=== PATIENT | female | born 1950 | race Caucasian/White ===

== ENCOUNTER → 2016-12-13 | Outpatient (CLI) | payer OTHER ==
[~2016-12-13] MED LIST: ACET-1138 PO; ASPEC81 PO; ATEN100T PO; ATOR-24 PO; CALC500C70 PO; CYAN10005 PO; FEXO1TAB46 PO; FOLI1TAB7 PO; GLIP-197 PO; GLUC10007 PO; LEVO150T PO; LISI5TAB PO; MRLP17 PO; MULT-506 PO; NRN/300 PO; OMEG10007 PO; OXYSR10 PO; PANT1TAB48 PO; RXC5 PO; SENN8.6T7 PO; SOY50CAP PO; TRIATAB3 PO; VITA1CAP PO
--- NOTE | 2016-12-13 15:19 | MAMMOGRAPHY REPORT ---
BILATERAL DIGITAL SCREENING MAMMOGRAM WITH CAD: 12/13/2016 CLINICAL HISTORY: Routine screening. Patient has no complaints. TECHNIQUE: Bilateral CC and MLO views were obtained. Current study was also evaluated with a Compute r Aided Detection (CAD) system. COMPARISON: Comparison is made to exams dated: 12/12/2015 mammogram, 10/28/2014 mammogram, 10/25/2013 ma mmogram, 10/31/2012 mammogram, 10/19/2012 mammogram, and 10/15/2011 mammogram - [facility] er. BREAST COMPOSITION: There are scattered areas of fibroglandular density in both breasts. FINDINGS: There are scattered stable benign-appearing microcalcifications. Benign-appearing 12 mm ma ss in the right upper outer quadrant is unchanged in size and appearance dating back to at least 08/11, therefore likely benign. No new suspicious mass, architectural distortion or cluster of micr ocalcifications is seen. IMPRESSION: ACR BI-RADS CATEGORY 1: NEGATIVE There is no mammographic evidence of malignancy. A 1 year screening mammogram is recommended. The pa tient will receive written notification of the results. Approximately 10% of breast cancers are not detected with mammography. A negative mammographic report should not delay biopsy if a clinically suggestive mass is present. Smiley Rico M.D. ay/:12/13/2016 14:56:33 Lead Caster: Ariadna BANDA(R)(M), [facility] letter sent: Normal 1/2 BI-RADS Code: ACR BI-RADS Category 1: Negative
== END | disposition home or self-care (01) ==
LOC: C.MAMM 13:47
PROVIDERS: ATTEND Family Medicine
DX: Z12.31 Encounter for screening mammogram for malignant neoplasm of breast (principal)

== ENCOUNTER 2018-07-28 05:22 | Inpatient (IN) ==
--- NOTE | 2018-06-28 13:01 | Anesthesiology Consultation ---
Date of Service June 28, 2018 Assessment & Plan (1) Encounter for pre-operative examination: Chart Review Chart Review: Acceptable Risk for Surgery and Patient seen in Pre Admission Testing Consults Requested medical (Dr. Cullen (07/07 @ 7:25)) Patient was seen by her PCP, who stated in his note that "patient does have increased risk related to her multiple medical issues" "However, she has been clinically stable and is tolerating her current medications. Her coronary artery disease is managed with medication and she has no active symptoms." "At this point, no changes are needed in her medical regimen or further studies are needed prior to proposed right total knee arthroplasty". Teaching & Discussion Pre-Anesthesia Teaching/Discussion Notes: Instructed NPO after midnight before surgery, except medications with 15 cc of water. Medication instructions provided according to the PAT guidelines. History Surgery Operation Date: 07/28/18 10:20 Proposed Procedures p Right Total Knee Arthroplasty - Bruce Zuniga DO Height/Weight Height: 5 ft 6.5 in Weight: 94 kg Allergies Allergy/AdvReac Type Severity Reaction Status Date / Time pollen extracts Allergy Unknown HAYFEVER Verified 04/26/16 09:26 metformin AdvReac Intermediate tachycardia Unverified 04/26/16 17:49 Medications Home Medications Medication Instructions Recorded Confirmed Last Taken ascorbic acid (vitamin C) [Vitamin 1 g PO QAM 06/22/18 06/22/18 Unknown C] aspirin [Aspirin Childrens] 81 mg PO QAM 06/22/18 06/22/18 Unknown atenolol 50 mg PO QAM 06/22/18 06/22/18 Unknown calcium carbonate-vitamin D3 1 tab PO BID 06/22/18 06/22/18 Unknown [Calcium 600 + D(3)] cholecalciferol (vitamin D3) 1,000 unit PO QAM 06/22/18 06/22/18 Unknown [Vitamin D3] fexofenadine [Aleisha Allergy] 180 mg PO QAM 06/22/18 06/22/18 Unknown folic acid 1 mg PO QAM 06/22/18 06/22/18 Unknown gabapentin 300 mg PO BID 06/22/18 06/22/18 Unknown gabapentin 600 mg PO BID 06/22/18 06/22/18 Unknown glipizide 5 mg PO BID 06/22/18 06/22/18 Unknown glucosamine sulfate [Glucosamine] 500 mg PO BID 06/22/18 06/22/18 Unknown levothyroxine 137 mcg PO QAM 06/22/18 06/22/18 Unknown lisinopril 5 mg PO QAM 06/22/18 06/22/18 Unknown wsmuhulnazuq-fppxvbko-bhtefk 1 tab PO QAM 06/22/18 06/22/18 Unknown [Multivitamin 50 Plus] omega 2-xwj-lxo-fish oil [Fish Oil] 2 cap PO BID 06/22/18 06/22/18 Unknown pantoprazole 40 mg PO QAM 06/22/18 06/22/18 Unknown soy isoflavone 1 tab PO QPM 06/22/18 06/22/18 Unknown thiamine HCl (vitamin B1) [Vitamin 50 mg PO QAM 06/22/18 06/22/18 Unknown B-1] triamterene-hydrochlorothiazid 1 tab PO QAM 06/22/18 06/22/18 Unknown [Maxzide-25mg] vitamin E 200 unit PO QPM 06/22/18 06/22/18 Unknown Past Medical History Medical History Diabetes mellitus, type 2 Environmental allergies GERD (gastroesophageal reflux disease) Hx of vertigo Hyperlipidemia Hypertension Osteoarthritis Seasonal allergies Past Surgical History Surgical History History of back surgery Had laser back in 03/2018 in [place] History of cardiac cath 2016 - Done prior to surgery d/t Possible heart murmur. Done [facility] History of carpal tunnel surgery of right wrist History of left knee replacement History of surgery right wrist x2 Hx of ankle fusion right Hx of appendectomy Hx of arthroscopic knee surgery left Hx of bilateral cataract extraction Hx of cervical spine surgery Hx of decompression of ulnar nerve right Hx of hand surgery right Hx of tubal ligation Hx of vaginal surgery LEEP? (Due to precancerous cells on cervix) Past Anesthesia History No Hx of Anesthesia Complications (Is slow to wake. ) and No Family Hx of Anesthesia Complications History of PONV No Motion Sickness Screening History of Motion Sickness: Yes (Needs to take Meclizine for car rides. ) Social History Smoking Status: Former smoker Smoking cigarettes per day: Smoked 1-2 ppd x 15 years. Smoking End Date: quit 2001 Hx Alcohol Use: Yes alcohol intake frequency: holidays/special occasions only Hx Substance Use: No Exercise / Class Metabolic Activity III < 4 Walking/Shop/Light housework (Minimal activity due to knee pain. Does not have stairs at home, but is able to climb stairs if necessary. Denies CP or SOB with activity, just joint pain. ) Review of Systems Patient denies chest pain, shortness of breath, dyspnea on exertion, reflux ( controlled by medication), cough (only when she has post nasal drip), wheezing, palpitations. +joint pain (knees, back, hands, etc) Physical Exam Vital Signs BP: 110/56 P: 60 R: 18 T: 97.8 SPO2: 98% on RA ENMT Mouth: + dentures (Upper and Lower) and + edentulous Thyromental Distance: < 3.5 Finger Breadths (3) Mallampati Class: II Neck normal visual inspection and trachea midline; neck extension not limited Respiratory normal respiratory effort Auscultation: lungs clear to auscultation bilaterally Cardiovascular Rate/Rhythm: regular rate and regular rhythm Heart Sounds: + murmur (3/6 murmur) Vessels: no carotid bruit Neurologic moves all extremities Psychiatric Orientation: alert and oriented x 3 Testing Electrocardiogram Date: 02/22/18 Findings: + SB @ (59) and + no change from (03/03/16) Sinus bradycardia with sinus arrhythmia. Nonspecific ST abnormality. Echocardiogram Date: 02/28/18 EF: 54% LV wall thickness is mildly increased (concentric). There is a small sized inferior scar. Moderate aortic valve sclerosis is present without stenosis. Moderate aortic valve regurgitation is present. Compared to the prior study dated 01/26/16, moderate aortic valve regurgitation as present as compared to mild to moderate aortic regurgitation noted in 2016. Cardiac Catheterization Date: 03/09/16 Right dominant coronary anatomy Chronic mid vessel right coronary occlusion with L-R collateral fill, modest visualizing a long thin PDA, two small PV branches faintly but back to point of occlusion Moderate diffuse atherosclerosis with small vessel left coronary vessels, distal vessel thinning LAD Type 3, with 40% smooth proximal narrowing thin apical segment. Two moderate sized mid vessel diagonals Ramus moderate sized, bifurcating CX Modest caliber with single OM two small PL branches Moderate 1-2+ aortic insufficiency No aortic valve gradient on pull back LVEDP normal, 8 Laboratory Results 06/28/18 14:10 06/28/18 14:10 Blood Type O Positive 06/28/18 14:10 Antibody Screen NEGATIVE 06/28/18 14:10 PT 9.7 Seconds (9.0-12.0) 06/28/18 14:10 INR 1.0 (0.9-1.1) 06/28/18 14:10 APTT 27.4 Seconds (21.0-31.0) 06/28/18 14:10 Hemoglobin A1c 7.2 % (4.5-5.6) H 06/28/18 14:10 Urine Color Yellow 06/28/18 Unknown Urine Appearance Clear (Clear) 06/28/18 Unknown Urine pH 7.0 (4.5-7.5) 06/28/18 Unknown Ur Specific [place] 1.017 (1.000-1.030) 06/28/18 Unknown Urine Protein Trace (Negative) H 06/28/18 Unknown Urine Glucose (UA) Negative (Negative) 06/28/18 Unknown Urine Ketones Negative (Negative) 06/28/18 Unknown Urine Nitrite Negative (Negative) 06/28/18 Unknown Ur Leukocyte Esterase Negative (Negative) 06/28/18 Unknown Urine WBC (Auto) 1-5 /hpf (0-5) 06/28/18 Unknown Urine RBC (Auto) 0-4 /hpf (0-4) 06/28/18 Unknown U Hyaline Cast (Auto) 0 /lpf (0-5) 06/28/18 Unknown U Epithel Cells (Auto) >30 /lpf (0-5) H 06/28/18 Unknown Urine Bacteria (Auto) Negative (Negative) 06/28/18 Unknown
--- NOTE | 2018-06-28 13:10 | PAT Medication Instructions ---
Medication Instructions Date of Service June 28, 2018 Home Medications ascorbic acid (vitamin C) 1 g PO QAM aspirin [Aspirin Children's] 81 mg PO QAM atenolol 50 mg PO QAM calcium carbonate-vitamin D3 1 tab PO BID cholecalciferol (vitamin D3) 1,000 unit PO QAM fexofenadine [Aleisha Allergy] 180 mg PO QAM folic acid 1 mg PO QAM gabapentin 300 mg PO BID gabapentin 600 mg PO BID glipizide 5 mg PO BID glucosamine sulfate [Glucosamine] 500 mg PO BID levothyroxine 137 mcg PO QAM lisinopril 5 mg PO QAM kykuirjynmze-vfiehium-qyhuty 1 tab PO QAM omega 2-rah-cnr-fish oil [Fish Oil] 2 cap PO BID pantoprazole 40 mg PO QAM soy isoflavone 1 tab PO QPM thiamine HCl (vitamin B1) 50 mg PO QAM triamterene-hydrochlorothiazide [Maxzide-25mg] 1 tab PO QAM vitamin E 200 unit PO QPM ASK your prescriber and surgeon aspirin [Aspirin Children's] 81 mg PO QAM STOP taking 2 weeks before surgery glucosamine sulfate [Glucosamine] 500 mg PO BID omega 6-dcm-cvd-fish oil [Fish Oil] 2 cap PO BID soy isoflavone 1 tab PO QPM vitamin E 200 unit PO QPM DO NOT take the morning of surgery ascorbic acid (vitamin C) 1 g PO QAM calcium carbonate-vitamin D3 1 tab PO BID cholecalciferol (vitamin D3) 1,000 unit PO QAM fexofenadine [Aleisha Allergy] 180 mg PO QAM folic acid 1 mg PO QAM glipizide 5 mg PO BID lisinopril 5 mg PO QAM ffgcskmecarb-qiocdxnh-bpmurm 1 tab PO QAM thiamine HCl (vitamin B1) 50 mg PO QAM triamterene-hydrochlorothiazide [Maxzide-25mg] 1 tab PO QAM Take morning of surgery With a small sip of water, OTHERWISE NOTHING TO EAT OR DRINK AFTER MIDNIGHT: atenolol 50 mg PO QAM gabapentin 300 mg PO BID gabapentin 600 mg PO BID levothyroxine 137 mcg PO QAM pantoprazole 40 mg PO QAM Take evening before surgery calcium carbonate-vitamin D3 1 tab PO BID gabapentin 300 mg PO BID gabapentin 600 mg PO BID glipizide 5 mg PO BID Other Notes If you have any questions please call us at [phone] or [phone] or [phone] or [phone]
--- NOTE | 2018-06-28 14:35 | XRay Report ---
XR chest Pre-admission PA/Lat CLINICAL HISTORY: pat preoperative COMPARISON STUDY: No previous studies for comparison. FINDINGS: The bones soft tissues and hemidiaphragms are normal. The cardiomediastinal silhouette is n ormal. The lungs are clear. The pulmonary vasculature is normal. IMPRESSION: Negative chest. The above report was generated using voice recognition software. It may contain grammatical, syntax or spelling errors. Electronically signed by: Ger Clifton M.D. 06/28/2018 2:34 PM
[2018-06-28 14:44] LABS: Basophils # (auto) 0.02 K/uL (0-0.2); Basophils % (auto) 0.2 %; Eosinophils # (auto) 0.09 K/uL (0-0.5); Eosinophils % (auto) 1.1 %; Hematocrit (blood only) 41.9 % (37-47); Hemoglobin 13.8 g/dL (12.0-16.0); Immature Granulocytes # (auto) 0.01 K/uL (0.00-0.02); Immature Granulocytes % (auto) 0.1 %; Lymphocytes # (auto) 1.42 K/uL (1.2-3.4); Lymphocytes % (auto) 17.7 %; Mean Corpuscular Hgb Conc 32.9 g/dL (32-36); Mean Corpuscular Volume 93.3 fL (80-100); Mean Platelet Volume 10.2 fL (7.4-10.4); Monocytes # (auto) 0.47 K/uL (0.11-0.59); Monocytes % (auto) 5.9 %; Neutrophils # (auto) 6.01 K/uL (1.4-6.5); Platelet Count 229 K/uL (130-400); RDW Coefficient of Variation 13.4 % (11.5-14.5); RDW Standard Deviation 45.8 fL (36.4-46.3); Red Blood Count 4.49 M/uL (4.2-5.4); White Blood Count 8.02 K/uL (4.8-10.8)
[2018-06-28 14:46] LABS: Appearance Urine Clear (Clear); Bacteria Urine Automated Negative (Negative); Bilirubin Urine Negative (Negative); Cast Urine Automated 0 /lpf (0-5); Color Urine Yellow; Epithelial Cell Urine Auto >30 /lpf (0-5); Glucose Urine UA Negative (Negative); Ketones Urine Negative (Negative); Leukocyte Esterase Urine Negative (Negative); Nitrite Urine Negative (Negative); Protein Urine Trace (Negative); Specific Gravity Urine 1.017 (1.000-1.030); Urobilinogen Urine Negative (Negative)
[2018-06-28 14:54] LABS: Partial Thromboplastin Ratio 1.1; Partial Thromboplastin Time 27.4 Seconds (21.0-31.0); Prothrombin Time 9.7 Seconds (9.0-12.0)
[2018-06-28 14:58] LABS: Albumin Level 3.5 gm/dl (3.4-5.0); Calcium 9.2 mg/dl (8.5-10.1); Creatinine Clr Calc Pharmacy 44.2 ml/min; Est GFR (Non-African American) 37.1; Potassium 4.6 mmol/L (3.5-5.1)
[2018-06-29 06:25] LABS: Estimated Average Glucose 160 mg/dl
--- NOTE | 2018-07-27 12:50 | History & Physical Report ---
Date of Service July 27, 2018 Assessment & Plan (1) Osteoarthritis of right knee: Schedule right TKA for 07.28.18. All potential risks, benefits, complications, alternatives, and rehab have been discussed with the patient and she wishes to proceed. Possible home with home health upon d/c. ASA 81 mg BID x 4 wks for DVT prophylaxis post op. History of Present Illness Chief Complaint: right knee pain Primary Care Provider: Ger Holly This is a patient with a long hx of right knee pain. She had been treated conservatively for right knee osteoarthritis however has failed all conservative management. She is now being set up for right TKA. Allergies Allergy/AdvReac Type Severity Reaction Status Date / Time pollen extracts Allergy Unknown HAYFEVER Verified 04/26/16 09:26 metformin AdvReac Intermediate tachycardia Unverified 04/26/16 17:49 Home Medications Home Medications Medication Instructions Recorded Confirmed Type ascorbic acid (vitamin C) [Vitamin 1 g PO QAM 06/22/18 06/22/18 History C] aspirin [Aspirin Childrens] 81 mg PO QAM 06/22/18 06/22/18 History atenolol 50 mg PO QAM 06/22/18 06/22/18 History calcium carbonate-vitamin D3 1 tab PO BID 06/22/18 06/22/18 History [Calcium 600 + D(3)] cholecalciferol (vitamin D3) 1,000 unit PO QAM 06/22/18 06/22/18 History [Vitamin D3] fexofenadine [Aleisha Allergy] 180 mg PO QAM 06/22/18 06/22/18 History folic acid 1 mg PO QAM 06/22/18 06/22/18 History gabapentin 300 mg PO BID 06/22/18 06/22/18 History gabapentin 600 mg PO BID 06/22/18 06/22/18 History glipizide 5 mg PO BID 06/22/18 06/22/18 History glucosamine sulfate [Glucosamine] 500 mg PO BID 06/22/18 06/22/18 History levothyroxine 137 mcg PO QAM 06/22/18 06/22/18 History lisinopril 5 mg PO QAM 06/22/18 06/22/18 History kgfryzyrlcrh-qivvvcfk-wlhafw 1 tab PO QAM 06/22/18 06/22/18 History [Multivitamin 50 Plus] omega 1-spu-ple-fish oil [Fish Oil] 2 cap PO BID 06/22/18 06/22/18 History pantoprazole 40 mg PO QAM 06/22/18 06/22/18 History soy isoflavone 1 tab PO QPM 06/22/18 06/22/18 History thiamine HCl (vitamin B1) [Vitamin 50 mg PO QAM 06/22/18 06/22/18 History B-1] triamterene-hydrochlorothiazid 1 tab PO QAM 06/22/18 06/22/18 History [Maxzide-25mg] vitamin E 200 unit PO QPM 06/22/18 06/22/18 History Past Med/Surg History Medical History Diabetes mellitus, type 2 Environmental allergies GERD (gastroesophageal reflux disease) Hx of vertigo Hyperlipidemia Hypertension Osteoarthritis Seasonal allergies Surgical History History of back surgery Had laser back in 03/2018 in [place] History of cardiac cath 2015 - Done prior to surgery d/t Possible heart murmur. Done [facility] History of carpal tunnel surgery of right wrist History of left knee replacement History of surgery right wrist x2 Hx of ankle fusion right Hx of appendectomy Hx of arthroscopic knee surgery left Hx of bilateral cataract extraction Hx of cervical spine surgery Hx of decompression of ulnar nerve right Hx of hand surgery right Hx of tubal ligation Hx of vaginal surgery LEEP? (Due to precancerous cells on cervix) Social History Current Living Situation: Spouse Other Information That Helps Us Care for You: No Feels Safe at Home: Yes Safety Concerns: Feels Safe At This Time Smoking Status: Former smoker Cigarettes per Day: Smoked 1-2 ppd x 15 years. Smoking End Date: quit 2001 Hx Alcohol Use: Yes Alcohol Intake Frequency: holidays/special occasions only Hx Substance Use: No Beliefs That Will Affect Care: None Preferred Language: Croatian Communication Ability: Effective Physical Exam 2 Constitutional: well developed and well nourished ENMT: external ear and nose normal, oropharynx normal Neck: trachea midline, no thyromegaly Respiratory: normal respiratory effort, lungs clear to auscultation Cardiovascular: Rate/Rhythm: regular rate and regular rhythm Heart Sounds: normal S1 and normal S2 Gastrointestinal (Abdomen): normal bowel sounds, soft, nontender, no hepatosplenomegaly Musculoskeletal: Knee: + effusion (mild right knee), + knee ROM with crepitation, + joint line tenderness (medial and lateral joint lines) and + Sabrina's sign positive; no skin erythema, no ecchymosis, no valgus alignment and no varus alignment Skin: no rashes, warm and dry Neurologic: patellar DTR's 2+ bilat, sensation intact Psychiatric: A+Ox3, euthymic affect Lymphatic: no cervical or axillary lymphadenopathy
[2018-07-28] MEDS ORDERED: FAMOTIDINE 20 MG TAB PO SCH (06:00)
[2018-07-28] MEDS ORDERED: SODIUM CHLORIDE 0.9% 1000ML 500 ML IV SCH (06:00)
[2018-07-28] MEDS ORDERED: CEFAZOLIN 2000MG 2,000 MG/15 ML SYR IV SCH (06:00)
[2018-07-28] MEDS ORDERED: dexAMETHasone 4 MG TAB PO SCH (06:00)
[2018-07-28] MEDS ORDERED: TRANEXAMIC ACID 1,000 MG **IV Pre-op IV SCH (06:00)
[2018-07-28] MEDS ORDERED: CeleBREX 200 MG CAP PO SCH (06:00)
[2018-07-28] MEDS ORDERED: SODIUM CHLORIDE 0.9% 1,000 ML IV SCH (06:00)
[2018-07-28] MEDS ORDERED: GABAPENTIN 300 MG PO SCH (06:00)
[2018-07-28] MEDS ORDERED: ROPIVACAINE 0.5% HCL/PF 150 MG, BUPIVACAINE 0.5% MPF 30 ML, EPINEPHrine 30MG/30ML (OR U... INFIL SCH (06:00)
[2018-07-28] MEDS ORDERED: ACETAMINOPHEN 500 MG TAB PO SCH (06:00)
[2018-07-28] MEDS ORDERED: ROPIVACAINE 0.5% 5 MG/ML 30 ML VIAL ONE (06:13)
[2018-07-28] MEDS ORDERED: BUPIVACAINE 0.5 % 5 MG/1 ML PF 10ML VIAL ONE (06:13)
[2018-07-28] MEDS ORDERED: TRANEXAMIC ACID 1,000 MG **IV Intra-op IV SCH (06:30)
[2018-07-28] MEDS ORDERED: MIDAZOLAM HCL 1 MG/ML 2ML VIAL ONE (06:35)
[2018-07-28] MEDS ORDERED: fentaNYL citrate 100 MCG/2 ML VIAL ONE (06:35)
[2018-07-28] MEDS ORDERED: PROPOFOL IV EMULSION 10 MG/ML 20 ML VIAL IV ONE (06:44)
[2018-07-28] MEDS ORDERED: LIDOCAINE HCL 2% 2 ML VIAL/AMP(20MG/ML) INFIL ONE (06:44)
[2018-07-28] MEDS ORDERED: HYDROmorphone INJ 1 MG/ML SYRINGE IV PRN (06:55)
[2018-07-28] MEDS ORDERED: ONDANSETRON INJ 2 MG/ML 2 ML VIAL IV PRN ×2 (06:55→07:58)
[2018-07-28] MEDS ORDERED: PHENYLEPHRINE 100MCG/ML 5ML SYR IV PRN (06:55)
[2018-07-28] MEDS ORDERED: ePHEDrine sulfate 50 MG/ML AMP IV PRN (06:55)
[2018-07-28] MEDS ORDERED: ATROPINE SULFATE 0.1 MG/ML 10ML SYR IV PRN (06:55)
[2018-07-28] MEDS ORDERED: POVIDONE-IODINE OP SOLN 30 ML BTL ONE (06:58)
[2018-07-28] MEDS ORDERED: BACITRACIN INJ 50,000 UNIT VIAL ONE (06:58)
[2018-07-28] MEDS ORDERED: ORTHO JOINT ANESTHETIC ONE (06:58)
--- NOTE | 2018-07-28 07:34 | History & Physical Bridge Note ---
Date of Service July 28, 2018 History & Physical Bridge Note I have examined the patient, reviewed the History & Physical and in the interval since the performance of the History & Physical I have noted the following changes of clinical significance: no changes noted
[2018-07-28] MEDS ORDERED: NALOXONE HCL 0.4 MG/1 ML VIAL/CARP IV PRN (07:58)
[2018-07-28] MEDS ORDERED: ALUMINUM/MAGNESIUM SUSP 30 ML UDC PO PRN (07:58)
[2018-07-28] MEDS ORDERED: MAGNESIUM HYDROXIDE SUSP 30 ML UDC PO PRN (07:58)
[2018-07-28] MEDS ORDERED: METOCLOPRAMIDE HCL INJ 5 MG/ML 2 ML VIAL IV PRN (07:58)
[2018-07-28] MEDS ORDERED: BISACODYL 10 MG SUPP PR PRN (07:58)
[2018-07-28] MEDS ORDERED: ePHEDrine sulfate 50 MG/ML SYR ONE (08:04)
[2018-07-28] MEDS ORDERED: ONDANSETRON INJ 2 MG/ML 2 ML VIAL ONE (08:22)
--- NOTE | 2018-07-28 09:48 | Post Operative Brief Note ---
Immediate Post Op Note v1 Date of Surgery July 28, 2018 Pre & Post Diagnosis Operation Date: 07/28/18 07:30 Pre-Op Diagnosis: RIGHT KNEE OSTEOARTHRITIS, Degenerative joint disease right knee Post-Op Diagnosis: RIGHT KNEE OSTEOARTHRITIS, Degenerative joint disease right knee Procedure Operation Date: 07/28/18 07:30 Actual Procedures p Right Total Knee Arthroplasty(Right) - Bruce Zuniga DO Surgeon Bruce Zuniga DO [employer] David Agarwal PA-C Estimated Blood Loss 5 Findings Consistent with Post-Op Diagnosis Specimens Bone and tissue right knee Drains Hemovac Drain (10 fr dual) Anesthesia Type Spinal MAC Complications none Disposition Accompanied Patient To Recovery: No Disposition: Recovery Room
[2018-07-28] MEDS ORDERED: MoRPHine SULFATE 4 MG/ML 1 ML CARP\\VIAL IV PRN (10:07)
--- NOTE | 2018-07-28 11:02 | XRay Report ---
TWO VIEWS RIGHT KNEE CLINICAL HISTORY: Postoperative examination. FINDINGS: AP and crosstable lateral portable views of the right knee are obtained. A right knee arthr oplasty is in near anatomic alignment. There has been undersurface remodeling of the patella. No acut e fracture is seen. There are expected postoperative changes around the knee including skin clips, a surgical drain, soft tissue edema, and subcutaneous gas. There is atherosclerotic calcification of th e popliteal artery. IMPRESSION: Expected postoperative changes status post right knee arthroplasty. No acute fracture is seen. Electronically signed by: Nile Schwartz M.D. 07/28/2018 11:00 AM
--- NOTE | 2018-07-28 11:11 | Anesthesiology Progress Note ---
Date of Service July 28, 2018 Anesthesia Post Procedure Vital Signs Vital Signs: Temp Pulse Pulse Resp BP Pulse Ox 07/28/18 10:55 49 L 16 129/73 96 07/28/18 10:45 48 L 14 137/67 96 07/28/18 10:35 51 L 17 148/65 H 96 07/28/18 10:25 49 L 16 131/72 100 07/28/18 10:15 59 L 18 140/70 100 07/28/18 10:07 36.4 C L 53 L 16 131/64 100 07/28/18 06:20 37 C 61 20 150/85 H 96 Pain Intensity Right Knee: Pain Intensity: 0 Notes Mental Status: alert / awake / arousable Patient Amnestic to Procedure: Yes Nausea / Vomiting: adequately controlled Pain: adequately controlled Airway Patency, RR, SpO2: stable & adequate BP & HR: stable & adequate Hydration State: stable & adequate Anesthetic Complications: no major complications apparent
[2018-07-28] MEDS ORDERED: glipiZIDE 5 MG TAB PO SCH (11:28)
[2018-07-28] MEDS: LISINOPRIL 5 MG TAB PO SCH (13:54)
[2018-07-28] MEDS: GLUCOSAMINE SULFATE 500 MG CAP PO SCH ×2 (13:56→21:56)
[2018-07-28] MEDS: OMEGA-3 (PURIFIED FISH OIL) 1 GM CAP PO SCH ×2 (13:56→21:58)
[2018-07-28] MEDS: THIAMINE HCL 50 MG TABLET PO SCH (13:57)
[2018-07-28] MEDS: FEXOFENADINE HCL 180 MG TAB PO SCH (13:57)
[2018-07-28] MEDS: TRIAMTERENE/HCTZ 37.5/25MG TAB PO SCH (13:57)
[2018-07-28] MEDS: KETOROLAC TROMETHAMINE 15 MG/ML VIAL IV SCH ×2 (13:58→19:45)
[2018-07-28] MEDS: CEROVITE ADV FORMULA TAB PO SCH (14:03)
[2018-07-28] MEDS: MULTIVITAMIN TAB PO SCH (14:04)
[2018-07-28] MEDS: DOCUSATE SODIUM 100 MG CAP PO SCH ×2 (14:05→21:55)
[2018-07-28] MEDS: FOLIC ACID 1 MG TAB PO SCH (14:16)
[2018-07-28] MEDS: CALCIUM 600MG + VIT D 400 IU TAB PO SCH ×2 (14:16→21:54)
[2018-07-28] MEDS: CHOLECALCIFEROL 1,000 UNITS TAB PO SCH (14:17)
[2018-07-28] MEDS: ACETAMINOPHEN 500 MG TAB PO SCH ×2 (14:17→21:59)
[2018-07-28] MEDS ORDERED: PHARMACY GLYCEMIC MGMT CONSULT PRN (14:42)
[2018-07-28] MEDS ORDERED: INSULIN GLARGINE SOLOSTAR 100 UNITS/ML 3 ML PEN SC ONE (15:00)
--- NOTE | 2018-07-28 15:01 | Pharmacy Report ---
Glycemic Control Consultation - Date of Service July 28, 2018 - Scope Scope: Glycemic Pharmacist consulted for glycemic control and to write orders per [facility] inpatient glycemic control protocol - Objective Weight: 94.6 kg Accuchecks BSG (last 24hrs): 07/28/18 07/28/18 07/28/18 06:16 10:12 12:16 POC Glucose 148 H 163 H 218 H HbA1c: Hemoglobin A1c 7.2 % (4.5-5.6) H 06/28/18 14:10 - Recent Pertinent Medications Outpatient Anti-diabetic Regimen: * Glipizide 5mg PO BIDM Risk Factors for Insulin Resistance: * Steroids: DXM 8mg PO preop * Recent Surgery * Diet - Assessment & Plan Assessment & Plan: ASSESSMENT: * 67yo T2DM female with adequate outpatient control per recent A1c * Patient with elevated BSGs post-op secondary to pre-op PO dexamethasone * Pt is maintained on oral antidiabetic agents as an outpatient * Oral agents are not recommended for inpatient use d/t drug interactions, changing PO intake, and difficulty titrating for acute hyper/hypoglycemia. ADA recommends re-initiating outpatient oral agents 1-2 days prior to discharge if/ when appropriate if they were held on admission. * Will hold oral agents for admission and utilize SQ basal bolus insulin regimen which is the recommended regimen for inpatient glycemic control. * Will initiate weight based insulin dosing for insulin na�ve patient and titrate based on BSG trends. PLAN FOR INPATIENT GLYCEMIC CONTROL: * Holding outpatient oral diabetes medications * Basal insulin * Lantus 25 units (0.26 units/kg) SQ x 1 dose NOW, then, * Lantus 0-10 units SQ BID if BSG above 140mg/dl * Bolus insulin * NovoLog per scale ACHS or Q6hrs while NPO. Additionally, will check BSGs at 0000 & 0400 for the first 24hrs post-op * Goal Range: Low 110 mg/dL - High 140 mg/dL * Correction Factor: 20 mg/dL/unit * Nutritional / Prandial insulin per carb ratio of 1 unit per 7 grams CHO consumed * Please note that the plan above was derived based on current level of insulin resistance and hospital stress. These recommendations are appropriate for inpatient admission only. Plan of care upon discharge will need to be reassessed to avoid potential outpatient hypo/hyperglycemia. Thank you.
[2018-07-28] MEDS ORDERED: TRANEXAMIC ACID 1,000 MG in 0.9 % SODIUM CHLORIDE 100 ML IV SCH (16:00)
[2018-07-28] MEDS: GABAPENTIN 600 MG TAB PO SCH ×2 (16:04→16:06)
[2018-07-28] MEDS: OXYCODONE HCL IR 5 MG TAB (IMMEDIATE RELEASE) PO PRN ×2 (16:41→22:12)
[2018-07-28] MEDS: CEFAZOLIN 2000MG 2,000 MG/15 ML SYR IV SCH (16:44)
[2018-07-28] MEDS: SODIUM CHLORIDE 0.9% 1000ML 1,000 ML IV SCH ×2 (17:36→19:51)
[2018-07-28] MEDS: INSULIN ASPART 100 UNITS/ML 3 ML PEN SC SCH ×2 (19:43→22:03)
[2018-07-28] MEDS ORDERED: SENNA 8.6 MG TAB PO SCH (21:00)
[2018-07-28] MEDS ORDERED: SOY ISOFLAVONE PO SCH (21:00)
[2018-07-28] MEDS ORDERED: TOCOPHERYL, DL-ALPHA 100 UNITS CAP PO SCH (21:00)
--- NOTE | 2018-07-28 21:39 | Operative Report ---
DATE OF OPERATION: 07/28/2018 PREOPERATIVE DIAGNOSIS: Right knee degenerative joint disease. POSTOPERATIVE DIAGNOSIS: Same. PROCEDURE: Right total knee arthroplasty using a [employer] II with MRI matched blocks, size 5 femur, size 3 tibia, polyethylene 12 mm posterior stabilized, and a 32 mm patella. SURGEON: Bruce Zuniga DO [employer]MENT [employer] TECH: David Agarwal PA-C, who was present for patient positioning, sterile prep and drape, management of retractors and instruments. He was present through the critical portions of the case including wound closure, application of sterile dressing and transport of the patient to recovery. ANESTHESIA: Spinal with sedation, adductor canal block and intra-articular local. SPECIMENS: Bone and tissue from the right knee. DRAINS: Hemovac x2. COMPLICATIONS: None. BLOOD LOSS: 5 mL. PERTINENT HISTORY: This is a 67-year-old woman who had progressive chronic and worsening right degenerative joint disease of the right knee. She attempted and failed conservative management including physical therapy, physician-directed home exercises, oral anti-inflammatories, topical anti-inflammatories, steroid injections, hyaluronic acid injections, use of bracing, use of an assistive device. Radiographs demonstrate bony wear with complete loss of joint space medially, marginal osteophytes, subchondral sclerosis, and subchondral cysts. The patient is scheduled for surgery as indicated. All potential risks, benefits, complications, alternatives, rehab, potential for incomplete relief of symptoms, need for further surgery, DVT, PE, , persistent pain, swelling, scarring, weakness, neurovascular injury, wound complications, hardware failure, and leg length discrepancy were discussed with the patient. The patient decided to proceed with the procedure as indicated. DESCRIPTION OF PROCEDURE: The patient was taken to the Operative Suite and placed supine on the operating table after spinal epidural was initiated. Next, tourniquet was placed high on the right thigh over cast padding and the patient was sedated. The right lower extremity was then sterilely prepped and draped in the usual fashion. It was elevated and exsanguinated with an Esmarch bandage and tourniquet inflated to 325 mmHg. Next, a 10-blade scalpel incision was made along the anterior midline of the right knee with incision deep through the subcutaneous tissue. Meticulous hemostasis was utilized with electrocautery. Full thickness skin flaps were developed both medially and laterally and 10-blade scalpel was used to make a median parapatellar incision in the extensor. The patella was everted and soft tissue releases were performed. The Mays elevator was placed from the posterior aspect of the capsule releasing any contracture. Next, the patella was everted and resurfaced using sagittal saw and orthogonal cuts. After caliper measured 23 mm, residual patella was approximately 13 mm and 32 mm button trial was placed and then drilled. Next, the appropriate retractors were placed and the femoral patient matched cutting block was pinned to the distal aspect of the femur. The distal femoral cut was made and pinned with pins and the distal femoral cutting guide was removed. The size #5, 4-in-1 cutting block was then pinned in place and anterior, posterior, anterior chamfer, and posterior chamfer cuts were made. Block and bone fragments were then removed followed by exposure of the proximal tibia. A dull Hohmann was used to place just posterior to the tibia to protract it. Medial and lateral sharp Hohmann's were placed to protect the soft tissue and the tibial cutting block was then pinned in place. Tibial alignment abdi was utilized to confirm alignment and the proximal tibia was then cut made with sagittal saw. Fragment was removed. The size 3 tibial trial was pinned in place and circumferential proximal release was performed with electrocautery around the proximal tibia. Next, the femoral trial was placed within appropriate medial and lateral alignment and then the cutting block was then put into place. It was reamed and box cut was performed. Excess debris was removed from the femoral notch. The insert was placed into the distal aspect of the femur. Trial poly Size 12 mm was placed in the proximal tibia. The knee was reduced. Trial poly Size 32 mm was placed in the patella. The knee was reduced. Excellent alignment and range of motion was achieved with correction of the genu varum and flexion contracture was achieved. Next, all components were removed. The Orthomix was injected into the posterior capsule and anterior aspect of the capsule. Next, the wound was lavaged with pulsatile lavage and all surfaces were suctioned and dried. Palacos-G cement was placed in the distal femur, proximal tibia, patella, and then a small amount was placed in the canal of the tibia. All implants were impacted into place in a stable fashion. Excess cement was removed from the joint. The patellar button was cemented and clamped in place. Sterile betadine soak was performed for 3 minutes and then all excess betadine was lavaged. After sufficient drying time elapsed a 10-Hebrew double lumen Hemovac drain was placed in the anterolateral aspect of the knee. The joint capsule incision was closed using interrupted #1 Vicryl. The dermis was closed using buried interrupted 2-0 Vicryl. The skin was closed with skin mayco. Sterile compressive dressing from the toes to the groin was applied. The tourniquet was released. The patient was awakened and taken to the Recovery Room in stable condition. I attest to the content of the Intraoperative Record and any orders documented therein. Any exceptions are noted below. MTDD
[2018-07-28] MEDS: ASPIRIN 81 MG ECTAB PO SCH (21:56)
[2018-07-28] MEDS: GABAPENTIN 300 MG CAP PO SCH (21:57)
[2018-07-29] MEDS: KETOROLAC TROMETHAMINE 15 MG/ML VIAL IV SCH ×2 (00:08→05:11)
[2018-07-29] MEDS: CEFAZOLIN 2000MG 2,000 MG/15 ML SYR IV SCH (00:09)
[2018-07-29] MEDS: INSULIN ASPART 100 UNITS/ML 3 ML PEN SC SCH ×4 (00:16→13:42)
[2018-07-29] MEDS: OXYCODONE HCL IR 5 MG TAB (IMMEDIATE RELEASE) PO PRN ×2 (01:59→09:11)
[2018-07-29] MEDS ORDERED: Nursing to Pharmacy Communication ONE (04:39)
[2018-07-29] MEDS: SODIUM CHLORIDE 0.9% 1000ML 1,000 ML IV SCH (04:59)
[2018-07-29] MEDS: ACETAMINOPHEN 500 MG TAB PO SCH ×2 (05:10→13:41)
[2018-07-29 06:14] LABS: Hematocrit (blood only) 34.2 % (37-47); Hemoglobin 11.3 g/dL (12.0-16.0); Mean Corpuscular Volume 92.4 fL (80-100); Mean Platelet Volume 10.4 fL (7.4-10.4); Platelet Count 226 K/uL (130-400); RDW Coefficient of Variation 13.3 % (11.5-14.5); White Blood Count 16.32 K/uL (4.8-10.8)
[2018-07-29] MEDS ORDERED: LEVOTHYROXINE SODIUM 150 MCG TABLET PO SCH (06:30)
[2018-07-29 06:41] LABS: Calcium 7.8 mg/dl (8.5-10.1); Est GFR (African American) 30.1; Potassium 5.1 mmol/L (3.5-5.1)
--- NOTE | 2018-07-29 07:51 | Orthopedic Progress Note ---
Date of Service July 29, 2018 Assessment & Plan (1) Status post right knee replacement: 67 yo female stable POD #1 s/p right TKA 1. Med management 2. DVT prophylaxis- ASA, SCDs 3. PT/OT 4. D/C planning- home w/ OPPT Subjective Pt resting in bed, pain controlled, denies complaints Physical Exam 2 Vital Signs (Past 24 Hours): Last Vital Signs Temp 36.4 C L 07/29/18 03:58 Pulse 53 L 07/29/18 03:58 Resp 16 07/29/18 03:58 BP 113/62 07/29/18 03:58 Pulse Ox 95 07/29/18 03:58 Physical Exam: Toes mobile, N/V/I, dressing and drain in place Results & Data Laboratory Results 07/29/18 07/29/18 07/29/18 Range/Units 05:14 05:14 03:55 WBC 16.32 H (4.8-10.8) K/uL RBC 3.70 L (4.2-5.4) M/uL Hgb 11.3 L (12.0-16.0) g/dL Hct 34.2 L (37-47) % MCV 92.4 (80-100) fL MCH 30.5 (25-34) pg MCHC 33.0 (32-36) g/dL RDW Std Deviation 45.0 (36.4-46.3) fL RDW Coeff of Erwin 13.3 (11.5-14.5) % Plt Count 226 (130-400) K/uL MPV 10.4 (7.4-10.4) fL Sodium 137 (136-145) mmol/L Potassium 5.1 (3.5-5.1) mmol/L Chloride 108 H (98-107) mmol/L Carbon Dioxide 22 (21-32) mmol/L Anion Gap 7.0 (3-11) BUN 35 H (7-18) mg/dl Creatinine 1.96 H (0.6-1.2) mg/dl Est Cr Clr Drug Dosing 33.0 ml/min Est GFR ( Amer) 30.1 Est GFR (Non-Af Amer) 26.0 BUN/Creatinine Ratio 18.0 (10-20) Glucose 117 H (70-99) mg/dl POC Glucose 110 H (70-99) Calcium 7.8 L (8.5-10.1) mg/dl 07/29/18 07/28/18 07/28/18 Range/Units 00:13 20:53 17:42 WBC (4.8-10.8) K/uL RBC (4.2-5.4) M/uL Hgb (12.0-16.0) g/dL Hct (37-47) % MCV (80-100) fL MCH (25-34) pg MCHC (32-36) g/dL RDW Std Deviation (36.4-46.3) fL RDW Coeff of Erwin (11.5-14.5) % Plt Count (130-400) K/uL MPV (7.4-10.4) fL Sodium (136-145) mmol/L Potassium (3.5-5.1) mmol/L Chloride (98-107) mmol/L Carbon Dioxide (21-32) mmol/L Anion Gap (3-11) BUN (7-18) mg/dl Creatinine (0.6-1.2) mg/dl Est Cr Clr Drug Dosing ml/min Est GFR ( Amer) Est GFR (Non-Af Amer) BUN/Creatinine Ratio (10-20) Glucose (70-99) mg/dl POC Glucose 118 H 182 H 241 H (70-99) Calcium (8.5-10.1) mg/dl 07/28/18 07/28/18 Range/Units 12:16 10:12 WBC (4.8-10.8) K/uL RBC (4.2-5.4) M/uL Hgb (12.0-16.0) g/dL Hct (37-47) % MCV (80-100) fL MCH (25-34) pg MCHC (32-36) g/dL RDW Std Deviation (36.4-46.3) fL RDW Coeff of Erwin (11.5-14.5) % Plt Count (130-400) K/uL MPV (7.4-10.4) fL Sodium (136-145) mmol/L Potassium (3.5-5.1) mmol/L Chloride (98-107) mmol/L Carbon Dioxide (21-32) mmol/L Anion Gap (3-11) BUN (7-18) mg/dl Creatinine (0.6-1.2) mg/dl Est Cr Clr Drug Dosing ml/min Est GFR ( Amer) Est GFR (Non-Af Amer) BUN/Creatinine Ratio (10-20) Glucose (70-99) mg/dl POC Glucose 218 H 163 H (70-99) Calcium (8.5-10.1) mg/dl
--- NOTE | 2018-07-29 08:36 | Anesthesiology Progress Note ---
Date of Service July 29, 2018 Anesthesia Post Procedure Vital Signs Vital Signs: Temp Pulse Pulse Resp BP Pulse Ox 07/29/18 08:00 36.8 C 26 L 16 167/72 H 94 07/29/18 03:58 36.4 C L 53 L 16 113/62 95 07/28/18 22:55 36.3 C L 51 L 16 117/65 96 07/28/18 19:29 36.6 C 48 L 16 135/79 96 07/28/18 15:34 36.7 C 07/28/18 14:54 64 16 172/82 H 97 07/28/18 13:25 53 L 15 161/77 H 100 07/28/18 12:25 36.4 C L 57 L 16 158/71 H 100 07/28/18 11:56 51 L 16 141/71 H 98 07/28/18 11:25 36.6 C 60 18 139/72 99 07/28/18 11:05 36.6 C 53 L 16 143/76 H 96 07/28/18 10:55 49 L 16 129/73 96 07/28/18 10:45 48 L 14 137/67 96 07/28/18 10:35 51 L 17 148/65 H 96 07/28/18 10:25 49 L 16 131/72 100 07/28/18 10:15 59 L 18 140/70 100 07/28/18 10:07 36.4 C L 53 L 16 131/64 100 Pain Intensity Right Knee: Pain Intensity: 0 Notes Mental Status: alert / awake / arousable Patient Amnestic to Procedure: Yes Nausea / Vomiting: adequately controlled Pain: adequately controlled Airway Patency, RR, SpO2: stable & adequate BP & HR: stable & adequate Hydration State: stable & adequate Anesthetic Complications: no major complications apparent and Pt Satisfied with anesthetic care
[2018-07-29] MEDS: CEROVITE ADV FORMULA TAB PO SCH (08:56)
[2018-07-29] MEDS: MULTIVITAMIN TAB PO SCH (08:56)
[2018-07-29] MEDS: THIAMINE HCL 50 MG TABLET PO SCH (08:57)
[2018-07-29] MEDS: OMEGA-3 (PURIFIED FISH OIL) 1 GM CAP PO SCH (08:57)
[2018-07-29] MEDS: CALCIUM 600MG + VIT D 400 IU TAB PO SCH (08:59)
[2018-07-29] MEDS ORDERED: ATENOLOL 50 MG TABLET PO SCH (09:00)
[2018-07-29] MEDS ORDERED: INSULIN GLARGINE SOLOSTAR 100 UNITS/ML 3 ML PEN SC SCH (09:00)
[2018-07-29] MEDS: CHOLECALCIFEROL 1,000 UNITS TAB PO SCH (09:00)
[2018-07-29] MEDS: FOLIC ACID 1 MG TAB PO SCH (09:00)
[2018-07-29] MEDS: DOCUSATE SODIUM 100 MG CAP PO SCH (09:00)
[2018-07-29] MEDS ORDERED: ASCORBIC ACID 500 MG TAB PO SCH (09:00)
[2018-07-29] MEDS ORDERED: PANTOprazole 40 MG TAB PO SCH (09:00)
[2018-07-29] MEDS: ASPIRIN 81 MG ECTAB PO SCH (09:00)
[2018-07-29] MEDS: TRIAMTERENE/HCTZ 37.5/25MG TAB PO SCH (09:00)
[2018-07-29] MEDS: LISINOPRIL 5 MG TAB PO SCH (09:01)
[2018-07-29] MEDS: GLUCOSAMINE SULFATE 500 MG CAP PO SCH (09:01)
[2018-07-29] MEDS: FEXOFENADINE HCL 180 MG TAB PO SCH (09:01)
[2018-07-29] MEDS: GABAPENTIN 300 MG CAP PO SCH (09:02)
[2018-07-29] MEDS: GABAPENTIN 600 MG TAB PO SCH (12:50)
[2018-07-29] MEDS ORDERED: GLUCOSE 40% GEL 15 GM TUBE PO PRN (13:45)
[2018-07-29] MEDS ORDERED: DEXTROSE 50% 50 ML SYRINGE IV PRN (13:45)
[2018-07-29] MEDS ORDERED: CARBOHYDRATES FOR HYPOGLYCEMIA PO PRN (13:45)
[2018-07-29] MEDS ORDERED: GLUCAGON FOR INJ 1 MG VIAL IM PRN (13:45)
[2018-07-29] MEDS ORDERED: GLUCOSE 10 TABS/TUBE PO PRN (13:45)
[2018-07-29] MEDS ORDERED: CeleBREX 200 MG CAP PO SCH (21:00)
--- NOTE | 2018-07-31 08:39 | Discharge Summary ---
Date of Service August 04, 2018 Admission HPI Per Admitting Provider This is a patient with a long hx of right knee pain. She had been treated conservatively for right knee osteoarthritis however has failed all conservative management. She is now being set up for right TKA. Principal Diagnosis Right knee osteoarthritis Discharge Exam Constitutional well developed and well nourished ENMT external ear and nose normal, oropharynx normal Neck trachea midline, no thyromegaly Respiratory normal respiratory effort, lungs clear to auscultation Cardiovascular Rate/Rhythm: regular rate and regular rhythm Heart Sounds: normal S1 and normal S2 Gastrointestinal (Abdomen) normal bowel sounds, soft, nontender, no hepatosplenomegaly Musculoskeletal Knee: no effusion (mild right knee), no skin erythema, no ecchymosis, no crepitation with knee ROM, no joint line tenderness (medial and lateral joint lines), no valgus alignment, no varus alignment, no valgus laxity, no varus laxity and Sabrina's sign negative Skin no rashes, warm and dry Neurologic patellar DTR's 2+ bilat, sensation intact Psychiatric A+Ox3, euthymic affect Lymphatic no cervical or axillary lymphadenopathy Discharge Data Allergies Allergy/AdvReac Type Severity Reaction Status Date / Time pollen extracts Allergy Unknown HAYFEVER Verified 07/28/18 05:57 metformin AdvReac Intermediate tachycardia Verified 07/28/18 05:57 Consultations 07/28/18 07:58 Consult Case Management - Discharge Planning Routine Procedures Performed Operation Date: 07/28/18 07:30 Actual Procedures p Right Total Knee Arthroplasty(Right) - Bruce Zuniga DO Ordered Studies 07/28/18 05:00 US - OR guided needle placemen Routine Hospital Course (1) Status post right knee replacement: The patient underwent a right TKA on 07.28.18. On POD #1, her pain was controlled and she did well with PT. Below are the POD #1 plans and she was d/c' d home later that day. 67 yo female stable POD #1 s/p right TKA 1. Med management 2. DVT prophylaxis- ASA, SCDs 3. PT/OT 4. D/C planning- home w/ OPPT Total Time Total Time Spent Total Time Spent (In Minutes): 15 Total Time Includes: Examination of the Patient and Discharge Planning Discharge Plan Discharge Items Patient Disposition: Home - Self-Care Reason For Visit: RIGHT KNEE OSTEOARTHRITIS Discharge Diagnosis: Right knee arthritis Discharge Goals: Decrease discomfort and Improve function Activity: Per 'Additional Instructions' section Non-emergency contact: Surgeon Call non-emergency contact if: your pain is not controlled, your temperature is above 101.5, your wound has increased redness and your wound has increased drainage Follow-up/Referrals: Ger Holly [Primary Care Provider] - Diet: Carb Consistent or DM2 Addtl Provider Instructions: ACTIVITY RECOMMENDATIONS: SELF CARE INSTRUCTIONS AFTER TOTAL KNEE REPLACEMENT A. You may need to continue a physical therapy program after discharge from the hospital. There are several options available to you. Your doctor will assist you in selecting the best one for you. 1. An out-patient facility 2 to 3 times a week for therapy or home therapy. 2. Continue working on all exercises taught to you in the hospital. Your goals should be to increase bending of your knee to 90 degrees and beyond and to fully straighten your knee. B. You may progress at your own pace from walking with a walker or crutches to a cane; then to no assistive devices. C. Make walking a part of your daily routine. Be up as much as comfortable with rest periods throughout the day. Rest with leg elevation is very important. Use the ice wrap frequently for the first 3-4 weeks. D. There are no restrictions on activities. You may ride in a car, shop, participate in tin flopper and all social activities. E. Wear the long elastic stockings (IRVIN hose) 20 hours a day for 2 weeks after surgery. They can be removed several times a day for laundering and for a bath. F. You may shower, no tub baths until cleared by your doctor. SPECIAL CARE INSTRUCTIONS: VERY IMPORTANT TO READ AND REVIEW A. There are a few signs you need to watch for after you are home. Call [facility] if you notice any of the followin. Increased severe knee pain. Some pain is expected especially when you exercise. 2. Increased swelling in your leg or knee; pain or swelling of the calf muscle in either lower leg. 3. Any fluid drainage from the incision. 4. Shortness of breath or chest pain. B. Please call [facility] at if you have any concerns or questions about your operation or recovery. The doctor or his nurse will return your call promptly. C. You must take antibiotics before dental work, bladder, bowel or other surgery. Your doctor will provide you with a permanent care to carry describing this precaution. IMPORTANT: * REMEMBER TO TAKE ASPIRIN, 81 MG, TWICE DAILY FOR 4 WEEKS UNLESS OTHERWISE DIRECTED. THIS IS YOUR BLOOD THINNER. * HIGH RISK PATIENTS MAY BE PRESCRIBED A STRONGER BLOOD THINNER. THIS WILL BE PROVIDED AT DISCHARGE. * CALL IF INCREASED PAIN, REDNESS, DRAINAGE OR FEVER GREATER THAT 101. * WEAR IRVIN HOSE 20 HOURS PER DAY FOR 2 WEEKS. * YOU MAY HAVE A LARGE BAND-AID LIKE DRESSING (SILVERON). THIS WILL REMAIN ON YOUR INCISION FOR 7 DAYS, THEN CAN BE REMOVED. IF INCISION IS LEAKING THROUGH DRESSING, CALL THE OFFICE . FOLLOW UP VISIT: If appointment is not already scheduled: Please call [facility] to make a follow-up appointment for 2 weeks after your surgery at . Prescriptions: New celecoxib [Celebrex] 200 mg Capsule 200 mg PO BID Qty: 60 RF: 0 aspirin [Ecotrin Low Strength] 81 mg Tablet,Delayed Release (Dr/Ec) 81 mg PO BID 28 Days Qty: 56 RF: 0 acetaminophen [Pain Reliever] 500 mg Tablet 1,000 mg PO Q8 Qty: 0 RF: 0 tramadol 50 mg tablet 50 - 100 mg PO Q6 Qty: 30 RF: 0 oxycodone 5 mg capsule 5 mg PO Q6 Qty: 30 RF: 0 Continue levothyroxine 137 mcg Tablet 150 mcg PO QAM RF: 0 ascorbic acid (vitamin C) [Vitamin C] 1,000 mg Tablet 1 g PO QAM RF: 0 vitamin E 200 unit Capsule 200 unit PO QPM RF: 0 glucosamine sulfate [Glucosamine] 500 mg Tablet 500 mg PO BID RF: 0 fexofenadine [Aleisha Allergy] 180 mg Tablet 180 mg PO QAM RF: 0 pantoprazole 40 mg Tablet,Delayed Release (Dr/Ec) 40 mg PO QAM RF: 0 gabapentin 300 mg Capsule 300 mg PO BID RF: 0 gabapentin 300 mg Capsule 600 mg PO BID RF: 0 triamterene-hydrochlorothiazid [Maxzide-25mg] 37.5-25 mg Tablet 1 tab PO QAM RF: 0 folic acid 1 mg Tablet 1 mg PO QAM RF: 0 lisinopril 5 mg Tablet 5 mg PO QAM RF: 0 atenolol 50 mg Tablet 50 mg PO QAM RF: 0 glipizide 5 mg Tablet 5 mg PO BID RF: 0 thiamine HCl (vitamin B1) [Vitamin B-1] 50 mg Tablet 50 mg PO QAM RF: 0 [id number]-[id number] [Multivitamin 50 Plus] Tablet 1 tab PO QAM RF: 0 soy isoflavone 50 mg Capsule 1 tab PO QPM RF: 0 calcium carbonate-vitamin D3 [Calcium 600 + D(3)] 600 mg calcium- 200 unit Capsule 1 tab PO BID RF: 0 cholecalciferol (vitamin D3) [Vitamin D3] 1,000 unit Tablet 1,000 unit PO QAM RF: 0 Discontinued aspirin [Aspirin Childrens] 81 mg Tablet,Chewable 81 mg PO QAM RF: 0 omega [id number]-sgz-fish oil [Fish Oil] 1,000 mg (120 mg-180 mg) Capsule 2 cap PO BID RF: 0 Stand-Alone Forms: [facility], Opioid Pain Management Discharge Orders: Discharge Order (Routine); Ordered 07/29/18 Ordered By: Bruce Zuniga Admission Data Admit Date/Time: 07/28/18 07:58 Attending Provider: Bruce Zuniga Admit Provider: Bruce Zuniga Primary Care Provider: Ger Holly Service: Surgical Services Other Interventions: Discharge Summary Assessment (RN) Last Done: 07/29/18 13:58 DC Date/Time DO NOT enter until pt leaves facility: 07/29/18 14:40
== END 2018-07-29 14:40 | disposition home or self-care (01) ==
LOC: ASU 05:22 → 3E 07:58

== ENCOUNTER 2020-10-01 12:43 | Inpatient (IN) ==
--- NOTE | 2020-09-19 13:29 | Anesthesiology Consultation ---
Date of Service September 19, 2020 Assessment & Plan (1) Encounter for pre-operative examination: Chart Review Chart Review: Pending: Refer to Additional Notes / Consult section (updated carotid doppler ([facility] vascular surgery scheduling) and preop Covid testing ) and Patient NOT seen in Pre Admission Testing Patient initially scheduled for surgery 02/27/2020rescheduled due to uncontrolled diabetes. Now scheduled for 10/01/2020. -Discussed case with Dr. Paiz- did recommend patient get updated carotid doppler prior to surgery. Last seen by cardiology 02/13/2020 = at time of appointment patient had not been taking medications including antihypertensive or diabetic regimens. Labs did show acute kidney injury with hyperkalemia and hyponatremia. Had not taken diuretic in months. BMP rechecked at cardio appointment that day. Patient encouraged to resume her medications as prescribed 2D echocardiogram was updated prior to upcoming surgery. No acute ECG changes or symptoms to suggest angina therefore ischemic work-up was not felt necessary. Per cardio phone note 02/22/2020 = "Echo results reviewed. Normal LV systolic function with EF 54%. Mild inferior wall motion abnormality consistent with old scar. Similar to prior echo. Stable moderate aortic regurgitation. No additional cardiac testing warranted at this time" Pt has recently been noncompliant with meds. Blood sugars ranging 400-500- should note this may be possible concern for surgery- deferred to surgeon and PCP. (Pt glucose better controlled) Right TKA 07/28/2018 = done under SAB at L3-4 with 1 attempt. History Surgery Operation Date: 10/01/20 11:20 Proposed Procedures p Right Knee Repair Medial Patellar Retinaculum, Possible Allograft, Excision Avulsion Fracture Lateral Patella, Possible Open Reduction Internal Fixation Patella - Bruce Zuniga DO Height/Weight Height: 5 ft 6.5 in Weight: 78.925 kg Allergies Allergy/AdvReac Type Severity Reaction Status Date / Time pollen extracts Allergy Unknown HAYFEVER Verified 09/19/20 10:20 metformin AdvReac Unknown tachycardia Verified 09/19/20 10:20 Medications Home Medications Medication Instructions Recorded Confirmed Last Taken Calcium 600 + D(3) 1 tab PO BID 06/22/18 09/19/20 04/07/20 Multivitamin 50 Plus 1 tab PO QAM 06/22/18 09/19/20 04/08/20 ascorbic acid (vitamin C) [Vitamin 1 g PO QAM 06/22/18 09/19/20 04/08/20 C] fexofenadine [Aleisha Allergy] 180 mg PO QAM 06/22/18 09/19/20 04/08/20 folic acid 1 mg PO QAM 06/22/18 09/19/20 04/08/20 glucosamine sulfate [Glucosamine] 500 mg PO BID 06/22/18 09/19/20 04/08/20 lisinopril 10 mg PO QAM 06/22/18 09/19/20 04/08/20 pantoprazole 40 mg PO BID 06/22/18 09/19/20 04/08/20 thiamine HCl (vitamin B1) [Vitamin 50 mg PO QAM 06/22/18 09/19/20 04/08/20 B-1] triamterene-hydrochlorothiazid 1 tab PO QAM 06/22/18 09/19/20 04/08/20 [Maxzide-25mg] vitamin E 200 unit PO 06/22/18 09/19/20 04/07/20 atorvastatin [Lipitor] 80 mg PO HS 01/22/20 09/19/20 04/07/20 carvedilol 6.25 mg PO BID 01/22/20 09/19/20 04/08/20 latanoprost (PF) 1 drp OPB 01/22/20 09/19/20 04/06/20 levothyroxine 37 mcg PO QAM 01/22/20 09/19/20 04/08/20 liothyronine 5 mcg PO QAM 01/22/20 09/19/20 04/08/20 omega 2-grm-ies-fish oil [Fish Oil] 1 cap PO BID 01/22/20 09/19/20 04/08/20 acetaminophen [Pain Reliever] 1,000 mg PO Q8 PRN 03/06/20 09/19/20 04/07/20 21:00 1500 mg aspirin [Aspir-81] 81 mg PO QAM 04/08/20 09/19/20 04/08/20 duloxetine 30 mg PO QDD 04/08/20 09/19/20 04/07/20 gabapentin 200 mg PO QID 04/08/20 09/19/20 04/08/20 semaglutide [Ozempic] 1.25 mg SUBCUT WK 04/08/20 09/19/20 04/07/20 atenolol 50 mg PO QAM 06/02/20 09/19/20 Unknown tramadol 50 mg PO Q8H PRN 06/02/20 09/19/20 Unknown soy isoflavone [Soy] 50 mg PO HS 09/19/20 09/19/20 Unknown Past Medical History Medical History (Updated 09/19/20 @ 13:46 by Connie Walls PA-C) Aortic regurgitation Moderate per 02/2020 echo CAD (coronary artery disease) Moderate CAD but no obstructive disease on 2015 cath, no stents placed. Carotid artery disease Chronic right carotid occlusion, 50-69% LICA stenosis per 02/2019 carotid duplex. Referred to vascular surgery by cardiology, seen 05/2019. No surgical intervention recommended, to continue medical mgmt and routine surveillance. CKD (chronic kidney disease) stage 3, GFR 30-59 ml/min Diabetes mellitus, type 2 Has Dexcom monitor on abdomen. Knee surgery previously canceled due to uncontrolled sugars, pt was noncompliant with meds. Currently compliant and sugars much improved. Environmental allergies Gastric ulcer HX-2009 GERD (gastroesophageal reflux disease) Hx of vertigo Hyperlipidemia Hypertension Hypothyroidism Myocardial Infarction SILENT [place]. Per 2019 echo, inferior scar and basal inferior and posterior WMA noted with normal EF. Osteoarthritis Seasonal allergies Tremor R HAND, RECENTLY EMERGING ON LEFT SIDE- FOLLOWS DR EARL Per 07/07/20 neuro note- feels essential tremor- med changes made Past Family History Family History Aunt Family history of diabetes mellitus Past Surgical History Surgical History History of anesthesia reaction "SLOW TO WAKE UP"-"GOES UNDER VERY EASILY"PER PT History of back surgery Had laser 03/2018 in [place] > LUMBAR History of cardiac cath 2015 [facility]. Moderate CAD, no stents. History of carpal tunnel surgery of right wrist History of colonoscopy History of esophagogastroduodenoscopy (EGD) History of left knee replacement History of surgery right wrist x2 History of total knee replacement RIGHT Hx of ankle fusion right Hx of appendectomy Hx of arthroscopic knee surgery left Hx of bilateral cataract extraction Hx of cervical spine surgery 08/2009 [facility], [place]> ROM WNL PER PT Hx of decompression of ulnar nerve right Hx of hand surgery right Hx of tubal ligation Hx of vaginal surgery LEEP? (Due to precancerous cells on cervix) Social History Smoking Status: Current every day smoker tobacco type: cigarettes Smoking cigarettes per day: .5PPD/ADVISED NPO Do You Dip or Chew Tobacco: No Hx Alcohol Use: No alcohol intake frequency: holidays/special occasions only Hx Substance Use: No substance use type: does not use Testing Laboratory Results Laboratory Tests 03/17/20 04/08/20 08/15/20 16:45 14:42 12:08 WBC 7.70 Hgb 13.9 Hct 39.8 Plt Count 318 Sodium Potassium Chloride Carbon Dioxide BUN Creatinine Glucose TSH 1.050 08/15/20 12:08 WBC Hgb Hct Plt Count Sodium 139 Potassium 4.0 Chloride 104 Carbon Dioxide 30 BUN 21 H Creatinine 1.31 H Glucose 104 H Hemoglobin A1c TSH Creat chronically elevated and improved from previous 08/16/20= UA: Negative 08/01/20= HGB A1C: 6.3 Electrocardiogram Date: 08/15/20 Findings: + NSR @ (72bpm) Normal EKG per cardio. Chest X-Ray Date: 03/18/20 Findings: + NAD 1 view CXR Echocardiogram Date: 02/21/20 EF: 54% Normal LV chamber size with moderate concentric LVH. Normal LV systolic function. There is a small sized basal inferior and posterior wall motion abnormality with hypokinesis to akinesis of the segments. There is a small sized inferior scar. Otherwise normal wall motion. Grade 1 diastolic dysfunction. Moderately calcified aortic valve without stenosis. Moderate aortic valve regurgitation is present. Other Testing Right LE venous doppler 07/31/20= No DVT within the right lower extremity. Slow flow versus occlusion of the right femoral artery. There is reconstitution of flow at the popliteal artery. Vascular ankle-brachial indices 08/06/2019 = Lower extremity Doppler Evaluation is consistent with moderate arterial occlusive disease for right LE. Lower extremity Doppler Evaluation is consistent with moderate arterial occlusive disease for left LE. (PCP aware and monitoring) Carotid Doppler 02/28/2019 = right carotid artery duplex indicates evidence of an occlusion of the ICA. Left carotid artery duplex examination indicates evidence of 50-60% stenosis of the ICA. Antegrade flow to bilateral vertebral arteries.
--- NOTE | 2020-10-01 06:45 | History & Physical Report ---
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 All potential risks, benefits, complications, alternatives, and rehab have been discussed with the patient and she wishes to proceed. Patient may need rehab upon d/c from hospital. Plan for ASA 81 mg BID x 4 wks for post op DVT prophylaxis. (2) Right patella fracture: History of Present Illness Chief Complaint: Right knee pain and loss of function Primary Care Provider: Keyshawn Rockwell MD This is a patient who underwent a right knee replacement in 2019. She progressed well with her recovery. However, in September of 2019, she sustained a fall and injured the right knee. Exam and later a CT scan noted a medial retinacular tear with a patellar fracture. She was scheduled for surgery but canceled secondary to uncontrolled DM and another cancellation because of Covid restrictions on inpatient surgeries. Her HgbA1C is now improved and she is being set up for surgical repair. Allergies Allergy/AdvReac Type Severity Reaction Status Date / Time pollen extracts Allergy Unknown HAYFEVER Verified 09/19/20 10:20 metformin AdvReac Unknown tachycardia Verified 09/19/20 10:20 Home Medications Medication Instructions Recorded Confirmed Type Calcium 600 + D(3) 1 tab PO BID 06/22/18 09/19/20 History Multivitamin 50 Plus 1 tab PO QAM 06/22/18 09/19/20 History ascorbic acid (vitamin C) [Vitamin 1 g PO QAM 06/22/18 09/19/20 History C] fexofenadine [Aleisha Allergy] 180 mg PO QAM 06/22/18 09/19/20 History folic acid 1 mg PO QAM 06/22/18 09/19/20 History glucosamine sulfate [Glucosamine] 500 mg PO BID 06/22/18 09/19/20 History lisinopril 10 mg PO QAM 06/22/18 09/19/20 History pantoprazole 40 mg PO BID 06/22/18 09/19/20 History thiamine HCl (vitamin B1) [Vitamin 50 mg PO QAM 06/22/18 09/19/20 History B-1] triamterene-hydrochlorothiazid 1 tab PO QAM 06/22/18 09/19/20 History [Maxzide-25mg] vitamin E 200 unit PO HS 06/22/18 09/19/20 History atorvastatin [Lipitor] 80 mg PO HS 01/22/20 09/19/20 History carvedilol 6.25 mg PO BID 01/22/20 09/19/20 History latanoprost (PF) 1 drp OPB HS 01/22/20 09/19/20 History levothyroxine 37 mcg PO QAM 01/22/20 09/19/20 History liothyronine 5 mcg PO QAM 01/22/20 09/19/20 History omega 6-rlx-trd-fish oil [Fish Oil] 1 cap PO BID 01/22/20 09/19/20 History acetaminophen [Pain Reliever] 1,000 mg PO Q8 PRN 03/06/20 09/19/20 History aspirin [Aspir-81] 81 mg PO QAM 04/08/20 09/19/20 History duloxetine 30 mg PO QDD 04/08/20 09/19/20 History gabapentin 200 mg PO QID 04/08/20 09/19/20 History semaglutide [Ozempic] 1.25 mg SUBCUT WK 04/08/20 09/19/20 History atenolol 50 mg PO QAM 06/02/20 09/19/20 History tramadol 50 mg PO Q8H PRN 06/02/20 09/19/20 History soy isoflavone [Soy] 50 mg PO HS 09/19/20 09/19/20 History Past Med/Surg History Medical History (Updated 10/01/20 @ 06:34 by David Agarwal PA-C) Aortic regurgitation Moderate per 02/2020 echo CAD (coronary artery disease) Moderate CAD but no obstructive disease on 2016 cath, no stents placed. Carotid artery disease Chronic right carotid occlusion, 50-69% LICA stenosis per 02/2019 carotid duplex. Referred to vascular surgery by cardiology, seen 05/2019. No surgical intervention recommended, to continue medical mgmt and routine surveillance. CKD (chronic kidney disease) stage 3, GFR 30-59 ml/min Diabetes mellitus, type 2 Has Dexcom monitor on abdomen. Knee surgery previously canceled due to uncontrolled sugars, pt was noncompliant with meds. Currently compliant and sugars much improved. Environmental allergies Gastric ulcer HX-2009 GERD (gastroesophageal reflux disease) Hx of vertigo Hyperlipidemia Hypertension Hypothyroidism Myocardial Infarction SILENT [place]. Per 2019 echo, inferior scar and basal inferior and posterior WMA noted with normal EF. Osteoarthritis Seasonal allergies Tremor R HAND, RECENTLY EMERGING ON LEFT SIDE- FOLLOWS DR EARL Per 07/07/20 neuro note- feels essential tremor- med changes made Surgical History History of anesthesia reaction "SLOW TO WAKE UP"-"GOES UNDER VERY EASILY"PER PT History of back surgery Had laser 03/2018 in [place] > LUMBAR History of cardiac cath 2015 [facility]. Moderate CAD, no stents. History of carpal tunnel surgery of right wrist History of colonoscopy History of esophagogastroduodenoscopy (EGD) History of left knee replacement History of surgery right wrist x2 History of total knee replacement RIGHT Hx of ankle fusion right Hx of appendectomy Hx of arthroscopic knee surgery left Hx of bilateral cataract extraction Hx of cervical spine surgery 08/2009 [facility], [place]> ROM WNL PER PT Hx of decompression of ulnar nerve right Hx of hand surgery right Hx of tubal ligation Hx of vaginal surgery LEEP? (Due to precancerous cells on cervix) Family History Aunt Family history of diabetes mellitus Social History Smoking Status: Current every day smoker Cigarettes Per Day: .5PPD/ADVISED NPO; Second Hand Exposure: No; Do You Dip or Chew Tobacco: No; Hx Alcohol Use: No Hx Substance Use: No Preferred Language: French Communication Ability: Effective Communication Ability Comment: TABLE MOUNTAIN, NO HEARING AIDES Ui Engineer Required: No Beliefs That Will Affect Care: None marital status: Current Living Situation: Spouse Other Information That Helps Us Care for You: No Feels Safe at Home: Yes Assistive Devices: Denture - Upper, Denture - Lower and Wheelchair Physical Exam Constitutional: well developed and well nourished; no acute distress ENMT: external ear and nose normal, oropharynx normal Neck: trachea midline, no thyromegaly Respiratory: normal respiratory effort; no respiratory distress Auscultation: lungs clear to auscultation bilaterally and + diminished lung sounds Cardiovascular: Rate/Rhythm: regular rate and regular rhythm Gastrointestinal (Abdomen): normal bowel sounds, soft, nontender, no hepatosplenomegaly Musculoskeletal: Gait: normal gait (NWB RLE in wheelchair) Knee: + knee abnormal to inspection (right patella in lateral position), + surgical incision (Healed right anterior knee incision), + limited ROM of knee (right) and + joint line tenderness (right patella); no skin erythema and no ecchymosis Skin: no rashes, warm and dry Trauma: no evidence of skin trauma Neurologic: normal touch/pain/proprioception Psychiatric: A+Ox3, euthymic affect Speech: normal rate/rhythm/volume of speech Lymphatic: no cervical or axillary lymphadenopathy Results & Data ([facility]) Diagnostic Findings CT Right knee: Total knee arthroplasty. There is a fragmented patella fx at the lateral aspect of the fx. Medial retinaculum appears to be torn.
[~2020-10-01 12:43] MED LIST changes: -ACET-1138 PO; -ASPEC81 PO; -ATEN100T PO; -ATOR-24 PO; +BUPIVACAINE 0.25% 30 ML VIAL ONE; +BUPIVACAINE 0.5 % 5 MG/1 ML PF 10ML VIAL ONE; -CALC500C70 PO; -CYAN10005 PO; -FEXO1TAB46 PO; -FOLI1TAB7 PO; -GLIP-197 PO; -GLUC10007 PO; -LEVO150T PO; +LIDOCAINE HCL 2% 2 ML VIAL/AMP(20MG/ML) INFIL ONE; -LISI5TAB PO; +LR 15ML/HR IV SCH; +MIDAZOLAM HCL 1 MG/ML 2ML VIAL ONE; -MRLP17 PO; -MULT-506 PO; -NRN/300 PO; -OMEG10007 PO; +ONDANSETRON INJ 2 MG/ML 2 ML VIAL ONE; -OXYSR10 PO; -PANT1TAB48 PO; +PROPOFOL IV EMULSION 10 MG/ML 20 ML VIAL IV ONE; -RXC5 PO; -SENN8.6T7 PO; -SOY50CAP PO; -TRIATAB3 PO; -VITA1CAP PO; +ceFAZolin 1000MG 1,000 MG/7.5 ML SYR IV SCH; +ePHEDrine sulfate 50 MG/ML SYR ONE; +fentaNYL citrate 100 MCG/2 ML VIAL ONE
[2020-10-01] MEDS ORDERED: ATROPINE SULFATE 0.1 MG/ML 10ML SYR IV PRN (13:32)
[2020-10-01] MEDS ORDERED: ONDANSETRON INJ 2 MG/ML 2 ML VIAL IV PRN ×2 (13:32→17:37)
[2020-10-01] MEDS ORDERED: fentaNYL citrate 100 MCG/2 ML VIAL IV PRN (13:32)
[2020-10-01] MEDS ORDERED: ePHEDrine sulfate 50 MG/ML AMP IV PRN (13:32)
[2020-10-01] MEDS ORDERED: HYDROmorphone INJ 1 MG/ML SYRINGE IV PRN (13:32)
--- NOTE | 2020-10-01 14:12 | History & Physical Bridge Note ---
Date of Service October 01, 2020 History & Physical Bridge Note I have examined the patient, reviewed the History & Physical and in the interval since the performance of the History & Physical I have noted the following changes of clinical significance: no changes noted
[2020-10-01] MEDS ORDERED: BACITRACIN INJ 50,000 UNIT VIAL ONE (14:51)
[2020-10-01] MEDS ORDERED: ROPIVACAINE 0.5% HCL/PF 150 MG, BUPIVACAINE 0.75% MPF 20 ML, EPINEPHrine 30MG/30ML (OR ... INSTIL STA (15:26)
--- NOTE | 2020-10-01 16:42 | Post Operative Brief Note ---
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, Avulsion fracture lateral patella, right knee instability I identified the patient and participated in the time-out.: Yes Procedure Operation Date: 10/01/20 14:35 Actual Procedures p Right Knee plication and repair Medial Patellar retinacular tear, Excision Avulsion Fracture Lateral Patella, Polyethylene exchange(Right) - Bruce Zuniga DO Surgeon Bruce Zuniga DO Cook Mess Jeb Sandhu DO; David Agarwal PA-C Estimated Blood Loss 25 Findings Consistent with Post-Op Diagnosis Specimens None Anesthesia Type General Regional Complications none Disposition Accompanied Patient To Recovery: Yes Disposition: Recovery Room
--- NOTE | 2020-10-01 17:07 | Anesthesiology Progress Note ---
Date of Service October 01, 2020 Anesthesia Post Procedure Vital Signs Vital Signs: Temp Pulse Pulse Resp BP BP Pulse Ox 10/01/20 16:55 76 15 166/70 H 162/81 H 100 10/01/20 16:45 75 16 159/58 H 173/93 H 100 10/01/20 16:35 94 H 18 178/94 H 100 10/01/20 16:29 36.6 C 94 H 16 190/78 H 100 10/01/20 13:25 36.9 C 68 18 172/93 H 98 Pain Intensity Right Knee: Pain Intensity: 3 Transfer of Care Handoff Completed per policy Notes Mental Status: alert / awake / arousable Patient Amnestic to Procedure: Yes Nausea / Vomiting: adequately controlled Pain: adequately controlled Airway Patency, RR, SpO2: stable & adequate BP & HR: stable & adequate Hydration State: stable & adequate Anesthetic Complications: no major complications apparent and Pt Satisfied with anesthetic care Notes: The patient is awake and comfortable. Her vital signs are stable.
[2020-10-01] MEDS ORDERED: HYDROmorphone INJ 0.5 MG/0.5 ML SYR IV PRN (17:37)
[2020-10-01] MEDS ORDERED: MAGNESIUM HYDROXIDE SUSP 30 ML UDC PO PRN (17:37)
[2020-10-01] MEDS ORDERED: METOCLOPRAMIDE HCL INJ 5 MG/ML 2 ML VIAL IV PRN (17:37)
[2020-10-01] MEDS ORDERED: PHARMACY GLYCEMIC MGMT CONSULT PRN (17:37)
[2020-10-01] MEDS ORDERED: NALOXONE HCL 0.4 MG/1 ML VIAL/CARP IV PRN (17:37)
[2020-10-01] MEDS ORDERED: NO NSAIDS SCH (17:37)
[2020-10-01] MEDS ORDERED: diphenhydrAMINE Capsule 25 MG CAP PO PRN (17:37)
[2020-10-01] MEDS ORDERED: bisacodyL 10 MG SUPP PR PRN (17:37)
[2020-10-01] MEDS ORDERED: ALUMINUM/MAGNESIUM SUSP 30 ML UDC PO PRN (17:37)
[2020-10-01] MEDS ORDERED: GLUCOSE 10 TABS/TUBE PO PRN (18:09)
[2020-10-01] MEDS ORDERED: CARBOHYDRATES FOR HYPOGLYCEMIA PO PRN (18:09)
[2020-10-01] MEDS ORDERED: DEXTROSE 50% 50 ML SYRINGE IV PRN (18:09)
[2020-10-01] MEDS ORDERED: GLUCAGON FOR INJ 1 MG VIAL SQ PRN (18:09)
[2020-10-01] MEDS ORDERED: GLUCOSE 40% GEL 15 GM TUBE PO PRN (18:09)
--- NOTE | 2020-10-01 18:13 | Consultation ---
Date of Consultation October 01, 2020 Assessment & Plan (1) S/P knee surgery: Post op day# 0 S/P repair Medial Patellar retinacular tear, Excision Avulsion Fracture Lateral Patella, Polyethylene exchange by Dr Zuniga EBL#25ml -pain management per ortho -wound management per ortho -PT/OT as appropriate -DVT prophylaxis per ortho -incentive spirometry -monitor H&H for acute blood loss anemia; pre-op Hgb: 13.9 (2) CAD (coronary artery disease): History cath 2016: chronic RCA occlusion Denies CP, SOB -Continue carvedilol, aspirin, statin (3) HTN (hypertension): -Continue carvedilol, lisinopril -Hold triamterene, HCTZ for now (4) Diabetes mellitus type II, controlled: A1c: 6.3 on 08/01/20 -Hold Ozempic -Novolog sliding scale per protocol (5) Hypothyroidism: -Continue levothyroxine, liothyronine (6) CKD (chronic kidney disease) stage 3, GFR 30-59 ml/min: Baseline Cr: 1.3-1.4 -Monitor renal functions, avoid nephrotoxic agents when possible (7) Depression: -Continue duloxetine (8) GERD (gastroesophageal reflux disease): -Continue PPI (9) Carotid artery disease: 50-69% stenosis -Continue aspirin DVT Prophylaxis -SCDs per ortho Disposition per primary service Follows with Dr Rockwell for routine care Pt was seen and care coordinated with Dr Rogel. See addendum Thank you for this consultation. We will follow the patient with you during their hospital stay. Supervising Physician Co-Signing Physician Notes Pt was seen and examined. Agreed with Clarice MACKENZIE exam, assessment and plan. 70 y/o F with PMH CAD, HTN, HLD, DM II, CKD III, GERD, hypothyroidism, depression, carotid stenosis, failed conservative management, s/p Right knee repair medial Patellar retinacular tear, excision avulsion fracture patella performed today by Dr. Zuniga. Denies CP, SOB, dizziness, JOHNSON and SOB. No post op complication. Continue incentive spirometry. Will monitor H/H. Continue pain control. Fall precaution. MD Juan F History of Present Illness Requesting Physician: Dr Zuniga Reason for Consultation: Post op medical management Attending Physician: Bruce Zuniga DO History of Present Illness Pt is 70 y/o F with PMH CAD, HTN, HLD, DM II, CKD III, GERD, hypothyroidism, depression, carotid stenosis seen in medical cons ultation s/p Right knee repair medial Patellar retinacular tear, excision avulsion fracture patella today. Post op pt still drowsy from anesthesia. C/O feels cold. Denies other complaints. Denies CP, SOB, dizziness, JOHNSON or current pain, paresthesias, N/V/D, abdominal pain. Allergies Allergy/AdvReac Type Severity Reaction Status Date / Time pollen extracts Allergy Unknown HAYFEVER Verified 10/01/20 13:09 metformin AdvReac Unknown tachycardia Verified 10/01/20 13:09 Home Medications Medication Instructions Recorded Confirmed Type Calcium 600 + D(3) 1 tab PO BID 06/22/18 10/01/20 History Multivitamin 50 Plus 1 tab PO QAM 06/22/18 10/01/20 History ascorbic acid (vitamin C) [Vitamin 1 g PO QAM 06/22/18 10/01/20 History C] fexofenadine [Aleisha Allergy] 180 mg PO QAM 06/22/18 10/01/20 History folic acid 1 mg PO QAM 06/22/18 10/01/20 History glucosamine sulfate [Glucosamine] 500 mg PO BID 06/22/18 10/01/20 History lisinopril 10 mg PO QAM 06/22/18 10/01/20 History pantoprazole 40 mg PO BID 06/22/18 10/01/20 History thiamine HCl (vitamin B1) [Vitamin 50 mg PO QAM 06/22/18 10/01/20 History B-1] triamterene-hydrochlorothiazid 1 tab PO QAM 06/22/18 10/01/20 History [Maxzide-25mg] vitamin E 200 unit PO HS 06/22/18 10/01/20 History atorvastatin [Lipitor] 80 mg PO HS 01/22/20 10/01/20 History carvedilol 6.25 mg PO BID 01/22/20 10/01/20 History latanoprost (PF) 1 drp OPB 01/22/20 10/01/20 History levothyroxine 37 mcg PO QAM 01/22/20 10/01/20 History liothyronine 5 mcg PO QAM 01/22/20 10/01/20 History omega 2-sxv-gya-fish oil [Fish Oil] 1 cap PO BID 01/22/20 10/01/20 History Ozempic 1.25 mg SUBCUT WK 04/08/20 10/01/20 History duloxetine 30 mg PO QDD 04/08/20 10/01/20 History gabapentin 200 mg PO QID 04/08/20 10/01/20 History tramadol 50 mg PO Q8H PRN 06/02/20 10/01/20 History soy isoflavone 50 mg PO HS 09/19/20 10/01/20 History acetaminophen 1,000 mg PO Q8 #100 tab 10/03/20 Rx aspirin 81 mg PO BID #60 tab 10/03/20 Rx oxycodone 5 mg PO Q4H PRN #30 tab 10/03/20 Rx Patient History Medical History (Updated 10/01/20 @ 18:23 by Clarice Singleton PA-C) Aortic regurgitation Moderate per 02/2020 echo CAD (coronary artery disease) Moderate CAD but no obstructive disease on 2015 cath, no stents placed. Carotid artery disease Chronic right carotid occlusion, 50-69% LICA stenosis per 02/2019 carotid duplex. Referred to vascular surgery by cardiology, seen 05/2019. No surgical intervention recommended, to continue medical mgmt and routine surveillance. CKD (chronic kidney disease) stage 3, GFR 30-59 ml/min Depression Diabetes mellitus, type 2 Has Dexcom monitor on abdomen. Knee surgery previously canceled due to uncontrolled sugars, pt was noncompliant with meds. Currently compliant and sugars much improved. Environmental allergies Gastric ulcer HX-2009 GERD (gastroesophageal reflux disease) Hx of vertigo Hyperlipidemia Hypertension Hypothyroidism Myocardial Infarction SILENT DC. Per 2019 echo, inferior scar and basal inferior and posterior WMA noted with normal EF. Osteoarthritis Seasonal allergies Tremor R HAND, RECENTLY EMERGING ON LEFT SIDE- FOLLOWS DR EARL Per 07/07/20 neuro note- feels essential tremor- med changes made Surgical History History of anesthesia reaction "SLOW TO WAKE UP"-"GOES UNDER VERY EASILY"PER PT History of back surgery Had laser 03/2018 in [place] > LUMBAR History of cardiac cath 2015 [facility]. Moderate CAD, no stents. History of carpal tunnel surgery of right wrist History of colonoscopy History of esophagogastroduodenoscopy (EGD) History of left knee replacement History of surgery right wrist x2 History of total knee replacement RIGHT Hx of ankle fusion right Hx of appendectomy Hx of arthroscopic knee surgery left Hx of bilateral cataract extraction Hx of cervical spine surgery 08/2009 [facility], [place]> ROM WNL PER PT Hx of decompression of ulnar nerve right Hx of hand surgery right Hx of tubal ligation Hx of vaginal surgery LEEP? (Due to precancerous cells on cervix) Family History Aunt Family history of diabetes mellitus Social History Smoking Status: Current every day smoker Cigarettes Per Day: .5PPD/ADVISED NPO; Second Hand Exposure: No; Do You Dip or Chew Tobacco: No; Hx Alcohol Use: No Hx Substance Use: No Preferred Language: Divehi Communication Ability: Effective Communication Ability Comment: [place], NO HEARING AIDES Bar Back Required: No Beliefs That Will Affect Care: None marital status: Current Living Situation: Spouse Other Information That Helps Us Care for You: No Feels Safe at Home: Yes Assistive Devices: Brace/Splint/Immobilizer and Walker Review of Systems Review of Systems: All systems reviewed & are unremarkable except as noted in HPI & below Physical Exam Physical Exam: General: no distress, WDWN Head: normocephalic, atraumatic Eyes:conjunctiva non-injected, anicteric ENT: normal inspection external ears, nose, mucous membranes moist Neck: supple, trachea midline Lungs: clear, no respiratory distress, no wheezing/rhonchi/rales CV: RRR, +murmur, no pretibial edema Abd: normal BS, soft, non-tender Ext: RLE: +dario wrap and surgical dressing in place, no calf tenderness, pedal pushes and pulls intact bilaterally, distal pulses intact bilaterally Neuro: +Drowsy, awakens to voice and light touch, oriented x 3, no focal deficits noted, normal affect Skin: warm, dry Results & Data ([facility]) Vital Signs (Past 12 Hours) Vital Signs Temp Pulse Pulse Resp BP BP Pulse Ox 10/01/20 17:57 36.5 C 61 18 146/83 H 100 10/01/20 17:05 36.2 C L 71 16 165/69 H 161/77 H 98 10/01/20 16:55 76 15 166/70 H 162/81 H 100 10/01/20 16:45 75 16 159/58 H 173/93 H 100 10/01/20 16:35 94 H 18 178/94 H 100 10/01/20 16:29 36.6 C 94 H 16 190/78 H 100 10/01/20 13:25 36.9 C 68 18 172/93 H 98
[2020-10-01] MEDS ORDERED: SODIUM CHLORIDE 0.9% 1000ML 1,000 ML IV SCH (18:45)
--- NOTE | 2020-10-01 18:51 | Operative Report (OR) ---
DATE OF OPERATION: 10/01/2020 PREOPERATIVE DIAGNOSES: 1. 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 2. Avulsion fracture of the lateral patella. 3. Right knee instability. POSTOPERATIVE DIAGNOSES: 1. 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 2. Avulsion fracture of the lateral patella. 3. Right knee instability. PROCEDURES: 1. Right knee medial retinacular plication and repair. 2. Polyethylene exchange with a Hull and Nephew size 3-4 x 15 mm constrained liner. SURGEON: Bruce Zuniga DO. PATTERN FILER: Jeb Sandhu DO. SECOND ASSIST: David Agarwal PA-C who was present for patient positioning, sterile prep and drape, management of retractors and instruments. He was present through the critical portions of the case including wound closure, application of sterile dressing and transport of the patient to recovery. ANESTHESIA: General LMA with adductor canal block and local intraarticular. SPECIMENS: None. DRAINS: None. COMPLICATIONS: None. BLOOD LOSS: 25 mL. PERTINENT HISTORY: This is a 70-year-old female who had previously undergone a successful right total knee arthroplasty. Approximately a year ago, she had a fall onto her knee. Attempted conservative management and then noticed anterior knee pain with lateral subluxation of the patella. Despite bracing and physical therapy, continued to have pain. She had an x-ray, which demonstrated subluxation of the patella laterally with a lateral avulsion fracture. CT scan also confirmed the same with likely traumatic medial retinacular rupture. The patient was initially scheduled for surgery; however, due to the challenges presented by the coronavirus pandemic, the patient's case and care was scheduled and canceled several times, and then the patient had multiple medical comorbidities, which prohibited her from being able to be scheduled any time before the current date. After final medical and surgical clearance for surgery, the patient was then scheduled for surgery as indicated for right knee repair. All potential risks, benefits, complications, alternatives, rehab potential for incomplete relief of symptoms, need for further surgery, DVT, PE, , persistent pain, swelling, scarring, weakness, neurovascular injury, wound complications, bone fracture, hardware complications were discussed with the patient. The patient decided to proceed with the procedure as indicated. DESCRIPTION OF PROCEDURE: The patient had an adductor canal block in the preoperative holding area by the anesthesiologist. She was then taken to the operative suite and placed supine on the operating room table. After review of the consent and identification of proper operative site, the patient was anesthetized, LMA was placed. Tourniquet was placed high on the right thigh over cast padding. Right lower extremity was then sterilely prepped and draped in usual fashion, elevated and exsanguinated with Esmarch bandage, tourniquet inflated to 350 mmHg. Next, after surgical timeout was performed, right knee anterior incision was made with 10 blade scalpel at the site of prior incision. The incision was deepened through skin and subcutaneous tissue and through scar to the level of the retinaculum and paratenon. The skin incision was then expanded proximally and distally to the level of the quadriceps and then distal to the proximal tibial tubercle. Next, the retinacular tissue was then carefully elevated with a combination of electrocautery and sharp dissection using gentle skin retraction with skin rakes. This defined the extensor mechanism and the medial and lateral retinacula. Obvious was the lateral position of the patella and the J trajectory of the patella with flexion and extension with the patella still riding lateral to the condyle of the implant. Next, the superior medial corner of the patella was then marked with a sterile skin marker and the medial parapatellar incision was made with a 10 blade scalpel. Care was taken to identify the chronic retinacular rupture and displacement of the extensor mechanism during this incision. Next, the soft tissue was then retracted with Holly retractors and the undersurface of the patella was flipped and identified. Periarticular fibrous and scar tissue was then sharply excised from around the periphery of the articular side of the patella down to the lateral aspect where the avulsion fracture had settled. This was then unroofed and uncovered with combination of sharp dissection and electrocautery, and the large avulsion fracture was then carefully stripped out of the soft tissue, taking care to avoid disruption of the extensor mechanism. After this was excised, attention was then directed toward the mechanics of the knee. Total knee noted to be loosened compared to insertion over a year ago consistent with medial retinacular repair and attritional loosening of the soft tissues. Next, after the retinaculum and the extensor mechanism were carefully mobilized with both sharp and electrocautery dissection from proximal to the patella to the level of the tibial tubercle, the medial flap of the retinaculum was also mobilized and then this was tested for flexion and extension, noting instability of the polyethylene and also laxity of the medial collateral. Decision was made to perform a polyethylene exchange as well as a repair and plication of the tissue without need for use of an allograft. Next, the tissue tension was tested with multiple towel clips using a [id number]-ohqn repair technique. This was noted to be satisfactory with no evidence of J positioning of the patella. This indicated a [id number] plication would be adequate. Next, the towel clips were removed and the polyethylene was then dislodged with a Amina clamp and then removed. Multiple trial sizes including constrained size 15 mm polyethylene were tested and noted to be the best fit with stability noted with full extension, 30 degrees flexion and 90 degrees flexion with varus and valgus stress testing. Next, the trial polyethylene was removed and the pulsatile lavage was then used to lavage the entirety of the knee joint, both intraarticular and extraarticular using bacitracin and sterile saline to lavage. Next, the final polyethylene was then inserted, a 15 mm constrained liner securely fastened in place. The medial retinaculum was closed in a [id number] fashion with the articular surface in direct contact with the medial retinacular oversew occurring using horizontal mattress closure technique using multiple #2 FiberWire sutures. Next, the range of motion was tested and noted to be stable and then the remainder of the knee joint capsule was then closed using interrupted #1 Vicryl sutures to oversew the repair. Smooth range of motion was achieved through 0-105 degrees of flexion. Marked improvement with stability of the knee after polyethylene exchange. Next, the intra-articular local Orthomix was injected into the joint capsule in the soft tissues around the periarticular tissues, taking care to avoid the common peroneal nerve. Next, the dermis was closed using buried interrupted 2-0 Vicryl, skin was closed with skin mayco. A sterile compressive dressing was applied, overwrapped with a toes to groin Paul wrap. The tourniquet was released. The patient was awakened and taken to recovery in stable condition. I attest to the content of the Intraoperative Record and any orders documented therein. Any exceptions are noted below. EDUARD
[2020-10-01] MEDS: CALCIUM 600MG + VIT D 400 IU TAB PO SCH (19:51)
[2020-10-01] MEDS: ATORVASTATIN 40 MG TAB PO SCH (19:51)
[2020-10-01] MEDS: LATANOPROST 0.005% OP SOLN 2.5 ML BTL OPB SCH (19:51)
[2020-10-01] MEDS: GABAPENTIN 100 MG CAP PO SCH ×2 (19:51→19:59)
[2020-10-01] MEDS: ACETAMINOPHEN 500 MG TAB PO SCH (19:52)
[2020-10-01] MEDS: DOCUSATE SODIUM 100 MG CAP PO SCH (19:52)
[2020-10-01] MEDS: PANTOprazole 40 MG TAB PO SCH (19:52)
[2020-10-01] MEDS: carvediloL 6.25 MG TAB PO SCH (19:52)
[2020-10-01] MEDS: SENNA 8.6 MG TAB PO SCH (19:53)
[2020-10-01] MEDS: ASPIRIN 81 MG ECTAB PO SCH (19:53)
[2020-10-01] MEDS: OMEGA-3 (PURIFIED FISH OIL) 1 GM CAP PO SCH (19:53)
[2020-10-01] MEDS: TOCOPHERYL, DL-ALPHA 100 UNITS CAP PO SCH (19:53)
[2020-10-01] MEDS: GLUCOSAMINE SULFATE 500 MG CAP PO SCH (19:53)
[2020-10-01] MEDS: INSULIN ASPART 100 UNITS/ML 3 ML PEN SC SCH ×2 (19:54→19:58)
--- NOTE | 2020-10-01 20:22 | Pharmacy Report ---
Pharmacy Glycemic Short Note 2 - Date of Service October 01, 2020 - Glycemic Short BSG Results (Last 24 hours): 10/01/20 10/01/20 10/01/20 13:02 16:37 19:33 POC Glucose 134 H 154 H 186 H OUTPATIENT ANTIDIABETIC REGIMEN: * Ozempic 1.25 mg SC every Tuesday at bedtime * HbA1c = 6.3% (08/01/20) ASSESSMENT: * 70 yo F admitted postoperatively this evening. Pharmacy has been consulted for assistance with inpatient glycemic management. * Preoperative BSG was 134 mg/dL. Postoperative BSG was 154 mg/dL. No steroids were given perioperatively to my knowledge. * Novolog was started based on weight and stress of 2-3. * Dinner BSG was 186 mg/dL. Will continue with other bolus insulin for now. If bedtime BSG is elevated, may need to add overnight checks or tighten parameters. PLAN FOR INPATIENT GLYCEMIC CONTROL: * Basal insulin * None * Bolus insulin * NovoLog per scale ACHS or Q6hrs while NPO * Goal Range: Low 110 mg/dL - High 140 mg/dL * Correction Factor: 25 mg/dL/unit * Nutritional / Prandial insulin per carb ratio of 1 unit per 8 grams CHO consumed PLAN FOR DISCHARGE: * HbA1c was 6.3% from July 2020. This is at goal (< 7%) for this patient based on her age and comorbidities. * Recommend continuing outpatient regimen upon discharge as long as patient is not experiencing any hypoglycemia.
[2020-10-01] MEDS ORDERED: SOY ISOFLAVONE PO SCH (21:00)
[2020-10-01] MEDS: ceFAZolin 2000MG 2,000 MG/15 ML SYR IV SCH (21:14)
[2020-10-02] MEDS: oxyCODONE HCL IR 5 MG TAB (IMMEDIATE RELEASE) PO PRN ×4 (01:32→22:05)
[2020-10-02] MEDS: ceFAZolin 2000MG 2,000 MG/15 ML SYR IV SCH (05:34)
[2020-10-02] MEDS: LEVOTHYROXINE SODIUM 88 MCG TABLET PO SCH (05:34)
[2020-10-02] MEDS: ACETAMINOPHEN 500 MG TAB PO SCH ×3 (05:35→19:26)
[2020-10-02 06:10] LABS: Hematocrit (blood only) 32.3 % (37-47); Mean Corpuscular Hemoglobin 30.6 pg (25-34); Mean Corpuscular Hgb Conc 34.1 g/dL (32-36); Mean Platelet Volume 9.6 fL (7.4-10.4); Platelet Count 292 K/uL (130-400); RDW Coefficient of Variation 12.6 % (11.5-14.5); RDW Standard Deviation 41.2 fL (36.4-46.3); Red Blood Count 3.59 M/uL (4.2-5.4); White Blood Count 12.31 K/uL (4.8-10.8)
[2020-10-02 06:52] LABS: BUN Creatinine Ratio 16.5 (10-20); Calcium 8.5 mg/dl (8.5-10.1); Creatinine Clr Calc Pharmacy 37.2 ml/min; Est GFR (African American) 39.2; Est GFR (Non-African American) 33.8; Potassium 4.4 mmol/L (3.5-5.1)
--- NOTE | 2020-10-02 08:28 | Orthopedic Progress Note ---
Date of Service October 02, 2020 Assessment & Plan (1) Traumatic medial retinacular tear of right knee: POD #1 s/p 1. Right knee medial retinacular plication and repair. 2. Polyethylene exchange with a Hull and Nephew size 3-4 x 15 mm constrained liner. PT/OT todaypatient may weight-bear on the right lower extremity with use of the walker in the immobilizer. No range of motion of the right knee for at least 3 weeks. DVT prophylaxisTED stockings, aspirin 81 mg twice daily x4 weeks Pain controloxycodone and Tylenol. Dilaudid for breakthrough pain. Discharge planningwe discussed possible rehabilitation stay since the patient has been nonweightbearing on the right lower extremity for essentially 1 year. She would prefer to go home and have outpatient physical therapy when she is able to start it in approximately 3 weeks. We discussed reviewing PT/OT notes as well as monitoring pain control for decision on discharge. Appreciate medicine input. We will have Paul bandage removed today and Silverlon dressing placed over the incision. (2) Right patella fracture: Admission and Anticipated Discharge Date Admission Date: October 01, 2020 Subjective No pain complaints of the right knee. States that she feels good this morning. Denies chest pain, shortness of breath, lightheadedness. Main complaint is a sore throat. Physical Exam Constitutional: WD/WN, vitals as above (Lying comfortably in bed watching TV.) no acute distress ENMT: external ear and nose normal, oropharynx normal Neck: trachea midline, no thyromegaly Respiratory: normal respiratory effort; no respiratory distress Auscultation: lungs clear to auscultation bilaterally and + diminished lung sounds Cardiovascular: Rate/Rhythm: regular rate and regular rhythm Gastrointestinal (Abdomen): normal bowel sounds, soft, nontender, no hepatosplenomegaly Musculoskeletal: Knee: + surgical incision (Dressing clean, dry, intact right lower extremity) and + limited ROM of knee (right); no skin erythema and no ecchymosis Skin: no rashes, warm and dry Trauma: no evidence of skin trauma Neurologic: normal touch/pain/proprioception Psychiatric: A+Ox3, euthymic affect Speech: normal rate/rhythm/volume of speech Lymphatic: no cervical or axillary lymphadenopathy Results & Data ([facility]) Vital Signs (Past 12 Hours) Vital Signs Temp Pulse Pulse Resp BP BP Pulse Ox 10/02/20 07:30 36.7 C 66 16 157/80 H 94 10/02/20 03:04 36.8 C 71 18 145/74 H 95 10/01/20 22:57 36.6 C 84 16 156/83 H 98
[2020-10-02] MEDS ORDERED: LANTUS PER UNIT CHARGE SQ ONE (08:45)
[2020-10-02] MEDS: carvediloL 6.25 MG TAB PO SCH ×2 (08:46→19:26)
[2020-10-02] MEDS: ASPIRIN 81 MG ECTAB PO SCH ×2 (08:46→19:25)
[2020-10-02] MEDS: OMEGA-3 (PURIFIED FISH OIL) 1 GM CAP PO SCH ×2 (08:46→19:25)
[2020-10-02] MEDS: CALCIUM 600MG + VIT D 400 IU TAB PO SCH ×2 (08:47→19:29)
[2020-10-02] MEDS: CEROVITE ADV FORMULA TAB PO SCH (08:47)
[2020-10-02] MEDS: lisinopril 10 MG TAB PO SCH (08:47)
[2020-10-02] MEDS: THIAMINE HCL 50 MG TABLET PO SCH ×2 (08:47→19:27)
[2020-10-02] MEDS: PANTOprazole 40 MG TAB PO SCH ×2 (08:47→19:27)
[2020-10-02] MEDS: DOCUSATE SODIUM 100 MG CAP PO SCH ×2 (08:47→19:27)
[2020-10-02] MEDS: GLUCOSAMINE SULFATE 500 MG CAP PO SCH ×2 (08:47→19:28)
[2020-10-02] MEDS: GABAPENTIN 100 MG CAP PO SCH ×4 (08:47→19:29)
[2020-10-02] MEDS: FOLIC ACID 1 MG TAB PO SCH (08:48)
[2020-10-02] MEDS: INSULIN ASPART 100 UNITS/ML 3 ML PEN SC SCH ×4 (08:48→20:42)
[2020-10-02] MEDS: LIOTHYRONINE SODIUM 5 MCG TAB PO SCH (08:48)
[2020-10-02] MEDS: FEXOFENADINE HCL 180 MG TAB PO SCH (08:48)
[2020-10-02] MEDS: ASCORBIC ACID 500 MG TAB PO SCH (08:48)
[2020-10-02] MEDS ORDERED: TRIAMTERENE/HCTZ 37.5/25MG TAB PO SCH (09:00)
--- NOTE | 2020-10-02 09:33 | Pharmacy Report ---
Pharmacy Glycemic Short Note 2 - Date of Service October 02, 2020 - Glycemic Short BSG Results (Last 24 hours): 10/01/20 10/01/20 10/01/20 13:02 16:37 19:33 Glucose POC Glucose 134 H 154 H 186 H 10/02/20 10/02/20 05:54 08:54 Glucose 168 H POC Glucose 150 H OUTPATIENT ANTIDIABETIC REGIMEN: * Ozempic 1.25 mg SC every Tuesday at bedtime * HbA1c = 6.3% (08/01/20) ASSESSMENT: 10/02 * AM fasting BSG slghtly above goal - will add low-dose Lantus * Will keep NOvolog parameters the same for now as they are already dosed for weight-based moderate to severe stress 10/01 * 70 yo F admitted postoperatively this evening. Pharmacy has been consulted for assistance with inpatient glycemic management. * Preoperative BSG was 134 mg/dL. Postoperative BSG was 154 mg/dL. No steroids were given perioperatively to my knowledge. * Novolog was started based on weight and stress of 2-3. * Dinner BSG was 186 mg/dL. Will continue with other bolus insulin for now. If bedtime BSG is elevated, may need to add overnight checks or tighten parameters. PLAN FOR INPATIENT GLYCEMIC CONTROL: * Basal insulin * Lantus 12 units SC x1 * Bolus insulin * NovoLog per scale ACHS or Q6hrs while NPO * Goal Range: Low 110 mg/dL - High 140 mg/dL * Correction Factor: 25 mg/dL/unit * Nutritional / Prandial insulin per carb ratio of 1 unit per 8 grams CHO consumed PLAN FOR DISCHARGE: * HbA1c was 6.3% from July 2020. This is at goal (< 7%) for this patient based on her age and comorbidities. * Recommend continuing outpatient regimen upon discharge as long as patient is not experiencing any hypoglycemia.
--- NOTE | 2020-10-02 09:54 | Hospitalist Progress Note ---
Date of Service October 02, 2020 Assessment & Plan (1) S/P knee surgery: Post op day# 1 S/P repair Medial Patellar retinacular tear, Excision Avulsion Fracture Lateral Patella, Polyethylene exchange by Dr Zuniga Post op day# 1 S/P repair Medial Patellar retinacular tear, Excision Avulsion Fr acture Lateral Patella, Polyethylene exchange by Dr Zuniga Per ortho for pain control, wound care, anticoagulation and activities Monitor H&H (hgb 11 today (13.9 pre-op) Continue incentive spirometry, PT/OT when appropriate (2) CAD (coronary artery disease): History cath 2016: chronic RCA occlusion Denies CP, SOB -Continue carvedilol, aspirin, statin (3) HTN (hypertension): Continue carvedilol, lisinopril Holding triamterene, HCTZ in setting of recent surgery, slightly bumped Cr (4) Diabetes mellitus type II, controlled: A1c: 6.3 on 08/01/20 Hold Ozempic Novolog sliding scale per protocol (5) Hypothyroidism: Continue levothyroxine, liothyronine (6) CKD (chronic kidney disease) stage 3, GFR 30-59 ml/min: Baseline Cr: 1.3-1.4. Cr 1.55 today, encouraged PO fluids. Repeat BMP in AM -Monitor renal functions, avoid nephrotoxic agents when possible (7) Depression: -Continue duloxetine (8) GERD (gastroesophageal reflux disease): -Continue PPI (9) Carotid artery disease: 50-69% stenosis -Continue aspirin DVT Prophylaxis -SCDs per ortho Disposition per primary service Follows with Dr Rockwell for routine care Pt was seen and care coordinated with Dr. Rogel. See addendum Thank you for this consultation. We will follow the patient with you during their hospital stay. Admission and Anticipated Discharge Date Admission Date: October 01, 2020 Supervising Physician Co-Signing Physician Notes Pt was seen and examined. Agreed with Clarice MACKENZIE exam, assessment and plan. S/P day #1 Right knee repair medial Patellar retinacular tear, excision avulsion fracture patella performed by Dr. Zuniga. Pt said that she feels ok. she said that she had therapy today. Denies CP, SOB, dizziness, JOHNSON and SOB. No post op complication. Continue incentive spirometry. Continue monitor H/H. Continue pain control. Continue PT/OT. Fall precaution. MD Juan F Subjective Seen and examined in 359 bed 1. Patient is feeling well postoperatively. Denies any surgical site pain or distal pain or paresthesias. Tolerating diet without issue. Denies fever, chills, chest pain or shortness of breath. No abdominal pain. No dysuria, diarrhea or constipation. Review of Systems Review of Systems: At least ten systems reviewed and negative except as noted in the HPI. Physical Exam Physical Exam: General Appearance: WD/WN, vitals as above, NAD, sitting up in bed, pleasant, conversing easily Head: normocephalic, atraumatic Eyes: normal inspection, PERRL, conjunctivae normal, anicteric sclerae ENT: external ear and nose normal, oropharynx normal Neck: normal visual inspection, trachea midline, no thyromegaly Respiratory: normal respiratory effort, lungs clear to auscultation, no wheeze, rales, rhonchi. No accessory muscle use Cardiovascular: regular rate, rhythm, + systolic murmur, normal peripheral pulses, no BLE edema Abdomen/GI: normal bowel sounds, soft, nontender, no hepatosplenomegaly Extremities/Musculoskeletal: + R knee with dressing c/d/i. No cyanosis or clubbing, extremities motor strength 5/5 Neurologic: PERRL, EOMI, CN's II-XI intact bilaterally and moves all extremities Psychiatric: A+Ox3, euthymic affect Skin: no rashes, normal color, warm/dry Results & Data Results & Data ([facility]) Vital Signs (Past 12 Hours) Vital Signs Temp Pulse Pulse Resp BP BP Pulse Ox 10/02/20 07:30 36.7 C 66 16 157/80 H 94 10/02/20 03:04 36.8 C 71 18 145/74 H 95 10/01/20 22:57 36.6 C 84 16 156/83 H 98 Laboratory Results Short CBC 10/02/20 Range/Units 05:54 WBC 12.31 H (4.8-10.8) K/uL Hgb 11.0 L (12.0-16.0) g/dL Hct 32.3 L (37-47) % Plt Count 292 (130-400) K/uL [facility] 10/02/20 05:54 Sodium 138 Potassium 4.4 Chloride 107 Carbon Dioxide 27 BUN 26 H Creatinine 1.55 H Glucose 168 H Calcium 8.5
[2020-10-02] MEDS ORDERED: CHLORASEPTIC 1.4% SOLN 180 ML BTL MT PRN (11:55)
[2020-10-02] MEDS ORDERED: DULoxetine HCL 30 MG CAP PO SCH (16:30)
[2020-10-02] MEDS: SENNA 8.6 MG TAB PO SCH (19:25)
[2020-10-02] MEDS: TOCOPHERYL, DL-ALPHA 100 UNITS CAP PO SCH (19:26)
[2020-10-02] MEDS: ATORVASTATIN 40 MG TAB PO SCH (19:26)
[2020-10-02] MEDS: LATANOPROST 0.005% OP SOLN 2.5 ML BTL OPB SCH (19:29)
[2020-10-03] MEDS: oxyCODONE HCL IR 5 MG TAB (IMMEDIATE RELEASE) PO PRN ×2 (02:39→08:13)
[2020-10-03] MEDS: ACETAMINOPHEN 500 MG TAB PO SCH (05:41)
[2020-10-03] MEDS: LEVOTHYROXINE SODIUM 88 MCG TABLET PO SCH (05:41)
[2020-10-03 06:15] LABS: Hematocrit (blood only) 33.1 % (37-47); Hemoglobin 11.1 g/dL (12.0-16.0); Mean Corpuscular Hemoglobin 30.2 pg (25-34); Mean Corpuscular Hgb Conc 33.5 g/dL (32-36); Mean Corpuscular Volume 90.2 fL (80-100); Mean Platelet Volume 9.4 fL (7.4-10.4); Platelet Count 311 K/uL (130-400); RDW Coefficient of Variation 12.9 % (11.5-14.5); RDW Standard Deviation 42.2 fL (36.4-46.3); Red Blood Count 3.67 M/uL (4.2-5.4); White Blood Count 9.76 K/uL (4.8-10.8)
[2020-10-03 06:34] LABS: BUN Creatinine Ratio 17.5 (10-20); Calcium 8.6 mg/dl (8.5-10.1); Creatinine Clr Calc Pharmacy 41.4 ml/min; Est GFR (African American) 44.7; Est GFR (Non-African American) 38.6
[2020-10-03] MEDS: FOLIC ACID 1 MG TAB PO SCH (08:08)
[2020-10-03] MEDS: GABAPENTIN 100 MG CAP PO SCH (08:08)
[2020-10-03] MEDS: CEROVITE ADV FORMULA TAB PO SCH (08:09)
[2020-10-03] MEDS: LIOTHYRONINE SODIUM 5 MCG TAB PO SCH (08:09)
[2020-10-03] MEDS: CALCIUM 600MG + VIT D 400 IU TAB PO SCH (08:09)
[2020-10-03] MEDS: GLUCOSAMINE SULFATE 500 MG CAP PO SCH (08:09)
[2020-10-03] MEDS: ASCORBIC ACID 500 MG TAB PO SCH (08:10)
[2020-10-03] MEDS: DOCUSATE SODIUM 100 MG CAP PO SCH (08:10)
[2020-10-03] MEDS: FEXOFENADINE HCL 180 MG TAB PO SCH (08:10)
[2020-10-03] MEDS: THIAMINE HCL 50 MG TABLET PO SCH (08:10)
[2020-10-03] MEDS: PANTOprazole 40 MG TAB PO SCH (08:10)
[2020-10-03] MEDS: ASPIRIN 81 MG ECTAB PO SCH (08:11)
[2020-10-03] MEDS: OMEGA-3 (PURIFIED FISH OIL) 1 GM CAP PO SCH (08:11)
[2020-10-03] MEDS: carvediloL 6.25 MG TAB PO SCH (08:11)
--- NOTE | 2020-10-03 08:52 | Hospitalist Progress Note ---
Date of Service October 03, 2020 Assessment & Plan (1) S/P knee surgery: Post op day#2 S/P repair Medial Patellar retinacular tear, Excision Avulsion Fracture Lateral Patella, Polyethylene exchange by Dr Zuniga Post op day#2 S/P repair Medial Patellar retinacular tear, Excision Avulsion Fracture Lateral Patella, Polyethylene exchange by Dr Zuniga Per ortho for pain control, wound care, anticoagulation and activities Monitor H&H (hgb stable at 11.1) Continue incentive spirometry, PT/OT when appropriate (2) CAD (coronary artery disease): History cath 2016: chronic RCA occlusion Denies CP, SOB Continue carvedilol, aspirin, statin (3) HTN (hypertension): Continue carvedilol, lisinopril Resume triamterene, HCTZ (4) Diabetes mellitus type II, controlled: A1c: 6.3 on 08/01/20 Hold Ozempic Novolog sliding scale per protocol (5) Hypothyroidism: Continue levothyroxine, liothyronine (6) CKD (chronic kidney disease) stage 3, GFR 30-59 ml/min: Kidney function at baseline 1.39 (baseline ~1.3-1.4) Monitor renal functions, avoid nephrotoxic agents when possible (7) Depression: Continue duloxetine (8) GERD (gastroesophageal reflux disease): Continue PPI (9) Carotid artery disease: 50-69% stenosis Continue aspirin DVT Prophylaxis - per ortho service Follows with Dr. Rockwell for routine care Pt was seen and care coordinated with Dr. Rogel. See addendum Thank you for this consultation. We will follow the patient with you during their hospital stay. Admission and Anticipated Discharge Date Admission Date: October 01, 2020 Supervising Physician Co-Signing Physician Notes Pt was seen and examined. Agreed with Jeanne MACKENZIE exam, assessment and plan. S/P day #2 Right knee repair medial Patellar retinacular tear, excision avulsion fracture patella performed by Dr. Zuniga. Denies CP, SOB, dizziness, JOHNSON and SOB. No post op complication. Continue incentive spirometry. Continue monitor H/H. Continue pain control. Continue PT/OT. Fall precaution. MD Juan F Subjective Seen and examined in 359- 1. Patient is feeling well postoperatively. Denies any surgical site pain or distal pain or paresthesias. Tolerating diet without issue. Denies fever, chills, chest pain or shortness of breath. No abdominal pain. No dysuria, diarrhea or constipation. Review of Systems Review of Systems: At least ten systems reviewed and negative except as noted in the HPI. Physical Exam Physical Exam: General Appearance: WD/WN, vitals as above, NAD, sitting up in bed, pleasant, conversing easily Head: normocephalic, atraumatic Eyes: normal inspection, PERRL, conjunctivae normal, anicteric sclerae ENT: external ear and nose normal, oropharynx normal Neck: normal visual inspection, trachea midline, no thyromegaly Respiratory: normal respiratory effort, lungs clear to auscultation, no wheeze, rales, rhonchi. No accessory muscle use Cardiovascular: regular rate, rhythm, + systolic murmur, normal peripheral pulses, no BLE edema Abdomen/GI: normal bowel sounds, soft, nontender, no hepatosplenomegaly Extremities/Musculoskeletal: + R knee with dressing c/d/i. No cyanosis or clubbing, extremities motor strength 5/5 Neurologic: PERRL, EOMI, CN's II-XI intact bilaterally and moves all extremities Psychiatric: A+Ox3, euthymic affect Skin: no rashes, normal color, warm/dry Results & Data Results & Data ([facility]) Vital Signs (Past 12 Hours) Vital Signs Temp Pulse Resp BP BP Pulse Ox 10/03/20 07:59 36.3 C L 67 20 166/85 H 94 10/02/20 23:00 36.7 C 72 16 141/69 H 95 Laboratory Results Short CBC 10/02/20 10/03/20 10/03/20 Range/Units 05:54 05:50 05:50 WBC 9.76 (4.8-10.8) K/uL Hgb 11.1 L (12.0-16.0) g/dL Hct 33.1 L (37-47) % Plt Count 311 (130-400) K/uL Creatinine 1.55 H 1.39 H (0.6-1.2) mg/dl BMP 10/03/20 05:50 Sodium 140 Potassium 4.0 Chloride 109 H Carbon Dioxide 27 BUN 24 H Creatinine 1.39 H Glucose 116 H Calcium 8.6
[2020-10-03] MEDS: INSULIN ASPART 100 UNITS/ML 3 ML PEN SC SCH (09:22)
--- NOTE | 2020-10-03 09:45 | Orthopedic Progress Note ---
Date of Service October 03, 2020 Assessment & Plan (1) Traumatic medial retinacular tear of right knee: POD #2 s/p 1. Right knee medial retinacular plication and repair. 2. Polyethylene exchange with a Hull [employer] Nephew size 3-4 x 15 mm constrained liner. PT/OT todaypatient may weight-bear on the right lower extremity with use of the walker in the immobilizer. No range of motion of the right knee for at least 3 weeks. DVT prophylaxisTED stockings, aspirin 81 mg twice daily x4 weeks Pain controloxycodone and Tylenol. Dilaudid for breakthrough pain. Discharge planninghome with home health today. (2) Right patella fracture: Admission and Anticipated Discharge Date Admission Date: October 01, 2020 Subjective Doing well. Pain controlled in the knee. Denies CP, SOB, LH. States she ambulated this AM to the bathroom with her knee immobilizer in place. Physical Exam Constitutional: WD/WN, vitals as above (Lying comfortably in bed watching TV.) no acute distress ENMT: external ear and nose normal, oropharynx normal Neck: trachea midline, no thyromegaly Respiratory: normal respiratory effort; no respiratory distress Auscultation: lungs clear to auscultation bilaterally and + diminished lung sounds Cardiovascular: Rate/Rhythm: regular rate and regular rhythm Gastrointestinal (Abdomen): normal bowel sounds, soft, nontender, no hepatosplenomegaly Musculoskeletal: Gait: normal gait (NWB RLE in wheelchair) Knee: + surgical incision (Silverlon clean, dry, intact right lower extremity) and + limited ROM of knee (right); no skin erythema and no ecchymosis Skin: no rashes, warm and dry Trauma: no evidence of skin trauma Neurologic: normal touch/pain/proprioception Psychiatric: A+Ox3, euthymic affect Speech: normal rate/rhythm/volume of speech Lymphatic: no cervical or axillary lymphadenopathy Results & Data ([facility]) Vital Signs (Past 12 Hours) Vital Signs Temp Pulse Resp BP BP Pulse Ox 10/03/20 07:59 36.3 C L 67 20 166/85 H 94 10/02/20 23:00 36.7 C 72 16 141/69 H 95 Laboratory Results Laboratory Tests 10/03/20 10/03/20 05:50 05:50 Hgb 11.1 L Hct 33.1 L Creatinine 1.39 H
[2020-10-03] MEDS: lisinopril 10 MG TAB PO SCH (10:00)
--- NOTE | 2020-10-10 09:38 | Discharge Summary ---
Date of Service October 10, 2020 Admission HPI Per Admitting Provider This is a patient who underwent a right knee replacement in 2019. She progressed well with her recovery. However, in September of 2019, she sustained a fall and injured the right knee. Exam and later a CT scan noted a medial retinacular tear with a patellar fracture. She was scheduled for surgery but canceled secondary to uncontrolled DM and another cancellation because of Covid restrictions on inpatient surgeries. Her HgbA1C is now improved and she is being set up for surgical repair. Principal Diagnosis Right knee medial retinacular tear post total knee arthroplasty Discharge Exam Constitutional WD/WN, vitals as above (Lying comfortably in bed watching TV.) no acute distress ENMT external ear and nose normal, oropharynx normal Neck trachea midline, no thyromegaly Respiratory normal respiratory effort; no respiratory distress Auscultation: lungs clear to auscultation bilaterally and + diminished lung sounds Cardiovascular Rate/Rhythm: regular rate and regular rhythm Gastrointestinal (Abdomen) normal bowel sounds, soft, nontender, no hepatosplenomegaly Musculoskeletal Gait: normal gait (NWB RLE in wheelchair) Knee: + surgical incision (Silverlon clean, dry, intact right lower extremity) and + limited ROM of knee (right); no skin erythema and no ecchymosis Skin no rashes, warm and dry Trauma: no evidence of skin trauma Neurologic normal touch/pain/proprioception Psychiatric A+Ox3, euthymic affect Speech: normal rate/rhythm/volume of speech Lymphatic no cervical or axillary lymphadenopathy Discharge Data Allergies Allergy/AdvReac Type Severity Reaction Status Date / Time pollen extracts Allergy Unknown HAYFEVER Verified 10/01/20 13:09 metformin AdvReac Unknown tachycardia Verified 10/01/20 13:09 Consultations 10/01/20 17:37 Consult Hospitalist Routine Procedures Performed Operation Date: 10/01/20 14:35 Actual Procedures p Right Knee Repair Medial Patellar Retinaculum, Excision Avulsion Fracture Lateral Patella, Poly Exchange - Bruce Zuniga DO Ordered Studies 10/01/20 05:00 US - OR guided needle placemen Routine Hospital Course (1) Traumatic medial retinacular tear of right knee: POD #2 s/p 1. Right knee medial retinacular plication and repair. 2. Polyethylene exchange with a Hull [employer] Nephew size 3-4 x 15 mm constrained liner. PT/OT todaypatient may weight-bear on the right lower extremity with use of the walker in the immobilizer. No range of motion of the right knee for at least 3 weeks. DVT prophylaxisTED stockings, aspirin 81 mg twice daily x4 weeks Pain controloxycodone and Tylenol. Dilaudid for breakthrough pain. Discharge planninghome with home health today. (2) Right patella fracture: Total Time Total Time Spent Total Time Spent (In Minutes): 30 Total Time Includes: Examination of the Patient, Discharge Planning and Medication Reconciliation Discharge Plan Discharge Items Patient Disposition: Home - Home Health Services Reason For Visit: Right Knee Patellar Retinacular Tear, Avulsion Discharge Diagnosis: Right knee medial retinacular tear Activity: Per Instructions section Weightbearing: Right weightbearing Weightbearing Comment: In immobilizer, using walker. Non-emergency contact: Surgeon Call non-emergency contact if: your pain is worsening and your temperature is above 101 Follow-up/Referrals: Keyshawn Rockwell MD [Primary Care Provider] - Diet: Carb Consistent or DM2 Addtl Attending Provider Instructions: ACTIVITY RECOMMENDATIONS: SELF CARE INSTRUCTIONS AFTER knee retinacular repair A. You may need to continue a physical therapy program after discharge from the hospital. There are several options available to you. Your doctor will assist you in selecting the best one for you. 1. An out-patient facility 2 to 3 times a week for therapy or home therapy. 2. Continue working on all exercises taught to you in the hospital. Your goals should be to increase bending of your knee to 90 degrees and beyond and to fully straighten your knee. You will not be doing any range of motion of the right knee for at least 3 weeks. Any physical therapy is for gait training only. He will be reevaluated in 2 to 3 weeks for starting physical therapy and gentle range of motion. B. You will be ambulating with a walker with your leg in extension for at least 6 weeks. C. Make walking a part of your daily routine. Be up as much as comfortable with rest periods throughout the day. Rest with leg elevation is very important. Use the ice wrap frequently for the first 3-4 weeks. D. There are no restrictions on activities with the exception of no range of motion of the right knee. You may ride in a car, shop, participate in occupational physician and all social activities. E. Wear the long elastic stockings (IRVIN hose) 20 hours a day for one month after surgery. They can be removed several times a day for laundering and for a bath. F. Silverlon: You have a Silverlon dressing on the right knee incision. It will remain in place for 7 days from the day it was placed. After 7 days, you may remove the dressing, just as you would remove a bandaid. You may shower with the Silverlon dressing in place. However, if you notice any water within the dressing, the dressing should be removed. You may cover the incision with a dry dressing once the Silverlon is removed if there is any drainage. SPECIAL CARE INSTRUCTIONS: VERY IMPORTANT TO READ AND REVIEW A. Take Aspirin (blood thinning medications) as directed by your doctor. If on Coumadin, have a pro-time (blood test) drawn according to your doctor's instructions. This will tell the doctor how well the Coumadin is thinning your blood. B. There are a few signs you need to watch for after you are home. Call [facility] if you notice any of the followin. Increased severe knee pain. Some pain is expected especially when you exercise. 2. Increased swelling in your leg or knee; pain or swelling of the calf muscle in either lower leg. 3. Any fluid drainage from the incision. 4. Shortness of breath or chest pain. C. Please call [facility] at if you have any concerns or questions about your operation or recovery. The doctor or his nurse will return your call promptly. D. You must take antibiotics before dental work, bladder, bowel or other surgery. Your doctor will provide you with a permanent care to carry describing this precaution. * CALL IF INCREASED PAIN, REDNESS, DRAINAGE OR FEVER GREATER THAT 101 F. * WEAR IRVIN HOSE 20 HOURS PER DAY FOR 4 WEEKS. FOLLOW UP VISIT: If appointment is not already scheduled: Please call [facility] to make a follow-up appointment for 2 weeks after your surgery to have mayco removed at . Pending Studies at Discharge: No Stand-Alone Forms: My [employer], Smoking Cessation Medications and DC Order Prescriptions: New acetaminophen 500 mg Tablet 1,000 mg PO Q8 Qty: 100 RF: 0 aspirin 81 mg Tablet,Delayed Release (Dr/Ec) 81 mg PO BID Qty: 60 RF: 0 oxycodone 5 mg Tablet 5 mg PO Q4H PRN (Reason: pain) Qty: 30 RF: 0 Continued ascorbic acid (vitamin C) [Vitamin C] 1,000 mg Tablet 1 g PO QAM RF: 0 vitamin E 200 unit Capsule 200 unit PO HS RF: 0 glucosamine sulfate [Glucosamine] 500 mg Tablet 500 mg PO BID RF: 0 fexofenadine [Aleisha Allergy] 180 mg Tablet 180 mg PO QAM RF: 0 pantoprazole 40 mg Tablet,Delayed Release (Dr/Ec) 40 mg PO BID RF: 0 triamterene-hydrochlorothiazid [Maxzide-25mg] 37.5-25 mg Tablet 1 tab PO QAM RF: 0 folic acid 1 mg Tablet 1 mg PO QAM RF: 0 lisinopril 5 mg Tablet 10 mg PO QAM RF: 0 thiamine HCl (vitamin B1) [Vitamin B-1] 50 mg Tablet 50 mg PO QAM RF: 0 Multivitamin 50 Plus Tablet 1 tab PO QAM RF: 0 Calcium 600 + D(3) 600 mg calcium- 200 unit Capsule 1 tab PO BID RF: 0 levothyroxine 88 mcg Tablet 37 mcg PO QAM RF: 0 atorvastatin [Lipitor] 80 mg Tablet 80 mg PO HS RF: 0 liothyronine 5 mcg Tablet 5 mcg PO QAM RF: 0 carvedilol 6.25 mg Tablet 6.25 mg PO BID RF: 0 omega 0-khz-otx-fish oil [Fish Oil] 1,000 mg (120 mg-180 mg) Capsule 1 cap PO BID RF: 0 latanoprost (PF) 0.005 % Drops 1 drp OPB HS RF: 0 duloxetine 30 mg capsule,delayed release(DR/EC) 30 mg PO QDD RF: 0 Ozempic 0.25 mg or 0.5 mg(2 mg/1.5 mL) pen injector 1.25 mg SUBCUT WK RF: 0 gabapentin 100 mg capsule 200 mg PO QID RF: 0 tramadol 50 mg Tablet 50 mg PO Q8H PRN (Reason: Pain) RF: 0 soy isoflavone 50 mg Tablet 50 mg PO HS RF: 0 Discontinued aspirin [Aspir-81] 81 mg Tablet,Delayed Release (Dr/Ec) 81 mg PO QAM RF: 0 acetaminophen [Pain Reliever (acetaminophen)] 500 mg tablet 1,000 mg PO Q8 PRN (Reason: Pain) RF: 0 Discharge Orders: Discharge Order (Routine); Ordered 10/03/20 Ordered By: David Agarwal Admission Data Admit Date/Time: 10/01/20 17:01 Attending Provider: Bruce Zuniga Admit Provider: Bruce Zuniga Primary Care Provider: Keyshawn Rockwell Other Providers: [facility],Home Healthcare ; Tisha Menjivar ; Irma Lincoln ; Alma Rogel ; Linnea Ibrahim ; Dayanara Figueroa ; Ashtyn Duarte ; Irasema Rolon ; Jeanne Diane ; Marcial Patterson ; Tanner Toro ; Jay Gore ; Nayeli Ferrer ; Nayana Rasmussen ; Turner Lazo ; Clarice Singleton ; Lorena Ignacio ; Vladimir Kellogg ; Lakia Lara ; Armida Yan ; Maryam Kaufman ; Mirela Dempsey I. ; Ike Ponce Other Interventions: Discharge Summary Assessment (RN) Last Done: 10/03/20 10:49
== END 2020-10-03 12:20 | disposition home health service (06) | DRG 488 ==
LOC: ASU 12:43 → 3W 17:01

== ENCOUNTER 2022-08-02 06:55 | Observation (INO) ==
--- NOTE | 2022-07-14 15:19 | PAT Medication Instructions ---
Medication Instructions Date of Service July 14, 2022 Home Medications Medication Instructions Recorded oxycodone-acetaminophen 5 mg-325 1 - 2 tab PO .Q4h-6h PRN pain #30 03/31/22 mg tablet (Percocet) tabs ascorbic acid (vitamin C) 1,000 mg tablet (Vitamin C) 1 g PO QAM calcium carbonate 600 mg-vitamin D3 5 mcg (200 unit) capsule (Calcium 600 + D(3)) 1 tab PO BID fexofenadine 180 mg tablet (Aleisha Allergy) 180 mg PO QAM folic acid 1 mg tablet 1 mg PO QAM glucosamine sulfate 500 mg tablet (Glucosamine) 500 mg PO BID lisinopril 5 mg tablet 10 mg PO QAM Multivitamin 50 Plus tablet) 1 tab PO QAM pantoprazole 40 mg tablet,delayed release 40 mg PO BID thiamine HCl (vitamin B1) 50 mg tablet (Vitamin B-1) 50 mg PO QAM triamterene 37.5 mg-hydrochlorothiazide 25 mg tablet (Maxzide-25mg) 1 tab PO QAM vitamin E 200 unit capsule 200 unit PO HS atorvastatin 80 mg tablet (Lipitor) 80 mg PO HS carvedilol 6.25 mg tablet 6.25 mg PO BID latanoprost (PF) 0.005 % eye drops 1 drp OPB HS levothyroxine 88 mcg tablet 88 mcg PO QAM liothyronine 5 mcg tablet 5 mcg PO QAM omega 8-uad-mdm-fish oil 1,000 mg (120 mg-180 mg) capsule (Fish Oil) 1 cap PO BID duloxetine 30 mg capsule,delayed release 30 mg PO QDD gabapentin 100 mg capsule 200 mg PO QID semaglutide 0.25 mg or 0.5 mg (2 mg/1.5 mL) subcutaneous pen injector (Ozempic) 1.25 mg subcut WK tramadol 50 mg tablet 50 mg PO Q8H PRN Pain soy isoflavone 50 mg tablet 50 mg PO HS betamethasone dipropionate 0.05 % topical cream 1 applic topical BID PRN glipizide 5 mg tablet 10 mg PO BID mirabegron 50 mg tablet,extended release 24 hr (Myrbetriq) 50 mg PO QPM oxycodone-acetaminophen 5 mg-325 mg tablet (Percocet) 1 - 2 tab PO .Q4h-6h PRN aspirin 81 mg tablet,delayed release 81 mg PO QAM Continue as directed semaglutide 0.25 mg or 0.5 mg (2 mg/1.5 mL) subcutaneous pen injector (Ozempic) 1.25 mg subcut WK ASK your prescriber and surgeon aspirin 81 mg tablet,delayed release 81 mg PO QAM STOP taking 2 weeks before surgery (or as soon as possible if surgery is within 2 weeks) glucosamine sulfate 500 mg tablet (Glucosamine) 500 mg PO BID omega 6-zub-bqa-fish oil 1,000 mg (120 mg-180 mg) capsule (Fish Oil) 1 cap PO BID soy isoflavone 50 mg tablet 50 mg PO HS thiamine HCl (vitamin B1) 50 mg tablet (Vitamin B-1) 50 mg PO QAM vitamin E 200 unit capsule 200 unit PO HS STOP taking 24 hours before surgery betamethasone dipropionate 0.05 % topical cream 1 applic topical BID PRN DO NOT take the morning of surgery ascorbic acid (vitamin C) 1,000 mg tablet (Vitamin C) 1 g PO QAM calcium carbonate 600 mg-vitamin D3 5 mcg (200 unit) capsule (Calcium 600 + D(3)) 1 tab PO BID fexofenadine 180 mg tablet (Aleisha Allergy) 180 mg PO QAM folic acid 1 mg tablet 1 mg PO QAM lisinopril 5 mg tablet 10 mg PO QAM Multivitamin 50 Plus tablet) 1 tab PO QAM triamterene 37.5 mg-hydrochlorothiazide 25 mg tablet (Maxzide-25mg) 1 tab PO QAM glipizide 5 mg tablet 10 mg PO BID Take morning of surgery With a small sip of water, OTHERWISE NOTHING TO EAT OR DRINK AFTER MIDNIGHT: pantoprazole 40 mg tablet,delayed release 40 mg PO BID carvedilol 6.25 mg tablet 6.25 mg PO BID liothyronine 5 mcg tablet 5 mcg PO QAM gabapentin 100 mg capsule 200 mg PO QID tramadol 50 mg tablet 50 mg PO Q8H PRN Pain (if needed) oxycodone-acetaminophen 5 mg-325 mg tablet (Percocet) 1 - 2 tab PO .Q4h-6h PRN (if needed) Take evening before surgery calcium carbonate 600 mg-vitamin D3 5 mcg (200 unit) capsule (Calcium 600 + D(3)) 1 tab PO BID pantoprazole 40 mg tablet,delayed release 40 mg PO BID atorvastatin 80 mg tablet (Lipitor) 80 mg PO HS carvedilol 6.25 mg tablet 6.25 mg PO BID latanoprost (PF) 0.005 % eye drops 1 drp OPB HS duloxetine 30 mg capsule,delayed release 30 mg PO QDD gabapentin 100 mg capsule 200 mg PO QID tramadol 50 mg tablet 50 mg PO Q8H PRN Pain (if needed) glipizide 5 mg tablet 10 mg PO BID mirabegron 50 mg tablet,extended release 24 hr (Myrbetriq) 50 mg PO QPM oxycodone-acetaminophen 5 mg-325 mg tablet (Percocet) 1 - 2 tab PO .Q4h-6h PRN (if needed) Other Notes If you have any questions please call us at [phone] or [phone] or [phone] or [phone]
--- NOTE | 2022-07-16 11:55 | Anesthesiology Consultation ---
Date of Service July 16, 2022 Assessment & Plan (1) Encounter for pre-operative examination: - COVID screening: Per assessment on 07/16: No known COVID-19 positive contacts or current COVID-19 related symptoms. Travel screen negative. Patient vaccinated. At surgeon discretion if preop Covid testing being done. - Check BSG AM DOS - Outpatient joint assessment: Pt currently scheduled for inpatient pathway. If surgeon requests review for outpatient joint pathway, patient is not recommended candidate for outpatient joint program from anesthesia standpoint. - Vascular note (08/10/21): In reference to right shoulder arthroscopy, RCR performed 09/10/21 at [facility]- "In 2021 L carotid disease progressed to high-grade and she underwent L CEA 07/08/21.. Received a call from Anesthesia at [facility]. Patient is scheduled for a surgery there.. Christa has a known right ICA occlusion and left <50% ICA carotid stenosis [08/10/21 carotid duplex]. OK for surgical procedure from a vascular standpoint. Should continue ASA if not contraindicated, if must be stopped, resume post-op as safely able." > Right shoulder arthroscopy, RCR (09/10/21): LMA iGel#4 + PNB at [facility]. No issues noted per post-op anesthesia progress note. - Cardiology office visit (07/12/22): "Chronic CAD - S/P Cardiac cath in 016 with findings of a chronic occlusion of the mid right coronary artery consistent with the small sized basal inferior wall motion abnormality noted on her resting echocardiogram. Otherwise mild luminal irregularities were noted in her other heart arteries without significant stenosis.. B/L carotid stenosis S/P CEA - follows with vascular surgery.. Patient with multiple orthopedic surgeries in the past for which she tolerated. No current anginal complaints. BP is borderline elevated, but given recent dizziness, will not change medications. EKG today without acute changes. Recent echo with preserved LVEF and moderate AI, stable. She appears euvolemic. Patient considered moderate risk for perioperative cardiac complications based on her history/comorbidities. Further cardiac testing would not improve/reduce her surgical risks. She is understanding of these risks and wishing to proceed. She should take ASA 81 mg daily without interruption in the perioperative period. She should also take her carvedilol without interruption. She should follow up with PCP regarding possible UTI symptoms."Subsequent PCP note 1/31/23 indicates urine culture positive for infection and prescription for Macrobid sent. Per patient, symptoms improving. Advised to contact PCP if not resolved after antibiotics completion. Chart Review Chart Review: Acceptable Risk for Surgery and Patient seen in Pre Admission Testing Teaching & Discussion Pre-Anesthesia Teaching/Discussion Notes: Instructed NPO after midnight before surgery,except medications with 15 cc of water. Medication instructions provided according to the PAT guidelines. History Surgery Operation Date: 08/02/22 12:25 Proposed Procedures p Right Total Shoulder Arthroplasty Reverse - Mikael Sanchez MD Height/Weight Height: 5 ft 6 in Weight: 83.9 kg Allergies Allergy/AdvReac Type Severity Reaction Status Date / Time metformin Allergy Severe tachycardia Verified 07/14/22 14:27 pollen extracts Allergy Mild HAYFEVER Verified 07/14/22 14:27 Medications Home Medications Medication Instructions Recorded Confirmed Last Taken ascorbic acid (vitamin C) 1,000 mg 1 g PO QAM 06/22/18 07/14/22 09/09/21 08:00 tablet (Vitamin C) calcium carbonate 600 mg-vitamin 1 tab PO BID 06/22/18 07/14/22 09/09/21 21:00 D3 5 mcg (200 unit) capsule (Calcium 600 + D(3)) fexofenadine 180 mg tablet 180 mg PO QAM 06/22/18 07/14/22 09/10/21 08:00 (Aleisha Allergy) folic acid 1 mg tablet 1 mg PO QAM 06/22/18 07/14/22 09/10/21 08:00 glucosamine sulfate 500 mg tablet 500 mg PO BID 06/22/18 07/14/22 09/09/21 21:00 (Glucosamine) lisinopril 5 mg tablet 10 mg PO QAM 06/22/18 07/14/22 09/10/21 08:00 ypoylrbmaakb-qrhyarzn-cfmrar 1 tab PO QAM 06/22/18 07/14/22 09/09/21 08:00 tablet (Multivitamin 50 Plus tablet) pantoprazole 40 mg tablet,delayed 40 mg PO BID 06/22/18 07/14/22 09/10/21 08:00 release thiamine HCl (vitamin B1) 50 mg 50 mg PO QAM 06/22/18 07/14/22 09/09/21 08:00 tablet (Vitamin B-1) triamterene 37.5 1 tab PO QAM 06/22/18 07/14/22 09/09/21 08:00 mg-hydrochlorothiazide 25 mg tablet (Maxzide-25mg) vitamin E 200 unit capsule 200 unit PO HS 06/22/18 07/14/22 09/09/21 21:00 atorvastatin 80 mg tablet (Lipitor) 80 mg PO HS 01/22/20 07/14/22 09/09/21 21:00 carvedilol 6.25 mg tablet 6.25 mg PO BID 01/22/20 07/14/22 09/10/21 08:00 latanoprost (PF) 0.005 % eye drops 1 drp OPB HS 01/22/20 07/14/22 09/09/21 21:00 levothyroxine 88 mcg tablet 88 mcg PO QAM 01/22/20 07/14/22 09/10/21 08:00 liothyronine 5 mcg tablet 5 mcg PO QAM 01/22/20 07/14/22 09/10/21 08:00 omega 3-qjn-uej-fish oil 1,000 mg 1 cap PO BID 01/22/20 07/14/22 09/09/21 08:00 (120 mg-180 mg) capsule (Fish Oil) duloxetine 30 mg capsule,delayed 30 mg PO QDD 04/08/20 07/14/22 09/09/21 12:00 release gabapentin 100 mg capsule 200 mg PO QID 04/08/20 07/14/22 09/10/21 08:00 semaglutide 0.25 mg or 0.5 mg (2 1.25 mg subcut WK 04/08/20 07/14/22 09/07/21 22:00 mg/1.5 mL) subcutaneous pen injector (Ozempic) tramadol 50 mg tablet 50 mg PO Q8H PRN Pain 06/02/20 07/14/22 09/09/21 17:00 soy isoflavone 50 mg tablet 50 mg PO HS 09/19/20 07/14/22 09/09/21 21:00 betamethasone dipropionate 0.05 % 1 applic topical BID PRN . 11/13/20 07/14/22 Unknown topical cream glipizide 5 mg tablet 10 mg PO BID 11/13/20 07/14/22 Unknown mirabegron 50 mg tablet,extended 50 mg PO QPM 11/13/20 07/14/22 Unknown release 24 hr (Myrbetriq) oxycodone-acetaminophen 5 mg-325 1 - 2 tab PO .Q4h-6h PRN pain #30 09/10/21 Unknown mg tablet (Percocet) tabs aspirin 81 mg tablet,delayed 81 mg PO QAM 07/14/22 07/14/22 Unknown release Past Medical History Medical History CAD (coronary artery disease) chronic mid right coronary artery occlusion-stent not placed, medical therapy recommended (2015 cardiac cath) Carotid artery disease Chronic right carotid occlusion s/p L CEA 06/[address] [facility] vascular surgery CKD (chronic kidney disease) stage 3, GFR 30-59 ml/min Depression Diabetes mellitus, type 2 Environmental allergies GERD (gastroesophageal reflux disease) Hx of gastric ulcer Hx of vertigo Hyperlipidemia Hypertension Hypothyroidism MTHFR mutation Heterozygous Noted per [address] [facility] hematology records (diagnosed during workup of bruising) Myocardial Infarction "Silent PR" Osteoarthritis Pulmonary nodules Multiple, under surveillance Stroke Per remote records, denies Tremor rt/left hand Exercise / Class Metabolic Activity III < 4 Walking/Shop/Light housework Past Family History Family History Aunt Family history of diabetes mellitus Mother Heart disease Other No family history of adverse response to anesthesia No family history of allergies No family history of bleeding disorder Denies family history of Hearing loss Cancer Hypertension Stroke Asthma Past Surgical History Surgical History H/O knee surgery Right knee medial retinacular repair and poly exchange 10/01/2020: LMA#4 + PNB. No issues per postop anesthesia progress note. History of anesthesia reaction "Slow to wake" "Goes under very easily" History of arthroscopy of shoulder Right shoulder arthroscopy, RCR (09/10/21): LMA iGel #4 + PNB at [facility]. No issues noted per post-op anesthesia progress note. History of back surgery Had laser procedure 03/2018 in [place] > LUMBAR History of cardiac cath 2015 [facility]. Moderate CAD, no stents. History of carotid endarterectomy Left CEA (07/08/21) History of carpal tunnel surgery of right wrist History of colonoscopy History of esophagogastroduodenoscopy (EGD) History of left knee replacement History of surgery right wrist x2 History of total knee replacement right 07/28/2018: SAB at L3-L4, 1 attempt + PNB. No issues per postop anesthesia progress note. Hx of ankle fusion right Hx of appendectomy Hx of arthroscopic knee surgery left Hx of bilateral cataract extraction Hx of cervical spine surgery 08/2009 [facility], [place]> ROM WNL PER PT Hx of decompression of ulnar nerve right Hx of hand surgery right Hx of tubal ligation Hx of vaginal surgery LEEP? (Due to precancerous cells on cervix) Past Anesthesia History No Family Hx of Anesthesia Complications and Other ("slow to wake") History of PONV No Hx of PONV and No Hx of Motion Sickness Social History Smoking Status: Current every day smoker tobacco type: cigarettes Smoking cigarettes per day: 1/2 PPD Do You Dip or Chew Tobacco: No Hx Alcohol Use: No alcohol intake frequency: holidays/special occasions only Hx Substance Use: No substance use type: does not use Review of Systems Patient denies chest pain, shortness of breath, dyspnea on exertion, fever, chills, cough, wheezing, palpitations. Physical Exam Vital Signs VITALS BP 170/79 P 61 TEMP 98.8 SP02 96%RA RESP 18 PHYSICAL Decreased cervical extension range of motion. Full TMJ range of motion. TMD 4 finger breaths Mallampati Score 3 Dentition: full dentures upper/lower Lungs: clear throughout to auscultation Cardiac: regular rate and rhythm, III/ systolic murmur Spine: normal Carotid arteries: negative bruit Extremities: no edema Lab Results Anesthesia Preop Results Results Anesthesia Widget: WBC 8.60 K/ul (4.8-10.8) 07/16/22 Hgb 14.1 g/dl (12.0-16.0) 07/16/22 Hct 42.5 % (37.0-47.0) 07/16/22 Plt 308 K/uL (130-400) 07/16/22 Na 139 mmol/L (136-145) 07/16/22 K 4.4 mmol/L (3.5-5.1) 07/16/22 Cl 102 mmol/L (98-107) 07/16/22 CO2 31 mmol/L (21-32) 07/16/22 BUN 30 mg/dl (6-23) H 07/16/22 Creat 1.40 mg/dl (0.6-1.2) H 07/16/22 Glucose Level 125 mg/dl (70-99(Fasting)) H 07/16/22 PT 10.0 Seconds (9.0-12.0) 07/16/22 PTT 33.7 Seconds (21.0-31.0) H 07/16/22 INR 0.9 (0.9-1.1) 07/16/22 TSH 9.227 uIu/ml (0.300-4.500) H 07/16/22 Free T4 1.05 ng/dl (0.61-1.60) 07/16/22 HA1c 7.1 % (4.5-5.6) H 07/16/22 Blood Type O Positive 07/16/22 Antibody Screen NEGATIVE 07/16/22 Testing Electrocardiogram Date: 07/12/22 Normal sinus rhythm at 76 bpm. Septal infarct, age undetermined. T wave abnormality, consider lateral ischemia. No significant change compared to 06/18/2021 per tank tester review. EKG was performed at preop cardiac evaluation appointment. Chest X-Ray Date: 07/16/22 FINDINGS: AP and lateral chest radiographs are compared to study dated 03/18/2020. The cardiomediastinal silhouette is top normal for projection noting atherosclerotic calcification of the thoracic aorta. The lungs and pleural spaces are clear noting mild bibasilar atelectasis. There is no pneumothorax. The skeletal structures are osteopenic. The bony thorax appears intact. Degenerative change is noted in the thoracic spine. IMPRESSION: No active disease in the chest. Echocardiogram Date: 02/22/20 EF 54% Normal LV chamber size with moderate cLVH Small sized basal inferior and posterior wall motion abnormality with hypokinesis to akinesis of the segments. Small sized inferior scar. Otherwise normal wall motion. Grade I diastolic dysfunction. Moderately calcified aortic valve without stenosis. Moderate aortic valve regurgitation. Cardiac Catheterization Date: 03/09/16 RCA: 100% stenosis LAD: 40% Cx: 30% Left main: normal Recommendations: Medical therapy Other Testing Carotid duplex (08/10/21) ADIN indicates evidence of occlusion. LICA less than 50% stenosis. Bilateral vertebral antegrade flow. COVID-19 Risk Screen Screening Information COVID-19 Screen Date: 07/16/22 Exposure 21 Days Family/Household +COVID Last 21 Days: No Exposure 10 Days Any COVID Exposure Last 10 Days: No Symptoms Last 10 Days Experienced COVID Sx Last 10 Days: No + COVID 0-90 Days COVID + in Last 0-90 Days: No
--- NOTE | 2022-08-01 09:44 | History & Physical Report ---
Date of Service August 01, 2022 Assessment & Plan (1) Rotator cuff arthropathy of right shoulder: Plan: Treatment options discussed with the patient. She has pain interfering with her daily activities and has failed conservative measures. She would like to proceed with surgical intervention. Risks, benefits and alternatives to surgery including but not limited to infection, DVT, pain, stiffness, need for revision surgery, damage to blood vessels, damage to nerves, PE, , were discussed with the patient and they wish to proceed. Plan for right reverse total shoulder arthroplasty scheduled for Yady Cervantes on August [address] Sanchez. All questions were answered. Patient will follow-up postop. History of Present Illness Chief Complaint: Right shoulder pain Primary Care Provider: Keyshawn Rockwell MD 71-year-old female with past medical history significant for diabetes, hypertension, history of MT, hypothyroidism, CKD, CAD, carotid artery disease who presents with longstanding right shoulder pain. Patient underwent previous right shoulder arthroscopy with rotator cuff repair with subsequent failure of repair. She has pain interfering with her daily activities. She had failed conservative measures including physical therapy. She would like to proceed with surgical intervention. Patient denies headaches, sweats, fevers, chills, double vision, blurred vision, cough, sore throat, dysphagia, chest pain, sob, wheezing, n/v/d/c, numbness, tingling, fatigue, urinary symptoms, mood disorders. ROS positive for right shoulder pain and stiffness. Allergies Allergy/AdvReac Type Severity Reaction Status Date / Time metformin Allergy Severe tachycardia Verified 07/14/22 14:27 pollen extracts Allergy Mild HAYFEVER Verified 07/14/22 14:27 Home Medications Medication Instructions Recorded Confirmed Type ascorbic acid (vitamin C) 1,000 mg 1 g PO QAM 06/22/18 07/14/22 History tablet (Vitamin C) calcium carbonate 600 mg-vitamin 1 tab PO BID 06/22/18 07/14/22 History D3 5 mcg (200 unit) capsule (Calcium 600 + D(3)) fexofenadine 180 mg tablet 180 mg PO QAM 06/22/18 07/14/22 History (Aleisha Allergy) folic acid 1 mg tablet 1 mg PO QAM 06/22/18 07/14/22 History glucosamine sulfate 500 mg tablet 500 mg PO BID 06/22/18 07/14/22 History (Glucosamine) lisinopril 5 mg tablet 10 mg PO QAM 06/22/18 07/14/22 History wgnjgnlrtbmm-vyrxorkr-xwazon 1 tab PO QAM 06/22/18 07/14/22 History tablet (Multivitamin 50 Plus tablet) pantoprazole 40 mg tablet,delayed 40 mg PO BID 06/22/18 07/14/22 History release thiamine HCl (vitamin B1) 50 mg 50 mg PO QAM 06/22/18 07/14/22 History tablet (Vitamin B-1) triamterene 37.5 1 tab PO QAM 06/22/18 07/14/22 History mg-hydrochlorothiazide 25 mg tablet (Maxzide-25mg) vitamin E 200 unit capsule 200 unit PO HS 06/22/18 07/14/22 History atorvastatin 80 mg tablet (Lipitor) 80 mg PO HS 01/22/20 07/14/22 History carvedilol 6.25 mg tablet 6.25 mg PO BID 01/22/20 07/14/22 History latanoprost (PF) 0.005 % eye drops 1 drp OPB HS 01/22/20 07/14/22 History levothyroxine 88 mcg tablet 88 mcg PO QAM 01/22/20 07/14/22 History liothyronine 5 mcg tablet 5 mcg PO QAM 01/22/20 07/14/22 History omega 4-kwc-btn-fish oil 1,000 mg 1 cap PO BID 01/22/20 07/14/22 History (120 mg-180 mg) capsule (Fish Oil) duloxetine 30 mg capsule,delayed 30 mg PO QDD 04/08/20 07/14/22 History release gabapentin 100 mg capsule 200 mg PO QID 04/08/20 07/14/22 History semaglutide 0.25 mg or 0.5 mg (2 1.25 mg subcut WK 04/08/20 07/14/22 History mg/1.5 mL) subcutaneous pen injector (Ozempic) tramadol 50 mg tablet 50 mg PO Q8H PRN Pain 06/02/20 07/14/22 History soy isoflavone 50 mg tablet 50 mg PO HS 09/19/20 07/14/22 History betamethasone dipropionate 0.05 % 1 applic topical BID PRN . 06/03/21 02/01/23 History topical cream glipizide 5 mg tablet 10 mg PO BID 11/13/20 07/14/22 History mirabegron 50 mg tablet,extended 50 mg PO QPM 11/13/20 07/14/22 History release 24 hr (Myrbetriq) oxycodone-acetaminophen 5 mg-325 1 - 2 tab PO .Q4h-6h PRN pain #30 09/10/21 Rx mg tablet (Percocet) tabs aspirin 81 mg tablet,delayed 81 mg PO QAM 07/14/22 07/14/22 History release Past Med/Surg History Medical History CAD (coronary artery disease) chronic mid right coronary artery occlusion-stent not placed, medical therapy recommended (2015 cardiac cath) Carotid artery disease Chronic right carotid occlusion s/p L CEA 06/2021 follows with [facility] vascular surgery CKD (chronic kidney disease) stage 3, GFR 30-59 ml/min Depression Diabetes mellitus, type 2 Environmental allergies GERD (gastroesophageal reflux disease) Hx of gastric ulcer Hx of vertigo Hyperlipidemia Hypertension Hypothyroidism MTHFR mutation Heterozygous Noted per 2013 [facility] hematology records (diagnosed during workup of bruising) Myocardial Infarction "Silent MT" Osteoarthritis Pulmonary nodules Multiple, under surveillance Stroke Per remote records, denies Tremor rt/left hand Surgical History H/O knee surgery Right knee medial retinacular repair and poly exchange 10/01/2020: LMA#4 + PNB. No issues per postop anesthesia progress note. History of anesthesia reaction "Slow to wake" "Goes under very easily" History of arthroscopy of shoulder Right shoulder arthroscopy, RCR (09/10/21): LMA iGel #4 + PNB at [facility]. No issues noted per post-op anesthesia progress note. History of back surgery Had laser procedure 03/2018 in [place] > LUMBAR History of cardiac cath 2015 [facility]. Moderate CAD, no stents. History of carotid endarterectomy Left CEA (07/08/21) History of carpal tunnel surgery of right wrist History of colonoscopy History of esophagogastroduodenoscopy (EGD) History of left knee replacement History of surgery right wrist x2 History of total knee replacement right 07/28/2018: SAB at L3-L4, 1 attempt + PNB. No issues per postop anesthesia progress note. Hx of ankle fusion right Hx of appendectomy Hx of arthroscopic knee surgery left Hx of bilateral cataract extraction Hx of cervical spine surgery 08/2009 [facility], [place]> ROM WNL PER PT Hx of decompression of ulnar nerve right Hx of hand surgery right Hx of tubal ligation Hx of vaginal surgery LEEP? (Due to precancerous cells on cervix) Family History Aunt Family history of diabetes mellitus Mother Heart disease Other No family history of adverse response to anesthesia No family history of allergies No family history of bleeding disorder Denies family history of Hearing loss Cancer Hypertension Stroke Asthma Social History Smoking Status: Current every day smoker packs per day: 0.5; Cigarettes Per Day: 1/2 PPD; Second Hand Exposure: No; Hx Alcohol Use: No Hx Substance Use: No Preferred Language: Brazilian Communication Ability: Effective Water Tester Required: No Beliefs That Will Affect Care: None marital status: Current Living Situation: Spouse current occupational status: disabled How many Children do You have: 3 Feels Safe at Home: Yes Assistive Devices: Denture - Upper, Denture - Lower and Wheelchair Review of Systems All systems reviewed & are unremarkable except as noted in HPI & below Physical Exam Constitutional: well developed and well nourished; no acute distress Eyes: PERRL, conjunctivae normal, anicteric sclerae ENMT: external ear and nose normal, oropharynx normal Neck: trachea midline, no thyromegaly Respiratory: normal respiratory effort, lungs clear to auscultation Cardiovascular: RRR, no murmur, no edema Musculoskeletal: Right shoulder: Arthroscopic portals well-healed. No tenderness. She has pain with movement and range of motion. Active abduction at 90 degrees, forward flexion 120 degrees. Strength is decreased. 3+/5 abduction, 4 -/5 external rotation, 5 -/5 internal rotation. Skin: no rashes, warm and dry Neurologic: patellar DTR's 2+ bilat, sensation intact Psychiatric: A+Ox3, euthymic affect Results & Data ([facility]) Diagnostic Findings Right shoulder radiographs demonstrate postoperative changes consistent with history of arthroscopy. MRI demonstrates failure of rotator cuff repair with massive full-thickness rotator cuff tear with retraction to the level of the glenoid.
[~2022-08-02 06:55] MED LIST changes: +ACETAMINOPHEN 500 MG TAB PO SCH; -BUPIVACAINE 0.25% 30 ML VIAL ONE; +CeleBREX 200 MG CAP PO SCH; +FAMOTIDINE 20 MG TAB PO SCH; +GABAPENTIN 300 MG CAP PO SCH; -LIDOCAINE HCL 2% 2 ML VIAL/AMP(20MG/ML) INFIL ONE; +METOCLOPRAMIDE HCL 10 MG TABLET PO SCH; -MIDAZOLAM HCL 1 MG/ML 2ML VIAL ONE; -ONDANSETRON INJ 2 MG/ML 2 ML VIAL ONE; -PROPOFOL IV EMULSION 10 MG/ML 20 ML VIAL IV ONE; +TRANEXAMIC ACID 1,000 MG **IV Intra-op IV SCH; +TRANEXAMIC ACID 1,000 MG **IV Pre-op IV SCH; -ceFAZolin 1000MG 1,000 MG/7.5 ML SYR IV SCH; +ceFAZolin 2000MG 2,000 MG/15 ML SYR IV SCH; -ePHEDrine sulfate 50 MG/ML SYR ONE; -fentaNYL citrate 100 MCG/2 ML VIAL ONE
[2022-08-02] MEDS ORDERED: PROPOFOL IV EMULSION 10 MG/ML 20 ML VIAL IV ONE (07:26)
[2022-08-02] MEDS ORDERED: ROCURONIUM BROMIDE 10 MG/ML 5 ML VIAL IV ONE (07:26)
[2022-08-02] MEDS ORDERED: fentaNYL citrate 100 MCG/2 ML VIAL ONE (07:26)
[2022-08-02] MEDS ORDERED: LIDOCAINE 2% MPF LOCAL 5 ML VIAL INFIL ONE (07:26)
[2022-08-02] MEDS ORDERED: MIDAZOLAM HCL 1 MG/ML 2ML VIAL ONE (07:26)
[2022-08-02] MEDS ORDERED: PHENYLEPHRINE HCL 10 MG/ML VIAL ONE (07:26)
--- NOTE | 2022-08-02 07:52 | History & Physical Bridge Note ---
Date of Service August 02, 2022 History & Physical Bridge Note I have examined the patient, reviewed the History & Physical and in the interval since the performance of the History & Physical I have noted the following changes of clinical significance: no changes noted
[2022-08-02] MEDS ORDERED: ATROPINE SULFATE 0.1 MG/ML 10ML SYR IV PRN (08:43)
[2022-08-02] MEDS ORDERED: ONDANSETRON INJ 2 MG/ML 2 ML VIAL IV PRN ×2 (08:43→12:36)
[2022-08-02] MEDS ORDERED: fentaNYL citrate 100 MCG/2 ML VIAL IV PRN (08:43)
[2022-08-02] MEDS ORDERED: ePHEDrine sulfate 50 MG/ML AMP ONE (09:32)
[2022-08-02] MEDS ORDERED: ePHEDrine sulfate 50 MG/ML SYR ONE (09:32)
[2022-08-02] MEDS ORDERED: NEOSTIGMINE METHYLSULFATE 1 MG/ML 10ML VIAL ONE (11:05)
[2022-08-02] MEDS ORDERED: GLYCOPYRROLATE 0.2 MG/ML VIAL ONE (11:05)
--- NOTE | 2022-08-02 11:38 | Operative Report ---
Post Operative Report Pre & Post Diagnosis Operation Date: 08/02/22 09:35 Pre-Op Diagnosis: Right Shoulder Rotator Cuff Arthropathy, failed rotator cuff repair Post-Op Diagnosis: Right Shoulder Rotator Cuff Arthropathy, failed rotator cuff repair I identified the patient and participated in the time-out.: Yes Procedure Operation Date: 08/02/22 09:35 Actual Procedures p Right Total Shoulder Arthroplasty Reverse(Right), excision suture anchors and suture material.- Mikael Sanchez MD Surgeon Mikael Sanchez MD Cytopathologist Dick PASTRANA Estimated Blood Loss 40 Findings Consistent with Post-Op Diagnosis Specimens Humeral head Drains 2 Hemovac Anesthesia Type General Regional Complications none Disposition Disposition: Recovery Room Indications 71-year-old female status post a large rotator cuff tear repair who was doing satisfactorily and had reinjury and had increased weakness and MRI demonstrates large retracted rotator cuff tear. Description of Procedure The patient was taken to the operating room and anesthetized under regional block and general anesthetic. The patient was positioned on the operating table in a 30 beach chair position with a towel roll under the medial border of the right scapula. The arm was draped free to be able to manipulate the shoulder as needed. The right upper extremity was prepped and draped in usual sterile fashion. Exam demonstrated good passive range of motion some ligamentous laxity old arthroscopic scars benign. No signs of any infection. No swelling.. An anterior deltopectoral approach was performed. A longitudinal incision was made in the deltopectoral interval. The skin was incised sharply. Subcutaneous flaps were elevated off the fascia. There was no cephalic vein. The clavipectoral fascia was divided at the lateral margin of the conjoined tendon and extended up to the CA ligament. The following findings were noted: The upper third subscapularis tendon was torn and supraspinatus was completely torn infraspinatus repair was still intact there were old suture anchor suture material from prior repair. Biceps tendon was absent.. The upper centimeter of the pectoralis was released for inferior exposure. A self-retaining retractor was placed. The subscapular muscle fibers were split longitudinally at the level of the circumflex vessels. The circumflex vessels were identified and tied off with silk ties and divided laterally. A Kitner elevator was used to free up the inferior fibers of the subscapularis off of the capsule. The axillary nerve was identified with a tug test and protected with a blunt Peggy retractor between the nerve and the capsule. The subscapularis tendon was then taken down off of the lesser tuberosity subperiosteally, a Vicryl traction suture was placed and a subperiosteal dissection was performed along the neck of the humerus as the arm was gradually externally rotated exposing the humeral head. The humeral head findings demonstrated minor arthritic changes no osteophytes. A Mays elevator was used to assist in releasing the capsule of the neck of the humerus. The capsule was divided with Peters scissors down to the glenoid released off the anterior glenoid and the rotator interval was released to meet the capsular release and a 360 release of the subscapularis was accomplished. A Fukuda retractor was placed into the joint retracting the humeral head posterior. Glenoid findings demonstrated some articular erosions in the central and anterior glenoid with some moderate arthritic changes. The labrum was resected. an anterior-inferior and posterior inferior capsular release were performed with electrocautery and a Mays elevator on bone with the axillary nerve protected inferiorly by the retractor. Attention was then taken to the humeral preparation. The cutting guide was placed into the humeral head. It was positioned at 20 of retroversion. Oscillating saw was used to resect the humeral head giving the cut above the level of the posterior rotator cuff insertion site. Multiple suture anchors were removed with a rongeur and old suture material was removed with a scalpel and rongeur as necessary in order to create appropriate path for the humeral component. The humerus was then prepared for the stem. I used the [facility] flex [facility]. The sizing broaches were used followed by trial broaches up to a size 3B long which had the appropriate fit and fill. The appropriate sized cut protector was placed. The humerus was then retracted posterior to the glenoid. The glenoid was sized for a 25 baseplate. The guide for the baseplate was positioned in a 10 inferior tilt and the central drill hole was made. The reamer for the 25 baseplate was used. The central drill was widened for the peg. The 25 baseplate was impacted into position. The base plate was transfixed with superior and inferior locking screws and anterior and posterior compression screws with stable fixation. The fan reamer was used for the 36 millimeter glenoid sphere. After irrigation the 36 standard glenoid sphere was impacted onto the baseplate and the security screw was tightened. Attention was taken back to the humerus. The cut protector was removed and the plus or high offset humeral tray trial was assembled to the trial stem rotated appropriately to get bony coverage and then screwed in position. A trial reduction was performed. A +6, 36 mm reversed trial insert demonstrated good stability and no shuck. The trials were removed. 3 drill holes are made into the harder bone in the bicipital groove area and 3 #5 FiberWire sutures were placed transosseously. The canal was irrigated with saline solution. The final component was assembled. The final component was 3B long stem,+0 high offset tray with a +6,36 mm reversed insert. This was then impacted into the humerus with a tight press-fit. It was reduced to the glenoid sphere. Stability was verified. Subscapularis was repaired with the #5 FiberWire sutures using Sumanth- Bert suture technique. Lateral row soft tissue repair was performed with #2 FiberWire [id number] sutures. The pectoralis was repaired with #2 FiberWire [id number] sutures reinforcing the biceps tendon tenodesis. The arm was taken through a range of motion which demonstrated 140 degrees forward flexion, 110 degrees abduction and 60 degrees external rotation without any tension on repair with stable motion and no shuck. The implant was stable through the range of motion tested. The wound was copiously irrigated. 2 Hemovac drains were placed. The deltopectoral interval was closed with [id number] #1 Vicryl sutures. The subcutaneous tissues were closed with 2- 0 Vicryl sutures. The skin was closed with mayco. Sterile dressings were applied and a shoulder immobilizer. Dick PASTRANA, my physician credit control assistant acted as first assist throughout the procedure .He performed functions including patient positioning, arm positioning, prepping and draping, soft tissue retraction, instrument management, suture management and performed the subcutaneous and skin closure and will participate in the postoperative care of the patient. I attest to the content of the Intraoperative Record and any orders documented therein. Any exceptions are noted below.
--- NOTE | 2022-08-02 12:14 | Anesthesiology Progress Note ---
Date of Service August 02, 2022 Anesthesia Post Procedure Vital Signs Vital Signs: Temp Pulse Pulse Resp BP Pulse Ox O2 Del Method 08/02/22 12:05 36.3 C L 55 L 16 181/74 H 100 Room Air 08/02/22 11:55 56 L 18 195/76 H 100 Oxymask 08/02/22 11:45 58 L 15 194/93 H 100 Oxymask 08/02/22 11:35 36 C L 100 H 13 198/85 H 100 Oxymask 08/02/22 07:42 36.6 C 62 22 149/84 H 99 Room Air O2 Flow Rate 08/02/22 12:05 08/02/22 11:55 5 08/02/22 11:45 5 08/02/22 11:35 9 08/02/22 07:42 Transfer of Care Handoff Completed per policy Notes Mental Status: alert / awake / arousable Patient Amnestic to Procedure: Yes Nausea / Vomiting: adequately controlled Pain: adequately controlled Airway Patency, RR, SpO2: stable & adequate BP & HR: stable & adequate Hydration State: stable & adequate Anesthetic Complications: no major complications apparent
--- NOTE | 2022-08-02 12:27 | XRay Report ---
RIGHT SHOULDER 2 VIEWS CLINICAL HISTORY: Postoperative examination. FINDINGS: 2 portable views of the right shoulder are obtained. The skeletal structures are osteopenic . A right shoulder arthroplasty is in near anatomic alignment. No acute fracture is seen. Skin clips, a surgical drain, subcutaneous gas, and soft tissue swelling overlying the right shoulder are expect ed postoperative changes. There is widening at the acromioclavicular joint. Fusion hardware is seen i n the cervical spine. The visualized right lung parenchyma is grossly clear. IMPRESSION: Expected postoperative findings status post right shoulder arthroplasty. No acute fractur e is seen. Electronically signed by: Nile Schwartz M.D. 08/02/2022 12:25 PM
[2022-08-02] MEDS ORDERED: PHARMACY GLYCEMIC MGMT CONSULT PRN (12:36)
[2022-08-02] MEDS ORDERED: bisacodyL 10 MG SUPP PR PRN (12:36)
[2022-08-02] MEDS ORDERED: NALOXONE HCL 0.4 MG/1 ML VIAL/CARP IV PRN (12:36)
[2022-08-02] MEDS ORDERED: MAGNESIUM HYDROXIDE SUSP 30 ML UDC PO PRN (12:36)
[2022-08-02] MEDS ORDERED: HYDROmorphone INJ 0.5 MG/0.5 ML SYR IV PRN (12:36)
[2022-08-02] MEDS ORDERED: METOCLOPRAMIDE HCL INJ 5 MG/ML 2 ML VIAL IV PRN (12:36)
--- NOTE | 2022-08-02 13:03 | Consultation ---
Date of Consultation August 02, 2022 Assessment & Plan (1) Status post reverse arthroplasty of right shoulder: (2) Rotator cuff arthropathy of right shoulder: (3) Diabetes mellitus type II, controlled: (4) CAD (coronary artery disease): (5) CKD (chronic kidney disease) stage 3, GFR 30-59 ml/min: (6) HTN (hypertension): This is a 71-year-old female who has significant past medical history of CAD, HTN, HLD, T2DM, aortic valve insufficiency, asymptomatic bilateral carotid artery stenosis, hypothyroidism, MTHFR mutation, CKD stage III, chronic pain syndrome, lumbar spinal stenosis, depression, primary open-angle glaucoma of the right eye, DDD who presented for elective right reverse total shoulder arthroplasty. Status post reverse arthroplasty of right shoulder, POD #0, by Dr. Sanchez Rotator cuff arthropathy of right shoulder EBL 40ml tolerated procedure well pain/wound management per ortho activity/therapy as prescribed by ortho encourage incentive spirometry pre op hgb 14 post op HTN - [place] address CAD echo 04/2022 EF 57%, inferior/basal hypokinesis consistent with chronic cad/occlusion of RCA continue asa, statin, coreg, lisinopril will need to obtain better BP control Hypertension on coreg, lisinopril as OP BP significantly elevated post operatively she did take a.m. dose of both medications, no pain will give dose of 5mg IV hydralazine x 1 now T2DM well controlled on ozempic a1c 7.1 on 07/2022 novolog per protocol glycemic pharmacy has signed off CKD-3 baseline cr 1.4 monitor renal fxn, avoid nephrotoxic agents Carotid artery disease s/p L CEA 06/2021 continue asa, statin Dvt ppx: per primary Dispo: per primary PCP: Moiz FULL CODE Pt was seen and examined in collaboration with Dr. Ponce, please see addendum Thank you for this consultation. We will follow the patient with you during their hospital stay. You can reach a member of the [facility] Hospitalist Team 03/01 via hospitalist role on tiger text. A total of [60] minutes were spent with greater than 50% of that time face to face with the patient, personally reviewing all current laboratories, imaging studies, past medication reconciliation, outpatient chart review, and discussion with specialists to collaborate care for the patient with attending. Please see attending documentation for corrections and/or additions. Supervising Physician Co-Signing Physician Notes Pt seen and examined by me, care coordinated with Roel Yeh PA-C, pls refer to her note above for further detail. 71 yo F / CAD, HTN, HLD, T2DM, aortic valve insufficiency, asymptomatic bilateral carotid artery stenosis, hypothyroidism, MTHFR mutation, CKD stage III, chronic pain syndrome, lumbar spinal stenosis, depression, primary open- angle glaucoma of the right eye, DDD who is s/p right reverse total shoulder arthroplasty. Currently sitting up in bed, postop, in no acute distress, she is awake alert oriented, answering questions appropriately. She is feeling tired. She is little hard of hearing. Denies any pain in her shoulder or anywhere else. Specifically denies any chest pain or shortness of breath, denies abdominal pain. She is breathing comfortably on room air. Clear to auscultation bilaterally, heart sounds regular, abdomen soft nontender nondistended, obese with positive bowel sounds. SCDs applied to lower extremities. Surgical dressings applied to right shoulder. Hypertensive postop, received IV hydralazine. BP improved now. Continue to closely monitor. MD Kris History of Present Illness Requesting Physician: Dr. Sanchez Reason for Consultation: Postop med management Attending Physician: Mikael Sanchez MD History of Present Illness This is a 71-year-old female who has significant past medical history of CAD, HTN, HLD, T2DM, aortic valve insufficiency, asymptomatic bilateral carotid artery stenosis, hypothyroidism, MTHFR mutation, CKD stage III, chronic pain syndrome, lumbar spinal stenosis, depression, primary open-angle glaucoma of the right eye, DDD who presented for elective right reverse total shoulder arthroplasty. Postoperatively she is sitting up in bed with her at bedside. She offers no acute concerns. She does admit to mild dysphagia ever since having her left carotid artery surgery done 1 year ago. She denies any postoperative nausea or vomiting. She denies any lightheadedness, dizziness, chest pain, shortness of breath, cough, nausea, vomiting, abdominal pain.Her outpatient medical record was reviewed and we reviewed her home medication list. This was updated. She does have history of controlled T2DM on Ozempic injection. Again she has history of carotid artery disease and underwent thromboendarterectomy in June 2021. She is a current someday smoker. She smokes approximately 1 cigarette a day. She also has about 1 alcoholic beverage a week. Also of significance she has known chronic CAD status post cardiac cath in March 09, 2016 which found a chronic occlusion in the right coronary artery consistent with a small sized basal inferior wall motion abnormality noted on her resting echo. She denies any significant chest pain. Her last echocardiogram was April 16, 2022 which revealed again small sized basal inferior posterior wall motion abnormality with hypokinesis to akinesis. EF was 57%, aortic valve moderately calcified, aortic stenosis was absent, moderate aortic valve regurg was present. Allergies Allergy/AdvReac Type Severity Reaction Status Date / Time metformin Allergy Severe tachycardia Verified 08/02/22 07:32 pollen extracts Allergy Mild HAYFEVER Verified 08/02/22 07:32 gabapentin Allergy Verified 08/02/22 08:22 Home Medications Medication Instructions Recorded Confirmed Type ascorbic acid (vitamin C) 1,000 mg 1 g PO QAM 06/22/18 08/02/22 History tablet (Vitamin C) calcium carbonate 600 mg-vitamin 1 tab PO BID 06/22/18 08/02/22 History D3 5 mcg (200 unit) capsule (Calcium 600 + D(3)) fexofenadine 180 mg tablet 180 mg PO QAM 06/22/18 08/02/22 History (Aleisha Allergy) folic acid 1 mg tablet 1 mg PO QAM 06/22/18 08/02/22 History glucosamine sulfate 500 mg tablet 500 mg PO BID 06/22/18 08/02/22 History (Glucosamine) lisinopril 5 mg tablet 5 mg PO QAM 06/22/18 08/02/22 History wsaeznjmwplr-ypjnpbry-jikhfh 1 tab PO QAM 06/22/18 08/02/22 History tablet (Multivitamin 50 Plus tablet) pantoprazole 40 mg tablet,delayed 40 mg PO BID 06/22/18 08/02/22 History release thiamine HCl (vitamin B1) 50 mg 50 mg PO QAM 06/22/18 08/02/22 History tablet (Vitamin B-1) vitamin E 200 unit capsule 200 unit PO HS 06/22/18 08/02/22 History atorvastatin 80 mg tablet (Lipitor) 80 mg PO HS 01/22/20 08/02/22 History carvedilol 6.25 mg tablet 6.25 mg PO BID 01/22/20 08/02/22 History latanoprost (PF) 0.005 % eye drops 1 p OPB DAILY 01/22/20 08/02/22 History levothyroxine 88 mcg tablet 88 mcg PO QAM 01/22/20 08/02/22 History liothyronine 5 mcg tablet 5 mcg PO QAM 01/22/20 08/02/22 History omega 9-dkt-epu-fish oil 1,000 mg 1 cap PO BID 01/22/20 08/02/22 History (120 mg-180 mg) capsule (Fish Oil) duloxetine 30 mg capsule,delayed 30 mg PO QDD 04/08/20 08/02/22 History release semaglutide 0.25 mg or 0.5 mg (2 1.25 mg subcut WK 04/08/20 08/02/22 History mg/1.5 mL) subcutaneous pen injector (Ozempic) tramadol 50 mg tablet 50 mg PO Q8H PRN Pain 06/02/20 08/02/22 History soy isoflavone 50 mg tablet 50 mg PO HS 09/19/20 08/02/22 History betamethasone dipropionate 0.05 % 1 applic topical BID PRN . 11/13/20 08/02/22 History topical cream mirabegron 50 mg tablet,extended 50 mg PO QPM 11/13/20 08/02/22 History release 24 hr (Myrbetriq) oxycodone-acetaminophen 5 mg-325 1 - 2 tab PO .Q4h-6h PRN pain #30 09/10/21 08/02/22 Rx mg tablet (Percocet) tabs aspirin 81 mg tablet,delayed 81 mg PO QAM 07/14/22 08/02/22 History release acetaminophen 500 mg tablet 1,000 mg PO Q8 14 days #84 tabs 08/02/22 Rx (Tylenol Extra Strength) dorzolamide-timolol (PF) 2 %-0.5 % 1 drp OPB DAILY 08/02/22 08/02/22 History eye drops in a dropperette Patient History Medical History CAD (coronary artery disease) chronic mid right coronary artery occlusion-stent not placed, medical therapy recommended (2015 cardiac cath) Carotid artery disease Chronic right carotid occlusion s/p L CEA 06/2021 follows with [facility] CKD (chronic kidney disease) stage 3, GFR 30-59 ml/min Depression Diabetes mellitus, type 2 Environmental allergies GERD (gastroesophageal reflux disease) Hx of gastric ulcer Hx of vertigo Hyperlipidemia Hypertension Hypothyroidism MTHFR mutation Heterozygous Noted per 2013 [facility] hematology records (diagnosed during workup of bruising) Myocardial Infarction "Silent [place]" Osteoarthritis Pulmonary nodules Multiple, under surveillance Stroke Per remote records, denies Tremor rt/left hand Surgical History H/O knee surgery Right knee medial retinacular repair and poly exchange 10/01/2020: LMA#4 + PNB. No issues per postop anesthesia progress note. History of anesthesia reaction "Slow to wake" "Goes under very easily" History of arthroscopy of shoulder Right shoulder arthroscopy, RCR (09/10/21): LMA iGel #4 + PNB at [facility]. No issues noted per post-op anesthesia progress note. History of back surgery Had laser procedure 03/2018 in [place] > LUMBAR History of cardiac cath 2015 [facility]. Moderate CAD, no stents. History of carotid endarterectomy Left CEA (07/08/21) History of carpal tunnel surgery of right wrist History of colonoscopy History of esophagogastroduodenoscopy (EGD) History of left knee replacement History of surgery right wrist x2 History of total knee replacement right 07/28/2018: SAB at L3-L4, 1 attempt + PNB. No issues per postop anesthesia progress note. Hx of ankle fusion right Hx of appendectomy Hx of arthroscopic knee surgery left Hx of bilateral cataract extraction Hx of cervical spine surgery 08/2009 [facility], [place]> ROM WNL PER PT Hx of decompression of ulnar nerve right Hx of hand surgery right Hx of tubal ligation Hx of vaginal surgery LEEP? (Due to precancerous cells on cervix) Family History Aunt Family history of diabetes mellitus Mother Heart disease Other No family history of adverse response to anesthesia No family history of allergies No family history of bleeding disorder Denies family history of Hearing loss Cancer Hypertension Stroke Asthma Social History Smoking Status: Current every day smoker packs per day: 0.5; Cigarettes Per Day: 1/2 PPD; Second Hand Exposure: No; Do You Dip or Chew Tobacco: No; Tobacco Cessation Education Requested by Patient: No Hx Alcohol Use: No Hx Substance Use: No Preferred Language: [place] Citizen Communication Ability: Effective Toe Puller Required: No Beliefs That Will Affect Care: None marital status: Current Living Situation: Spouse current occupational status: disabled How many Children do You have: 3 Feels Safe at Home: Yes Safety Concerns: Feels Safe At This Time Assistive Devices: Denture - Upper, Denture - Lower and Wheelchair Review of Systems Review of Systems: All systems reviewed & are unremarkable except as noted in HPI & below Physical Exam Physical Exam: Constitutional: WD/WN, Obese, female, vitals as above, NAD, sitting up in bed, pleasant, conversing easily Head: Normocephalic, Atraumatic Eyes: PERRL, conjunctivae normal, anicteric sclerae ENMT: external ear and nose normal, oropharynx normal Neck: trachea midline, no thyromegaly normal visual inspection Respiratory: normal respiratory effort, lungs clear to auscultation, no wheeze, rales, rhonchi. Normal insp/exp effort, no accessory muscle use Cardiovascular: RRR, 1/6 PADMAJA noted cardiac base, no edema Vessels: no JVD or carotid bruit Chest: normal inspection of chest Abdomen: normal bowel sounds, soft, nontender, no hepatosplenomegaly Musculoskeletal: no cyanosis or clubbing, RUE dressing CDI, sling intact, NVI distally, b/l lower ext AROM intact Skin: no rashes, warm and dry normal turgor Neurologic: PERRL, EOMI, accommodation nl, no face palsy, no dysarthria CN's II-XI intact bilaterally and moves all extremities Psychiatric: A+Ox3, euthymic affect Lymphatic: no cervical or axillary lymphadenopathy : deferred Results & Data ([facility]) Vital Signs (Past 12 Hours) Vital Signs Temp Pulse Pulse Pulse Resp BP Pulse Ox 08/02/22 12:56 52 L 16 192/78 H 99 08/02/22 12:15 54 L 16 166/73 H 96 08/02/22 12:05 36.3 C L 55 L 16 181/74 H 100 08/02/22 11:55 56 L 18 195/76 H 100 08/02/22 11:45 58 L 15 194/93 H 100 08/02/22 11:35 36 C L 100 H 13 198/85 H 100 08/02/22 07:42 36.6 C 62 22 149/84 H 99 O2 Del Method O2 Flow Rate 08/02/22 12:56 Room Air 08/02/22 12:15 Room Air 08/02/22 12:05 Room Air 08/02/22 11:55 Oxymask 5 08/02/22 11:45 Oxymask 5 08/02/22 11:35 Oxymask 9 08/02/22 07:42 Room Air Laboratory Results Preop labs 07/16/2022 H&H 14.1 and 42.5, WBC 8.60, platelet 308, BUN 30, creatinine 1.4, A1c 7.1, TSH 9.22, free T41.05, SARS-CoV-2 negative Diagnostic Findings Shoulder X-Ray 08/02/22 11:42 RIGHT SHOULDER 2 VIEWS CLINICAL HISTORY: Postoperative examination. FINDINGS: 2 portable views of the right shoulder are obtained. The skeletal structures are osteopenic. A right shoulder arthroplasty is in near anatomic alignment. No acute fracture is seen. Skin clips, a surgical drain, subcutaneous gas, and soft tissue swelling overlying the right shoulder are expected postoperative changes. There is widening at the acromioclavicular joint. Fusion hardware is seen in the cervical spine. The visualized right lung parenchyma is grossly clear. IMPRESSION: Expected postoperative findings status post right shoulder arthroplasty. No acute fracture is seen. Electronically signed by: Nile Schwartz M.D. 08/02/2022 12:25 PM Medications Administered Current Inpatient Medications Acetaminophen (Acetaminophen 500 Mg Tab) 1,000 mg PO Q8 JOEL Stop: 09/01/22 13:59 Aspirin (Aspirin 81 Mg Ectab) 81 mg PO QAM JO[facility] Stop: 09/02/22 08:59 Atorvastatin Calcium (Atorvastatin 40 Mg Tab) 80 mg PO HS JOEL Stop: 09/01/22 20:59 Bisacodyl (Bisacodyl 10 Mg Supp) 10 mg KS DAILY PRN PRN Reason: Constipation Stop: 09/01/22 12:35 Carvedilol (Carvedilol 6.25 Mg Tab) 6.25 mg PO BID JOEL Stop: 09/02/22 08:59 Docusate Sodium (Docusate Sodium 100 Mg Cap) 100 mg PO BID [facility] Stop: 09/01/22 20:59 Duloxetine HCl (Duloxetine Hcl 30 Mg Cap) 30 mg PO QDD [facility] Stop: 09/01/22 16:29 Fexofenadine HCl (Fexofenadine Hcl 180 Mg Tab) [facility] Stop: 09/02/22 08:59 Folic Acid (Folic Acid 1 Mg Tab) 1 [facility] Stop: 09/02/22 08:59 Hydromorphone HCl (Hydromorphone Inj 0.5 Mg/0.5 Ml Syr) 0.5 mg IV Q4H PRN PRN Reason: Pain or Pre PT Stop: 08/16/22 12:35 Cefazolin Sodium (Ancef 2000mg) 2,000 mg in 15 mls @ 3.75 mls/min IV Q8H [facility]; Protocol Stop: 08/03/22 01:48 Sodium Chloride (Nss 1000ml) 1,000 mls @ 100 mls/hr IV .Q10H [facility] Stop: 08/03/22 06:00 Levothyroxine Sodium (Levothyroxine Sodium 88 Mcg Tablet) 88 [facility]cg [facility] [place] [facility] Stop: 09/02/22 08:59 Liothyronine Sodium (Liothyronine Sodium 5 Mcg Tab) 5 mcg [facility] [place] [facility] Stop: 09/02/22 08:59 Lisinopril (Lisinopril 10 Mg Tab) 10 mg PO [facility] Stop: 09/02/22 08:59 Magnesium Hydroxide (Magnesium Hydroxide Susp 30 Ml Udc) 30 ml PO Q6H PRN PRN Reason: Constipation Stop: 09/01/22 12:35 Metoclopramide HCl (Metoclopramide Hcl Inj 5 Mg/Ml 2 Ml Vial) 10 mg IV Q6H PRN PRN Reason: Nausea And Vomiting Stop: 09/01/22 12:35 Miscellaneous Information (Pharmacy Glycemic Mgmt Consult) 1 each N/A UD PRN PRN Reason: Consult Stop: 09/01/22 12:35 Multivitamins (Multivitamin Tab) 1 tab PO [facility] Stop: 09/02/22 08:59 Naloxone HCl (Naloxone Hcl 0.4 Mg/1 Ml Vial/Carp) 0.1 mg IV Q5M PRN PRN Reason: Oversedation/Resp Depression Stop: 09/01/22 12:35 Non-Formulary Medication (Betamethasone Dipropionate) 1 appln TOP BID PRN PRN Reason: . Non-Formulary Medication (Mirabegron [Myrbetriq]) 50 mg PO QPM [facility] Stop: 09/01/22 20:59 Non-Formulary Medication (Ascorbic Acid (Vitamin C) [Vitamin C]) 1 gm PO QAM [facility] Stop: 09/02/22 08:59 Non-Formulary Medication (Calcium Carbonate-Vitamin D3 [Calcium 600 + D(3)]) 1 tab PO BID [facility] Stop: 09/01/22 20:59 Non-Formulary Medication (Glucosamine Sulfate [Glucosamine]) 500 mg PO BID [facility] Stop: 09/01/22 20:59 Non-Formulary Medication (Latanoprost (Pf)) 1 drops OPB HS [facility] Stop: 09/01/22 20:59 Non-Formulary Medication (Kjztfdsuqjer-Horufnsd-Hgtpqx [Multivitamin 50 Plus]) 1 tab PO QAM [facility] Stop: 09/02/22 08:59 Non-Formulary Medication ([place] 0-Nin-Lqr-Fish Oil [Fish Oil]) 1 cap PO BID [facility] Stop: 09/01/22 20:59 Ondansetron HCl (Ondansetron Inj 2 Mg/Ml 2 Ml Vial) 4 mg IV Q6H PRN PRN Reason: Nausea And Vomiting Stop: 09/01/22 12:35 Oxycodone HCl (Oxycodone Hcl Ir 5 Mg Tab (Immediate Release)) 5 - 10 mg PO Q4H PRN PRN Reason: Pain or Pre PT Stop: 08/16/22 12:35 Pantoprazole Sodium (Pantoprazole 40 Mg Tab) 40 mg PO BID [facility] Stop: 09/01/22 20:59 Sennosides (Senna 8.6 Mg Tab) 17.2 mg PO HS [facility] Stop: 09/01/22 20:59 Thiamine HCl (Thiamine Hcl 50 Mg Tablet) 50 mg PO QAM [facility] Stop: 09/02/22 08:59 Triamterene/Hydrochlorothiazide (Triamterene/Hctz 37.5/25mg Tab) 1 tab PO QAM [facility] Stop: 09/02/22 08:59 Vitamin E (Tocopheryl, Dl-Alpha 100 Units Cap) 200 units PO HS [facility] Stop: 09/01/22 20:59 ECG Rate (beats per minute): 76 Rhythm: normal sinus Additional Comments: reviewed by me
--- NOTE | 2022-08-02 13:23 | Pharmacy Report ---
Glycemic Ortho Sign Off Note - Date of Service August 02, 2022 - Scope Glycemic Pharmacist consulted for glycemic control and to write orders per [facility] inpatient glycemic control protocol. - Objective Accuchecks BSG (last 24hrs):: 08/02/22 08/02/22 08/02/22 07:27 11:40 12:36 POC Glucose 153 H 136 H 135 H - Assessment * Pt is maintained on oral antidiabeticagent[s]as anoutpatient with excellent control per recent A1c * Oral agents are not recommended for inpatient use d/t drug interactions, changing PO intake, and difficulty titrating for acute hyper/hypoglycemia. * Recommended regimen for inpatient use is SQ insulin * Low stress weight based insulin dosing appropriate since patient has minimal risk factors for insulin resistance (i.e. no steroids). * Appropriate to DC insulin and resume outpatient antidiabetic regimen at discharge * Goal is to maintain BSGs <200 mg/dl (ideally <150 mg/dl) to prevent post op complications - Plan For Inpatient Glycemic Control * Basal insulin * Not needed based on A1c, pre-op BSGs, and minimal risk factors for insulin resistance * Bolus insulin * Utilize low stress weight based NovoLog parameters per scale ACHS * Pharmacy has entered glycemic orders and is signing off of the glycemic consult. We will no longer be making adjustments to inpatient regimen. Please feel free to re-consult if needed. Thank you.
[2022-08-02] MEDS: SODIUM CHLORIDE 0.9% 1000ML 1,000 ML IV SCH (13:24)
[2022-08-02] MEDS ORDERED: GLUCAGON FOR INJ 1 MG VIAL IM PRN (13:30)
[2022-08-02] MEDS ORDERED: CARBOHYDRATES FOR HYPOGLYCEMIA PO PRN (13:30)
[2022-08-02] MEDS ORDERED: GLUCOSE 40% GEL 15 GM TUBE PO PRN (13:30)
[2022-08-02] MEDS ORDERED: DEXTROSE 50% 50 ML SYRINGE IV PRN (13:30)
[2022-08-02] MEDS ORDERED: GLUCOSE 10 TAB/TUBE PO PRN (13:30)
[2022-08-02] MEDS: INSULIN ASPART PER UNIT SC SCH ×3 (13:43→20:37)
[2022-08-02] MEDS: ACETAMINOPHEN 500 MG TAB PO SCH ×2 (13:44→21:27)
[2022-08-02] MEDS ORDERED: hydrALAZINE HCL 20 MG/ML VIAL IV ONE ×2 (13:52→15:45)
[2022-08-02] MEDS ORDERED: DULoxetine HCL 30 MG CAP PO SCH (16:30)
[2022-08-02] MEDS: ceFAZolin 2000MG 2,000 MG/15 ML SYR IV SCH (16:45)
[2022-08-02] MEDS: OMEGA-3 (PURIFIED FISH OIL) 1 GM CAP PO SCH (20:25)
[2022-08-02] MEDS: PANTOprazole 40 MG TAB PO SCH (20:26)
[2022-08-02] MEDS: CALCIUM 600MG + VIT D 400 IU TAB PO SCH (20:27)
[2022-08-02] MEDS: DOCUSATE SODIUM 100 MG CAP PO SCH (20:27)
[2022-08-02] MEDS ORDERED: ATORVASTATIN 40 MG TAB PO SCH (21:00)
[2022-08-02] MEDS ORDERED: TOCOPHERYL, DL-ALPHA 100 UNITS CAP PO SCH (21:00)
[2022-08-02] MEDS ORDERED: MIRABEGRON ER 25 MG TAB PO SCH (21:00)
[2022-08-02] MEDS ORDERED: SENNA 8.6 MG TAB PO SCH (21:00)
[2022-08-02] MEDS ORDERED: NON-FORMULARY MEDICATION (Glucosamine Sulfate [Glucosamine] 500 mg Tablet) PO SCH (21:00)
[2022-08-02] MEDS ORDERED: LATANOPROST 0.005% OP SOLN 2.5 ML BTL OP SCH ×2 (21:00)
[2022-08-03] MEDS: oxyCODONE HCL IR 5 MG TAB (IMMEDIATE RELEASE) PO PRN ×2 (00:33→05:54)
[2022-08-03] MEDS: ceFAZolin 2000MG 2,000 MG/15 ML SYR IV SCH (00:35)
[2022-08-03] MEDS: SODIUM CHLORIDE 0.9% 1000ML 1,000 ML IV SCH (00:56)
[2022-08-03] MEDS: ACETAMINOPHEN 500 MG TAB PO SCH (05:46)
[2022-08-03] MEDS ORDERED: LIOTHYRONINE SODIUM 5 MCG TAB PO SCH (06:30)
[2022-08-03] MEDS ORDERED: LEVOTHYROXINE SODIUM 88 MCG TABLET PO SCH (06:30)
[2022-08-03 06:59] LABS: Basophils # (auto) 0.04 K/uL (0-0.2); Basophils % (auto) 0.4 %; Eosinophils # (auto) 0.11 K/uL (0-0.50); Eosinophils % (auto) 1.1 %; Hematocrit (blood only) 35.6 % (37.0-47.0); Hemoglobin 12.2 g/dl (12.0-16.0); Immature Granulocytes # (auto) 0.04 K/uL (0.01-0.20); Immature Granulocytes % (auto) 0.4 %; Lymphocytes # (auto) 1.17 K/uL (1.2-3.4); Mean Corpuscular Hemoglobin 30.2 pg (25.0-34.0); Mean Corpuscular Hgb Conc 34.3 g/dL (32.0-36.0); Mean Corpuscular Volume 88.1 fL (80.0-100.0); Mean Platelet Volume 9.8 fL (9.4-12.4); Monocytes % (auto) 6.2 %; Neutrophils # (auto) 7.77 K/uL (1.40-6.50); Neutrophils % (auto) 79.9 %; Platelet Count 228 K/uL (130-400); RDW Coefficient of Variation 12.7 % (11.5-14.5); RDW Standard Deviation 40.8 fL (36.4-46.3); Red Blood Count 4.04 M/uL (4.20-5.40); White Blood Count 9.73 K/ul (4.8-10.8)
[2022-08-03 07:14] LABS: BUN Creatinine Ratio 17.1 (10-20); Calcium 8.6 mg/dl (8.5-10.1); Creatinine Clr Calc Pharmacy 45.9 ml/min; Est GFR (African American) 48.6 ml/min; Est GFR (Non-African American) 41.9 ml/min; Potassium 4.3 mmol/L (3.5-5.1)
--- NOTE | 2022-08-03 08:07 | Orthopedic Progress Note ---
Date of Service August 03, 2022 Assessment & Plan (1) Status post reverse arthroplasty of right shoulder: Plan: POD #1 s/p Right Total Shoulder Arthroplasty Reverse(Right), excision suture anchors and suture material. no active ROM right shoulder, HEP as given in instructions f/u with Dr Sanchez team in 12-14 days as scheduled d/c hemovac prior to d/c Admission and Anticipated Discharge Date Admission Date: August 02, 2022 Subjective POD #1 s/p Right Total Shoulder Arthroplasty Reverse(Right), excision suture anchors and suture material. Review of Systems Constitutional: no fever, no chills and no sweats Respiratory: no cough and no dyspnea Cardiovascular: no chest pain and no dyspnea Gastrointestinal: no abdominal pain, no nausea and no vomiting Physical Exam Physical Exam: Vital Signs Temp 36.5 C 08/03/22 07:22 Pulse 60 08/03/22 07:22 Resp 16 08/03/22 07:22 BP 123/68 08/03/22 07:22 Pulse Ox 97 08/03/22 07:22 O2 Del Method Room Air 08/03/22 07:22 O2 Flow Rate 5 08/02/22 11:55 Intake & Output 08/02/22 08/03/22 08/03/22 18:59 06:59 18:59 Intake Total 1750 / 2750 1000 / 2750 Output Total 660 / 1940 1280 / 1940 Balance 1090 / 810 -280 / 810 Weight 86.6 kg Intake: IV 200 / 1200 1000 / 1200 Lactated Ringe r's 1,000 ml @ 15 0 / 0 mls/hr IV .Q24 H JOEL Rx#: [id number] Sodium Chlorid e 0.9% 1000ML 1, 1000 / 1000 000 ml @ 100 m ls/hr IV .Q10H JO[facility] Rx#:[id number] Tranexamic Aci d / 0.7% NaCl 1, 200 / 200 000 mg In 100 ml @ 600 mls/hr IV TODAY@0600 JOEL Rx#:[id number] IV Perioperative 1000 / 1000 Oral 550 / 550 Output: Estimated Blood Loss 40 / 40 Urine Amount (Ca theter) 600 / 1800 1200 / 1800 External 1200 / 1200 Straight 600 / 600 Drain Output 20 / 100 80 / 100 Right Shoulder Hemovac 20 / 100 80 / 100 Other: Weight Measureme nt Method Standing Scale Musculoskeletal: Right Shoulder: arm resting comfortably in sling, dressing clean and dry. rad/med/uln nerves intact. Rad +2 Results & Data ([facility]) Vital Signs (Past 12 Hours) Vital Signs Temp Pulse Resp BP Pulse Ox O2 Del Method 08/03/22 07:22 36.5 C 60 16 123/68 97 Room Air 08/03/22 03:08 36.4 C L 63 18 146/70 H 97 Room Air 08/02/22 22:58 36.7 C 59 L 18 161/69 H 98 Room Air Laboratory Results Laboratory Results WBC 9.73 K/ul (4.8-10.8) 08/03/22 06:27 RBC 4.04 M/uL (4.20-5.40) L 08/03/22 06:27 Hgb 12.2 g/dl (12.0-16.0) 08/03/22 06:27 Hct 35.6 % (37.0-47.0) L 08/03/22 06:27 MCV 88.1 fL (80.0-100.0) 08/03/22 06:27 MCH 30.2 pg (25.0-34.0) 08/03/22 06:27 MCHC 34.3 g/dL (32.0-36.0) 08/03/22 06:27 RDW Std Deviation 40.8 fL (36.4-46.3) 08/03/22 06:27 RDW Coeff of Erwin 12.7 % (11.5-14.5) 08/03/22 06:27 Plt Count 228 K/uL (130-400) 08/03/22 06:27 MPV 9.8 fL (9.4-12.4) 08/03/22 06:27 Immature Gran % (Auto) 0.4 % 08/03/22 06:27 Neut % (Auto) 79.9 % 08/03/22 06:27 Lymph % (Auto) 12.0 % 08/03/22 06:27 Bureau % (Auto) 6.2 % 08/03/22 06:27 Eos % (Auto) 1.1 % 08/03/22 06:27 Baso % (Auto) 0.4 % 08/03/22 06:27 Neut # (Auto) 7.77 K/uL (1.40-6.50) H 08/03/22 06:27 Lymph # (Auto) 1.17 K/uL (1.2-3.4) L 08/03/22 06:27 Bureau # (Auto) 0.60 K/uL (0.11-0.59) H 08/03/22 06:27 Eos # (Auto) 0.11 K/uL (0-0.50) 08/03/22 06:27 Baso # (Auto) 0.04 K/uL (0-0.2) 08/03/22 06:27 Immature Gran # (Auto) 0.04 K/uL (0.01-0.20) 08/03/22 06:27 Sodium 138 mmol/L (136-145) 08/03/22 06:27 Potassium 4.3 mmol/L (3.5-5.1) 08/03/22 06:27 Chloride 105 mmol/L (98-107) 08/03/22 06:27 Carbon Dioxide 30 mmol/L (21-32) 08/03/22 06:27 Anion Gap 3 (3-11) 08/03/22 06:27 BUN 22 mg/dl (6-23) 08/03/22 06:27 Creatinine 1.29 mg/dl (0.6-1.2) H 08/03/22 06:27 Est Cr Clr Drug Dosing 45.9 ml/min 08/03/22 06:27 Est GFR ( Amer) 48.6 ml/min 08/03/22 06:27 Est GFR (Non-Af Amer) 41.9 ml/min 08/03/22 06:27 BUN/Creatinine Ratio 17.1 (10-20) 08/03/22 06:27 Glucose 140 mg/dl (70-99(Fasting)) H 08/03/22 06:27 POC Glucose 139 mg/dl (70-99) H 08/03/22 07:57 Calcium 8.6 mg/dl (8.5-10.1) 08/03/22 06:27 SARS-CoV-2, RNA, NAAT NEGATIVE (NEGATIVE) 08/02/22 07:02 Impressions Shoulder X-Ray 08/02/22 11:42 RIGHT SHOULDER 2 VIEWS CLINICAL HISTORY: Postoperative examination. FINDINGS: 2 portable views of the right shoulder are obtained. The skeletal structures are osteopenic. A right shoulder arthroplasty is in near anatomic alignment. No acute fracture is seen. Skin clips, a surgical drain, subcutaneous gas, and soft tissue swelling overlying the right shoulder are expected postoperative changes. There is widening at the acromioclavicular joint. Fusion hardware is seen in the cervical spine. The visualized right lung parenchyma is grossly clear. IMPRESSION: Expected postoperative findings status post right shoulder arthroplasty. No acute fracture is seen. Electronically signed by: Nile Schwartz M.D. 08/02/2022 12:25 PM
[2022-08-03] MEDS: CALCIUM 600MG + VIT D 400 IU TAB PO SCH (08:15)
[2022-08-03] MEDS: OMEGA-3 (PURIFIED FISH OIL) 1 GM CAP PO SCH (08:16)
[2022-08-03] MEDS: DOCUSATE SODIUM 100 MG CAP PO SCH (08:16)
[2022-08-03] MEDS: PANTOprazole 40 MG TAB PO SCH (08:16)
[2022-08-03] MEDS ORDERED: DORZOLAMIDE/TIMOLOL 22.3/6.8MG/ML 10 ML BTL OP SCH (09:00)
[2022-08-03] MEDS ORDERED: NON-FORMULARY MEDICATION (Multivitamin-Minerals-Lutein [Multivitamin 50 Plus] Tablet) PO SCH (09:00)
[2022-08-03] MEDS ORDERED: carvediloL 6.25 MG TAB PO SCH (09:00)
[2022-08-03] MEDS ORDERED: FEXOFENADINE HCL 180 MG TAB PO SCH (09:00)
[2022-08-03] MEDS ORDERED: ASCORBIC ACID 500 MG TAB PO SCH (09:00)
[2022-08-03] MEDS ORDERED: TRIAMTERENE/HCTZ 37.5/25MG TAB PO SCH (09:00)
[2022-08-03] MEDS ORDERED: ASPIRIN 81 MG ECTAB PO SCH (09:00)
[2022-08-03] MEDS ORDERED: THIAMINE HCL 50 MG TABLET PO SCH (09:00)
[2022-08-03] MEDS ORDERED: lisinopril 5 MG TAB PO SCH (09:00)
[2022-08-03] MEDS ORDERED: MULTIVITAMIN TAB PO SCH (09:00)
[2022-08-03] MEDS ORDERED: lisinopril 10 MG TAB PO SCH ×2 (09:00)
[2022-08-03] MEDS ORDERED: FOLIC ACID 1 MG TAB PO SCH (09:00)
[2022-08-03] MEDS: INSULIN ASPART PER UNIT SC SCH (09:02)
--- NOTE | 2022-08-03 10:18 | Hospitalist Progress Note ---
Date of Service August 03, 2022 Assessment & Plan (1) Status post reverse arthroplasty of right shoulder: (2) Rotator cuff arthropathy of right shoulder: (3) Diabetes mellitus type II, controlled: (4) CAD (coronary artery disease): (5) CKD (chronic kidney disease) stage 3, GFR 30-59 ml/min: (6) HTN (hypertension): Plan: This is a 71-year-old female who has significant past medical history of CAD, HTN, HLD, T2DM, aortic valve insufficiency, asymptomatic bilateral carotid artery stenosis, hypothyroidism, MTHFR mutation, CKD stage III, chronic pain syndrome, lumbar spinal stenosis, depression, primary open-angle glaucoma of the right eye, DDD who presented for elective right reverse total shoulder arthroplasty. Status post reverse arthroplasty of right shoulder, POD #1, by Dr. Sanchez Rotator cuff arthropathy of right shoulder tolerated procedure well pain/wound management per ortho activity/therapy as prescribed by ortho encourage incentive spirometry pre op hgb 14, post-op 12.2 (expected blood loss anemia, no need for blood transfusion) post op BP elevated -> now BP well controlled CAD echo 04/2022 EF 57%, inferior/basal hypokinesis consistent with chronic cad/occlusion of RCA continue asa, statin, coreg, lisinopril will need to obtain better BP control Hypertension on coreg, lisinopril as OP BP now well controlled T2DM well controlled on ozempic a1c 7.1 on 07/2022 novolog per protocol glycemic pharmacy has signed off CKD-3 baseline Cr 1.4 current Cr 1.3 monitor renal fxn, avoid nephrotoxic agents Carotid artery disease s/p L CEA 06/2021 continue asa, statin Dvt ppx: per primary Dispo: per primary PCP: Dr. Rockwell FULL CODE Thank you for this consultation. We will follow the patient with you during their hospital stay. You can reach a member of the [facility] Hospitalist Team 03/01 via hospitalist role on tiger text. Admission and Anticipated Discharge Date Admission Date: August 02, 2022 Subjective Pt seen in follow up shoulder surgery Currently sitting up in chair, in no acute distress, patient's is at the bedside Patient denies any fevers chills chest pain shortness of breath, or abdominal pa in Overall feeling well, preparing for possible discharge Review of Systems Review of Systems: All systems reviewed & are unremarkable except as noted in Subjective Physical Exam Physical Exam: Constitutional: Obese F in NAD Head: Normocephalic, Atraumatic Eyes: PERRL, EOMI. conjunctivae normal, anicteric sclerae ENMT: external ear and nose normal, oropharynx normal Neck: normal visual inspection Respiratory: normal respiratory effort, lungs clear to auscultation, no wheeze, rales, rhonchi. Normal insp/exp effort, no accessory muscle use Cardiovascular: RRR, 1/6 PADMAJA noted cardiac base, no edema Chest: normal inspection of chest Abdomen: normal bowel sounds, soft, nontender, + obese Musculoskeletal:RUE dressing CDI, sling intact, NVI distally, b/l lower ext AROM intact Skin: no rashes, warm and dry normal turgor Neurologic: PERRL, EOMI, no face palsy, no dysarthria, moves all extremities Psychiatric: A+Ox3, euthymic affect Results & Data Results & Data ([facility]) Vital Signs (Past 12 Hours) Vital Signs Temp Pulse Resp BP Pulse Ox O2 Del Method 08/03/22 08:00 Room Air 08/03/22 07:22 36.5 C 60 16 123/68 97 Room Air 08/03/22 03:08 36.4 C L 63 18 146/70 H 97 Room Air 08/02/22 22:58 36.7 C 59 L 18 161/69 H 98 Room Air Laboratory Results 08/03/22 08/03/22 08/03/22 Range/Units 07:57 06:27 06:27 WBC 9.73 (4.8-10.8) K/ul RBC 4.04 L (4.20-5.40) M/uL Hgb 12.2 (12.0-16.0) g/dl Hct 35.6 L (37.0-47.0) % MCV 88.1 (80.0-100.0) fL MCH 30.2 (25.0-34.0) pg MCHC 34.3 (32.0-36.0) g/dL RDW Std Deviation 40.8 (36.4-46.3) fL RDW Coeff of Erwin 12.7 (11.5-14.5) % Plt Count 228 (130-400) K/uL MPV 9.8 (9.4-12.4) fL Immature Gran % (Auto) 0.4 % Neut % (Auto) 79.9 % Lymph % (Auto) 12.0 % [place] % (Auto) 6.2 % Eos % (Auto) 1.1 % Baso % (Auto) 0.4 % Neut # (Auto) 7.77 H (1.40-6.50) K/uL Lymph # (Auto) 1.17 L (1.2-3.4) K/uL [place] # (Auto) 0.60 H (0.11-0.59) K/uL Eos # (Auto) 0.11 (0-0.50) K/uL Baso # (Auto) 0.04 (0-0.2) K/uL Immature Gran # (Auto) 0.04 (0.01-0.20) K/uL Sodium 138 (136-145) mmol/L Potassium 4.3 (3.5-5.1) mmol/L Chloride 105 (98-107) mmol/L Carbon Dioxide 30 (21-32) mmol/L Anion Gap 3 (3-11) BUN 22 (6-23) mg/dl Creatinine 1.29 H (0.6-1.2) mg/dl Est Cr Clr Drug Dosing 45.9 ml/min Est GFR ( Amer) 48.6 ml/min Est GFR (Non-Af Amer) 41.9 ml/min BUN/Creatinine Ratio 17.1 (10-20) Glucose 140 H (70-99(Fasting)) mg/dl POC Glucose 139 H (70-99) mg/dl Calcium 8.6 (8.5-10.1) mg/dl Hepatitis C Ab (EIA) Hep C Ab Signal/Cutoff 08/03/22 08/02/22 08/02/22 Range/Units 06:27 20:27 17:19 WBC (4.8-10.8) K/ul RBC (4.20-5.40) M/uL Hgb (12.0-16.0) g/dl Hct (37.0-47.0) % MCV (80.0-100.0) fL MCH (25.0-34.0) pg MCHC (32.0-36.0) g/dL RDW Std Deviation (36.4-46.3) fL RDW Coeff of Erwin (11.5-14.5) % Plt Count (130-400) K/uL MPV (9.4-12.4) fL Immature Gran % (Auto) % Neut % (Auto) % Lymph % (Auto) % [place] % (Auto) % Eos % (Auto) % Baso % (Auto) % Neut # (Auto) (1.40-6.50) K/uL Lymph # (Auto) (1.2-3.4) K/uL [place] # (Auto) (0.11-0.59) K/uL Eos # (Auto) (0-0.50) K/uL Baso # (Auto) (0-0.2) K/uL Immature Gran # (Auto) (0.01-0.20) K/uL Sodium (136-145) mmol/L Potassium (3.5-5.1) mmol/L Chloride (98-107) mmol/L Carbon Dioxide (21-32) mmol/L Anion Gap (3-11) BUN (6-23) mg/dl Creatinine (0.6-1.2) mg/dl Est Cr Clr Drug Dosing ml/min Est GFR ( Amer) ml/min Est GFR (Non-Af Amer) ml/min BUN/Creatinine Ratio (10-20) Glucose (70-99(Fasting)) mg/dl POC Glucose 143 H 99 (70-99) mg/dl Calcium (8.5-10.1) mg/dl Hepatitis C Ab (EIA) Pending Hep C Ab Signal/Cutoff Pending 08/02/22 08/02/22 Range/Units 12:36 11:40 WBC (4.8-10.8) K/ul RBC (4.20-5.40) M/uL Hgb (12.0-16.0) g/dl Hct (37.0-47.0) % MCV (80.0-100.0) fL MCH (25.0-34.0) pg MCHC (32.0-36.0) g/dL RDW Std Deviation (36.4-46.3) fL RDW Coeff of Erwin (11.5-14.5) % Plt Count (130-400) K/uL MPV (9.4-12.4) fL Immature Gran % (Auto) % Neut % (Auto) % Lymph % (Auto) % [place] % (Auto) % Eos % (Auto) % Baso % (Auto) % Neut # (Auto) (1.40-6.50) K/uL Lymph # (Auto) (1.2-3.4) K/uL [place] # (Auto) (0.11-0.59) K/uL Eos # (Auto) (0-0.50) K/uL Baso # (Auto) (0-0.2) K/uL Immature Gran # (Auto) (0.01-0.20) K/uL Sodium (136-145) mmol/L Potassium (3.5-5.1) mmol/L Chloride (98-107) mmol/L Carbon Dioxide (21-32) mmol/L Anion Gap (3-11) BUN (6-23) mg/dl Creatinine (0.6-1.2) mg/dl Est Cr Clr Drug Dosing ml/min Est GFR ( Amer) ml/min Est GFR (Non-Af Amer) ml/min BUN/Creatinine Ratio (10-20) Glucose (70-99(Fasting)) mg/dl POC Glucose 135 H 136 H (70-99) mg/dl Calcium (8.5-10.1) mg/dl Hepatitis C Ab (EIA) Hep C Ab Signal/Cutoff Medications Administered Current Inpatient Medications Acetaminophen (Acetaminophen 500 Mg Tab) 1,000 mg PO Q8 [facility] Stop: 09/01/22 13:59 Last Admin: 08/03/22 05:46 Dose: 1,000 mg Ascorbic Acid (Ascorbic Acid 500 Mg Tab) 1,000 mg PO QAM [facility] Stop: 09/02/22 08:59 Last Admin: 08/03/22 08:16 Dose: 1,000 mg Aspirin (Aspirin 81 Mg Ectab) 81 mg PO QAM [facility] Stop: 09/02/22 08:59 Last Admin: 08/03/22 08:16 Dose: 81 mg Atorvastatin Calcium (Atorvastatin 40 Mg Tab) 80 mg PO HS [facility] Stop: 09/01/22 20:59 Last Admin: 08/02/22 20:26 Dose: 80 mg Bisacodyl (Bisacodyl 10 Mg Supp) 10 mg UT DAILY PRN PRN Reason: Constipation Stop: 09/01/22 12:35 Calcium/Vitamin D (Calcium 600mg + Vit D 400 Iu Tab) 1 tab PO BID [facility] Stop: 09/01/22 20:59 Last Admin: 08/03/22 08:15 Dose: 1 tab Carvedilol (Carvedilol 6.25 Mg Tab) 6.25 mg PO BID [facility] Stop: 09/02/22 08:59 Last Admin: 08/03/22 08:15 Dose: 6.25 mg Dextrose (Dextrose 50% 50 Ml Syringe) 25 - 50 ml IV UD PRN; Protocol PRN Reason: Hypoglycemia Protocol Stop: 09/01/22 13:29 Docusate Sodium (Docusate Sodium 100 Mg Cap) 100 mg PO BID [facility] Stop: 09/01/22 20:59 Last Admin: 08/03/22 08:16 Dose: 100 mg Dorzolamide/Timolol (Dorzolamide/Timolol 22.3/6.8mg/Ml 10 Ml Btl) 1 drops OP DAILY [facility] Stop: 09/02/22 08:59 Last Admin: 08/03/22 08:16 Dose: 1 drops Duloxetine HCl (Duloxetine Hcl 30 Mg Cap) 30 mg PO QDD [facility] Stop: 09/01/22 16:29 Last Admin: 08/02/22 15:59 Dose: 30 mg Fexofenadine HCl (Fexofenadine Hcl 180 Mg Tab) 180 mg PO QAM [facility] Stop: 09/02/22 08:59 Last Admin: 08/03/22 08:16 Dose: 180 mg Fish Oil ([place]-3 (Purified Fish Oil) 1 Gm Cap) 1 gm PO BID [facility] Stop: 09/01/22 20:59 Last Admin: 08/03/22 08:16 Dose: 1 gm Folic Acid (Folic Acid 1 Mg Tab) 1 mg PO QAM [facility] Stop: 09/02/22 08:59 Last Admin: 08/03/22 08:15 Dose: 1 mg Glucagon (Glucagon For Inj 1 Mg Vial) 1 mg IM UD PRN; Protocol PRN Reason: Hypoglycemia Protocol Stop: 09/01/22 13:29 Glucose (Glucose 40% Gel 15 Gm Tube) 15 - 30 gm PO UD PRN; Protocol PRN Reason: Hypoglycemia Protocol Stop: 09/01/22 13:29 Glucose (Glucose 10 Tab/Tube) 4 - 8 tab PO UD PRN; Protocol PRN Reason: Hypoglycemia Protocol Stop: 09/01/22 13:29 Hydromorphone HCl (Hydromorphone Inj 0.5 Mg/0.5 Ml Syr) 0.5 mg IV Q4H PRN PRN Reason: Pain or Pre PT Stop: 08/16/22 12:35 Insulin Aspart (Insulin Aspart Per Unit) 0 units SC ACHS [facility] Stop: 09/01/22 13:14 Last Admin: 08/03/22 09:02 Dose: Not Given Latanoprost (Latanoprost 0.005% Op Soln 2.5 Ml Btl) 1 drops OP HS [facility] Stop: 09/01/22 20:59 Last Admin: 08/02/22 20:33 Dose: Not Given Levothyroxine Sodium ([facility]othyroxine Sodium 88 Mcg Tablet) [facility]: 09/02/22 06:29 Last Admin: 08/03/22 05:46 Dose: 88 mcg Liothyronine Sodium (Liothyronine Sodium 5 Mcg Tab) [facility] Stop: 09/02/22 06:29 Last Admin: 08/03/22 05:46 Dose: 5 mcg Lisinopril (Lisinopril 5 Mg Tab) 5 mg PO QAM [facility] Stop: 09/02/22 08:59 Last Admin: 08/03/22 08:15 Dose: 5 mg Magnesium Hydroxide (Magnesium Hydroxide Susp 30 Ml Udc) 30 ml PO Q6H PRN PRN Reason: Constipation Stop: 09/01/22 12:35 Metoclopramide HCl (Metoclopramide Hcl Inj 5 Mg/Ml 2 Ml Vial) 10 mg IV Q6H PRN PRN Reason: Nausea And Vomiting Stop: 09/01/22 12:35 Miscellaneous (Carbohydrates For Hypoglycemia ) 15 - 30 gm PO UD PRN PRN Reason: Hypoglycemia Treatment Stop: 09/01/22 13:29 Multivitamins (Multivitamin Tab) 1 tab PO [facility] Stop: 09/02/22 08:59 Last Admin: 08/03/22 08:15 Dose: 1 tab Naloxone HCl (Naloxone Hcl 0.4 Mg/1 Ml Vial/Carp) 0.1 mg IV Q5M PRN PRN Reason: Oversedation/Resp Depression Stop: 09/01/22 12:35 Ondansetron HCl (Ondansetron Inj 2 Mg/Ml 2 Ml Vial) 4 mg IV Q6H PRN PRN Reason: Nausea And Vomiting Stop: 09/01/22 12:35 Oxycodone HCl (Oxycodone Hcl Ir 5 Mg Tab (Immediate Release)) 5 - 10 mg PO Q4H PRN PRN Reason: Pain or Pre PT Stop: 08/16/22 12:35 Last Admin: 08/03/22 05:54 Dose: 10 mg Pantoprazole Sodium (Pantoprazole 40 Mg Tab) 40 mg PO BID [facility] Stop: 09/01/22 20:59 Last Admin: 08/03/22 08:16 Dose: 40 mg Sennosides (Senna 8.6 Mg Tab) 17.2 mg PO HS [facility] Stop: 09/01/22 20:59 Last Admin: 08/02/22 20:25 Dose: 17.2 mg Thiamine HCl (Thiamine Hcl 50 Mg Tablet) 50 mg PO QAM [facility] Stop: 09/02/22 08:59 Last Admin: 08/03/22 08:16 Dose: 50 mg Vitamin E (Tocopheryl, Dl-Alpha 100 Units Cap) 200 units PO HS [facility] Stop: 09/01/22 20:59 Last Admin: 08/02/22 20:27 Dose: 200 units
--- NOTE | 2022-08-04 05:27 | Discharge Summary ---
Date of Service August 04, 2022 Admission HPI Per Admitting Provider 71-year-old female with past medical history significant for diabetes, hypertension, history of NC, hypothyroidism, CKD, CAD, carotid artery disease who presents with longstanding right shoulder pain. Patient underwent previous right shoulder arthroscopy with rotator cuff repair with subsequent failure of repair. She has pain interfering with her daily activities. She had failed conservative measures including physical therapy. She would like to proceed with surgical intervention. Patient denies headaches, sweats, fevers, chills, double vision, blurred vision, cough, sore throat, dysphagia, chest pain, sob, wheezing, n/v/d/c, numbness, tingling, fatigue, urinary symptoms, mood disorders. ROS positive for right shoulder pain and stiffness. Admission Exam Per Admitting Provider Constitutional: well developed and well nourished; no acute distress Eyes: PERRL, conjunctivae normal, anicteric sclerae ENMT: external ear and nose normal, oropharynx normal Neck: trachea midline, no thyromegaly Respiratory: normal respiratory effort, lungs clear to auscultation Cardiovascular: RRR, no murmur, no edema Musculoskeletal: Right shoulder: Arthroscopic portals well-healed. No tenderness. She has pain with movement and range of motion. Active abduction at 90 degrees, forward flexion 120 degrees. Strength is decreased. 3+/5 abduction, 4 -/5 external rotation, 5 -/5 internal rotation. Skin: no rashes, warm and dry Neurologic: patellar DTR's 2+ bilat, sensation intact Psychiatric: A+Ox3, euthymic affect Principal Diagnosis Right shoulder rotator cuff tear Discharge Exam Vital Signs Temp 36.5 C 08/03/22 07:22 Pulse 60 08/03/22 07:22 Resp 16 08/03/22 07:22 BP 123/68 08/03/22 07:22 Pulse Ox 97 08/03/22 07:22 O2 Del Method Room Air 08/03/22 07:22 O2 Flow Rate 5 08/02/22 11:55 Intake & Output 08/02/22 08/03/22 08/03/22 18:59 06:59 18:59Intake Total 1750 / 2750 1000 / 2750 Output Total 660 / 1940 1280 / 1940 Balance 1090 / 810 -280 / 810 Weight 86.6 kg Intake: IV 200 / 1200 1000 / 1200 Lactated Ringe r's 1,000 ml @ 15 0 / 0 mls/hr IV .Q24 H [facility] Rx#: [id number] Sodium Chlorid e 0.9% 1000ML 1, 1000 / 1000 000 ml @ 100 m ls/hr IV .Q10H [facility] Rx#:[id number] Tranexamic Aci d / 0.7% NaCl 1, 200 / 200 000 mg In 100 ml @ 600 mls/hr IV TODAY@0600 JO[facility] Rx#:[id number] IV Perioperative 1000 / 1000 Oral 550 / 550 Output: Estimated Blood Loss 40 / 40 Urine Amount (Ca theter) 600 / 1800 1200 / 1800 External 1200 / 1200 Straight 600 / 600 Drain Output 20 / 100 80 / 100 Right Shoulder Hemovac 20 / 80 / 100 Other: Weight Measureme nt Method Standing Scale Musculoskeletal: Right Shoulder: arm resting comfortably in sling, dressing clean and dry. rad/med/uln nerves intact. Rad +2 Discharge Data Allergies Allergy/AdvReac Type Severity Reaction Status Date / Time metformin Allergy Severe tachycardia Verified 08/02/22 07:32 pollen extracts Allergy Mild HAYFEVER Verified 08/02/22 07:32 gabapentin Allergy Verified 08/02/22 08:22 Consultations 07/28/22 10:38 Consult Hospitalist Routine Procedures Performed Operation Date: 08/02/22 09:35 Actual Procedures p Right Total Shoulder Arthroplasty Reverse(Right) - Mikael Sanchez MD Ordered Studies 08/02/22 05:00 US - OR guided needle placemen Routine Hospital Course (1) Status post reverse arthroplasty of right shoulder: POD #1 s/p Right Total Shoulder Arthroplasty Reverse(Right), excision suture anchors and suture material. no active ROM right shoulder, HEP as given in instructions f/u with Dr Sanchez team in 12-14 days as scheduled d/c hemovac prior to d/c Lab Results 08/02/22 08/02/22 08/02/22 Range/Units 07:02 07:27 11:40 WBC (4.8-10.8) K/ul RBC (4.20-5.40) M/uL Hgb (12.0-16.0) g/dl Hct (37.0-47.0) % MCV (80.0-100.0) fL MCH (25.0-34.0) pg MCHC (32.0-36.0) g/dL RDW Std Deviation (36.4-46.3) fL RDW Coeff of Erwin (11.5-14.5) % Plt Count (130-400) K/uL MPV (9.4-12.4) fL Immature Gran % (Auto) % Neut % (Auto) % Lymph % (Auto) % [place] % (Auto) % Eos % (Auto) % Baso % (Auto) % Neut # (Auto) (1.40-6.50) K/uL Lymph # (Auto) (1.2-3.4) K/uL [place] # (Auto) (0.11-0.59) K/uL Eos # (Auto) (0-0.50) K/uL Baso # (Auto) (0-0.2) K/uL Immature Gran # (Auto) (0.01-0.20) K/uL Sodium (136-145) mmol/L Potassium (3.5-5.1) mmol/L Chloride (98-107) mmol/L Carbon Dioxide (21-32) mmol/L Anion Gap (3-11) BUN (6-23) mg/dl Creatinine (0.6-1.2) mg/dl Est Cr Clr Drug Dosing ml/min Est GFR ( Amer) ml/min Est GFR (Non-Af Amer) ml/min BUN/Creatinine Ratio (10-20) Glucose (70-99(Fasting)) mg/dl POC Glucose 153 H 136 H (70-99) mg/dl Calcium (8.5-10.1) mg/dl SARS-CoV-2, RNA, NAAT NEGATIVE (NEGATIVE) 08/02/22 08/02/22 08/02/22 Range/Units 12:36 17:19 20:27 WBC (4.8-10.8) K/ul RBC (4.20-5.40) M/uL Hgb (12.0-16.0) g/dl Hct (37.0-47.0) % MCV (80.0-100.0) fL MCH (25.0-34.0) pg MCHC (32.0-36.0) g/dL RDW Std Deviation (36.4-46.3) fL RDW Coeff of Erwin (11.5-14.5) % Plt Count (130-400) K/uL MPV (9.4-12.4) fL Immature Gran % (Auto) % Neut % (Auto) % Lymph % (Auto) % [place] % (Auto) % Eos % (Auto) % Baso % (Auto) % Neut # (Auto) (1.40-6.50) K/uL Lymph # (Auto) (1.2-3.4) K/uL [place] # (Auto) (0.11-0.59) K/uL Eos # (Auto) (0-0.50) K/uL Baso # (Auto) (0-0.2) K/uL Immature Gran # (Auto) (0.01-0.20) K/uL Sodium (136-145) mmol/L Potassium (3.5-5.1) mmol/L Chloride (98-107) mmol/L Carbon Dioxide (21-32) mmol/L Anion Gap (3-11) BUN (6-23) mg/dl Creatinine (0.6-1.2) mg/dl Est Cr Clr Drug Dosing ml/min Est GFR ( Amer) ml/min Est GFR (Non-Af Amer) ml/min BUN/Creatinine Ratio (10-20) Glucose (70-99(Fasting)) mg/dl POC Glucose 135 H 99 143 H (70-99) mg/dl Calcium (8.5-10.1) mg/dl SARS-CoV-2, RNA, NAAT (NEGATIVE) 08/03/22 08/03/22 08/03/22 Range/Units 06:27 06:27 07:57 WBC 9.73 (4.8-10.8) K/ul RBC 4.04 L (4.20-5.40) M/uL Hgb 12.2 (12.0-16.0) g/dl Hct 35.6 L (37.0-47.0) % MCV 88.1 (80.0-100.0) fL MCH 30.2 (25.0-34.0) pg MCHC 34.3 (32.0-36.0) g/dL RDW Std Deviation 40.8 (36.4-46.3) fL RDW Coeff of Erwin 12.7 (11.5-14.5) % Plt Count 228 (130-400) K/uL MPV 9.8 (9.4-12.4) fL Immature Gran % (Auto) 0.4 % Neut % (Auto) 79.9 % Lymph % (Auto) 12.0 % [place] % (Auto) 6.2 % Eos % (Auto) 1.1 % Baso % (Auto) 0.4 % Neut # (Auto) 7.77 H (1.40-6.50) K/uL Lymph # (Auto) 1.17 L (1.2-3.4) K/uL [place] # (Auto) 0.60 H (0.11-0.59) K/uL Eos # (Auto) 0.11 (0-0.50) K/uL Baso # (Auto) 0.04 (0-0.2) K/uL Immature Gran # (Auto) 0.04 (0.01-0.20) K/uL Sodium 138 (136-145) mmol/L Potassium 4.3 (3.5-5.1) mmol/L Chloride 105 (98-107) mmol/L Carbon Dioxide 30 (21-32) mmol/L Anion Gap 3 (3-11) BUN 22 (6-23) mg/dl Creatinine 1.29 H (0.6-1.2) mg/dl Est Cr Clr Drug Dosing 45.9 ml/min Est GFR ( Amer) 48.6 ml/min Est GFR (Non-Af Amer) 41.9 ml/min BUN/Creatinine Ratio 17.1 (10-20) Glucose 140 H (70-99(Fasting)) mg/dl POC Glucose 139 H (70-99) mg/dl Calcium 8.6 (8.5-10.1) mg/dl SARS-CoV-2, RNA, NAAT (NEGATIVE) Total Time Total Time Spent Total Time Spent (In Minutes): 20 Discharge Plan Discharge Items Patient Disposition: Home - Self-Care Reason For Visit: Right Shoulder Rotator Cuff Arthropathy Discharge Diagnosis: Right Shoulder Rotator Cuff Arthropathy Activity: Per Instructions section Weightbearing: Right non-weightbearing Non-emergency contact: Surgeon Call non-emergency contact if: you have any medication questions, your pain is not controlled, your temperature is above 101.5 and your wound has increased drainage Follow-up/Referrals: Oesterling,Keyshawn R., MD [Primary Care Provider] - Mikael Sanchez MD [Surgeon] - (Follow up with Dr Sanchez or his PA in 2 weeks from the day of your surgery for your first post operative visit. ) Diet: Carb Consistent or DM2 Addtl Attending Provider Instructions: ACTIVITY RECOMMENDATIONS: SELF CARE INSTRUCTIONS AFTER TOTAL SHOULDER ARTHROPLASTY REVERSE A. You may do daily exercises as taught in physical therapy while in hospital. No lifting with the operative arm. B. You are to wear your sling/immobilizer at all times EXCEPT when performing your daily exercises and for hygiene purposes. C. You may perform dry, daily dressing changes. Please keep your incision covered. You may shower 48 hours after surgery. Do not apply soap or any ointment/lotions directly over incision. Do not soak incision in bath tub/swimming pool. D. You may use ice as needed to operative shoulder. SPECIAL CARE INSTRUCTIONS: VERY IMPORTANT TO READ AND REVIEW A. There are a few signs you need to watch for after you are home. Call [facility] at [phone] if you experience any of the followin. Increased severe shoulder pain. Some pain is expected especially when you exercise. 2. Increased swelling in you shoulder or arm; pain or swelling in either upper extremity. 3. Any fluid drainage from the incision. 4. Shortness of breath or chest pain. B. Please call [facility] at [phone] if you have any questions or concerns about your operation or recovery. C. Call your physician if: 1. Temperature is greater than 101 degrees (F). 2. Pain is not relieved by prescribed pain medications. 3. Increase drainage or redness from incision. 4. Unanswered questions or concerns. FOLLOW UP VISIT: Please call [facility] at [phone] to schedule a follow up appointment with Dr. Sanchez or his PA in 12-14 days from your surgery date. Pending Studies at Discharge: No Stand-Alone Forms: [email or web address], Smoking Cessation Medications and DC Order Prescriptions: New acetaminophen [Tylenol Extra Strength] 500 mg Tablet 1,000 mg PO Q8 14 Days Qty: 84 0RF oxycodone 5 mg Tablet 5 - 10 mg PO Q6H PRN (Reason: pain) Qty: 30 0RF Rx Instructions: ongoing therapy, supervising dr lavern sanchez, max 6 tabs in 24 hours cefadroxil 500 mg capsule 500 mg PO BID 14 Days Qty: 28 0RF Continued betamethasone dipropionate 0.05 % cream 1 applic topical BID PRN (Reason: .) Myrbetriq 50 mg tablet extended release 24 hr 50 mg PO QPM ascorbic acid (vitamin C) [Vitamin C] 1,000 mg Tablet 1 g PO QAM vitamin E 200 unit Capsule 200 unit PO HS fexofenadine [Aleisha Allergy] 180 mg Tablet 180 mg PO QAM pantoprazole 40 mg Tablet,Delayed Release (Dr/Ec) 40 mg PO BID folic acid 1 mg Tablet 1 mg PO QAM lisinopril 5 mg Tablet 5 mg PO QAM thiamine HCl (vitamin B1) [Vitamin B-1] 50 mg Tablet 50 mg PO QAM Multivitamin 50 Plus Tablet 1 tab PO QAM Calcium 600 + D(3) 600 mg calcium- 200 unit Capsule 1 tab PO BID levothyroxine 88 mcg Tablet 88 mcg PO QAM atorvastatin [Lipitor] 80 mg Tablet 80 mg PO HS liothyronine 5 mcg Tablet 5 mcg PO QAM carvedilol 6.25 mg Tablet 6.25 mg PO BID latanoprost (PF) 0.005 % Drops 1 drp OPB DAILY duloxetine 30 mg capsule,delayed release(DR/EC) 30 mg PO QDD Ozempic 0.25 mg or 0.5 mg(2 mg/1.5 mL) pen injector 1.25 mg SUBCUT WK Patient Comments: EVERY TUESDAY AT BEDTIME soy isoflavone 50 mg Tablet 50 mg PO HS Patient Comments: AT BEDTIME WITH VIT E aspirin 81 mg tablet,delayed release (DR/EC) 81 mg PO QAM dorzolamide-timolol (PF) 2-0.5 % dropperette 1 drp OPB DAILY Discontinued glucosamine sulfate [Glucosamine] 500 mg Tablet 500 mg PO BID omega 9-bor-unk-fish oil [Fish Oil] 1,000 mg (120 mg-180 mg) Capsule 1 cap PO BID tramadol 50 mg Tablet 50 mg PO Q8H PRN (Reason: Pain) oxycodone-acetaminophen [Percocet] 5-325 mg Tablet 1 - 2 tab PO .Q4h-6h MDD 6 PRN (Reason: pain) Qty: 30 0RF Rx Instructions: Ongoing therapy, Dr. Sanchez supervising Discharge Orders: Discharge Order (Routine); Ordered 08/03/22 Ordered By: Ger Medellin/Other Patient Handouts: High Blood Sugar (Hyperglycemia), Managing Type 2 Diabetes, [facility] for Diabetes Admission Data Admit Date/Time: 08/02/22 11:42 Attending Provider: Mikael Sanchez Admit Provider: Mikael Sanchez Primary Care Provider: Keyshawn Rockwell Other Providers: Linnea Ibrahim ; Ike Ponce Other Interventions: Discharge Summary Assessment (RN) Last Done: 08/03/22 11:23
== END 2022-08-03 11:57 | disposition home or self-care (01) ==
LOC: ASU 06:55 → INTOOBSV 11:42 → 3W 11:42

== ENCOUNTER 2024-02-24 11:41 | Inpatient (IN) ==
--- NOTE | 2024-02-24 12:01 | Emergency Department Note ---
Impression & Plan Colon perforation, Diverticulitis, CADY (acute kidney injury) ED Provider Note NAME: KARIE WARNER AGE: 73 SEX: F : 1950 ARRIVES VIA: Ambulance INFORMANT: Patient, ED PROVIDER(S): Bhupendra Wallace DO CHIEF COMPLAINT: Abdominal pain HPI: The patient is a 73-year-old female who presented to the emergency department for an evaluation of abdominal pain. The patient's had problems with abdominal pain over the course the last several days. She has been seen twice once in our emergency department and before that at a different emergency department. She was diagnosed with diverticulitis. She was placed on a course of antibiotics. She had return of pain today which was worsened and called her family doctor. She was sent to the emergency department for further evaluation. The patient denies having any fever. She denies having any vomiting but she has had nausea as well as decreased p.o. intake. She denies having any rectal bleeding. She has been compliant with her other medications otherwise. ROS: See above HPI for pertinent positives & negatives. A total of 10 systems reviewed and were otherwise negative. PAST MEDICAL HISTORY: See Below PAST SURGICAL HISTORY: See Below FAMILY HISTORY: See Below SOCIAL HISTORY: See Below HOME MEDICATIONS: See Below ALLERGIES: See Below VITALS: See Below PHYSICAL EXAMINATION: GENERAL: The patient is awake and alert. She is anxious and uncomfortable. EYES: The conjunctivae are clear. The pupils are round and reactive. EARS, NOSE, MOUTH AND THROAT: The nose is without any evidence of any deformity. NECK: The neck is nontender and supple. RESPIRATORY: Normal respiratory effort is noted there is no evidence of wheezing rhonchi or rales CARDIOVASCULAR: Regular rate and rhythm noted there no murmurs rubs or gallops normal S1 normal S2. GASTROINTESTINAL: The abdomen is distended. There is guarding in the left lower quadrant. MUSCULOSKELETAL/EXTREMITIES: There is no evidence of gross deformity full range of motion is noted in the hips and shoulders. SKIN: There is no obvious evidence of any rash. There are no petechiae, pallor or cyanosis noted. NEUROLOGIC: Patient is awake alert and oriented x3 MEDICAL DECISION MAKING: The patient is a 73-year-old female who presented to the emergency department for an evaluation of abdominal pain. The patient started having lower abdominal pain over the course the last several days. She was diagnosed with diverticulitis. She was on 2 different courses of antibiotics and had 2 previous CAT scans. The patient returns to the Emergency Department today by ambulance because of ongoing and worsening pain. The patient's exam does appear to be consistent with a surgical abdomen. She had a very high white blood cell count. For this reason I consulted surgery. CAT scan was obtained and appears to be consistent with a colon perforation with significant contents in the abdominal compartment. I discussed the patient's condition with the on-call general surgical group as well as the on-call [facility] hospitalist group. They have agreed to evaluate the patient in the emergency department. Triage Nursing notes reviewed. Prior medical records reviewed Vital Signs: reviewed and remarkable for no significant abnormalities Differential diagnosis: Etiologies such as appendicitis, diverticulitis, obstruction, inflammatory bowel disease, renal colic, PUD, biliary pathology, pancreatitis, mesenteric ischemia, aortic pathology, infections, genitourinary, UTI, perforated viscus, as well as others were entertained. ER treatment provided: See below Diagnostics interpreted by me: ECG: none Cardiac Monitoring: An order was placed for continuous cardiac monitoring. The monitor shows a rate of 70 bpm with sinus rhythm. Laboratory studies: As stated above and show below. Imaging studies: See below. Radiographic imaging was reviewed by myself Consultation(s): I discussed this case with Danielle who is on-call for the general surgical group. I discussed this case with Ita who is on-call for the [facility] hospitalist group. ED COURSE: Procedures: none Critical Care: I have personally spent greater than 45 minutes of critical care time in the direct management of this patient. This includes bedside care, interpretation of diagnostic studies, and testing, discussion with consultants, patient, and family members, and other required patient management activities. This 45 minutes is in excess of all separately billable procedures. Past Med/Surg History Problem List (Updated 02/24/24 @ 13:33 by Bhupendra Wallace DO) CADY (acute kidney injury) (Acute) Diverticulitis (Acute) Colon perforation (Acute) Rectosigmoid diverticulitis (Acute) Orthostatic dizziness Ambulatory dysfunction Tremor of both hands Status post reverse arthroplasty of right shoulder Rotator cuff arthropathy of right shoulder Slow transit constipation Diabetes mellitus type II, controlled (Chronic) GERD (gastroesophageal reflux disease) (Chronic) HTN (hypertension) (Chronic) Dyslipidemia (Chronic) Encounter for pre-operative examination Osteoarthritis of right knee Status post right knee replacement Traumatic medial retinacular tear of right knee Right patella fracture S/P knee surgery Cerumen impaction Encounter for pre-operative examination Full thickness rotator cuff tear Carotid artery disease Chronic right carotid occlusion s/p L CEA 06/2021 follows with [facility] vascular surgery Depression Hypothyroidism CKD (chronic kidney disease) stage 3, GFR 30-59 ml/min CAD (coronary artery disease) chronic mid right coronary artery occlusion-stent not placed, medical therapy recommended (2015 cardiac cath) Medical History Pulmonary nodules Multiple, under surveillance Stroke Per remote records, denies MTHFR mutation Heterozygous Noted per 2013 [facility] hematology records (diagnosed during workup of bruising) Hx of gastric ulcer Tremor rt/left hand Myocardial Infarction "Silent TX" Hx of vertigo Environmental allergies Osteoarthritis Hypertension Hyperlipidemia GERD (gastroesophageal reflux disease) Diabetes mellitus, type 2 Surgical History History of carotid endarterectomy Left CEA (07/08/21) History of arthroscopy of shoulder Right shoulder arthroscopy, RCR (09/10/21): LMA iGel #4 + PNB at [facility]. No issues noted per post-op anesthesia progress note. H/O knee surgery Right knee medial retinacular repair and poly exchange 10/01/2020: LMA#4 + PNB. No issues per postop anesthesia progress note. History of anesthesia reaction "Slow to wake" "Goes under very easily" History of total knee replacement right 07/28/2018: SAB at L3-L4, 1 attempt + PNB. No issues per postop anesthesia progress note. History of esophagogastroduodenoscopy (EGD) History of colonoscopy History of back surgery Had laser procedure 03/2018 in [place] > LUMBAR Hx of vaginal surgery LEEP? (Due to precancerous cells on cervix) History of surgery right wrist x2 Hx of arthroscopic knee surgery left Hx of hand surgery right Hx of bilateral cataract extraction Hx of tubal ligation Hx of appendectomy Hx of cervical spine [facility] W[facility] PER PT Hx of decompression of ulnar nerve right History of carpal tunnel surgery of right wrist History of left knee replacement Hx of ankle fusion right History of cardiac cath 2015 [facility]. Moderate CAD, no stents. Family History Aunt Family history of diabetes mellitus Mother Heart disease Other No family history of adverse response to anesthesia No family history of allergies No family history of bleeding disorder Denies family history of Hearing loss Cancer Hypertension Stroke Asthma Social History Smoking Status: Current some day smoker packs per day: 0.5; Cigarettes Per Day: 1/2 PPD; Second Hand Exposure: No; Do You Dip or Chew Tobacco: No; Hx Alcohol Use: No Hx Substance Use: No Preferred Language: Czech Communication Ability: Effective Communication Ability Comment: SANTOS, SHANE HEARING AIDES Physician Liaison Required: No Beliefs That Will Affect Care: None marital status: Current Living Situation: Spouse current occupational status: disabled How many Children do You have: 3 Feels Safe at Home: Yes Assistive Devices: Cane and Wheelchair Allergies Allergies Allergy/AdvReac Type Severity Reaction Status Date / Time metformin Allergy Severe tachycardia Verified 01/11/24 15:57 pollen extracts Allergy Mild HAYFEVER Verified 01/11/24 15:57 gabapentin Allergy Verified 01/11/24 15:57 Home Meds Home Medications Medication Instructions Recorded Confirmed ascorbic acid (vitamin C) 1,000 mg 1 g PO QAM 06/22/18 01/11/24 tablet (Vitamin C) calcium carbonate 600 mg-vitamin 1 tab PO BID 06/22/18 01/11/24 D3 5 mcg (200 unit) capsule (Calcium 600 + D(3)) fexofenadine 180 mg tablet 180 mg PO QAM 06/22/18 01/11/24 (Aleisha Allergy) folic acid 1 mg tablet 1 mg PO QAM 06/22/18 01/11/24 azhydnlfsfiy-xqyvubvh-nwmogb 1 tab PO QAM 06/22/18 01/11/24 tablet (Multivitamin 50 Plus tablet) thiamine HCl (vitamin B1) 50 mg 50 mg PO QAM 06/22/18 01/11/24 tablet (Vitamin B-1) vitamin E 200 unit capsule 200 unit PO HS 06/22/18 01/11/24 carvedilol 6.25 mg tablet 6.25 mg PO BID 01/22/20 01/11/24 latanoprost (PF) 0.005 % eye drops 1 drp OPB DAILY 01/22/20 01/11/24 levothyroxine 88 mcg tablet 88 mcg PO QAM 01/22/20 01/11/24 liothyronine 5 mcg tablet 5 mcg PO QAM 01/22/20 01/11/24 duloxetine 30 mg capsule,delayed 30 mg PO QDD 04/08/20 01/11/24 release semaglutide 0.25 mg or 0.5 mg (2 1.25 mg subcut WK 04/08/20 01/11/24 mg/1.5 mL) subcutaneous pen injector (OzAnyPresence) soy isoflavone 50 mg tablet 50 mg PO HS 09/19/20 01/11/24 betamethasone dipropionate 0.05 % 1 applic topical BID PRN . 11/13/20 01/11/24 topical cream mirabegron 50 mg tablet,extended 50 mg PO QPM 11/13/20 01/11/24 release 24 hr (Myrbetriq) aspirin 81 mg tablet,delayed 81 mg PO QAM 07/14/22 01/11/24 release dorzolamide-timolol (PF) 2 %-0.5 % 1 drp OPB DAILY 08/02/22 01/11/24 eye drops in a dropperette B-complex with vitamin C 1 tab PO DAILY 11/11/23 01/11/24 atorvastatin 40 mg tablet (Lipitor) 40 mg PO DAILY 11/11/23 01/11/24 glucosamine-chondroitin 250 mg-200 1 tab PO DAILY 11/11/23 01/11/24 mg tablet (Osteo Bi-Flex) lisinopril 10 mg tablet 10 mg PO DAILY 11/11/23 01/11/24 omega 1-inh-bkl-fish oil 1,000 mg 1 cap PO DAILY 11/11/23 01/11/24 (120 mg-180 mg) capsule (Fish Oil) pantoprazole 40 mg tablet,delayed 40 mg PO DAILY 11/11/23 01/11/24 release triamterene 37.5 1 cap PO DAILY 11/11/23 01/11/24 mg-hydrochlorothiazide 25 mg capsule Previous Rx's Medication Instructions Recorded oxycodone 5 mg tablet 5 - 10 mg (1 - 2 x 5 mg) PO Q6H 08/03/22 PRN pain #30 tabs carbidopa 25 mg-levodopa 100 mg 2 tab PO QID 30 days #240 tabs 01/11/24 tablet entacapone 200 mg tablet 200 mg PO TID #270 tabs 01/11/24 ciprofloxacin HCl 500 mg tablet 500 mg PO BID #28 tabs 02/20/24 (Cipro) metronidazole 500 mg tablet 500 mg PO BID 14 days #28 tabs 02/20/24 Results & Data (ED) Vital Signs Vital Signs - 24 hr 02/24/24 11:54 02/24/24 12:50 Temperature 36.6 C Temperature Source Oral Pulse Rate 87 70 Respiratory Rate 20 Respiratory Effort / Characteristics Non-Labored Spontaneous Respiratory Depth Normal Blood Pressure 120/79 Blood Pressure Mean 92 Blood Pressure Position Sitting Pulse Oximetry 93 Oxygen Delivery Method Room Air Sepsis Recent Fever Within 48 Hours No Sepsis New/Unexplained Change in Mental Status No Sepsis Action Taken by Nursing No Action Required Home Medications Current Medication List: was personally reviewed by me Laboratory Data Attestation: I reviewed the patient's lab results. 02/24/24 12:00 02/24/24 12:00 Lab Results 02/24/24 02/24/24 Range/Units 12:00 12:09 WBC 24.61 H (4.8-10.8) K/ul RBC 3.80 L (4.20-5.40) M/uL Hgb 11.4 L (12.0-16.0) g/dl POC Hgb 11.2 L (12.0-16.0) g/dl Hct 33.2 L (37.0-47.0) % POC Hct 33 L (37-47) % MCV 87.4 (80.0-100.0) fL MCH 30.0 (25.0-34.0) pg MCHC 34.3 (32.0-36.0) g/dL RDW Std Deviation 43.7 (36.4-46.3) fL RDW Coeff of Erwin 13.9 (11.5-14.5) % Plt Count 355 (130-400) K/uL MPV 9.9 (9.4-12.4) fL Immature Gran % (Auto) 0.9 % Neut % (Auto) 89.7 % Lymph % (Auto) 3.8 % Crockett % (Auto) 5.4 % Eos % (Auto) 0.0 % Baso % (Auto) 0.2 % Neut # (Auto) 22.05 H (1.40-6.50) K/uL Lymph # (Auto) 0.94 L (1.20-3.40) K/uL Crockett # (Auto) 1.34 H (0.11-0.59) K/uL Eos # (Auto) 0.01 (0.00-0.50) K/uL Baso # (Auto) 0.04 (0.00-0.20) K/uL Immature Gran # (Auto) 0.23 H (0.01-0.20) K/uL Ovalocytes 1+ Echinocytes 1+ POC Sodium 134 L (135-144) mmol/L Sodium 134 L (136-145) mmol/L POC Potassium 4.1 (3.3-5.0) mmol/L Potassium 4.2 (3.5-5.1) mmol/L POC Chloride 100 L (101-112) mmol/L Chloride 100 (98-107) mmol/L Carbon Dioxide 27 (21-32) mmol/L POC Total CO2 23 L (24-31) mmol/L Anion Gap 7 (3-11) POC Anion Gap 16.0 (16-25) mmol/L POC BUN 26 H (7-18) mg/dl BUN 30 H (6-23) mg/dl Creatinine 1.97 H (0.6-1.2) mg/dl POC Creatinine 2.2 H (0.6-1.3) mg/dl Est Cr Clr Drug Dosing 30.7 ml/min Est GFR ( Amer) 28.7 ml/min Est GFR (Non-Af Amer) 24.8 ml/min BUN/Creatinine Ratio 15.2 (10-20) Glucose 176 H (70-99(Fasting)) mg/dl POC Glucose (other) 172 H (70-99) mg/dl Calcium 8.7 (8.6-10.3) mg/dl POC Ioniz Calcium Jeremiah 1.10 L (1.12-1.32) mmol/l Total Bilirubin 0.7 (0.2-1.0) mg/dl AST 12 L (13-39) U/L ALT < 3 L (7-52) U/L Alkaline Phosphatase 66 (34-104) U/L Total Protein 5.8 L (6.0-8.3) gm/dl Albumin 3.2 L (3.4-5.0) gm/dl Globulin 2.6 (2.5-4.0) gm/dl Albumin/Globulin Ratio 1.2 (0.9-2) Lipase 30 (11-82) U/L Administered Medications Morphine Sulfate (Morphine Sulfate 4 Mg/Ml 1 Ml Carp\\Vial) 4 mg IV Q15M PRN PRN Reason: Pain Stop: 03/09/24 11:55 Last Admin: 02/24/24 13:01 Dose: 4 mg Documented By: Admin: 02/24/24 12:19 Dose: 4 mg Documented By: GERARDO Discontinued Medications Sodium Chloride (Nss) 1,000 mls @ 999 mls/hr IV .Q1H1M STA Stop: 02/24/24 12:56 Last Admin: 02/24/24 12:19 Dose: 999 mls/hr Documented By: GERARDO Sodium Chloride (Nss) 1,000 mls @ 999 mls/hr IV .Q1H1M ONE Stop: 02/24/24 13:13 Last Admin: 02/24/24 12:19 Dose: 999 mls/hr Documented By: GERARDO Piperacillin Sod/Tazobactam Sod (Zosyn) 4.5 gm in 100 mls @ 200 mls/hr IV NOW ONE Stop: 02/24/24 13:12 Last Admin: 02/24/24 12:58 Dose: 200 mls/hr Documented By: Ondansetron HCl (Ondansetron Inj 2 Mg/Ml 2 Ml Vial) 4 mg IV NOW STA Stop: 02/24/24 11:57 Last Admin: 02/24/24 12:19 Dose: 4 mg Documented By: GERARDO Imaging Data Attestation: I personally reviewed and interpreted this imaging study as follows: My Impression: CT of the abdomen and pelvis was obtained in the emergency department. My interpretation is colonic perforation with free air in the abdomen. Final report below. Radiologist's Impression: Abdomen/Pelvis CT 02/24/24 12:13 CT OF THE ABDOMEN AND PELVIS WITHOUT CONTRAST CLINICAL HISTORY: Left lower quadrant abdominal pain. COMPARISON STUDY: CT of the abdomen and pelvis February 20, 2024. TECHNIQUE: Axial images of the abdomen and pelvis were obtained without IV contrast. Images were reviewed in the axial, sagittal, and coronal planes. Automated exposure control was utilized for the study. A dose lowering technique was utilized adhering to the principles of ALARA. FINDINGS: Lung bases are unremarkable. Unenhanced images of the liver, spleen, adrenal glands and pancreas are unremarkable. There is moderate bilateral renal cortical thinning. There are numerous calcifications within the bilateral renal sinuses. Many of these are likely vascular in etiology. However, there are suspected nonobstructing bilateral renal calculi as well. There is no hydronephrosis. No ureteral calculi are identified. There is no evidence for a bowel obstruction. Of note, there has been interval development of moderate gas within the retroperitoneum which extends into the left anterior pararenal space. There is also pneumoperitoneum/extraluminal gas within the mesentery. The findings are due to interval colonic perforation involving the sigmoid colon, shown on image 272 of [id number]. Bowel wall thickening is noted. There is extensive adjacent inflammation. Extraluminal contrast and stool extending into the mesentery is present. The stool ball measures approximately 7 cm. There is a small amount of ascites. No drainable fluid collection is present. IMPRESSION: Findings consistent with interval sigmoid colon perforation, as described above. Associated retroperitoneal gas, pneumoperitoneum and gas within the mesentery with extensive inflammation and a small amount of ascites. Extraluminal 7 cm stool ball extending through the defect. No drainable fluid collection. Surgical consultation is recommended. Findings discussed with Dr. Wallace at time of dictation. ACT 112: Negative or not required by law. Electronically signed by: Man Jones M.D. 02/24/2024 1:16 PM Discharge Plan Visit Data Chief Complaint: Abdominal Pain Stated Complaint: AB PAIN ED Provider: Bhupendra Wallace Discharge Problem: Colon perforation, Diverticulitis, CADY (acute kidney injury) Patient Disposition: Being Evaluated by Hospitalist Forms Stand Alone Forms: [email or web address] Prescriptions Prescriptions: No Action betamethasone dipropionate 0.05 % cream 1 applic topical BID PRN (Reason: .) Myrbetriq 50 mg tablet extended release 24 hr 50 mg PO QPM entacapone 200 mg tablet 200 mg PO TID Qty: 270 3RF Rx Instructions: administer at the same time as l-dopa/carbidopa dose carbidopa-levodopa 25-100 mg tablet 2 tab PO QID 30 Days Qty: 240 2RF triamterene-hydrochlorothiazid 37.5-25 mg capsule 1 cap PO DAILY glucosamine-chondroitin [Osteo Bi-Flex] 250-200 mg tablet 1 tab PO DAILY Rx Instructions: give after food/meal omega 8-lme-ndr-fish oil [Fish Oil] 1,000 mg (120 mg-180 mg) capsule 1 cap PO DAILY atorvastatin [Lipitor] 40 mg tablet 40 mg PO DAILY lisinopril 10 mg tablet 10 mg PO DAILY B-complex with vitamin C Tablet 1 tab PO DAILY ascorbic acid (vitamin C) [Vitamin C] 1,000 mg Tablet 1 g PO QAM vitamin E 200 unit Capsule 200 unit PO HS fexofenadine [Aleisha Allergy] 180 mg Tablet 180 mg PO QAM folic acid 1 mg Tablet 1 mg PO QAM thiamine HCl (vitamin B1) [Vitamin B-1] 50 mg Tablet 50 mg PO QAM Multivitamin 50 Plus Tablet 1 tab PO QAM Calcium 600 + D(3) 600 mg calcium- 200 unit Capsule 1 tab PO BID pantoprazole 40 mg tablet,delayed release (DR/EC) 40 mg PO DAILY levothyroxine 88 mcg Tablet 88 mcg PO QAM liothyronine 5 mcg Tablet 5 mcg PO QAM carvedilol 6.25 mg Tablet 6.25 mg PO BID latanoprost (PF) 0.005 % Drops 1 drp OPB DAILY duloxetine 30 mg capsule,delayed release(DR/EC) 30 mg PO QDD Ozempic 0.25 mg or 0.5 mg(2 mg/1.5 mL) pen injector 1.25 mg SUBCUT WK Patient Comments: EVERY TUESDAY AT BEDTIME soy isoflavone 50 mg Tablet 50 mg PO HS Patient Comments: AT BEDTIME WITH VIT E aspirin 81 mg tablet,delayed release (DR/EC) 81 mg PO QAM dorzolamide-timolol (PF) 2-0.5 % dropperette 1 drp OPB DAILY oxycodone 5 mg Tablet 5 - 10 mg PO Q6H PRN (Reason: pain) Qty: 30 0RF Rx Instructions: ongoing therapy, supervising dr lavern felix, max 6 tabs in 24 hours metronidazole 500 mg tablet 500 mg PO BID 14 Days Qty: 28 0RF ciprofloxacin HCl [Cipro] 500 mg tablet 500 mg PO BID Qty: 28 0RF Referrals Referrals: Keyshawn Rockwell MD [Primary Care Provider] -
[2024-02-24] MEDS: SODIUM CHLORIDE 0.9% 1,000 ML IV STA (12:19)
[2024-02-24] MEDS: ONDANSETRON INJ 2 MG/ML 2 ML VIAL IV STA (12:19)
[2024-02-24] MEDS: SODIUM CHLORIDE 0.9% 1,000 ML IV ONE (12:19)
[2024-02-24] MEDS: MoRPHine SULFATE 4 MG/ML 1 ML CARP\\VIAL IV PRN (12:19)
[2024-02-24 12:21] LABS: Hematocrit (blood only) 33.2 % (37.0-47.0); Hemoglobin 11.4 g/dl (12.0-16.0); Mean Corpuscular Hgb Conc 34.3 g/dL (32.0-36.0); Mean Corpuscular Volume 87.4 fL (80.0-100.0); Mean Platelet Volume 9.9 fL (9.4-12.4); Platelet Count 355 K/uL (130-400); RDW Coefficient of Variation 13.9 % (11.5-14.5); RDW Standard Deviation 43.7 fL (36.4-46.3); White Blood Count 24.61 K/ul (4.8-10.8)
[2024-02-24 12:21] LABS: iSTAT Creatinine 2.2 mg/dl (0.6-1.3); iSTAT Hemoglobin 11.2 g/dl (12.0-16.0); iSTAT Ionized Calcium 1.1 mmol/l (1.12-1.32); iSTAT Potassium 4.1 mmol/L (3.3-5.0)
[2024-02-24 12:43] LABS: Anion Gap 7 (3-11); BUN Creatinine Ratio 15.2 (10-20); Blood Urea Nitrogen 30 mg/dl (6-23); Calcium 8.7 mg/dl (8.6-10.3); Carbon Dioxide 27 mmol/L (21-32); Chloride 100 mmol/L (98-107); Creatinine Clr Calc Pharmacy 30.7 ml/min; Est GFR (African American) 28.7 ml/min; Est GFR (Non-African American) 24.8 ml/min; Glucose 176 mg/dl (70-99(Fasting)); Potassium 4.2 mmol/L (3.5-5.1); Sodium 134 mmol/L (136-145)
[2024-02-24 12:49] LABS: Basophils # (auto) 0.04 K/uL (0.00-0.20); Basophils % (auto) 0.2 %; Echinocytes 1+; Eosinophils # (auto) 0.01 K/uL (0.00-0.50); Immature Granulocytes # (auto) 0.23 K/uL (0.01-0.20); Immature Granulocytes % (auto) 0.9 %; Lymphocytes # (auto) 0.94 K/uL (1.20-3.40); Lymphocytes % (auto) 3.8 %; Monocytes # (auto) 1.34 K/uL (0.11-0.59); Monocytes % (auto) 5.4 %; Neutrophils # (auto) 22.05 K/uL (1.40-6.50); Neutrophils % (auto) 89.7 %; Ovalocytes 1+
[2024-02-24 12:50] LABS: Alanine Aminotransferase < 3 U/L (7-52); Albumin Globulin Ratio 1.2 (0.9-2); Albumin Level 3.2 gm/dl (3.4-5.0); Alkaline Phosphatase 66 U/L (34-104); Aspartate Aminotransferase 12 U/L (13-39); Bilirubin,Total 0.7 mg/dl (0.2-1.0); Globulin 2.6 gm/dl (2.5-4.0); Lipase 30 U/L (11-82); Total Protein 5.8 gm/dl (6.0-8.3)
[2024-02-24] MEDS: PIPERACILLIN/TAZOBACTAM 4.5 GM/100 ML BAG IV ONE (12:58)
--- NOTE | 2024-02-24 13:06 | History & Physical Report ---
<Statement entered by Dio Chapa MD - 02/24/24 15:57> Attending Addendum: Case reviewed with the advanced practitioner. I have personally performed a history and physical examination on the patient. I have reviewed the advanced practitioner's documentation on the date of service referenced in note, and I agree with, and take responsibility for the plan of care. 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 Has been experiencing abdominal pain for almost 3 weeks. Saw her PCP on 02/07/24 and had a CTAP done on 02/08/24 at [facility] that showed "colonic diverticulosis with sigmoid colonic wall thickening and perisigmoid inflammatory changes" - suggestive of colitis/diverticulitis. She was started on ciproflo xacin and metronidazole at that time. Patient did initially have improvement in her symptoms, however the antibiotics were finished on 02/15/24 and her symptoms subsequently returned a few days later. She was seen in [facility] ED on 02/20/24 and CTAP at that time showed nonspecific thickening of the rectosigmoid colon wall. Patient also had a questionably infected urine specimen. She was discharged home from the ED with a 2-week course of ciprofloxacin and metronidazole. She had intense return of pain today and her PCP referred her to the ED. CTAP today reveals findings consistent with interval sigmoid colon perforation. Associated retroperitoneal gas, pneumoperitoneum and gas w/in the mesentery with extensive inflammation and small amount of ascites noted as well. There is also an extraluminal 7cm stool ball extending through the defect. No drainable fluid collection seen. General surgery was emergently consulted on this patient by Dr. Wallace in the ED. She is scheduled to undergo surgical intervention with Dr. Hood. Patient did have asymptomatic short run of NSVT in the ED prior to going to the OR. Perforation of Sigmoid Colon: History and CTAP findings as per above. Notable leukocytosis of 24k. Urgently to OR for surgical intervention. S/p IV Zosyn x 1 dose in ED. Continue IV ABX coverage w/ cefepime + metronidazole. Appreciate further treatment recommendations/input provided by general surgery team. CADY Superimposed on CKD Stage III: Cr 1.97 on admission, baseline Cr ~1.2-1.4 per chart review. S/p 2L NSS in ED. Continue IVF. Avoid nephrotoxic meds when able. Monitor renal fx closely. HTN: BP was stable in ED. Continue home meds when able. Close BP monitoring. 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 SSI regimen while inpatient. BSG checks ACHS. Obtain Hgb A1c in AM - follow. Other Chronic Medical Conditions: Hypothyroidism, CAD, HLD, GERD --> Continue home meds when able for these specific conditions. * Patient is on entacapone and carbidopa-levodopa. Patient has seen [facility] in the past without a true diagnosis of Parkinson disease. Does have a resting tremor in her upper extremities at baseline however. Will need to speak with patient regarding this once she is stable post-operatively. Can continue both meds when able. DVT Prophylaxis: SCDs/TEDs for now. Code Status: FULL CODE PCP: Keyshawn Rockwell MD Disposition: To OR for emergent surgical intervention. Most likely will be placed in ICU post-operatively, will follow. Further recommendations pending. Patient seen in collaboration with Dr. Chapa. Please see addendum. I spent a total of 65 minutes coordinating, documenting, and providing care for this patient excluding time spent in the performance of separately billed services. This included personally reviewing all current laboratories and imaging studies, medical reconciliation, outpatient chart review and discussion with specialists. This chart was completed in part utilizing Speech Voice Recognition Software. Grammatical errors, random word insertions, pronoun errors, and incomplete sentences are an occasional consequence of this system due to software limitations, ambient noise, and hardware issues. Any formal questions or concerns about the content, text, or information contained within the body of this dictation should be directly addressed to the provider for clarification. 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 History obtained from patient and associated chart review. Patient with persistent, worsening abdominal pain. Mostly in the LLQ region, however has spread to become more generalized. Has been experiencing abdominal pain for almost 3 weeks. Does report persistent nausea as well with this abdominal pain. Saw her PCP on 02/07/24 and had a CTAP done on 02/08/24 at [facility] that showed "colonic diverticulosis with sigmoid colonic wall thickening and perisigmoid inflammatory changes" - suggestive of colitis/diverticulitis. She was therefore started on ciprofloxacin and metronidazole at that time. Patient did initially have improvement in her symptoms, however the antibiotics were finished on 02/15/24 and her symptoms subsequently returned a few days later. She was seen in [facility] ED on 02/20/24 and CTAP at that time showed nonspecific thickening of the rectosigmoid colon wall. Patient also had a questionably infected urine specimen. She was discharged home from the ED with a 2-week course of ciprofloxacin and metronidazole. She had intense return of pain today and called her PCP for advice --> was subsequently referred to the ED for further evaluation. No vomiting today but nausea still persists. Has not had a BM in approximately 5 days. Notes significantly decreased oral intake secondary to pain and nausea. No fevers. Denies any urinary issues. She has been compliant with her prescribed antibiotics. CTAP today reveals findings consistent with interval sigmoid colon perforation. Associated retroperitoneal gas, pneumoperitoneum and gas w/in the mesentery with extensive inflammation and small amount of ascites noted as well. There is also an extraluminal 7cm stool ball extending through the defect. No drainable fluid collection seen. General surgery was emergently consulted on this patient by Dr. Wallace in the ED. She is scheduled to undergo surgical intervention with Dr. Hood. Allergies Allergy/AdvReac Type Severity Reaction Status Date / Time metformin Allergy Severe tachycardia Verified 02/24/24 14:40 pollen extracts Allergy Mild HAYFEVER Verified 02/24/24 14:40 gabapentin Allergy Verified 02/24/24 14:40 Home Medications Medication Instructions Recorded Confirmed Type ascorbic acid (vitamin C) 1,000 mg 1 g PO QAM 06/22/18 02/24/24 History tablet (Vitamin C) fexofenadine 180 mg tablet 180 mg PO QAM 06/22/18 02/24/24 History (Aleisha Allergy) folic acid 1 mg tablet 1 mg PO QAM 06/22/18 02/24/24 History temiyvdijpnm-qjthgiyl-wwaeth 1 tab PO QAM 06/22/18 02/24/24 History tablet (Multivitamin 50 Plus tablet) thiamine HCl (vitamin B1) 50 mg 50 mg PO QAM 06/22/18 02/24/24 History tablet (Vitamin B-1) vitamin E 200 unit capsule 200 unit PO HS 06/22/18 02/24/24 History latanoprost (PF) 0.005 % eye drops 1 drp OPB DAILY 01/22/20 02/24/24 History semaglutide 0.25 mg or 0.5 mg (2 1.25 mg subcut WK 04/08/20 02/24/24 History mg/1.5 mL) subcutaneous pen injector (Ozempic) aspirin 81 mg tablet,delayed 81 mg PO QAM 07/14/22 02/24/24 History release dorzolamide-timolol (PF) 2 %-0.5 % 1 drp OPB DAILY 08/02/22 02/24/24 History eye drops in a dropperette B-complex with vitamin C 1 tab PO DAILY 11/11/23 02/24/24 History glucosamine-chondroitin 250 mg-200 1 tab PO DAILY 11/11/23 02/24/24 History mg tablet (Osteo Bi-Flex) omega 0-pmm-jtz-fish oil 1,000 mg 1 cap PO DAILY 11/11/23 02/24/24 History (120 mg-180 mg) capsule (Fish Oil) pantoprazole 40 mg tablet,delayed 40 mg PO DAILY 11/11/23 02/24/24 History release entacapone 200 mg tablet 200 mg PO TID #270 tabs 01/11/24 02/24/24 Rx atorvastatin 80 mg tablet 80 mg PO DAILY 02/24/24 02/24/24 History carbidopa 25 mg-levodopa 100 mg 2 tab PO TID 02/24/24 02/24/24 History tablet carvedilol 12.5 mg tablet 12.5 mg PO BID 02/24/24 02/24/24 History levothyroxine 100 mcg tablet 100 mcg PO DAILY 02/24/24 02/24/24 History liothyronine 5 mcg tablet 5 mcg PO DAILY 02/24/24 02/24/24 History lisinopril 20 mg tablet 20 mg PO DAILY 02/24/24 02/24/24 History tramadol 50 mg tablet 50 mg PO Q6H PRN Moderate Pain 02/24/24 02/24/24 History (Scale Score 5-6) Past Med/Surg History Problem List Perforation of sigmoid colon CADY (acute kidney injury) (Acute) Diverticulitis (Acute) Colon perforation (Acute) Rectosigmoid diverticulitis (Acute) Orthostatic dizziness Ambulatory dysfunction Tremor of both hands Status post reverse arthroplasty of right shoulder Rotator cuff arthropathy of right shoulder Slow transit constipation Diabetes mellitus type II, controlled (Chronic) GERD (gastroesophageal reflux disease) (Chronic) HTN (hypertension) (Chronic) Dyslipidemia (Chronic) Encounter for pre-operative examination Osteoarthritis of right knee Status post right knee replacement Traumatic medial retinacular tear of right knee Right patella fracture S/P knee surgery Cerumen impaction Encounter for pre-operative examination Full thickness rotator cuff tear Carotid artery disease Chronic right carotid occlusion s/p L CEA 06/2021 follows with [facility] vascular surgery Depression Hypothyroidism CKD (chronic kidney disease) stage 3, GFR 30-59 ml/min CAD (coronary artery disease) chronic mid right coronary artery occlusion-stent not placed, medical therapy recommended (2015 cardiac cath) Medical History Pulmonary nodules Multiple, under surveillance Stroke Per remote records, denies MTHFR mutation Heterozygous Noted per 2013 [facility] hematology records (diagnosed during workup of bruising) Hx of gastric ulcer Tremor rt/left hand Myocardial Infarction "Silent [place]" Hx of vertigo Environmental allergies Osteoarthritis Hypertension Hyperlipidemia GERD (gastroesophageal reflux disease) Diabetes mellitus, type 2 Surgical History History of carotid endarterectomy Left CEA (07/08/21) History of arthroscopy of shoulder Right shoulder arthroscopy, RCR (09/10/21): LMA iGel #4 + PNB at [facility]. No issues noted per post-op anesthesia progress note. H/O knee surgery Right knee medial retinacular repair and poly exchange 10/01/2020: LMA#4 + PNB. No issues per postop anesthesia progress note. History of anesthesia reaction "Slow to wake" "Goes under very easily" History of total knee replacement right 07/28/2018: SAB at L3-L4, 1 attempt + PNB. No issues per postop anesth esia progress note. History of esophagogastroduodenoscopy (EGD) History of colonoscopy History of back surgery Had laser procedure 03/2018 in [place] > LUMBAR Hx of vaginal surgery LEEP? (Due to precancerous cells on cervix) History of surgery right wrist x2 Hx of arthroscopic knee surgery left Hx of hand surgery right Hx of bilateral cataract extraction Hx of tubal ligation Hx of appendectomy Hx of cervical spine surgery 08/2009 [facility], [place]> ROM WNL PER PT Hx of decompression of ulnar nerve right History of carpal tunnel surgery of right wrist History of left knee replacement Hx of ankle fusion right History of cardiac cath 2015 [facility]. Moderate CAD, no stents. Family History Aunt Family history of diabetes mellitus Mother Heart disease Other No family history of adverse response to anesthesia No family history of allergies No family history of bleeding disorder Denies family history of Hearing loss Cancer Hypertension Stroke Asthma Social History Smoking Status: Current some day smoker packs per day: 0.5; Cigarettes Per Day: 1/2 PPD; Second Hand Exposure: No; Do You Dip or Chew Tobacco: No; Hx Alcohol Use: No Hx Substance Use: No Preferred Language: Mosotho Communication Ability: Effective Communication Ability Comment: [place], NO HEARING AIDES Drafter Electromechanical Required: No Beliefs That Will Affect Care: None marital status: Current Living Situation: Spouse current occupational status: disabled How many Children do You have: 3 Feels Safe at Home: Yes Assistive Devices: Cane and Wheelchair Review of Systems Review of Systems: At least ten systems reviewed and negative, except as noted in the HPI. Physical Exam Physical Exam: Please refer to Dr. Chapa's addendum for physical examination findings. Results & Data Results & Data Vital Signs (Past 12 Hours) Vital Signs Temp Pulse Resp BP Pulse Ox O2 Del Method 02/24/24 12:50 70 02/24/24 11:54 36.6 C 87 20 120/79 93 Room Air Laboratory Results Short CBC 02/24/24 Range/Units 12:00 WBC 24.61 H (4.8-10.8) K/ul Hgb 11.4 L (12.0-16.0) g/dl Hct 33.2 L (37.0-47.0) % Plt Count 355 (130-400) K/uL BMP 02/24/24 12:00 Sodium 134 L Potassium 4.2 Chloride 100 Carbon Dioxide 27 BUN 30 H Creatinine 1.97 H Glucose 176 H Calcium 8.7 Liver Function 02/24/24 Range/Units 12:00 Total Bilirubin 0.7 (0.2-1.0) mg/dl AST 12 L (13-39) U/L ALT < 3 L (7-52) U/L Alkaline Phosphatase 66 (34-104) U/L Albumin 3.2 L (3.4-5.0) gm/dl Diagnostic Findings Abdomen/Pelvis CT 02/24/24 12:13 CT OF THE ABDOMEN AND PELVIS WITHOUT CONTRAST CLINICAL HISTORY: Left lower quadrant abdominal pain. COMPARISON STUDY: CT of the abdomen and pelvis February 20, 2024. TECHNIQUE: Axial images of the abdomen and pelvis were obtained without IV contrast. Images were reviewed in the axial, sagittal, and coronal planes. Automated exposure control was utilized for the study. A dose lowering technique was utilized adhering to the principles of ALARA. FINDINGS: Lung bases are unremarkable. Unenhanced images of the liver, spleen, adrenal glands and pancreas are unremarkable. There is moderate bilateral renal cortical thinning. There are numerous calcifications within the bilateral renal sinuses. Many of these are likely vascular in etiology. However, there are suspected nonobstructing bilateral renal calculi as well. There is no hydronephrosis. No ureteral calculi are identified. There is no evidence for a bowel obstruction. Of note, there has been interval development of moderate gas within the retroperitoneum which extends into the left anterior pararenal space. There is also pneumoperitoneum/extraluminal gas within the mesentery. The findings are due to interval colonic perforation involving the sigmoid colon, shown on image 272 of [id number]. Bowel wall thickening is noted. There is extensive adjacent inflammation. Extraluminal contrast and stool extending into the mesentery is present. The stool ball measures approximately 7 cm. There is a small amount of ascites. No drainable fluid collection is present. IMPRESSION: Findings consistent with interval sigmoid colon perforation, as described above. Associated retroperitoneal gas, pneumoperitoneum and gas within the mesentery with extensive inflammation and a small amount of ascites. Ext raluminal 7 cm stool ball extending through the defect. No drainable fluid collection. Surgical consultation is recommended. Findings discussed with Dr. Wallace at time of dictation. ACT 112: Negative or not required by law. Electronically signed by: Man Jones M.D. 02/24/2024 1:16 PM Medications Administered Sodium Chloride (Nss) 1,000 mls @ 999 mls/hr IV .Q1H1M ONE Stop: 02/24/24 13:13 Last Admin: 02/24/24 12:19 Dose: 999 mls/hr Documented By: GERARDO Piperacillin Sod/Tazobactam Sod (Zosyn) 4.5 gm in 100 mls @ 200 mls/hr IV NOW ONE Stop: 02/24/24 13:12 Last Admin: 02/24/24 12:58 Dose: 200 mls/hr Documented By: Morphine Sulfate (Morphine Sulfate 4 Mg/Ml 1 Ml Carp\\Vial) 4 mg IV Q15M PRN PRN Reason: Pain Stop: 03/09/24 11:55 Last Admin: 02/24/24 13:01 Dose: 4 mg Documented By: Admin: 02/24/24 12:19 Dose: 4 mg Documented By: GERARDO Discontinued Medications Sodium Chloride (Nss) 1,000 mls @ 999 mls/hr IV .Q1H1M STA Stop: 02/24/24 12:56 Last Admin: 02/24/24 12:19 Dose: 999 mls/hr Documented By: NA Ondansetron HCl (Ondansetron Inj 2 Mg/Ml 2 Ml Vial) 4 mg IV NOW STA Stop: 02/24/24 11:57 Last Admin: 02/24/24 12:19 Dose: 4 mg Documented By: GERARDO Code Status & VTE Plan Code Status FULL CODE
--- NOTE | 2024-02-24 13:17 | Surgery Consultation ---
Date of Consultation February 24, 2024 Assessment & Plan (1) Colon perforation: This is a 73y F with a PMH of parkinsonism, wheelchair use, dizziness, GERD, DM2 with insulin pump, CAD, CKD, HTN, HLD, who presents to the [facility] ED on 02/24/24 with complaints of abdominal pain, mostly left sided in nature. She was diagnosed with diverticulitis a couple wks ago and completed a course of abx. She again was seen in our ER with worsening pain since the wknd. CT scan was performed that showed nonspecific thickening of the wall of the rectosigmoid colon. She was instructed to take cipro/flagyl and follow up as an outpatient with gastroenterology. Despite resumption of her antibiotics her pain did not improve. She reports + nausea with an episode of emesis yesterday. Her pain continued to worsen and she rated it a 10/10 in severity today. She has not eaten much over the last 3 days due to her symptoms. Therefore she presented to our ER for further evaluation. She underwent a repeat CT a/p that showed findings consistent with interval sigmoid colon perforation, as described above. Associated retroperitoneal gas, pneumoperitoneum and gas within the mesentery with extensive inflammation and a small amount of ascites. Extraluminal 7 cm stool ball extending through the defect. No drainable fluid collection. Today patient's vital signs are stable. Her lab work shows an elevated WBC count of 24, hbg 11.4, Cr 1.9. On exam abdomen is mildly distended, she is tender throughout the lower abdomen much worse in the LLQ with + guarding. Given exam and findings on CT scan we will proceed with operative intervention. This will involve an exploratory laparotomy, bowel resection with possible colostomy formation. Given her extensive medical history we will ask the hospitalists to assist us with this patient. Keep npo/ivf/iv abx and we will proceed with surgery today. Supervising Physician Co-Signing Physician Notes Patient seen and examined, labs and meds reviewed, agree with above. 73-year-old female with several weeks of left lower quadrant pain, initially treated for diverticulitis presented to the emergency department after failure of improvement. On exam she is afebrile with stable vitals. Her abdomen is tender palpation in the left lower quadrant, with localized guarding. WBC 24. CT personally viewed and interpreted and agree with the assessment of what appears to be a stercoral perforation in the distal sigmoid colon. There is extravasation of contrast. Given these findings we would recommend laparotomy with likely Morin's procedure. Plan for exploratory laparotomy, bowel resection, possible ostomy Risk of the procedure discussed to include but not limited to bleeding, infection, damage surrounding structures, need for future more extensive surgery, abscess, hernia, prolonged hospital stay, and the risk of anesthesia She will be admitted postoperatively, medicine consulted History of Present Illness History of Present Illness This is a 73y F with a PMH of parkinsonism, wheelchair use, dizziness, GERD, DM2 with insulin pump, CAD, CKD, HTN, HLD, who presents to the [facility] ED on 02/24/24 with complaints of abdominal pain, mostly left sided in nature. She reports this all started about 2-3 weeks ago. She was worked up as an outpatient with a CT performed at [facility] that supposedly shown diverticulitis. She was recommend to take a course of antibiotics orally (she cannot recall the name). After this she did feel some improvement in her symptoms. Unfortunately over the wknd, starting on Sat her abdominal pain returned. She was evaluated in our ER on 02/[address] scan was performed that showed nonspecific thickening of the wall of the rectosigmoid colon. This could be infectious, inflammatory or malignant. Recommend correlation with colonoscopy. She was asked to take cipro/flagyl and follow up as an outpatient with gastroenterology. Despite resumption of her antibiotics her pain did not improve. She reports + nausea with an episode of emesis yesterday. Her pain continued to worsen and she rated it a 10/10 in severity today. She has not eaten much over the last 3 days due to her symptoms. Therefore she presented to our ER for further evaluation. She underwent a repeat CT a/p that showed findings consistent with interval sigmoid colon perforation, as described above. Associated retroperitoneal gas, pneumoperitoneum and gas within the mesentery with extensive inflammation and a small amount of ascites. Extraluminal 7 cm stool ball extending through the defect. No drainable fluid collection. The patient reports no recent colonoscopy and believes that she was due for one within the next year. She was never diagnosed with diverticulitis outside of this recent occurrence. Last BM few days ago. PSH includes an appendectomy. She report history of gastric ulcer in the past. Multiple orthopedic surgeries. Allergies Allergy/AdvReac Type Severity Reaction Status Date / Time metformin Allergy Severe tachycardia Verified 01/11/24 15:57 pollen extracts Allergy Mild HAYFEVER Verified 01/11/24 15:57 gabapentin Allergy Verified 01/11/24 15:57 Home Medications Medication Instructions Recorded Confirmed Type ascorbic acid (vitamin C) 1,000 mg 1 g PO QAM 06/22/18 01/11/24 History tablet (Vitamin C) calcium carbonate 600 mg-vitamin 1 tab PO BID 06/22/18 01/11/24 History D3 5 mcg (200 unit) capsule (Calcium 600 + D(3)) fexofenadine 180 mg tablet 180 mg PO QAM 06/22/18 01/11/24 History (Aleisha Allergy) folic acid 1 mg tablet 1 mg PO QAM 06/22/18 01/11/24 History cbeinuxhbihi-oxlpqvmk-ypbsbi 1 tab PO QAM 06/22/18 01/11/24 History tablet (Multivitamin 50 Plus tablet) thiamine HCl (vitamin B1) 50 mg 50 mg PO QAM 06/22/18 01/11/24 History tablet (Vitamin B-1) vitamin E 200 unit capsule 200 unit PO HS 06/22/18 01/11/24 History carvedilol 6.25 mg tablet 6.25 mg PO BID 01/22/20 01/11/24 History latanoprost (PF) 0.005 % eye drops 1 drp OPB DAILY 01/22/20 01/11/24 History levothyroxine 88 mcg tablet 88 mcg PO QAM 01/22/20 01/11/24 History liothyronine 5 mcg tablet 5 mcg PO QAM 01/22/20 01/11/24 History duloxetine 30 mg capsule,delayed 30 mg PO QDD 04/08/20 01/11/24 History release semaglutide 0.25 mg or 0.5 mg (2 1.25 mg subcut WK 04/08/20 01/11/24 History mg/1.5 mL) subcutaneous pen injector (Ozempic) soy isoflavone 50 mg tablet 50 mg PO HS 09/19/20 01/11/24 History betamethasone dipropionate 0.05 % 1 applic topical BID PRN . 11/13/20 01/11/24 History topical cream mirabegron 50 mg tablet,extended 50 mg PO QPM 11/13/20 01/11/24 History release 24 hr (Myrbetriq) aspirin 81 mg tablet,delayed 81 mg PO QAM 07/14/22 01/11/24 History release dorzolamide-timolol (PF) 2 %-0.5 % 1 drp OPB DAILY 08/02/22 01/11/24 History eye drops in a dropperette oxycodone 5 mg tablet 5 - 10 mg (1 - 2 x 5 mg) PO Q6H 08/03/22 01/11/24 Rx PRN pain #30 tabs B-complex with vitamin C 1 tab PO DAILY 11/11/23 01/11/24 History atorvastatin 40 mg tablet (Lipitor) 40 mg PO DAILY 11/11/23 01/11/24 History glucosamine-chondroitin 250 mg-200 1 tab PO DAILY 11/11/23 01/11/24 History mg tablet (Osteo Bi-Flex) lisinopril 10 mg tablet 10 mg PO DAILY 11/11/23 01/11/24 History omega 9-aab-zis-fish oil 1,000 mg 1 cap PO DAILY 11/11/23 01/11/24 History (120 mg-180 mg) capsule (Fish Oil) pantoprazole 40 mg tablet,delayed 40 mg PO DAILY 11/11/23 01/11/24 History release triamterene 37.5 1 cap PO DAILY 11/11/23 01/11/24 History mg-hydrochlorothiazide 25 mg capsule carbidopa 25 mg-levodopa 100 mg 2 tab PO QID 30 days #240 tabs 01/11/24 01/11/24 Rx tablet entacapone 200 mg tablet 200 mg PO TID #270 tabs 01/11/24 01/11/24 Rx ciprofloxacin HCl 500 mg tablet 500 mg PO BID #28 tabs 02/20/24 Rx (Cipro) metronidazole 500 mg tablet 500 mg PO BID 14 days #28 tabs 02/20/24 Rx Patient History Medical History Pulmonary nodules Multiple, under surveillance Stroke Per remote records, denies MTHFR mutation Heterozygous Noted per 2013 [facility] hematology records (diagnosed during workup of bruising) Hx of gastric ulcer Tremor rt/left hand Myocardial Infarction "Silent [place]" Hx of vertigo Environmental allergies Osteoarthritis Hypertension Hyperlipidemia GERD (gastroesophageal reflux disease) Diabetes mellitus, type 2 Surgical History History of carotid endarterectomy Left CEA (07/08/21) History of arthroscopy of shoulder Right shoulder arthroscopy, RCR (09/10/21): LMA iGel #4 + PNB at [facility]. No issues noted per post-op anesthesia progress note. H/O knee surgery Right knee medial retinacular repair and poly exchange 10/01/2020: LMA#4 + PNB. No issues per postop anesthesia progress note. History of anesthesia reaction "Slow to wake" "Goes under very easily" History of total knee replacement right 07/28/2018: SAB at L3-L4, 1 attempt + PNB. No issues per postop anesthesia progress note. History of esophagogastroduodenoscopy (EGD) History of colonoscopy History of back surgery Had laser procedure 03/2018 in [place] > LUMBAR Hx of vaginal surgery LEEP? (Due to precancerous cells on cervix) History of surgery right wrist x2 Hx of arthroscopic knee surgery left Hx of hand surgery right Hx of bilateral cataract extraction Hx of tubal ligation Hx of appendectomy Hx of cervical spine surgery 08/2009 [facility], [place]> ROM WNL PER PT Hx of decompression of ulnar nerve right History of carpal tunnel surgery of right wrist History of left knee replacement Hx of ankle fusion right History of cardiac cath 2015 [facility]. Moderate CAD, no stents. Family History Aunt Family history of diabetes mellitus Mother Heart disease Other No family history of adverse response to anesthesia No family history of allergies No family history of bleeding disorder Denies family history of Hearing loss Cancer Hypertension Stroke Asthma Social History Smoking Status: Current some day smoker packs per day: 0.5; Cigarettes Per Day: 1/2 PPD; Second Hand Exposure: No; Do You Dip or Chew Tobacco: No; Hx Alcohol Use: No Hx Substance Use: No Preferred Language: Bol[place]ian Communication Ability: Effective Communication Ability Comment: [place], NO HEARING AIDES [employer] Required: No Beliefs That Will Affect Care: None marital status: Current Living Situation: Spouse current occupational status: disabled How many Children do You have: 3 Feels Safe at Home: Yes Assistive Devices: Cane and Wheelchair Review of Systems Constitutional: no fever and no chills Respiratory: no dyspnea Cardiovascular: no chest pain Gastrointestinal: + abdominal pain, + bloating, + nausea a nd + vomiting; no constipation and no blood in stools Genitourinary: no problem reported Neurologic: + dizziness (ongoing problem, not acute) Physical Exam Physical Exam: awake, alert, appears in pain intermittently Respiratory: normal respiratory effort Cardiovascular: Rate/Rhythm: regular rate Gastrointestinal (Abdomen): Inspection/Auscultation: + abdomen distended (mild) Percussion/Palpation: + abdomen tender (tender across lower/mid abdomen worse in the LLQ), + guarding (in LLQ) and abdomen soft Results & Data Vital Signs (Past 12 Hours) Vital Signs Temp Pulse Resp BP Pulse Ox O2 Del Method 02/24/24 12:50 70 02/24/24 11:54 97.9 F 87 20 120/79 93 Room Air Diagnostic Findings CT OF THE ABDOMEN AND PELVIS WITHOUT CONTRAST CLINICAL HISTORY: Left lower quadrant abdominal pain. COMPARISON STUDY: CT of the abdomen and pelvis February 20, 2024. TECHNIQUE: Axial images of the abdomen and pelvis were obtained without IV contrast. Images were reviewed in the axial, sagittal, and coronal planes. Automated exposure control was utilized for the study. A dose lowering technique was utilized adhering to the principles of ALARA. FINDINGS: Lung bases are unremarkable. Unenhanced images of the liver, spleen, adrenal glands and pancreas are unremarkable. There is moderate bilateral renal cortical thinning. There are numerous calcifications within the bilateral renal sinuses. Many of these are likely vascular in etiology. However, there are suspected nonobstructing bilateral renal calculi as well. There is no hydronephrosis. No ureteral calculi are identified. There is no evidence for a bowel obstruction. Of note, there has been interval development of moderate gas within the retroperitoneum which extends into the left anterior pararenal space. There is also pneumoperitoneum/extraluminal gas within the mesentery. The findings are due to interval colonic perforation involving the sigmoid colon, shown on image 272 of 369. Bowel wall thickening is noted. There is extensive adjacent inflammation. Extraluminal contrast and stool extending into the mesentery is present. The stool ball measures approximately 7 cm. There is a small amount of ascites. No drainable fluid collection is present. IMPRESSION: Findings consistent with interval sigmoid colon perforation, as described above. Associated retroperitoneal gas, pneumoperitoneum and gas within the mesentery with extensive inflammation and a small amount of ascites. Extraluminal 7 cm stool ball extending through the defect. No drainable fluid collection. Surgical consultation is recommended. Findings discussed with Dr. Wallace at time of dictation. ACT 112: Negative or not required by law. Electronically signed by: Man Jones M.D. 02/24/2024 1:16 PM PG Care Time/CCT Total # of Minutes Spent Total Time Spent with Patient: Total time spent is greater than 50% in coordination of care (as documented) at patient's floor/unit and/or counseling patient: Coding Level of Care Code 49716 OP VST NEW HI 60 MIN Diagnoses Colon perforation K63.1
--- NOTE | 2024-02-24 13:17 | CT Scan Report ---
CT OF THE ABDOMEN AND PELVIS WITHOUT CONTRAST CLINICAL HISTORY: Left lower quadrant abdominal pain. COMPARISON STUDY: CT of the abdomen and pelvis February 20, 2024. TECHNIQUE: Axial images of the abdomen and pelvis were obtained without IV contrast. Images were revi ewed in the axial, sagittal, and coronal planes. Automated exposure control was utilized for the caterina dy. A dose lowering technique was utilized adhering to the principles of ALARA. FINDINGS: Lung bases are unremarkable. Unenhanced images of the liver, spleen, adrenal glands and covarrubias creas are unremarkable. There is moderate bilateral renal cortical thinning. There are numerous calci fications within the bilateral renal sinuses. Many of these are likely vascular in etiology. However, there are suspected nonobstructing bilateral renal calculi as well. There is no hydronephrosis. No u reteral calculi are identified. There is no evidence for a bowel obstruction. Of note, there has been interval development of moderate gas within the retroperitoneum which extends into the left anterior pararenal space. There is also pneumoperitoneum/extraluminal gas within the mesentery. The findings are due to interval colonic perforation involving the sigmoid colon, shown on image 272 of 369. Bowel wall thickening is noted. There is extensive adjacent inflammation. Extraluminal contrast and stool extending into the mesentery is present. The stool ball measures approximately 7 cm. There is a small amount of ascites. No drainable fluid collection is present. IMPRESSION: Findings consistent with interval sigmoid colon perforation, as described above. Associa parth retroperitoneal gas, pneumoperitoneum and gas within the mesentery with extensive inflammation an d a small amount of ascites. Extraluminal 7 cm stool ball extending through the defect. No drainable fluid collection. Surgical consultation is recommended. Findings discussed with Dr. Wallace at time of dictation. ACT 112: Negative or not required by law. Electronically signed by: Man Jones M.D. 02/24/2024 1:16 PM
[2024-02-24] MEDS ORDERED: HYDROCODONE/ACETAMOPHEN 5/325MG TAB PO PRN (13:39)
[2024-02-24] MEDS ORDERED: ACETAMINOPHEN 325 MG TAB PO PRN (13:39)
[2024-02-24] MEDS ORDERED: SUCCINYLCHOLINE CHLORIDE 20 MG/ML 10 ML VIAL IV ONE (13:41)
[2024-02-24] MEDS ORDERED: LIDOCAINE 2% 2 ML VIAL/AMP(20MG/ML) INFIL ONE (13:41)
[2024-02-24] MEDS ORDERED: DEXAMETHASONE SOD INJ 4 MG/ML VIAL ONE (13:41)
[2024-02-24] MEDS ORDERED: MIDAZOLAM HCL 1 MG/ML 2ML VIAL ONE (13:41)
[2024-02-24] MEDS ORDERED: ONDANSETRON INJ 2 MG/ML 2 ML VIAL ONE (13:41)
[2024-02-24] MEDS ORDERED: ROCURONIUM BROMIDE 10 MG/ML 5 ML VIAL IV ONE (13:41)
[2024-02-24] MEDS ORDERED: fentaNYL citrate PF 100 MCG/2 ML VIAL ONE (13:41)
[2024-02-24] MEDS ORDERED: PROPOFOL IV EMULSION 10 MG/ML 20 ML VIAL IV ONE ×2 (13:41→16:42)
[2024-02-24] MEDS ORDERED: ONDANSETRON INJ 2 MG/ML 2 ML VIAL IV PRN (13:42)
[2024-02-24] MEDS ORDERED: HYDROmorphone INJ 1 MG/ML SYRINGE IV PRN ×2 (13:42→16:00)
[2024-02-24] MEDS ORDERED: ePHEDrine sulfate 50 MG/ML AMP IV PRN (13:42)
[2024-02-24] MEDS ORDERED: fentaNYL citrate PF 100 MCG/2 ML VIAL IV PRN (13:42)
[2024-02-24] MEDS ORDERED: KETAMINE HCL 10MG/ML SYR ONE (13:42)
[2024-02-24] MEDS ORDERED: ATROPINE SULFATE 0.1 MG/ML 10ML SYR IV PRN (13:42)
[2024-02-24] MEDS ORDERED: PROMETHAZINE HCL 6.25 MG in SODIUM CHLORIDE 0.9% 50 ML IV PRN (13:42)
[2024-02-24] MEDS ORDERED: DROPERIDOL 5 MG/2 ML VIAL ONE (13:43)
--- NOTE | 2024-02-24 13:52 | Anesthesiology Consultation ---
Date of Service February 24, 2024 Assessment & Plan (1) Encounter for pre-operative examination: Chart Review Chart Review: Acceptable Risk for Surgery and Patient NOT seen in Pre Admission Testing Consults Requested none History Surgery Operation Date: 02/24/24 11:55 Proposed Procedures p Exploratory Laparotomy with Bowel Resection and Colostomy Formation - Art Hood, DO, FACS Height/Weight Height: 5 ft 7 in Weight: 95.9 kg Allergies Allergy/AdvReac Type Severity Reaction Status Date / Time metformin Allergy Severe tachycardia Verified 01/11/24 15:57 pollen extracts Allergy Mild HAYFEVER Verified 01/11/24 15:57 gabapentin Allergy Verified 01/11/24 15:57 Medications Home Medications Medication Instructions Recorded Confirmed Last Taken ascorbic acid (vitamin C) 1,000 mg 1 g PO QAM 06/22/18 01/11/24 08/01/22 08:00 tablet (Vitamin C) calcium carbonate 600 mg-vitamin 1 tab PO BID 06/22/18 01/11/24 08/01/22 08:00 D3 5 mcg (200 unit) capsule (Calcium 600 + D(3)) fexofenadine 180 mg tablet 180 mg PO QAM 06/22/18 01/11/24 08/01/22 08:00 (Aleisha Allergy) folic acid 1 mg tablet 1 mg PO QAM 06/22/18 01/11/24 08/01/22 08:00 pxbmnprvwokb-jenbsvcj-dxywcv 1 tab PO QAM 06/22/18 01/11/24 08/01/22 08:00 tablet (Multivitamin 50 Plus tablet) thiamine HCl (vitamin B1) 50 mg 50 mg PO QAM 06/22/18 01/11/24 08/01/22 08:00 tablet (Vitamin B-1) vitamin E 200 unit capsule 200 unit PO HS 06/22/18 01/11/24 07/21/22 carvedilol 6.25 mg tablet 6.25 mg PO BID 01/22/20 01/11/24 08/01/22 08:00 latanoprost (PF) 0.005 % eye drops 1 drp OPB DAILY 01/22/20 01/11/24 08/01/22 08:00 levothyroxine 88 mcg tablet 88 mcg PO QAM 01/22/20 01/11/24 08/02/22 05:30 liothyronine 5 mcg tablet 5 mcg PO QAM 01/22/20 01/11/24 08/01/22 08:00 duloxetine 30 mg capsule,delayed 30 mg PO QDD 04/08/20 01/11/24 09/09/21 12:00 release semaglutide 0.25 mg or 0.5 mg (2 1.25 mg subcut WK 04/08/20 01/11/24 07/26/22 mg/1.5 mL) subcutaneous pen injector (Ozempic) soy isoflavone 50 mg tablet 50 mg PO HS 09/19/20 01/11/24 09/09/21 21:00 betamethasone dipropionate 0.05 % 1 applic topical BID PRN . 11/13/20 01/11/24 Unknown topical cream mirabegron 50 mg tablet,extended 50 mg PO QPM 11/13/20 01/11/24 08/01/22 08:00 release 24 hr (Myrbetriq) aspirin 81 mg tablet,delayed 81 mg PO QAM 07/14/22 01/11/24 08/02/22 05:30 release dorzolamide-timolol (PF) 2 %-0.5 % 1 drp OPB DAILY 08/02/22 01/11/24 Unknown eye drops in a dropperette oxycodone 5 mg tablet 5 - 10 mg (1 - 2 x 5 mg) PO Q6H 08/03/22 01/11/24 Unknown PRN pain #30 tabs B-complex with vitamin C 1 tab PO DAILY 11/11/23 01/11/24 Unknown atorvastatin 40 mg tablet (Lipitor) 40 mg PO DAILY 11/11/23 01/11/24 Unknown glucosamine-chondroitin 250 mg-200 1 tab PO DAILY 11/11/23 01/11/24 Unknown mg tablet (Osteo Bi-Flex) lisinopril 10 mg tablet 10 mg PO DAILY 11/11/23 01/11/24 Unknown omega 7-ahu-lop-fish oil 1,000 mg 1 cap PO DAILY 11/11/23 01/11/24 Unknown (120 mg-180 mg) capsule (Fish Oil) pantoprazole 40 mg tablet,delayed 40 mg PO DAILY 11/11/23 01/11/24 Unknown release triamterene 37.5 1 cap PO DAILY 11/11/23 01/11/24 Unknown mg-hydrochlorothiazide 25 mg capsule carbidopa 25 mg-levodopa 100 mg 2 tab PO QID 30 days #240 tabs 01/11/24 01/11/24 Unknown tablet entacapone 200 mg tablet 200 mg PO TID #270 tabs 01/11/24 01/11/24 Unknown ciprofloxacin HCl 500 mg tablet 500 mg PO BID #28 tabs 02/20/24 Unknown (Cipro) metronidazole 500 mg tablet 500 mg PO BID 14 days #28 tabs 02/20/24 Unknown Past Medical History Medical History Pulmonary nodules Multiple, under surveillance Stroke Per remote records, denies MTHFR mutation Heterozygous Noted per 2013 [facility] hematology records (diagnosed during workup of bruising) Hx of gastric ulcer Tremor rt/left hand Myocardial Infarction "Silent [place]" Hx of vertigo Environmental allergies Osteoarthritis Hypertension Hyperlipidemia GERD (gastroesophageal reflux disease) Diabetes mellitus, type 2 Exercise / Class Metabolic Activity IV < 2 Limit ADL/Bedbound Past Family History Family History Aunt Family history of diabetes mellitus Mother Heart disease Other No family history of adverse response to anesthesia No family history of allergies No family history of bleeding disorder Denies family history of Hearing loss Cancer Hypertension Stroke Asthma Past Surgical History Surgical History History of carotid endarterectomy Left CEA (07/08/21) History of arthroscopy of shoulder Right shoulder arthroscopy, RCR (09/10/21): LMA iGel #4 + PNB at [facility]. No issues noted per post-op anesthesia progress note. H/O knee surgery Right knee medial retinacular repair and poly exchange 10/01/2020: LMA#4 + PNB. No issues per postop anesthesia progress note. History of anesthesia reaction "Slow to wake" "Goes under very easily" History of total knee replacement right 07/28/2018: SAB at L3-L4, 1 attempt + PNB. No issues per postop anesthesia progress note. History of esophagogastroduodenoscopy (EGD) History of colonoscopy History of back surgery Had laser procedure 03/2018 in [place] > LUMBAR Hx of vaginal surgery LEEP? (Due to precancerous cells on cervix) History of surgery right wrist x2 Hx of arthroscopic knee surgery left Hx of hand surgery right Hx of bilateral cataract extraction Hx of tubal ligation Hx of appendectomy Hx of cervical spine surgery 08/2009 [facility], [place]> ROM WNL PER PT Hx of decompression of ulnar nerve right History of carpal tunnel surgery of right wrist History of left knee replacement Hx of ankle fusion right History of cardiac cath 2015 [facility]. Moderate CAD, no stents. Social History Smoking Status: Current some day smoker tobacco type: cigarettes Smoking cigarettes per day: 1/2 PPD Do You Dip or Chew Tobacco: No Hx Alcohol Use: No alcohol intake frequency: holidays/special occasions only Hx Substance Use: No substance use type: does not use Physical Exam Vital Signs Last Vital Signs Temp 36.6 C 02/24/24 11:54 Pulse 68 02/24/24 13:51 Resp 20 02/24/24 13:51 BP 162/81 H 02/24/24 13:01 Pulse Ox 99 02/24/24 13:51 O2 Del Method Room Air 02/24/24 13:54 Testing Laboratory Results 02/24/24 12:00 02/24/24 12:00 02/24/24 12:09 POC Glucose (other) 172 H Electrocardiogram Date: 07/12/22 Findings: + NSR @ (76) NSR. Septal infarct, age undetermined. T wave abnormality, consider lateral ischemia. Abnormal ECG When compared with ECG of 06/18/21, no sig change found. Chest X-Ray Date: 07/16/22 TWO VIEW CHEST CLINICAL HISTORY: Preoperative examination. FINDINGS: AP and lateral chest radiographs are compared to study dated 03/18/2020. The cardiomediastinal silhouette is top normal for projection noting atherosclerotic calcification of the thoracic aorta. The lungs and pleural spaces are clear noting mild bibasilar atelectasis. There is no pneumothorax. The skeletal structures are osteopenic. The bony thorax appears intact. Degenerative change is noted in the thoracic spine. IMPRESSION: No active disease in the chest. Echocardiogram Date: 02/21/20 Normal LV chamber size with moderate concentric LVH Normal LV systolic function EF 54% Small sized basal inferior and posterior wall motion abnormality with hypokinesis to akinesis of the segments. Small sized inferior scar. Otherwise normal wall motion. Grade 1 DD No . Moderate AV regurg is present Other Testing CT abdomen 02/24/24: IMPRESSION: Findings consistent with interval sigmoid colon perforation, as described above. Associated retroperitoneal gas, pneumoperitoneum and gas within the mesentery with extensive inflammation and a small amount of ascites. Extraluminal 7 cm stool ball extending through the defect. No drainable fluid collection. Surgical consultation is recommended. Findings discussed with Dr. Wallace at time of dictation.
[2024-02-24] MEDS ORDERED: ACETAMINOPHEN 1000 MG/100 ML IV IV ONE (13:56)
[2024-02-24] MEDS ORDERED: ALBUMIN HUMAN 5% 12.5 GM/250 ML VIAL IV ONE (14:02)
[2024-02-24] MEDS ORDERED: ePHEDrine sulfate 50 MG/5 ML SYR ONE (16:00)
[2024-02-24] MEDS ORDERED: PHENYLEPHRINE HCL 10 MG/ML VIAL ONE (16:00)
[2024-02-24] MEDS ORDERED: diphenhydrAMINE 50 MG/ML VIAL ONE (16:35)
[2024-02-24] MEDS ORDERED: GLYCOPYRROLATE 0.2 MG/ML VIAL ONE (16:52)
[2024-02-24] MEDS ORDERED: NEOSTIGMINE METHYLSULFATE 1 MG/ML 10ML VIAL ONE (16:52)
[2024-02-24] MEDS ORDERED: HYDROmorphone INJ 2 MG/ML SYR/VIAL ONE (16:58)
--- NOTE | 2024-02-24 17:16 | Operative Report ---
PG Post Operative Report Pre & Post Diagnosis Operation Date: 02/24/24 11:55 Pre-Op Diagnosis: (1) Colon perforation: Post-Op Diagnosis: (1) Colon perforation: (2) Stercoral Perforation I identified the patient and participated in the time-out.: Yes Procedure Operation Date: 02/24/24 11:55 Actual Procedures p Exploratory Laparotomy with Sigmoidectomy and Colostomy Formation(Not Applicable) - Art Hood DO, SAMUEL Surgeon Art Hood DO, SAMUEL First Crusher Danielle Landeros Estimated Blood Loss 50 Findings Consistent with Post-Op Diagnosis Contained stercoral perforation, Morin's procedure performed Specimens Sigmoid colectomy Drains 10 mm DEVONTE drain in pelvis Anesthesia Type General Complications none Disposition Accompanied Patient To Recovery: No Disposition: Recovery Room Indications 73-year-old female presented with several weeks of abdominal pain, and multiple CT scans that were suggestive of colitis consistent with diverticulitis. She presented again and on most recent imaging was noted to have what appeared to be a stercoral perforation. She had tender abdomen with guarding in the pelvis and a white count of 24,000. Plan for exploratory laparotomy, bowel resection, possible ostomy. The risks of the procedure were discussed, all questions were answered, and the patient agreed to proceed with surgery as planned. Description of Procedure The patient was appropriately identified consented and taken to the operating where she was placed in the supine position. General endotracheal anesthesia was induced. A Douglas catheter, an NG tube, SCDs, and a safety belt were placed. Preoperative antibiotics were administered in the ER. Her abdomen was prepped and draped in the standard sterile fashion. A surgical timeout was performed and all parties were in agreement that this is correct patient and procedure to be performed and we continued as planned. A midline laparotomy incision was made with electrocautery and deepened down to the subcutaneous tissue. The fascia was then opened in a vertical fashion. The peritoneum was entered and there was some mild reactive fluid in the abdomen. The fascia was opened superiorly and inferiorly. Initially there was no gross feculent material or purulent material. We began by examining the descending and proximal sigmoid colon, which appeared healthy. Upon continued examination there was obviously hard stool balls throughout the distal sigmoid colon and rectum. The colon was mobilized by freeing up the white line of Toldt laterally and mobilizing medially. At this point we encountered the site of stercoral perforation. There was a large patch of necrosis in the area of a hard stool ball in the retroperitoneal portion of the distal sigmoid colon and proximal rectum. There was feculent and purulent material in this area. The area was suctioned. The proximal resection point was chosen in the area of healthy proximal sigmoid colon. A window was created in the mesentery and the colon was divided with a purple load 60 mm Endo MICHELE stapler. I then used the LigaSure to divide the mesentery staying close to the colon. I then was able to choose a distal resection point and an area of healthy rectum that was not affected by the inflammation. This was in the mid portion of the rectum. A window was created in the mesentery and a 60 mm purple loaded Endo MICHELE was used to divide the colon at the site. This was later tagged with 3-0 Prolene sutures at the corners of the staple line for identification in the future. I then continued to mobilize the perforated portion of colon and divided the mesentery using the LigaSure device. This was then passed off the table as specimen. The descending colon was mobilized to allow for creation of the ostomy. A branch of the inferior mesenteric artery was divided and ligated with a 3-0 silk suture. The remainder of the colon was inspected and there were multiple hard stool balls throughout the colon. There was also 1 firm stool ball identified in the distal rectum. The small bowel was run from the terminal ileum to the ligament of Treitz and appeared to be healthy. There was a small adhesion that was lysed. The pelvis and abdomen were thoroughly irrigated with several liters of saline. Hemostasis was achieved. A stab incision was made in the right upper quadrant of the abdomen and a 10 mm DEVONTE drain was brought through the incision. The drain was placed in the pelvis. This was later secured into place with a 2- 0 nylon suture. The NG tube was confirmed within the stomach. The descending colon reached easily to the abdominal wall. A circular incision was made in the left lower quadrant and the abdomen and a core of fat was taken down to the fascia. The fascia was then divided anteriorly with a cruciate incision. The muscle was both laterally and medially and the posterior fascia was opened in a cruciate fashion. This was able to accommodate 3 fingers. The descending colon was then brought through the defect. The distal portion appeared mildly ischemic but the proximal portion appeared pink and healthy. This was tacked to the fascia internally with 3-0 Vicryl sutures. A portion of the peritoneum was then closed with a 2-0 Vicryl. We then changed our gloves and proceeded to close the fascia with a #1 looped running PDS suture. Exparel was injected along the fascia. The wound was irrigated and then closed with mayco. The incision was covered and the ostomy was matured. A portion of the colon was resected thereby opening the ostomy. This was then matured with 3-0 Vicryl sutures and is circular fashion. An ostomy device was placed, a drain dressing was placed, and sterile dressings were applied to the abdominal wall. The patient wasextubated in the operating room and taken to the PACU where she recovered without incident. All sponge, instrument, needle counts were correct at the conclusion of the procedure. The patient tolerated procedure without incident. The physicians acquisitions assistant was present and scrubbed for the entire the case. She was critical in positioning the patient, prepping and draping, retraction and exposure, resection of the colon, closure the fascia, closing the incisions, placement of the dressings. I attest to the content of the Intraoperative Record and any orders documented therein. Any exceptions are noted below.
--- NOTE | 2024-02-24 17:57 | Anesthesiology Progress Note ---
Date of Service February 24, 2024 Anesthesia Post Procedure Vital Signs Vital Signs: Temp Pulse Pulse Resp BP BP Pulse Ox 02/24/24 17:50 52 L 16 109/55 L 96 02/24/24 17:40 54 L 20 108/58 L 100 02/24/24 17:30 56 L 15 113/52 L 100 02/24/24 17:20 60 18 105/50 L 100 02/24/24 17:14 36.7 C 63 20 95/51 L 99 02/24/24 14:34 37.2 C 87 22 149/74 H 96 02/24/24 13:54 02/24/24 13:51 68 20 99 02/24/24 13:36 77 20 90 02/24/24 13:21 77 22 94 02/24/24 13:09 68 22 95 02/24/24 13:01 162/81 H 02/24/24 13:01 162/81 H 02/24/24 13:01 162/81 H 02/24/24 12:57 71 23 97 02/24/24 12:50 70 02/24/24 12:42 70 15 96 02/24/24 12:36 71 16 95 02/24/24 12:12 75 19 96 02/24/24 12:00 103/72 02/24/24 12:00 103/72 02/24/24 11:54 36.6 C 87 20 120/79 93 O2 Del Method O2 Flow Rate 02/24/24 17:50 Room Air 02/24/24 17:40 Oxymask 4 02/24/24 17:30 Oxymask 4 02/24/24 17:20 Oxymask 6 02/24/24 17:14 Oxymask 10 02/24/24 14:34 Room Air 02/24/24 13:54 Room Air 02/24/24 13:51 02/24/24 13:36 02/24/24 13:21 02/24/24 13:09 02/24/24 13:01 02/24/24 13:01 02/24/24 13:01 02/24/24 12:57 02/24/24 12:50 02/24/24 12:42 02/24/24 12:36 02/24/24 12:12 02/24/24 12:00 02/24/24 12:00 02/24/24 11:54 Room Air Pain Intensity Left Abdomen: Pain Intensity: 9 Transfer of Care Handoff Completed per policy Notes Mental Status: alert / awake / arousable Patient Amnestic to Procedure: Yes Nausea / Vomiting: adequately controlled Pain: adequately controlled Airway Patency, RR, SpO2: stable & adequate BP & HR: stable & adequate Hydration State: stable & adequate Anesthetic Complications: no major complications apparent
[2024-02-24] MEDS ORDERED: HYDROmorphone INJ 0.5 MG/0.5 ML SYR IV PRN (18:33)
[2024-02-24] MEDS ORDERED: GLUCOSE 10 TAB/TUBE PO PRN (18:33)
[2024-02-24] MEDS ORDERED: CARBOHYDRATES FOR HYPOGLYCEMIA PO PRN (18:33)
[2024-02-24] MEDS ORDERED: GLUCAGON FOR INJ 1 MG VIAL SQ PRN (18:33)
[2024-02-24] MEDS ORDERED: DEXTROSE 50% 50 ML SYRINGE IV PRN (18:33)
[2024-02-24] MEDS ORDERED: GLUCOSE 40% GEL 15 GM TUBE PO PRN (18:33)
[2024-02-24] MEDS: BUPIVACAINE 0.5 % 5 MG/1 ML MPF 30ML VIAL ONE (19:08)
[2024-02-24] MEDS: BUPIVACAINE LIPOSOME 1.3% 266 MG/20 ML VIAL ONE (19:08)
[2024-02-24] MEDS: CEFEPIME 20 ML IV STA (19:09)
[2024-02-24] MEDS: metroNIDAZOLE 500 MG/100 ML BAG IV STA (19:09)
[2024-02-24] MEDS ORDERED: Nursing to Pharmacy Communication SCH (19:30)
[2024-02-24] MEDS: LACTATED RINGER'S 1,000 ML IV SCH (19:32)
[2024-02-24] MEDS: CEFEPIME 2,000 MG in SYRINGE 0 ML IV ONE (19:45)
[2024-02-24] MEDS: metroNIDAZOLE 500 MG/100 ML BAG IV SCH (19:53)
[2024-02-24] MEDS: INSULIN ASPART PER UNIT CHARGE SC SCH ×2 (20:19→23:41)
--- NOTE | 2024-02-24 20:28 | Communication Note ---
Date of Service: February 24, 2024 Initial admission orders established patient as Med/Surg level of care. Orders placed to transition patient to PCU/telemetry level of care given medical complexity. Most recently recorded BP 82/51 at 20:23. 1L bolus of Lactated Ringer's ordered by Dr. Hood. Patient to require close telemetry monitoring.
[2024-02-24] MEDS: LACTATED RINGER'S 1,000 ML IV ONE (20:30)
[2024-02-24] MEDS ORDERED: carvediloL 12.5 MG TAB PO SCH (21:00)
[2024-02-24] MEDS: TOCOPHERYL, DL-ALPHA 100 UNITS 45 MG CAP PO SCH (21:57)
[2024-02-24] MEDS: VIBEGRON 75 MG TAB PO SCH (21:57)
[2024-02-24] MEDS: CARBIDOPA/LEVODOPA 25/100MG TAB PO SCH (21:57)
[2024-02-24] MEDS: ENTACAPONE 200 MG TAB PO SCH (21:57)
[2024-02-24] MEDS: CALCIUM 600MG + VIT D 400 IU TAB PO SCH (21:57)
[2024-02-24] MEDS: ACETAMINOPHEN 1,000 MG/100 ML VIAL IV SCH (22:50)
[2024-02-24] MEDS: SODIUM CHLORIDE 0.9% 500 ML IV SCH (23:57)
[2024-02-25 00:24] LABS: Appearance Urine Clear (Clear); Bilirubin Urine Negative (Negative); Blood Urine Negative (Negative); Color Urine Dark Yellow; Glucose Urine UA Negative (Negative); Ketones Urine Trace (Negative); Leukocyte Esterase Urine 1+ (Negative); Mucus Urine Present (None Prsent); Nitrite Urine Positive (Negative); Protein Urine 1+ (Negative); Specific Gravity Urine 1.035 (1.000-1.030); Urobilinogen Urine Negative (Negative)
[2024-02-25 00:33] LABS: Bacteria Urine Automated 1+ (None Seen)
[2024-02-25] MEDS: SODIUM CHLORIDE 0.9% 500 ML IV SCH (02:17)
[2024-02-25] MEDS: LEVOTHYROXINE SODIUM 100 MCG TABLET PO SCH (05:31)
[2024-02-25 06:36] LABS: Basophils # (auto) 0.01 K/uL (0.00-0.20); Basophils % (auto) 0.1 %; Eosinophils # (auto) 0.01 K/uL (0.00-0.50); Eosinophils % (auto) 0.1 %; Hemoglobin 8.9 g/dl (12.0-16.0); Immature Granulocytes # (auto) 0.01 K/uL (0.01-0.20); Immature Granulocytes % (auto) 0.1 %; Lymphocytes # (auto) 0.49 K/uL (1.20-3.40); Lymphocytes % (auto) 7.3 %; Mean Corpuscular Hemoglobin 29.4 pg (25.0-34.0); Mean Corpuscular Volume 89.1 fL (80.0-100.0); Mean Platelet Volume 10.4 fL (9.4-12.4); Neutrophils # (auto) 5.77 K/uL (1.40-6.50); Neutrophils % (auto) 86.4 %; Platelet Count 212 K/uL (130-400); RDW Coefficient of Variation 14.1 % (11.5-14.5); RDW Standard Deviation 45.7 fL (36.4-46.3); Red Blood Count 3.03 M/uL (4.20-5.40); White Blood Count 6.69 K/ul (4.8-10.8)
[2024-02-25 06:39] LABS: Base Excess VBG -0.9 mEq/L; HCO3 VBG 23 mmol/L; Oxygen Saturation VBG 70.3 %; PCO2 VBG 36 mmHg (38-50); PO2 VBG 38 mmHg; pH VBG 7.42 (7.36-7.41)
[2024-02-25 06:58] LABS: Alanine Aminotransferase < 3 U/L (7-52); Albumin Globulin Ratio 1.5 (0.9-2); Albumin Level 2.4 gm/dl (3.4-5.0); Alkaline Phosphatase 41 U/L (34-104); Anion Gap 6 (3-11); Aspartate Aminotransferase 14 U/L (13-39); BUN Creatinine Ratio 17.1 (10-20); Blood Urea Nitrogen 31 mg/dl (6-23); Carbon Dioxide 23 mmol/L (21-32); Chloride 107 mmol/L (98-107); Creatinine Clr Calc Pharmacy 33.2 ml/min; Est GFR (African American) 31.8 ml/min; Est GFR (Non-African American) 27.4 ml/min; Globulin 1.6 gm/dl (2.5-4.0); Glucose 128 mg/dl (70-99(Fasting)); Magnesium 1.8 mg/dl (1.7-2.4); Phosphorus 3.7 mg/dl (2.5-4.9); Potassium 4.1 mmol/L (3.5-5.1); Sodium 136 mmol/L (136-145)
--- NOTE | 2024-02-25 08:42 | Hospitalist Progress Note ---
Date of Service February 25, 2024 Assessment & Plan (1) Severe sepsis with acute organ dysfunction: (2) Diverticulitis of large intestine with perforation and abscess: (3) Peritonitis due to abscess: (4) Perforation of sigmoid colon: (5) Acute metabolic encephalopathy: (6) Acute renal failure superimposed on stage 3 chronic kidney disease: (7) Hypothyroidism: (8) Diabetes mellitus, type 2: (9) Decreased urine output: (10) UTI (urinary tract infection), bacterial: Plan Patient remains critically ill status post surgical intervention on perforated sigmoid colon from acute diverticulitis with evidence of necrotic bowel and abscess and peritonitis while in the operating room. Patient remains encephalopathic, but does arouse to stimulation and answers questions. Patient's blood pressure systolic blood pressure has been less than 100, however, MAP is been greater than 65. Will continue with fluid resuscitation and holding antihypertensive medications Continue broad-spectrum antibiotics for abdominal abscess and bowel perforation, follow cultures Patient with decreased urine output despite aggressive fluid resuscitation, stat ultrasound of the kidneys and bladder to rule out obstruction postoperatively Continue Douglas catheter, continue to monitor urine output Continue to monitor glucose with insulin sliding scale for management of diabetes Minimize oral medications, continue essential oral medications Due to patient's encephalopathy and minimal complaints of pain will avoid IV narcotics, continue Tylenol for pain control, continue to assess symptoms Therapy consultation Care management consultation, anticipate patient will need rehab/SNF placement when recovered from this acute event Phone update to patient's . He states that patient had not slept much at all over the past 48 to 72 hours. He also states that historically she takes a very long time to wake up and recover from any anesthesia. With this history suspect patient's sleepiness and drowsiness is a combination of all this and will need just ongoing time to wake up and recover. Continue to monitor laboratory studies 57 minutes spent on review of records, coordinating care, examination and care at the bedside, communication with medical team Admission and Anticipated Discharge Date Admission Date: February 24, 2024 Subjective Patient with minimal output overnight despite aggressive fluid resuscitation. Patient extremely sleepy, but does respond to stimulation, does respond to commands. Patient reports some soreness but no acute pain. Denies chest pain, denies shortness of breath. Physical Exam Physical Exam: Constitutional: Sleepy but does arouse to vigorous stimulation HEENT: Mucous membranes dry. NG tube in place Lungs: Decreased breath sounds, no wheezes CV: S1-S2, regular, systolic murmur Abdomen: Hypoactive bowel sounds, colostomy pink and intact with serosanguineous drainage in bag. DEVONTE drain in place, serosanguineous fluid, surgical dressing dry and intact Extremities: No significant edema Neuro: Sleepy, did open eyes to command, did answer some simple questions Psych: Lethargic Results & Data Results & Data Vital Signs (Past 12 Hours) Vital Signs Temp Pulse Pulse Pulse Resp BP Pulse Ox 02/25/24 07:17 36.6 C 69 20 95/61 L 93 02/25/24 05:50 37.3 C 68 20 94/60 L 94 02/25/24 05:07 69 97/64 L 94 02/25/24 03:13 68 101/64 02/25/24 02:42 68 103/67 02/25/24 01:57 37.2 C 63 20 82/53 L 93 02/25/24 00:54 60 100/64 96 02/24/24 23:32 37.4 C 63 16 90/60 L 96 02/24/24 22:12 36.8 C 02/24/24 21:42 63 02/24/24 21:36 02/24/24 21:36 83 16 103/70 98 02/24/24 20:46 73 99/65 L 96 02/24/24 20:38 36.4 C L 66 14 90/59 L 94 O2 Del Method 02/25/24 07:17 Room Air 02/25/24 05:50 Room Air 02/25/24 05:07 Room Air 02/25/24 03:13 02/25/24 02:42 02/25/24 01:57 Room Air 02/25/24 00:54 Room Air 02/24/24 23:32 Room Air 02/24/24 22:12 02/24/24 21:42 02/24/24 21:36 Room Air 02/24/24 21:36 Room Air 02/24/24 20:46 Room Air 02/24/24 20:38 Room Air Diagnostic Findings Reviewed imaging, laboratory and diagnostic studies. Pertinent findings as below. WBCs 6.6, significantly improved Hemoglobin 8.9, decreased suspect most likely dilutional Platelets 212 Sodium 134 Creatinine 1.8, improved Glucose 172 Ionized calcium 1.1 Personally reviewed KUB- ileus, expected free air from recent surgery
[2024-02-25 08:44] LABS: Estimated Average Glucose 154 mg/dl
[2024-02-25] MEDS ORDERED: lisinopril 20 MG TAB PO SCH (09:00)
[2024-02-25] MEDS ORDERED: GLUCOSAMINE SULFATE 500 MG CAP PO SCH ×2 (09:00)
[2024-02-25] MEDS ORDERED: FEXOFENADINE HCL 180 MG TAB PO SCH (09:00)
[2024-02-25] MEDS ORDERED: ASCORBIC ACID 500 MG TAB PO SCH (09:00)
[2024-02-25] MEDS ORDERED: DORZOLAMIDE TIMOLOL OPB SCH (09:00)
[2024-02-25] MEDS ORDERED: THIAMINE HCL 50 MG TABLET PO SCH (09:00)
[2024-02-25] MEDS ORDERED: TRIAMTERENE HYDROCHLOROTHIAZID PO SCH (09:00)
[2024-02-25] MEDS ORDERED: FOLIC ACID 1 MG TAB PO SCH (09:00)
[2024-02-25] MEDS ORDERED: ATORVASTATIN 40 MG TAB PO SCH (09:00)
[2024-02-25] MEDS: CALCIUM GLUCONATE 1,000 MG/60 ML BAG IV SCH (10:02)
--- NOTE | 2024-02-25 10:05 | Ultrasound Report ---
US renal/blad retro comp CLINICAL HISTORY: low urine output, recent abd surgery, r/o obs TECHNIQUE: Multiple sonographic real-time images of the kidneys and bladder were obtained. COMPARISON: Comparison is made to CT abdomen pelvis 02/24/2020 FINDINGS: The right kidney measures 9.8 cm in length, and the left kidney measures 10.0 cm in length. The right renal cortex is diffusely echogenic in appearance with diffuse cortical thinning. No hydron ephrosis is identified. Nonobstructive nephrolithiasis is seen. Perinephric stranding is seen in the anterior aspect of the midpole. The left renal cortex is diffusely echogenic in appearance, with diffuse cortical thinning. No hydron ephrosis is identified. Nonobstructive nephrolithiasis is seen. A Douglas catheter is seen in the collapsed bladder. No large intraluminal mass is seen. IMPRESSION: Unremarkable examination and in particular no evidence of hydronephrosis. ACT 112: Negative or not required by law. Electronically signed by: Elijah Paredes M.D. 02/25/2024 10:02 AM
[2024-02-25] MEDS: DORZOLAMIDE HCL 2% OPH SOLN 10 ML BTL OPB SCH (10:18)
[2024-02-25] MEDS: TIMOLOL MALEATE 0.5% OP SOLN 5 ML BTL OPB SCH (10:18)
[2024-02-25] MEDS: LATANOPROST 0.005% OP SOLN 2.5 ML BTL OP SCH (10:19)
[2024-02-25] MEDS: LIOTHYRONINE SODIUM 5 MCG TAB PO SCH (10:23)
--- NOTE | 2024-02-25 10:27 | XRay Report ---
XR KUB/Abdomen 1 view CLINICAL HISTORY: NG placement TECHNIQUE: 1 view of the abdomen was obtained. Comparison: None available at the time of this dictation. FINDINGS: Enteric tube terminates in the stomach. The osseous structures are grossly unremarkable. The bowel ga s pattern is nonobstructive. Large stool burden is seen without evidence of inspissated stool in the rectum. IMPRESSION: Satisfactory position of enteric tube. ACT 112: Negative or not required by law. Electronically signed by: Elijah Paredes M.D. 02/25/2024 10:26 AM
--- NOTE | 2024-02-25 10:48 | Surgery Progress Note ---
Date of Service February 25, 2024 Assessment & Plan (1) Status post Roosevelt procedure: Plan: POD #1 Rooseevlt procedure for stercoral perforation. Continue NG tube until meaningful return of bowel function Continue DEVONTE drain Monitor urine output, would gently rehydrate and she will likely respond to fluids Continue Douglas catheter Out of bed to chair, ambulate H&H down slightly, would continue to monitor, can start anticoagulation tomorrow if stable (2) Stercoral colitis: Admission and Anticipated Discharge Date Admission Date: February 24, 2024 Subjective POD #1 Morin's procedure for stercoral perforation. Had some labile blood pressures overnight responsive to fluid, was transferred to PCU. Low urine output, history of mild chronic kidney disease. Planes of abdominal pain, she is very somnolent. Physical Exam Constitutional: WD/WN, vitals as above + lethargic Gastrointestinal (Abdomen): Inspection/Auscultation: + abdominal surgical incision (Dressing in place, clean dry and intact) and + abdominal surgical drain present (Serosanguineous) Percussion/Palpation: + abdomen tender (Appropriately tender to palpate) and abdomen soft; no guarding and abdomen not rigid Ostomy nonproductive, viable Results & Data Vital Signs (Past 12 Hours) Vital Signs Temp Pulse Pulse Resp BP Pulse Ox O2 Del Method 02/25/24 10:15 97/62 L 02/25/24 07:17 36.6 C 69 20 95/61 L 93 Room Air 02/25/24 05:50 37.3 C 68 20 94/60 L 94 Room Air 02/25/24 05:07 69 97/64 L 94 Room Air 02/25/24 03:13 68 101/64 02/25/24 02:42 68 103/67 02/25/24 01:57 37.2 C 63 20 82/53 L 93 Room Air 02/25/24 00:54 60 100/64 96 Room Air 02/24/24 23:32 37.4 C 63 16 90/60 L 96 Room Air Laboratory Results Laboratory Results - last 24 hr 02/24/24 02/24/24 02/24/24 12:00 12:09 14:18 WBC 24.61 H RBC 3.80 L Hgb 11.4 L POC Hgb 11.2 L Hct 33.2 L POC Hct 33 L MCV 87.4 MCH 30.0 MCHC 34.3 RDW Std Deviation 43.7 RDW Coeff of Erwin 13.9 Plt Count 355 MPV 9.9 Immature Gran % (Auto) 0.9 Neut % (Auto) 89.7 Lymph % (Auto) 3.8 [facility] % (Auto) 5.4 Eos % (Auto) 0.0 Baso % (Auto) 0.2 Neut # (Auto) 22.05 H Lymph # (Auto) 0.[address] [place] # (Auto) 1.34 H Eos # (Auto) 0.01 Baso # (Auto) 0.04 Immature Gran # (Auto) 0.23 H Ovalocytes 1+ Echinocytes 1+ VBG pH VBG pCO2 VBG pO2 VBG HCO3 VBG O2 Saturation VBG Base Excess POC Sodium 134 L Sodium 134 L POC Potassium 4.1 Potassium 4.2 POC Chloride 100 L Chloride 100 Carbon Dioxide 27 POC Total CO2 23 L Anion Gap 7 POC Anion Gap 16.0 POC BUN 26 H BUN 30 H Creatinine 1.97 H POC Creatinine 2.2 H Est Cr Clr Drug Dosing 30.7 Est GFR ( Amer) 28.7 Est GFR (Non-Af Amer) 24.8 BUN/Creatinine Ratio 15.2 Glucose 176 H POC Glucose 170 H POC Glucose (other) 172 H Estimat Average Glucose Hemoglobin A1c Lactate Calcium 8.7 POC Ioniz Calcium Jeremiah 1.10 L Phosphorus Magnesium Total Bilirubin 0.7 AST 12 L ALT < 3 L Alkaline Phosphatase 66 Total Protein 5.8 L Albumin 3.2 L Globulin 2.6 Albumin/Globulin Ratio 1.2 Lipase 30 Urine Color Urine Appearance Urine pH Ur Specific [place] Urine Protein Urine Glucose (UA) Urine Ketones Urine Blood Urine Nitrite Urine Bilirubin Urine Urobilinogen Ur Leukocyte Esterase Urine WBC (Auto) Urine RBC (Auto) U Hyaline Cast (Auto) U Epithel Cells (Auto) Urine Bacteria (Auto) Urine Mucus 02/24/24 02/24/24 02/24/24 15:50 16:45 17:16 WBC RBC Hgb POC Hgb Hct POC Hct MCV MCH MCHC RDW Std Deviation RDW Coeff of Erwin Plt Count MPV Immature Gran % (Auto) Neut % (Auto) Lymph % (Auto) [facility] % (Auto) Eos % (Auto) Baso % (Auto) Neut # (Auto) Lymph # (Auto) [facility] # (Auto) Eos # (Auto) Baso # (Auto) Immature Gran # (Auto) Ovalocytes Echinocytes VBG pH VBG pCO2 VBG pO2 VBG HCO3 VBG O2 Saturation VBG Base Excess POC Sodium Sodium POC Potassium Potassium POC Chloride Chloride Carbon Dioxide POC Total CO2 Anion Gap POC Anion Gap POC BUN BUN Creatinine POC Creatinine Est Cr Clr Drug Dosing Est GFR ( Amer) Est GFR (Non-Af Amer) BUN/Creatinine Ratio Glucose POC Glucose 196 H 176 H 155 H POC Glucose (other) Estimat Average Glucose Hemoglobin A1c Lactate Calcium POC Ioniz Calcium Jeremiah Phosphorus Magnesium Total Bilirubin AST ALT Alkaline Phosphatase Total Protein Albumin Globulin Albumin/Globulin Ratio Lipase Urine Color Urine Appearance Urine pH Ur Specific [place] Urine Protein Urine Glucose (UA) Urine Ketones Urine Blood Urine Nitrite Urine Bilirubin Urine Urobilinogen Ur Leukocyte Esterase Urine WBC (Auto) Urine RBC (Auto) U Hyaline Cast (Auto) U Epithel Cells (Auto) Urine Bacteria (Auto) Urine Mucus 02/24/24 02/24/24 02/24/24 18:47 23:35 23:40 WBC RBC Hgb POC Hgb Hct POC Hct MCV MCH MCHC RDW Std Deviation RDW Coeff of Erwin Plt Count MPV Immature Gran % (Auto) Neut % (Auto) Lymph % (Auto) [facility] [place] % (Auto) Eos % (Auto) Baso % (Auto) Neut # (Auto) Lymph # (Auto) [facility] # (Auto) Eos # (Auto) Baso # (Auto) Immature Gran # (Auto) Ovalocytes Echinocytes VBG pH VBG pCO2 VBG pO2 VBG HCO3 VBG O2 Saturation VBG Base Excess POC Sodium Sodium POC Potassium Potassium POC Chloride Chloride Carbon Dioxide POC Total CO2 Anion Gap POC Anion Gap POC BUN BUN Creatinine POC Creatinine Est Cr Clr Drug Dosing Est GFR ( Amer) Est GFR (Non-Af Amer) BUN/Creatinine Ratio Glucose POC Glucose 197 H 194 H POC Glucose (other) Estimat Average Glucose Hemoglobin A1c Lactate Calcium POC Ioniz Calcium Jeremiah Phosphorus Magnesium Total Bilirubin AST ALT Alkaline Phosphatase Total Protein Albumin Globulin Albumin/Globulin Ratio Lipase Urine Color Dark Yellow Urine Appearance Clear Urine pH 5.0 Ur Specific [place] 1.035 H Urine Protein 1+ H Urine Glucose (UA) Negative Urine Ketones Trace H Urine Blood Negative Urine Nitrite Positive A Urine Bilirubin Negative Urine Urobilinogen Negative Ur Leukocyte Esterase 1+ H Urine WBC (Auto) 6-10 H Urine RBC (Auto) 11-20 H U Hyaline Cast (Auto) 11-20 H U Epithel Cells (Auto) 3-5 H Urine Bacteria (Auto) 1+ H Urine Mucus Present A 02/25/24 02/25/24 02/25/24 05:31 05:40 06:32 WBC 6.69 D RBC 3.03 L Hgb 8.9 L POC Hgb Hct 27.0 L POC Hct MCV 89.1 MCH 29.4 MCHC 33.0 RDW Std Deviation 45.7 RDW Coeff of Erwin 14.1 Plt Count 212 MPV 10.4 Immature Gran % (Auto) 0.1 Neut % (Auto) 86.4 Lymph % (Auto) 7.3 [facility] % (Auto) 6.0 Eos % (Auto) 0.1 Baso % (Auto) 0.1 Neut # (Auto) 5.77 Lymph # (Auto) 0.[address] [place] # (Auto) 0.40 Eos # (Auto) 0.01 Baso # (Auto) 0.01 Immature Gran # (Auto) 0.01 Ovalocytes Echinocytes VBG pH 7.42 H VBG pCO2 36 L VBG pO2 38 VBG HCO3 23 VBG O2 Saturation 70.3 VBG Base Excess -0.9 POC Sodium Sodium 136 POC Potassium Potassium 4.1 POC Chloride Chloride 107 Carbon Dioxide 23 POC Total CO2 Anion Gap 6 POC Anion Gap POC BUN BUN 31 H Creatinine 1.81 H POC Creatinine Est Cr Clr Drug Dosing 33.2 Est GFR ( Amer) 31.8 Est GFR (Non-Af Amer) 27.4 BUN/Creatinine Ratio 17.1 Glucose 128 H POC Glucose 154 H POC Glucose (other) Estimat Average Glucose 154 Hemoglobin A1c 7.0 H Lactate 1.2 Calcium 7.0 L POC Ioniz Calcium Jeremiah Phosphorus 3.7 Magnesium 1.8 Total Bilirubin 1.0 AST 14 ALT < 3 L Alkaline Phosphatase 41 Total Protein 4.0 L D Albumin 2.4 L Globulin 1.6 L Albumin/Globulin Ratio 1.5 Lipase Urine Color Urine Appearance Urine pH Ur Specific [place] Urine Protein Urine Glucose (UA) Urine Ketones Urine Blood Urine Nitrite Urine Bilirubin Urine Urobilinogen Ur Leukocyte Esterase Urine WBC (Auto) Urine RBC (Auto) U Hyaline Cast (Auto) U Epithel Cells (Auto) Urine Bacteria (Auto) Urine Mucus PG Care Time/CCT Total # of Minutes Spent Total Time Spent with Patient: Total time spent is greater than 50% in coordination of care (as documented) at patient's floor/unit and/or counseling patient: Coding Level of Care Code 35564 Post Operative Follow-Up Diagnoses Status post [place] procedure Z93.3 Stercoral colitis K52.89
[2024-02-25] MEDS: CEFEPIME 1,000 MG in SYRINGE 0 ML IV SCH (11:45)
[2024-02-25] MEDS: CEFEPIME 2,000 MG in SYRINGE 0 ML IV SCH (12:42)
[2024-02-26 07:35] LABS: Hematocrit (blood only) 30.9 % (37.0-47.0); Hemoglobin 10.3 g/dl (12.0-16.0); Mean Corpuscular Hemoglobin 29.3 pg (25.0-34.0); Mean Corpuscular Hgb Conc 33.3 g/dL (32.0-36.0); Mean Corpuscular Volume 87.8 fL (80.0-100.0); Mean Platelet Volume 10.2 fL (9.4-12.4); Platelet Count 305 K/uL (130-400); RDW Standard Deviation 44.9 fL (36.4-46.3); Red Blood Count 3.52 M/uL (4.20-5.40); White Blood Count 10.66 K/ul (4.8-10.8)
[2024-02-26 07:46] LABS: BUN Creatinine Ratio 19.1 (10-20); Calcium 7.5 mg/dl (8.6-10.3); Creatinine Clr Calc Pharmacy 37.1 ml/min; Est GFR (African American) 36.4 ml/min; Est GFR (Non-African American) 31.4 ml/min; Magnesium 1.9 mg/dl (1.7-2.4); Phosphorus 3.8 mg/dl (2.5-4.9); Potassium 4.4 mmol/L (3.5-5.1)
--- NOTE | 2024-02-26 10:07 | Surgery Progress Note ---
Date of Service February 26, 2024 Assessment & Plan (1) Status post Roosevelt procedure: Plan: POD #2 Roosevelt procedure for stercoral perforation. Continue NG tube until meaningful return of bowel function Continue DEVONTE drain Urine output appears to have improved and her creatinine is improving, okay to SUKH Douglas from general surgery standpoint Out of bed to chair, ambulate, I-S H&H stable, okay to start anticoagulation with heparin subcu 3 times daily Wound care consult tomorrow for ostomy (2) Stercoral colitis: Admission and Anticipated Discharge Date Admission Date: February 24, 2024 Subjective POD #1 Morin's procedure for stercoral perforation. Seems to be more awake today. Still sore in the abdomen. Physical Exam Constitutional: WD/WN, vitals as above + lethargic Gastrointestinal (Abdomen): Inspection/Auscultation: + abdominal surgical drain present (Serosanguineous) Percussion/Palpation: + abdomen tender (Appropriately tender to palpation) and abdomen soft; no guarding and abdomen not rigid Ostomy pink, nonproductive Results & Data Vital Signs (Past 12 Hours) Vital Signs Temp Pulse Pulse Resp BP Pulse Ox O2 Del Method 02/26/24 07:44 Room Air 02/26/24 07:18 36.9 C 80 20 137/79 97 Room Air 02/26/24 04:10 36.7 C 83 18 133/81 94 Room Air 02/25/24 23:40 36.7 C 82 20 123/77 98 Room Air 02/25/24 22:30 81 Laboratory Results Laboratory Results - last 24 hr 02/25/24 02/25/24 02/26/24 12:37 18:32 00:56 WBC RBC Hgb Hct MCV MCH MCHC RDW Std Deviation RDW Coeff of Erwin Plt Count MPV Sodium Potassium Chloride Carbon Dioxide Anion Gap BUN Creatinine Est Cr Clr Drug Dosing Est GFR ( Amer) Est GFR (Non-Af Amer) BUN/Creatinine Ratio Glucose POC Glucose 137 H 137 H 130 H Calcium Phosphorus Magnesium 02/26/24 02/26/24 06:41 07:07 WBC 10.66 RBC 3.52 L Hgb 10.3 L Hct 30.9 L MCV 87.8 MCH 29.3 MCHC 33.3 RDW Std Deviation 44.9 RDW Coeff of Erwin 14.0 Plt Count 305 MPV 10.2 Sodium 137 Potassium 4.4 Chloride 107 Carbon Dioxide 25 Anion Gap 5 BUN 31 H Creatinine 1.62 H Est Cr Clr Drug Dosing 37.1 Est GFR ( Amer) 36.4 Est GFR (Non-Af Amer) 31.4 BUN/Creatinine Ratio 19.1 Glucose 121 H POC Glucose 133 H Calcium 7.5 L Phosphorus 3.8 Magnesium 1.9 PG Care Time/CCT Total # of Minutes Spent Total Time Spent with Patient: Total time spent is greater than 50% in coordination of care (as documented) at patient's floor/unit and/or counseling patient: Coding Level of Care Code None Diagnoses Status post Roosevelt procedure Z93.3 Stercoral colitis K52.89
[2024-02-26] MEDS: oxyCODONE HCL IR 5 MG TAB (IMMEDIATE RELEASE) PO PRN (11:30)
--- NOTE | 2024-02-26 11:40 | Hospitalist Progress Note ---
Date of Service February 26, 2024 Assessment & Plan (1) Severe sepsis with acute organ dysfunction: (2) Diverticulitis of large intestine with perforation and abscess: (3) Peritonitis due to abscess: (4) Perforation of sigmoid colon: (5) Acute metabolic encephalopathy: (6) Acute renal failure superimposed on stage 3 chronic kidney disease: (7) Hypothyroidism: (8) Diabetes mellitus, type 2: (9) Postoperative ileus: Plan: Expected Plan Patient remains critically ill but overall improving. Blood pressure and urine output has significantly improved and stabilized Patient with significant positive intake, developing some dependent edema, still remains n.p.o., decrease IV fluid rate, continue to monitor for volume overload Blood pressures improved, restart Coreg at lower dose Continue to monitor for bowel function return Continue antibiotics for peritonitis and perforated diverticulitis Continue to monitor laboratory studies Continue to monitor glucose with insulin scale Increase activity No significant arrhythmias, [facility] noted Therapies Ongoing pain control Admission and Anticipated Discharge Date Admission Date: February 24, 2024 Subjective No acute issues overnight. Patient stating her pain has increased but controlled with current medications. More awake and interactive today. Physical Exam Physical Exam: Constitutional: Sleeping but easily awakened HEENT: Mucous membranes slightly dry., NG tube in place Lungs: Good airflow in upper lobes, decreased at bases, few crackles at bases CV: S1-S2, regular Abdomen: Soft, not distended, surgical dressing clean and dry, colostomy stoma appears viable, DEVONTE drain in place with serosanguineous fluid, serosanguineous fluid in colostomy bag Extremities: Developing some dependent edema Neuro: No focal deficits, generalized weakness Psych: Cooperative, Results & Data Results & Data Vital Signs (Past 12 Hours) Vital Signs Temp Pulse Resp BP Pulse Ox O2 Del Method 02/26/24 07:44 Room Air 02/26/24 07:18 36.9 C 80 20 137/79 97 Room Air 02/26/24 04:10 36.7 C 83 18 133/81 94 Room Air 02/25/24 23:40 36.7 C 82 20 123/77 98 Room Air Diagnostic Findings Reviewed imaging, laboratory and diagnostic studies. Pertinent findings as below. Hemoglobin 10.3, stable, Improved Creatinine 1.62, improved Electrolytes stable Renal ultrasound negative for obstruction Urine culture less than 1000 colonies
--- NOTE | 2024-02-26 13:00 | Electrocardiogram Report ---
Test Reason : Blood Pressure : */* mmHG Vent. Rate : 73 BPM Atrial Rate : * BPM P-R Int : * ms QRS Dur : 96 ms QT Int : 386 ms P-R-T Axes : * 1 120 degrees QTcB Int : 425 ms Poor data quality, interpretation may be adversely affected Sinus rhythm Anterior infarct , age undetermined , cannot exclude lead placement Abnormal ECG When compared with ECG of 21-Aug-2021 14:56, Anterior infarct is now Present Confirmed by Dean Marin ([id number]) on 02/26/2024 1:00:04 PM Referred By: REFERRED SELF Confirmed By: Dean Marin
[2024-02-26] MEDS: HEPARIN SOD 5,000 UNIT/0.5 ML VIAL SQ SCH (15:43)
[2024-02-26] MEDS ORDERED: Nursing to Pharmacy Communication SCH (16:30)
[2024-02-26] MEDS: MoRPHine SULFATE 4 MG/ML 1 ML CARP\\VIAL IV PRN (19:58)
[2024-02-26] MEDS: carvediloL 6.25 MG TAB PO SCH (20:04)
[2024-02-26] MEDS: ACETAMINOPHEN 500 MG TAB PO SCH (20:06)
--- NOTE | 2024-02-27 10:57 | Surgery Progress Note ---
Date of Service February 27, 2024 Assessment & Plan (1) Status post Roosevelt procedure: Plan: POD #3 Roosevelt procedure for stercoral perforation. Continue NG tube Continue DEVONTE drain Out of bed to chair, ambulate, I-S Wound care consult for ostomy waiting return of bowel function prior to removal of NGT or diet pt seen and examined with Dr. quiros (2) Stercoral colitis: Admission and Anticipated Discharge Date Admission Date: February 24, 2024 Supervising Physician Co-Signing Physician Notes Patient seen and examined, labs reviewed, agree with above. POD #3 Morin's procedure for stercoral perforation. Mild pain, no ostomy output yet. On exam afebrile with stable vitals, incision without infection, ostomy patent, nonproductive. DEVONTE serosanguineous. Labs unremarkable. Will continue NG tube until more meaningful return of bowel function. Continue antibiotics. Wound care to see for ostomy management. Appreciate medical care of this patient. Subjective no ostomy o/p Review of Systems Gastrointestinal: + abdominal pain and + bloating Physical Exam Constitutional: cooperative; no acute distress Respiratory: normal respiratory effort and able to speak in complete sentences; no respiratory distress Cardiovascular: Rate/Rhythm: regular rate Gastrointestinal (Abdomen): Inspection/Auscultation: + abdomen distended, + abdominal surgical incision (mayco midline, CDI ) and + abdominal surgical drain present Percussion/Palpation: abdomen soft Results & Data Vital Signs (Past 12 Hours) Vital Signs Temp Pulse Resp BP Pulse Ox O2 Del Method 02/27/24 07:27 98.1 F 86 16 134/83 95 Room Air 02/27/24 00:15 Room Air Results CBC w Diff Results: RBC 3.52 M/uL (4.20-5.40) L 02/26/24 WBC 10.66 K/ul (4.8-10.8) 02/26/24 Hgb 10.3 g/dl (12.0-16.0) L 02/26/24 Hct 30.9 % (37.0-47.0) L 02/26/24 MCV 87.8 fL (80.0-100.0) 02/26/24 MCH 29.3 pg (25.0-34.0) 02/26/24 MCHC 33.3 g/dL (32.0-36.0) 02/26/24 RDW Standard Deviation 44.9 fL (36.4-46.3) 02/26/24 RDW Coefficient of Variation 14.0 % (11.5-14.5) 02/26/24 Plt Count 305 K/uL (130-400) 02/26/24 MPV 10.2 fL (9.4-12.4) 02/26/24 Neutrophils (%) (Auto) 86.4 % 02/25/24 Lymphocytes (%) (Auto) 7.3 % 02/25/24 Monocytes # (Auto) 0.40 K/uL (0.11-0.59) 02/25/24 Eosinophils # (Auto) 0.01 K/uL (0.00-0.50) 02/25/24 Immature Granulocyte % (Auto) 0.1 % 02/25/24 Neutrophils # (Auto) 5.77 K/uL (1.40-6.50) 02/25/24 Lymphocytes # (Auto) 0.49 K/uL (1.20-3.40) L 02/25/24 Monocytes # (Auto) 0.40 K/uL (0.11-0.59) 02/25/24 Eosinophils # (Auto) 0.01 K/uL (0.00-0.50) 02/25/24 Basophils # (Auto) 0.01 K/uL (0.00-0.20) 02/25/24 Immature Granulocyte # (Auto) 0.01 K/uL (0.01-0.20) 4 Echinocytes 1+ 02/24/24 Ovalocytes 1+ 02/24/24 PG Care Time/CCT Total # of Minutes Spent Total Time Spent with Patient: Total time spent is greater than 50% in coordination of care (as documented) at patient's floor/unit and/or counseling patient: Coding Level of Care Code 20405 Post Operative Follow-Up Diagnoses Status post Roosevelt procedure Z93.3 Stercoral colitis K52.89
[2024-02-27 11:01] LABS: Basophils # (auto) 0.02 K/uL (0.00-0.20); Basophils % (auto) 0.2 %; Eosinophils # (auto) 0.15 K/uL (0.00-0.50); Eosinophils % (auto) 1.5 %; Hematocrit (blood only) 29.6 % (37.0-47.0); Hemoglobin 9.6 g/dl (12.0-16.0); Immature Granulocytes # (auto) 0.11 K/uL (0.01-0.20); Immature Granulocytes % (auto) 1.1 %; Lymphocytes # (auto) 0.79 K/uL (1.20-3.40); Lymphocytes % (auto) 8.1 %; Mean Corpuscular Hemoglobin 28.7 pg (25.0-34.0); Mean Corpuscular Hgb Conc 32.4 g/dL (32.0-36.0); Mean Corpuscular Volume 88.4 fL (80.0-100.0); Mean Platelet Volume 9.9 fL (9.4-12.4); Monocytes # (auto) 0.55 K/uL (0.11-0.59); Monocytes % (auto) 5.6 %; Neutrophils # (auto) 8.12 K/uL (1.40-6.50); Neutrophils % (auto) 83.5 %; Platelet Count 294 K/uL (130-400); RDW Coefficient of Variation 14.4 % (11.5-14.5); RDW Standard Deviation 46.1 fL (36.4-46.3); Red Blood Count 3.35 M/uL (4.20-5.40); White Blood Count 9.74 K/ul (4.8-10.8)
[2024-02-27 11:20] LABS: Alanine Aminotransferase < 3 U/L (7-52); Albumin Level 2.5 gm/dl (3.4-5.0); Alkaline Phosphatase 143 U/L (34-104); Anion Gap 9 (3-11); Aspartate Aminotransferase 21 U/L (13-39); BUN Creatinine Ratio 23.6 (10-20); Bilirubin,Total 0.6 mg/dl (0.2-1.0); Blood Urea Nitrogen 33 mg/dl (6-23); Calcium 7.7 mg/dl (8.6-10.3); Carbon Dioxide 20 mmol/L (21-32); Chloride 106 mmol/L (98-107); Creatinine Clr Calc Pharmacy 42.9 ml/min; Est GFR (African American) 43.4 ml/min; Est GFR (Non-African American) 37.4 ml/min; Globulin 2.5 gm/dl (2.5-4.0); Glucose 83 mg/dl (70-99(Fasting)); Potassium 4.2 mmol/L (3.5-5.1); Sodium 135 mmol/L (136-145)
[2024-02-27] MEDS: cefTRIAXone SODIUM 2,000 MG/50 ML BAG IV SCH (12:37)
[2024-02-27] MEDS: metroNIDAZOLE 500 MG/100 ML BAG IV SCH (12:37)
[2024-02-27] MEDS ORDERED: TPN/PPN CONSULT PHARMACY STA (13:20)
[2024-02-27] MEDS ORDERED: DEXTROSE 10% 1,000 ML IV PRN (13:20)
--- NOTE | 2024-02-27 13:28 | Hospitalist Progress Note ---
Date of Service February 27, 2024 Assessment & Plan (1) Severe sepsis with acute organ dysfunction: (2) Diverticulitis of large intestine with perforation and abscess: (3) Peritonitis due to abscess: (4) Perforation of sigmoid colon: (5) Acute metabolic encephalopathy: (6) Acute renal failure superimposed on stage 3 chronic kidney disease: (7) Hypothyroidism: (8) Diabetes mellitus, type 2: Plan Patient continues to recover from surgical intervention for perforated sigmoid diverticulitis. Continue antibiotic coverage, transition to ceftriaxone and Flagyl Discontinue lactated Ringer's 1 dose of IV Lasix, patient is looking a bit volume overloaded and edematous Start PPN, hopefully will not need to place a PICC line for prolonged TPN, however bowel function may take another day or 2 to improve Communication with surgical team. Surgical sites are clean and intact. Agree with PPN. Anticipate bowel function to return in the next day or 2. Continue to monitor laboratory studies Increase activity and therapies Care management coordinating ongoing rehabilitation to occur at [facility] when patient medically ready for discharge. updated by phone Admission and Anticipated Discharge Date Admission Date: February 24, 2024 Subjective Patient a bit more awake and interactive today. Pain is controlled. No shortness of breath. Physical Exam Physical Exam: Constitutional: Alert HEENT: Mucous membranes moist. Lungs: Decreased breath sounds, few crackles at bases CV: S1-S2, regular Abdomen: Soft, nontender, nondistended Extremities: Dependent posterior thigh edema, forearm edema Neuro: No focal deficits Psych: Cooperative, normal mood Results & Data Results & Data Vital Signs (Past 12 Hours) Vital Signs Temp Pulse Resp BP Pulse Ox O2 Del Method 02/27/24 07:27 36.7 C 86 16 134/83 95 Room Air Diagnostic Findings Reviewed imaging, laboratory and diagnostic studies. Pertinent findings as below. WBCs 9.7, normalized Hemoglobin 9.6, stable Creatinine 1.4, stable, improved
[2024-02-27] MEDS ORDERED: TPN/PPN CONSULT PHARMACY SCH (13:41)
[2024-02-27] MEDS: FUROSEMIDE 40 MG/4 ML VIAL IV ONE (14:06)
[2024-02-27] MEDS: ACETAMINOPHEN 1,000 MG/100 ML VIAL IV STA (21:01)
[2024-02-28 08:04] LABS: Hemoglobin 9.7 g/dl (12.0-16.0); Mean Corpuscular Hemoglobin 29.5 pg (25.0-34.0); Mean Corpuscular Hgb Conc 33.4 g/dL (32.0-36.0); Mean Corpuscular Volume 88.1 fL (80.0-100.0); Mean Platelet Volume 9.8 fL (9.4-12.4); Platelet Count 319 K/uL (130-400); RDW Coefficient of Variation 14.2 % (11.5-14.5); RDW Standard Deviation 45.7 fL (36.4-46.3); Red Blood Count 3.29 M/uL (4.20-5.40); White Blood Count 8.31 K/ul (4.8-10.8)
[2024-02-28 08:23] LABS: BUN Creatinine Ratio 26.6 (10-20); Calcium 7.3 mg/dl (8.6-10.3); Est GFR (African American) 37.5 ml/min; Est GFR (Non-African American) 32.3 ml/min; Phosphorus 3.8 mg/dl (2.5-4.9); Potassium 3.8 mmol/L (3.5-5.1)
--- NOTE | 2024-02-28 09:03 | Surgery Progress Note ---
Date of Service February 28, 2024 Assessment & Plan (1) Status post Roosevelt procedure: Plan: POD #4 Roosevelt procedure for stercoral perforation. Continue NG tube Continue DEVONTE drain Out of bed to chair, ambulate, I-S Wound care saw pt yesterday , ostomy appears edematous currently , no outpatient to date mayco midline , sm amt bloody drainage noted inferior incision IV analgesic for pain VSS , WBC wnl waiting return of bowel function prior to removal of NGT or diet agree with starting TPN until patient has adequate PO intake will follow (2) Stercoral colitis: Admission and Anticipated Discharge Date Admission Date: February 24, 2024 Supervising Physician Co-Signing Physician Notes Patient seen and examined, labs reviewed, agree with above. POD #4 Morin's procedure for stercoral perforation. Mild pain, no ostomy output yet. On exam afebrile with stable vitals, incision without infection, ostomy patent, nonproductive. DEVONTE serosanguineous. Labs unremarkable. Will continue NG tube until more meaningful return of bowel function. Continue antibiotics. Wound care to see for ostomy management. Appreciate medical care of this patient. Subjective continued abd pain Review of Systems Constitutional: no fever and no chills Gastrointestinal: + abdominal pain and + bloating Physical Exam Constitutional: cooperative; no acute distress Respiratory: normal respiratory effort and able to speak in complete sentenc es; no respiratory distress Cardiovascular: Rate/Rhythm: regular rate Gastrointestinal (Abdomen): Inspection/Auscultation: + abdominal surgical incision (mayco midline) and + abdominal surgical drain present Percussion/Palpation: + abdomen tender and abdomen soft Results & Data Vital Signs (Past 12 Hours) Vital Signs Temp Pulse Resp BP Pulse Ox O2 Del Method 02/28/24 07:27 97.7 F 66 16 122/75 Room Air 02/28/24 03:26 98.2 F 80 16 126/84 96 Room Air 02/28/24 00:37 98.4 F 74 16 113/71 95 Room Air Results CBC w Diff Results: RBC 3.29 M/uL (4.20-5.40) L 02/28/24 WBC 8.31 K/ul (4.8-10.8) 02/28/24 Hgb 9.7 g/dl (12.0-16.0) L 02/28/24 Hct 29.0 % (37.0-47.0) L 02/28/24 MCV 88.1 fL (80.0-100.0) 02/28/24 MCH 29.5 pg (25.0-34.0) 02/28/24 MCHC 33.4 g/dL (32.0-36.0) 02/28/24 RDW Standard Deviation 45.7 fL (36.4-46.3) 02/28/24 RDW Coefficient of Variation 14.2 % (11.5-14.5) 02/28/24 Plt Count 319 K/uL (130-400) 02/28/24 MPV 9.8 fL (9.4-12.4) 02/28/24 Neutrophils (%) (Auto) 83.5 % 02/27/24 Lymphocytes (%) (Auto) 8.1 % 02/27/24 Monocytes # (Auto) 0.55 K/uL (0.11-0.59) 02/27/24 Eosinophils # (Auto) 0.15 K/uL (0.00-0.50) 02/27/24 Immature Granulocyte % (Auto) 1.1 % 02/27/24 Neutrophils # (Auto) 8.12 K/uL (1.40-6.50) H 02/27/24 Lymphocytes # (Auto) 0.79 K/uL (1.20-3.40) L 02/27/24 Monocytes # (Auto) 0.55 K/uL (0.11-0.59) 02/27/24 Eosinophils # (Auto) 0.15 K/uL (0.00-0.50) 02/27/24 Basophils # (Auto) 0.02 K/uL (0.00-0.20) 02/27/24 Immature Granulocyte # (Auto) 0.11 K/uL (0.01-0.20) 4 Echinocytes 1+ 02/24/24 Ovalocytes 1+ 02/24/24 PG Care Time/CCT Total # of Minutes Spent Total Time Spent with Patient: Total time spent is greater than 50% in coordination of care (as documented) at patient's floor/unit and/or counseling patient: Coding Level of Care Code 75639 Post Operative Follow-Up Diagnoses Status post Roosevelt procedure Z93.3 Stercoral colitis K52.89
--- NOTE | 2024-02-28 11:24 | Pharmacy Report ---
Pharmacy Initial PN Consult Nt - Date of Service February 28, 2024 - Scope Pharmacy has been consulted on this date to manage parenteral nutrition orders and order appropriate labs. As part of the Nutrition Support Team Guidelines, pharmacy will work in conjunction with dietary when determining the patients caloric needs. - Subjective * The patient is a 73 year old Female admitted on 02/24/24 for PERFORATED SIGMOID DIVERTICULUM. * Patient is to receive parenteral nutrition for prolonged NPO status - Objective Vascular Access: * Patient currently has a peripheral line * Peripheral line was confirmed by IV Team to be acceptable for PPN use on 02/28/24 Height & Weight (Last Documented) Height 5 ft 7 in Weight 94.8 kg Diet Order(s) 02/24/24 18:33 NPO Intake & Ouput (24hrs) 02/27/24 02/28/24 02/29/24 06:59 06:59 06:59 Intake Total 2300 / 2300 1550 / 1550 Output Total 1650 / 1650 1500 / 1500 Balance 650 / 650 50 / 50 Selected Laboratory Results 02/27/24 02/28/24 10:39 07:16 Sodium 135 L 136 Potassium 4.2 3.8 Chloride 106 105 Carbon Dioxide 20 L 20 L Anion Gap 9 11 BUN 33 H 42 H Creatinine 1.40 H 1.58 H Est GFR ( Amer) 43.4 37.5 Est GFR (Non-Af Amer) 37.4 32.3 BUN/Creatinine Ratio 23.6 H 26.6 H Glucose 83 83 Calcium 7.7 L 7.3 L Phosphorus 3.8 Magnesium 2.0 Total Bilirubin 0.6 AST 21 ALT < 3 L Alkaline Phosphatase [address] - Follow Up Nutrition Assessment Start: 02/25/24 20:52 Freq: Status: Active Protocol: Document 02/27/24 10:53 WN (Rec: 02/27/24 11:07 WN [id number]) RD - Initial Nutrition Assessment Start: 02/25/24 20:38 Freq: Status: Active Protocol: Document 02/25/24 20:38 KK (Rec: 02/25/24 20:52 KK [id number]) - Assessment & Plan Assessment: * Appreciate dietitians recommendations for macronutrients. * Discussed fluid requirements with provider and okay to have PPN run ~1500 ml/day. Plan: * For Day #1 of PPN administration, the following will be ordered: * Macronutrients: * Amino Acids: 56 grams/day * Dextrose: 66 grams/day * Lipids: 50 grams/day * Micronutrients: * Sodium chloride: 40 mEq/day * Sodium acetate: 80 mEq/day * Potassium phosphate: 18 mMol/day * Potassium acetate: 15 mEq/day * Magnesium sulfate: 4.06 mEq/day * Calcium gluconate: 4.65 mEq/day * Multivitamins: 10 mL/day * Trace elements: 1 mL/day * Thiamine: 100 mg/day * Folic Acid: 1 mg/day * Total volume of 1412 mL will be infused over 24 hours and will provide 948 kcal/day * Patient is on PPN which has a maximum mOsm/L of 900. Final osmolarity of current solution is 863 mOsm/L. * Labs will be ordered per PN protocol. * Pharmacy will follow and adjust PN orders on a daily basis. Thank you!
--- NOTE | 2024-02-28 13:30 | Hospitalist Progress Note ---
Date of Service February 28, 2024 Assessment & Plan (1) Severe sepsis with acute organ dysfunction: (2) Diverticulitis of large intestine with perforation and abscess: (3) Peritonitis due to abscess: (4) Perforation of sigmoid colon: (5) Acute metabolic encephalopathy: (6) Acute renal failure superimposed on stage 3 chronic kidney disease: (7) Hypothyroidism: (8) Diabetes mellitus, type 2: Plan Patient status post surgical intervention and Roosevelt pouch for perforated diverticulitis Continue postoperative care as directed by surgery Continue antibiotics Obtained PICC consent for TPN Start PPN today and then proceed with TPN when PICC is placed Continue to monitor laboratory studies Encouraged activity Admission and Anticipated Discharge Date Admission Date: February 24, 2024 Subjective Patient does admit to some abdominal pain. Physical Exam Physical Exam: Constitutional: Alert a bit more interactive today HEENT: Mucous membranes moist. Lungs: Clear to auscultation, decreased, no wheezes rales or rhonchi CV: S1-S2, regular Abdomen: Hypoactive bowel sounds, colostomy viable. No gas or fluid in colostomy patch. DEVONTE drain in place. Surgical dressings are clean and dry Extremities: Arm edema significantly decreased, decreased dependent edema and posterior thigh Neuro: No focal deficits Psych: Cooperative, normal mood Results & Data Results & Data Vital Signs (Past 12 Hours) Vital Signs Temp Pulse Resp BP Pulse Ox O2 Del Method 02/28/24 07:27 36.5 C 66 16 122/75 Room Air 02/28/24 03:26 36.8 C 80 16 126/84 96 Room Air Diagnostic Findings Reviewed imaging, laboratory and diagnostic studies. Pertinent findings as below. Hemoglobin 9.7 Creatinine 1.5
[2024-02-28] MEDS: CLINOLIPID 20% IV FAT EMULSION 250 ML IV SCH (17:15)
[2024-02-28] MEDS: [UNRECOGNIZED DRUG - OTHER] IV SCH (17:15)
[2024-02-28] MEDS: PERIPHERAL TPN IV SCH (17:15)
[2024-02-28] MEDS: STOP CLINOLIPID SCH (21:58)
[2024-02-28] MEDS: MoRPHine SULFATE 2 MG/ML CARP IV PRN (23:11)
--- NOTE | 2024-02-29 08:19 | Surgery Progress Note ---
Date of Service February 29, 2024 Assessment & Plan (1) Status post Roosevelt procedure: Plan: POD #5 Roosevelt procedure for stercoral perforation. Continue NG tube Continue DEVONTE drain Out of bed to chair, eval by PT , I-S ostomy appears edematous currently , no output to date mayco midline , sm amt bloody drainage noted inferior incision, dressing changed IV analgesic for pain VSS , WBC wnl waiting return of bowel function prior to removal of NGT or diet agree with starting TPN until patient has adequate PO intake will follow (2) Stercoral colitis: Admission and Anticipated Discharge Date Admission Date: February 24, 2024 Supervising Physician Co-Signing Physician Notes Patient seen and examined, labs reviewed, agree with above. POD #5 Morin's procedure for stercoral perforation. Mild pain, no ostomy output yet. On exam afebrile with stable vitals, incision without infection, ostomy patent, nonproductive. DEVONTE serosanguineous. Labs unremarkable. Will continue NG tube until more meaningful return of bowel function. Continue antibiotics. Wound care following for ostomy management. Appreciate medical care of this patient. Would recommend removal of Douglas catheter, but will confirm with medicine and nursing staff Subjective pt reports she feels sore Review of Systems Gastrointestinal: + abdominal pain Physical Exam Constitutional: cooperative; no acute distress Respiratory: normal respiratory effort and able to speak in complete se ntences; no respiratory distress Cardiovascular: Rate/Rhythm: regular rate Gastrointestinal (Abdomen): Inspection/Auscultation: + abdominal surgical incision (mayco midline) and + abdominal surgical drain present Percussion/Palpation: + abdomen tender and abdomen soft Results & Data Vital Signs (Past 12 Hours) Vital Signs Temp Pulse Resp BP Pulse Ox O2 Del Method 02/29/24 07:40 97.9 F 77 16 148/78 H 94 Room Air Results CBC w Diff Results: RBC 3.29 M/uL (4.20-5.40) L 02/28/24 WBC 8.31 K/ul (4.8-10.8) 02/28/24 Hgb 9.7 g/dl (12.0-16.0) L 02/28/24 Hct 29.0 % (37.0-47.0) L 02/28/24 MCV 88.1 fL (80.0-100.0) 02/28/24 MCH 29.5 pg (25.0-34.0) 02/28/24 MCHC 33.4 g/dL (32.0-36.0) 02/28/24 RDW Standard Deviation 45.7 fL (36.4-46.3) 02/28/24 RDW Coefficient of Variation 14.2 % (11.5-14.5) 02/28/24 Plt Count 319 K/uL (130-400) 02/28/24 MPV 9.8 fL (9.4-12.4) 02/28/24 Neutrophils (%) (Auto) 83.5 % 02/27/24 Lymphocytes (%) (Auto) 8.1 % 02/27/24 Monocytes # (Auto) 0.55 K/uL (0.11-0.59) 02/27/24 Eosinophils # (Auto) 0.15 K/uL (0.00-0.50) 02/27/24 Immature Granulocyte % (Auto) 1.1 % 02/27/24 Neutrophils # (Auto) 8.12 K/uL (1.40-6.50) H 02/27/24 Lymphocytes # (Auto) 0.79 K/uL (1.20-3.40) L 02/27/24 Monocytes # (Auto) 0.55 K/uL (0.11-0.59) 02/27/24 Eosinophils # (Auto) 0.15 K/uL (0.00-0.50) 02/27/24 Basophils # (Auto) 0.02 K/uL (0.00-0.20) 02/27/24 Immature Granulocyte # (Auto) 0.11 K/uL (0.01-0.20) 4 Echinocytes 1+ 02/24/24 Ovalocytes 1+ 02/24/24 PG Care Time/CCT Total # of Minutes Spent Total Time Spent with Patient: Total time spent is greater than 50% in coordination of care (as documented) at patient's floor/unit and/or counseling patient: Coding Level of Care Code 13319 Post Operative Follow-Up Diagnoses Status post Roosevelt procedure Z93.3 Stercoral colitis K52.89
[2024-02-29 11:28] LABS: BUN Creatinine Ratio 33.6 (10-20); Calcium 7.7 mg/dl (8.6-10.3); Est GFR (African American) 48.4 ml/min; Est GFR (Non-African American) 41.7 ml/min; Magnesium 2.2 mg/dl (1.7-2.4); Phosphorus 2.8 mg/dl (2.5-4.9); Potassium 3.9 mmol/L (3.5-5.1)
--- NOTE | 2024-02-29 12:40 | Hospitalist Progress Note ---
Date of Service February 29, 2024 Assessment & Plan (1) Severe sepsis with acute organ dysfunction: (2) Diverticulitis of large intestine with perforation and abscess: (3) Peritonitis due to abscess: (4) Perforation of sigmoid colon: (5) Acute metabolic encephalopathy: (6) Acute renal failure superimposed on stage 3 chronic kidney disease: (7) Hypothyroidism: (8) Diabetes mellitus, type 2: Plan Patient status post Roosevelt pouch from perforated diverticulitis. Awaiting return of bowel function Continue PPN, PICC line today to start TPN Post surgical management as directed by surgical team Follow laboratory studies Encourage out of bed Electrolytes stable, still some edema, give 1 dose of Lasix today Minimize morphine, use oxycodone for pain Phone update to patient's Admission and Anticipated Discharge Date Admission Date: February 24, 2024 Subjective No acute issues overnight. Patient denies any new complaints. Abdominal tenderness Slightly better. Physical Exam Physical Exam: Constitutional: Alert, more interactive today HEENT: Mucous membranes moist. Lungs: Clear to auscultation, decreased, no wheezes rales or rhonchi CV: S1-S2, regular Abdomen: Decreased/hypoactive bowel sounds, colostomy bag with no drainage or air, surgical dressing dry, DEVONTE drain in place Extremities: Edema in arms significantly improved, continued dependent edema posterior thighs, stable Neuro: No focal deficits, generalized weakness Psych: Cooperative, normal mood Results & Data Results & Data Vital Signs (Past 12 Hours) Vital Signs Temp Pulse Resp BP Pulse Ox O2 Del Method 02/29/24 09:23 84 151/81 H 02/29/24 07:40 36.6 C 77 16 148/78 H 94 Room Air Diagnostic Findings Reviewed imaging, laboratory and diagnostic studies. Pertinent findings as below. Glucose reviewed stable Creatinine 1.28
[2024-02-29] MEDS: FUROSEMIDE 40 MG/4 ML VIAL IV ONE (13:58)
[2024-02-29] MEDS: [UNRECOGNIZED DRUG - OTHER] IV SCH (17:30)
[2024-02-29] MEDS: PERIPHERAL TPN IV SCH (17:30)
[2024-02-29] MEDS: CLINOLIPID 20% IV FAT EMULSION 250 ML IV SCH (17:37)
[2024-02-29] MEDS: HYDROmorphone INJ 0.5 MG/0.5 ML SYR IV STA (22:43)
[2024-02-29] MEDS: SODIUM CHLORIDE 0.9% 250 ML IV SCH (23:41)
[2024-03-01] MEDS: SODIUM CHLORIDE 0.9% 250 ML IV SCH (01:15)
[2024-03-01] MEDS: carvediloL 3.125 MG TAB PO ONE (01:30)
--- NOTE | 2024-03-01 07:50 | Surgery Progress Note ---
Date of Service March 01, 2024 Assessment & Plan (1) Status post Roosevelt procedure: Plan: POD #6 Roosevelt procedure for stercoral perforation. Continue NG tube Continue DEVONTE drain output serous PT as tolerated ostomy appears edematous still , no output to date, scant brown noted in middle of ostomy mayco midline , sm amt bloody drainage dressing changed waiting return of bowel function prior to removal of NGT or diet continue TPN until patient has adequate PO intake (2) Stercoral colitis: Admission and Anticipated Discharge Date Admission Date: February 24, 2024 Supervising Physician Co-Signing Physician Notes Patient seen and examined, agree with above. POD #[address] ercoral perforation, she is complaining of leg pain and did go into atrial fibrillation overnight. She has some mild abdominal pain. NG tube with minimal output, no output from the ostomy as of yet. On exam afebrile stable vitals, incision with mayco, no infection. Ostomy pink with decreased edema. This was digitized at the bedside and there is evidence of a firm stool ball beneath the fascial surface, which appeared to be in the transverse colon at her index surgery. WBC normal, H&H stable. We will attempt to clamp her NG tube as it has minimal output and I think that she is having difficulty passing her large stool burden. We will begin enemas through the ostomy and start her on a stool softener. It may take some time to relieve her of the stool burden she had that led to the surgery. Of note she also still has a hard stool ball in her rectum which may or may not require disimpaction or enemas to relief. We will wait for some time until the staple line is healed. Subjective patient reports abd feeling better than yesterday still no ostomy o/p Review of Systems Gastrointestinal: + abdominal pain Physical Exam Constitutional: cooperative; no acute distress Respiratory: normal respiratory effort and able to speak in complete sentences; no respiratory distress Cardiovascular: Rate/Rhythm: + tachycardic (94) Gastrointestinal (Abdomen): Inspection/Auscultation: + abdomen distended, + abdominal surgical incision (mayco midline) and + abdominal surgical drain present Percussion/Palpation: + abdomen tender and abdomen soft Results & Data Vital Signs (Past 12 Hours) Vital Signs Temp Pulse Resp BP Pulse Ox O2 Del Method 03/01/24 07:27 97.7 F 94 H 19 146/71 H 92 Room Air 03/01/24 04:02 90 03/01/24 01:29 125 H 122/77 02/29/24 22:49 97.9 F 120 H 16 97 Room Air 02/29/24 20:51 130 H 138/83 02/29/24 20:25 Room Air PG Care Time/CCT Total # of Minutes Spent Total Time Spent with Patient: Total time spent is greater than 50% in coordination of care (as documented) at patient's floor/unit and/or counseling patient: Coding Level of Care Code 76629 Post Operative Follow-Up Diagnoses Status post Roosevelt procedure Z93.3 Stercoral colitis K52.89
[2024-03-01 07:57] LABS: Hematocrit (blood only) 28.4 % (37.0-47.0); Hemoglobin 9.7 g/dl (12.0-16.0); Mean Corpuscular Hemoglobin 29.2 pg (25.0-34.0); Mean Corpuscular Hgb Conc 34.2 g/dL (32.0-36.0); Mean Corpuscular Volume 85.5 fL (80.0-100.0); Mean Platelet Volume 9.5 fL (9.4-12.4); Platelet Count 359 K/uL (130-400); RDW Standard Deviation 43.4 fL (36.4-46.3); Red Blood Count 3.32 M/uL (4.20-5.40); White Blood Count 8.81 K/ul (4.8-10.8)
[2024-03-01 08:01] LABS: BUN Creatinine Ratio 41.6 (10-20); Calcium 7.5 mg/dl (8.6-10.3); Creatinine Clr Calc Pharmacy 54.3 ml/min; Est GFR (African American) 56.2 ml/min; Est GFR (Non-African American) 48.5 ml/min; Phosphorus 2.5 mg/dl (2.5-4.9); Potassium 3.7 mmol/L (3.5-5.1)
[2024-03-01 08:31] LABS: Basophils # (auto) 0.03 K/uL (0.00-0.20); Basophils % (auto) 0.3 %; Eosinophils # (auto) 0.14 K/uL (0.00-0.50); Eosinophils % (auto) 1.6 %; Immature Granulocytes # (auto) 0.63 K/uL (0.01-0.20); Immature Granulocytes % (auto) 7.2 %; Lymphocytes # (auto) 1.14 K/uL (1.20-3.40); Lymphocytes % (auto) 12.9 %; Monocytes # (auto) 0.73 K/uL (0.11-0.59); Monocytes % (auto) 8.3 %; Neutrophils # (auto) 6.14 K/uL (1.40-6.50); Neutrophils % (auto) 69.7 %; Rouleaux 1+
[2024-03-01] MEDS: LANTUS PER UNIT CHARGE SC SCH (09:52)
--- NOTE | 2024-03-01 11:42 | Hospitalist Progress Note ---
Date of Service March 01, 2024 Assessment & Plan (1) Paroxysmal atrial fibrillation: (2) Severe sepsis with acute organ dysfunction: (3) Diverticulitis of large intestine with perforation and abscess: (4) Peritonitis due to abscess: (5) Perforation of sigmoid colon: (6) Acute metabolic encephalopathy: (7) Acute renal failure superimposed on stage 3 chronic kidney disease: (8) Hypothyroidism: (9) Diabetes mellitus, type 2: Plan Patient remains critically ill requiring hospital level care and support while awaiting return of bowel function Maintain NG tube drainage Continue antibiotics Continue to monitor colostomy per surgery Patient with transient brief paroxysmal atrial fibrillation in the setting of acute illness. Will transfer to telemetry unit, hold on anticoagulation at this time due to the transient nature and recent surgery Add basal insulin in the setting of diabetes with the starting of her nutrition PICC line has been placed, transition to TPN Echocardiogram Increase Coreg to home dose now that blood pressure has improved Admission and Anticipated Discharge Date Admission Date: February 24, 2024 Subjective Events of last evening noted, transient atrial fibrillation. Patient states belly pain seems better today. But still very sleepy Physical Exam Physical Exam: Constitutional: Alert HEENT: Mucous membranes moist., NG tube in place Lungs: Clear to auscultation, decreased, no wheezes rales or rhonchi CV: S1-S2, regular Abdomen: Decreased, hypoactive bowel sounds, mild diffuse tenderness, no guarding or rigidity, colostomy pale, no drainage or gas in the bag, DEVONTE drain Extremities: edema dependent portions of posterior thigh Neuro: No focal deficits generalized weak, resting tremor Psych: Cooperative, normal mood Results & Data Results & Data Vital Signs (Past 12 Hours) Vital Signs Temp Pulse Resp BP Pulse Ox O2 Del Method 03/01/24 09:16 80 153/84 H 03/01/24 07:45 Room Air 03/01/24 07:27 36.5 C 94 H 19 146/71 H 92 Room Air 03/01/24 04:02 90 03/01/24 01:29 125 H 122/77 Diagnostic Findings Reviewed imaging, laboratory and diagnostic studies. Pertinent findings as below. Hemoglobin 9.7 WBCs 8.1 Calcium 7.5 Glucose 223 Personally reviewed EKG, initial EKG this morning A-fib with mild RVR, subsequent EKG shows conversion to sinus rhythm
--- NOTE | 2024-03-01 12:11 | Electrocardiogram Report ---
Test Reason : Blood Pressure : */* mmHG Vent. Rate : 120 BPM Atrial Rate : 101 BPM P-R Int : * ms QRS Dur : 102 ms QT Int : 316 ms P-R-T Axes : * -4 132 degrees QTcB Int : 446 ms Atrial fibrillation with rapid ventricular response Possible Old Anteroseptal infarct (cited on or before 24-Feb-2024) Nonspecific T wave abnormality Anterolateral leads Abnormal ECG When compared with ECG of 24-Feb-2024 13:35, Atrial fibrillation has replaced Sinus rhythm Vent. rate has increased by 47 bpm QRS duration has increased Confirmed by Robin Lane ([id number]) on 03/01/2024 12:11:16 PM Referred By: REFERRED SELF Confirmed By: Robin Lane
--- NOTE | 2024-03-01 12:13 | Pharmacy Report ---
Pharmacy PN Follow-up Note - Date of Service March 01, 2024 - Subjective Patient is currently on day #3 of PN for prolonged NPO status following surgery. - Objective Height & Weight (Last Documented) Height 5 ft 7 in Weight 98.7 kg Diet Order(s) 02/24/24 18:33 NPO Intake & Ouput (24hrs) 02/29/24 03/01/24 03/02/24 06:59 06:59 06:59 Intake Total 546.685 / 461.377 3415.82 / 2453.82 Output Total 2660 / 2660 2905 / 2905 Balance -2113.315 / -2113.315 -451.18 / -451.18 Selected Laboratory Results 03/01/24 07:12 Sodium 137 Potassium 3.7 Chloride 103 Carbon Dioxide 28 Anion Gap 6 BUN 47 H Creatinine 1.13 Est GFR ( Amer) 56.2 Est GFR (Non-Af Amer) 48.5 BUN/Creatinine Ratio 41.6 H Glucose 200 H Calcium 7.5 L Phosphorus 2.5 Magnesium 2.0 - Assessment & Plan Assessment: 03/01: * Patient was started on PPN on 02/28/24. PICC line was placed yesterday, confirmed with RN that it is functioning. Will initiate TPN today via central line. * Dextrose was increased yesterday. Electrolytes did slightly decrease today, but patient did receive a dose of IV Lasix yesterday. SCr and BUN slightly elevated. * Registered dietitian recommended starting TPN on Day #1 at 1200 mL of 8%-14% Clinimix. This will provide 96 g of AA and 168 g of Dextrose. Ultimate goal once renal fxn improves is 115 g AA and 202 g of Dextrose. * Now that osmolarity is not an issue, will be able to add more in terms of electrolytes in the bag today. * Blood sugars have been elevated since increasing dextrose. Spoke with hospitalist today and tightened Novolog as well as added basal insulin. There is 10 units in the TPN bag which I will leave alone for now. Plan: * For Day #3 of TPN administration, the following will be ordered: * Macronutrients: * Amino Acids: 96 grams/day * Dextrose: 168 grams/day * Lipids: 50 grams/day * Micronutrients: * TPN electrolytes: mL/day Contains 35 mEq Na, 20 mEq K, 4.5 mEq Ca, 5 mEq Mg, 35 mEq Cl, 29.5 mEq Acetate per 20 mL * Sodium phosphate: mMol/day * Sodium chloride: 60 mEq/day * Sodium acetate: 60 mEq/day * Potassium phosphate: 30 mMol/day * Potassium chloride: 40 mEq/day * Potassium acetate: mEq/day * Magnesium sulfate: 8.12 mEq/day * Calcium gluconate: 9.3 mEq/day * Multivitamins: 10 mL/day * Trace elements: 1 mL/day * Thiamine: 100 mg/day * Folic Acid: 1 mg/day * Insulin, regular: 10 units/day * Total volume of 1318.3 mL will be infused over 24 hours and will provide 1455.2 kcal/day * Labs will be ordered per PN protocol. * Pharmacy will follow and adjust PN orders on a daily basis. Thank you!
--- NOTE | 2024-03-01 12:14 | Electrocardiogram Report ---
Test Reason : Blood Pressure : */* mmHG Vent. Rate : 73 BPM Atrial Rate : 73 BPM P-R Int : 180 ms QRS Dur : 114 ms QT Int : 390 ms P-R-T Axes : -19 -7 106 degrees QTcB Int : 429 ms Normal sinus rhythm Possible Old Inferior infarct Possible Old Anterior infarct (cited on or before 24-Feb-2024) Nonspecific T wave abnormality Lateral leads Abnormal ECG When compared with ECG of 01-Mar-2024 01:26, Sinus rhythm has replaced Atrial fibrillation Vent. rate has decreased by [address] bpm Confirmed by Robin Lane ([id number]) on 03/01/2024 12:13:58 PM Referred By: REFERRED SELF Confirmed By: Robin Lane
[2024-03-01] MEDS: INSULIN ASPART PER UNIT CHARGE SC SCH (12:23)
[2024-03-01] MEDS ORDERED: [UNRECOGNIZED DRUG - OTHER] IV SCH (16:00)
[2024-03-01] MEDS ORDERED: PERIPHERAL TPN IV SCH (16:00)
[2024-03-01] MEDS: [UNRECOGNIZED DRUG - OTHER] IV SCH (16:12)
[2024-03-01] MEDS: PERIPHERAL TPN IV SCH (16:12)
[2024-03-01] MEDS: CLINOLIPID 20% IV FAT EMULSION 250 ML IV SCH (16:12)
[2024-03-01] MEDS: carvediloL 12.5 MG TAB PO SCH (16:30)
[2024-03-01] MEDS: DOCUSATE SODIUM 100 MG CAP PO SCH (22:13)
[2024-03-02 07:00] LABS: Calcium 7.7 mg/dl (8.6-10.3); Creatinine Clr Calc Pharmacy 58.4 ml/min; Est GFR (African American) 62.2 ml/min; Est GFR (Non-African American) 53.6 ml/min; Phosphorus 2.8 mg/dl (2.5-4.9)
[2024-03-02] MEDS: FUROSEMIDE 40 MG/4 ML VIAL IV ONE (08:29)
--- NOTE | 2024-03-02 11:48 | Hospitalist Progress Note ---
Date of Service March 02, 2024 Assessment & Plan (1) Diverticulitis of large intestine with perforation and abscess: (2) Peritonitis due to abscess: (3) Perforation of sigmoid colon: (4) Paroxysmal atrial fibrillation: (5) Severe sepsis with acute organ dysfunction: (6) Acute metabolic encephalopathy: (7) Acute renal failure superimposed on stage 3 chronic kidney disease: (8) Hypothyroidism: (9) Diabetes mellitus, type 2: Plan Patient status post Roosevelt pouch procedure for perforated sigmoid diverticulitis. Continues with fair amount of abdominal pain and slow to respond return of a bowel function. Continue antibiotics Increase activity as best as able, patient's baseline mobility was transfer from bed to chair at home Continue TPN while awaiting bowel function Laboratory studies per TPN protocol Adjust insulin for better glucose control Patient still seems somewhat volume overloaded. Give additional IV Lasix x 1 dose today, continue to dose daily as needed Patient has remained in sinus rhythm, continuing to hold full anticoagulation at this time. Communication out to surgery to evaluate if follow-up imaging would be indicated. Admission and Anticipated Discharge Date Admission Date: February 24, 2024 Subjective Nursing reports no acute issues overnight. Patient was initially replies that she is doing fair. States that her pain is controlled. No stool or gas in the colostomy bag reported as of yet Physical Exam Physical Exam: Constitutional: Alert, nontoxic HEENT: Mucous membranes moist. NG tube has been removed by surgery, almost always has eyes shut Lungs: Decreased breath sounds, no wheezes, few crackles at bases CV: S1-S2, regular, murmur Abdomen: Diffuse tenderness, mild distention, colostomy bag without drainage or gas, DEVONTE drain in place, clear fluid, dressing dry Extremities: Dependent edema posterior thighs unchanged Neuro: No focal deficits, generalized weakness, resting tremor Psych: Depressed affect Results & Data Results & Data Vital Signs (Past 12 Hours) Vital Signs Temp Pulse Resp BP Pulse Ox O2 Del Method O2 Flow Rate 03/02/24 08:25 36.4 C L 81 18 139/80 95 Nasal Cannula 2 03/02/24 04:27 36.4 C L 75 20 126/75 95 Nasal Cannula 2 03/02/24 02:37 Room Air 03/02/24 00:25 36.4 C L 74 20 116/73 99 Nasal Cannula 2 Diagnostic Findings Reviewed imaging, laboratory and diagnostic studies. Pertinent findings as below. Electrolytes stable Creatinine stable Glucose was reviewed Telemetry is remains sinus rhythm Echocardiogram report reviewed, normal ejection fraction minimal posterior inferior wall motion abnormality. Overall unchanged from previous echocardiogram.
--- NOTE | 2024-03-02 14:37 | Surgery Progress Note ---
Date of Service March 02, 2024 Assessment & Plan (1) Status post Roosevelt procedure: Plan: POD #7 Roosevelt procedure for stercoral perforation Additional enema via the colostomy today, if possible would perform over the weekend but may not be feasible She can have sips and chips, potentially advance to clear liquids if doing well tomorrow PT/OT, ambulate, out of bed to chair, I-S Continue antibiotics Dr. Menjivar covering over the weekend (2) Stercoral colitis: Admission and Anticipated Discharge Date Admission Date: February 24, 2024 Subjective POD #7 Morin's procedure for stercoral perforation. Tolerated NG tube clamping with minimal residual and this was removed. She has tolerated this well. Still complains of abdominal pain. Had a tapwater enema via the ostomy yesterday with minimal stool return. Physical Exam Constitutional: WD/WN, vitals as above + lethargic Gastrointestinal (Abdomen): Inspection/Auscultation: + abdominal surgical incision (Ayleen in place, no infection) and + abdominal surgical drain present (Serosanguineous) Percussion/Palpation: + abdomen tender (Appropriately tender to palpation) and abdomen soft; no guarding and abdomen not rigid Ostomy pink, patent. Palpable stool ball below the fascia. Results & Data Vital Signs (Past 12 Hours) Vital Signs Temp Pulse Pulse Resp BP Pulse Ox O2 Del Method 03/02/24 12:19 Nasal Cannula 03/02/24 12:18 82 03/02/24 12:17 36.5 C 82 18 110/72 95 Nasal Cannula 03/02/24 08:25 36.4 C L 81 18 139/80 95 Nasal Cannula 03/02/24 04:27 36.4 C L 75 20 126/75 95 Nasal Cannula 03/02/24 02:37 Room Air O2 Flow Rate 03/02/24 12:19 2 03/02/24 12:18 03/02/24 12:17 2 03/02/24 08:25 2 03/02/24 04:27 2 03/02/24 02:37 Laboratory Results Laboratory Results - last 24 hr 03/01/24 03/01/24 03/02/24 17:00 20:06 00:55 Sodium Potassium Chloride Carbon Dioxide Anion Gap BUN Creatinine Est Cr Clr Drug Dosing Est GFR ( Amer) Est GFR (Non-Af Amer) BUN/Creatinine Ratio Glucose POC Glucose 204 H 173 H 204 H Calcium Phosphorus Magnesium 03/02/24 03/02/24 03/02/24 04:41 05:37 08:12 Sodium 137 Potassium 4.0 Chloride 103 Carbon Dioxide 28 Anion Gap 6 BUN 53 H Creatinine 1.04 Est Cr Clr Drug Dosing 58.4 Est GFR ( Amer) 62.2 Est GFR (Non-Af Amer) 53.6 BUN/Creatinine Ratio 51.0 H Glucose 194 H POC Glucose 243 H 207 H Calcium 7.7 L Phosphorus 2.8 Magnesium 2.0 03/02/24 12:15 Sodium Potassium Chloride Carbon Dioxide Anion Gap BUN Creatinine Est Cr Clr Drug Dosing Est GFR ( Amer) Est GFR (Non-Af Amer) BUN/Creatinine Ratio Glucose POC Glucose 236 H Calcium Phosphorus Magnesium PG Care Time/CCT Total # of Minutes Spent Total Time Spent with Patient: Total time spent is greater than 50% in coordination of care (as documented) at patient's floor/unit and/or counseling patient: Coding Level of Care Code 81164 Post Operative Follow-Up Diagnoses Status post Roosevelt procedure Z93.3 Stercoral colitis K52.89
[2024-03-02] MEDS: NYSTATIN 500,000 UNIT TAB PO SCH (16:24)
[2024-03-02] MEDS: CENTRAL TPN IV SCH (16:25)
[2024-03-02] MEDS: [UNRECOGNIZED DRUG - OTHER] IV SCH (16:25)
[2024-03-02] MEDS: CLINOLIPID 20% IV FAT EMULSION 250 ML IV SCH (16:25)
[2024-03-02] MEDS ORDERED: HYDROmorphone INJ 0.5 MG/0.5 ML SYR IV STA (21:41)
[2024-03-03] MEDS ORDERED: Nursing to Pharmacy Communication SCH (01:00)
[2024-03-03 07:51] LABS: BUN Creatinine Ratio 58.8 (10-20); Calcium 7.7 mg/dl (8.6-10.3); Creatinine Clr Calc Pharmacy 59.9 ml/min; Est GFR (African American) 63.6 ml/min; Est GFR (Non-African American) 54.9 ml/min; Phosphorus 3.4 mg/dl (2.5-4.9); Potassium 4.4 mmol/L (3.5-5.1)
[2024-03-03] MEDS: LANTUS PER UNIT CHARGE SC SCH (10:01)
[2024-03-03 10:26] LABS: Hematocrit (blood only) 28.1 % (37.0-47.0); Hemoglobin 8.9 g/dl (12.0-16.0); Mean Corpuscular Hemoglobin 28.3 pg (25.0-34.0); Mean Corpuscular Hgb Conc 31.7 g/dL (32.0-36.0); Mean Corpuscular Volume 89.5 fL (80.0-100.0); Mean Platelet Volume 9.6 fL (9.4-12.4); Platelet Count 308 K/uL (130-400); RDW Coefficient of Variation 14.1 % (11.5-14.5); RDW Standard Deviation 45.5 fL (36.4-46.3); Red Blood Count 3.14 M/uL (4.20-5.40); White Blood Count 11.17 K/ul (4.8-10.8)
[2024-03-03] MEDS: OPTIRAY 320 125ml IV ONE (10:51)
--- NOTE | 2024-03-03 11:22 | CT Scan Report ---
CT angio abdomen pelvis w con CLINICAL HISTORY: 73 years-old Female with no BM, c/f abscess no BM, c/f abscess acute has abdomin al pain COMPARISON STUDY: CT abdomen and pelvis 02/24/2024 TECHNIQUE: Following the IV administration of 120 cc of Optiray, CT angiogram of the abdomen and pelv is was performed from the lung bases the proximal femora. Images are reviewed in the axial, sagittal, and coronal planes. 3-D MIPS images are created and assessed. All measurements were obtained accordi ng to NASCET criteria. IV contrast was administered without complication. A dose lowering technique was utilized adhering to the principles of ALARA. CT DOSE: 1300.99 mGy.cm FINDINGS: CTA: Mild cardiomegaly. Partially imaged catheter within the right atrium. Coronary artery calcificat ions. Atherosclerosis of the thoracic aorta and branch vessels without aneurysm or dissection. There is patency of the celiac trunk, superior and inferior mesenteric arteries. The renal arteries are pat ent with moderate narrowing at the origins. CT ABDOMEN/PELVIS: Trace pleural effusions with mild dependent bibasilar atelectasis. Unremarkable sp pranav, pancreas and adrenal glands. Cholelithiasis with mild nonspecific gallbladder wall thickening a nd trace pericholecystic fluid redemonstrated. Unremarkable liver. Cortical thinning of the kidneys. Scattered subcentimeter calcifications of the kidneys mostly appear to be vascular. No ureteral calculi or hydronephrosis. Decompressed or neobladder with Douglas cathete r in place. Heterogeneous uterus. No lymphadenopathy. Mild nonspecific distal esophageal wall thickening. There is no small bowel obstruction. Status post partial resection of the left hemicolon with left lower quadrant colostomy. Scattered foci of pneumop eritoneum with anterior abdominal wall subcutaneous and deep tissue air, likely expected postoperativ e changes. Small amount of ascites within the pelvis. A surgical drainage catheter terminates in the abdominal left lower quadrant. No acute fracture. IMPRESSION: 1. Interval partial left hemicolectomy with left lower quadrant colostomy. Small amount of pneumoperi toneum with trace ascites. No drainable fluid collections. 2. Surgical drainage catheter terminates in the left hemipelvis. 3. No small bowel obstruction. 4. Atherosclerosis without aneurysm, dissection, high-grade stenosis or active extravasation. 5. Cholelithiasis with unchanged appearance of the gallbladder. 6. Additional findings as above. ACT 112: Negative or not required by law. The above report was generated using voice recognition software. It may contain grammatical, syntax o r spelling errors. Electronically signed by: Eder Torres M.D. 03/03/2024 11:19 AM
--- NOTE | 2024-03-03 11:57 | Surgery Progress Note ---
Date of Service March 03, 2024 Assessment & Plan (1) Status post Roosevelt procedure: Plan: POD #8 Roosevelt procedure for stercoral perforation Continue sips and chips we will obtain CT scan today for further evaluation of the abdomen PT/OT, ambulate, out of bed to chair, I-S Continue antibiotics (2) Stercoral colitis: Admission and Anticipated Discharge Date Admission Date: February 24, 2024 Subjective POD #8 Morin's procedure for stercoral perforation. Still complains of abdominal pain. No stool output in the ostomy today. will not get out of bed. Physical Exam Physical Exam: awake, alert, appears in pain intermittently Gastrointestinal (Abdomen): Inspection/Auscultation: + abdomen distended (mild), + abdominal surgical incision (Ayleen in place, no infection) and + abdominal surgical drain present (Serosanguineous) Percussion/Palpation: + abdomen tender (Appropriately tender to palpation) Results & Data Vital Signs (Past 12 Hours) Vital Signs Temp Pulse Pulse Resp BP Pulse Ox O2 Del Method 03/03/24 11:51 36.8 C 88 16 162/74 H 97 Room Air 03/03/24 11:16 97 Room Air 03/03/24 07:58 37.2 C 85 16 116/69 98 Room Air 03/03/24 07:33 77 03/03/24 04:16 36.5 C 81 20 121/72 98 Room Air 03/03/24 02:15 36.4 C L 80 20 109/72 98 Nasal Cannula O2 Flow Rate 03/03/24 11:51 03/03/24 11:16 03/03/24 07:58 03/03/24 07:33 03/03/24 04:16 03/03/24 02:15 2 Laboratory Results 03/03/24 03/03/24 03/03/24 Range/Units 08:23 06:51 06:45 WBC 11.17 H (4.8-10.8) K/ul RBC 3.14 L (4.20-5.40) M/uL Hgb 8.9 L (12.0-16.0) g/dl Hct 28.1 L (37.0-47.0) % MCV 89.5 (80.0-100.0) fL MCH 28.3 (25.0-34.0) pg MCHC 31.7 L (32.0-36.0) g/dL RDW Std Deviation 45.5 (36.4-46.3) fL RDW Coeff of Erwin 14.1 (11.5-14.5) % Plt Count 308 (130-400) K/uL MPV 9.6 (9.4-12.4) fL Sodium 137 (136-145) mmol/L Potassium 4.4 (3.5-5.1) mmol/L Chloride 105 (98-107) mmol/L Carbon Dioxide 26 (21-32) mmol/L Anion Gap 6 (3-11) BUN 60 H (6-23) mg/dl Creatinine 1.02 (0.6-1.2) mg/dl Est Cr Clr Drug Dosing 59.9 ml/min Est GFR ( Amer) 63.6 ml/min Est GFR (Non-Af Amer) 54.9 ml/min BUN/Creatinine Ratio 58.8 H (10-20) Glucose 163 H (70-99(Fasting)) mg/dl POC Glucose 201 H (70-99) mg/dl Calcium 7.7 L (8.6-10.3) mg/dl Phosphorus 3.4 (2.5-4.9) mg/dl Magnesium 2.0 (1.7-2.4) mg/dl 03/03/24 03/03/24 03/02/24 Range/Units 04:54 02:08 22:54 WBC (4.8-10.8) K/ul RBC (4.20-5.40) M/uL Hgb (12.0-16.0) g/dl Hct (37.0-47.0) % MCV (80.0-100.0) fL MCH (25.0-34.0) pg MCHC (32.0-36.0) g/dL RDW Std Deviation (36.4-46.3) fL RDW Coeff of Erwin (11.5-14.5) % Plt Count (130-400) K/uL MPV (9.4-12.4) fL Sodium (136-145) mmol/L Potassium (3.5-5.1) mmol/L Chloride (98-107) mmol/L Carbon Dioxide (21-32) mmol/L Anion Gap (3-11) BUN (6-23) mg/dl Creatinine (0.6-1.2) mg/dl Est Cr Clr Drug Dosing ml/min Est GFR ( Amer) ml/min Est GFR (Non-Af Amer) ml/min BUN/Creatinine Ratio (10-20) Glucose (70-99(Fasting)) mg/dl POC Glucose 192 H 184 H 205 H (70-99) mg/dl Calcium (8.6-10.3) mg/dl Phosphorus (2.5-4.9) mg/dl Magnesium (1.7-2.4) mg/dl 03/02/24 03/02/24 Range/Units 17:09 12:15 WBC (4.8-10.8) K/ul RBC (4.20-5.40) M/uL Hgb (12.0-16.0) g/dl Hct (37.0-47.0) % MCV (80.0-100.0) fL MCH (25.0-34.0) pg MCHC (32.0-36.0) g/dL RDW Std Deviation (36.4-46.3) fL RDW Coeff of Erwin (11.5-14.5) % Plt Count (130-400) K/uL MPV (9.4-12.4) fL Sodium (136-145) mmol/L Potassium (3.5-5.1) mmol/L Chloride (98-107) mmol/L Carbon Dioxide (21-32) mmol/L Anion Gap (3-11) BUN (6-23) mg/dl Creatinine (0.6-1.2) mg/dl Est Cr Clr Drug Dosing ml/min Est GFR ( Amer) ml/min Est GFR (Non-Af Amer) ml/min BUN/Creatinine Ratio (10-20) Glucose (70-99(Fasting)) mg/dl POC Glucose 183 H 236 H (70-99) mg/dl Calcium (8.6-10.3) mg/dl Phosphorus (2.5-4.9) mg/dl Magnesium (1.7-2.4) mg/dl
--- NOTE | 2024-03-03 12:14 | Hospitalist Progress Note ---
Date of Service March 03, 2024 Assessment & Plan (1) Diverticulitis of large intestine with perforation and abscess: (2) Peritonitis due to abscess: (3) Perforation of sigmoid colon: (4) Paroxysmal atrial fibrillation: (5) Severe sepsis with acute organ dysfunction: (6) Acute metabolic encephalopathy: (7) Acute renal failure superimposed on stage 3 chronic kidney disease: (8) Hypothyroidism: (9) Diabetes mellitus, type 2: Plan Ms. 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 Patient is now POD 8 from [facility] procedure for stercoral perforation. #Abdominal pain #Stercoral colitis c/b perforation s/p colostomy Currently with minimal stool return Surgery following -Continue enema via colostomy -Encourage mobility as able -Incentive spirometry -Continue Abx--ctx and flagyl CT obtained without signs of abscess Continue TPN #Leukocytosis elevated to 11 this am, afebrile CT ab as above Monitor fever curve and trend cbc #DMTII A1C 7.0% basal bolus while admitted #Parkinson's disorder continue entacapone and Sinemet #CAD echo 04/2022 EF 57%, inferior/basal hypokinesis consistent with chronic cad/occlusion of RCA continue coreg hold lisinopril #Hypertension on coreg, lisinopril as OP hold lisinopril continue coreg #CKD-3 baseline Cr 1.4 monitor renal fxn, avoid nephrotoxic agents #Carotid artery disease s/p L CEA 06/2021 continue asa, statin #Hypothyroidism continue levothyroxine and liothyronine #Glaucoma continue eye drops dvt heparin q 8 sq Pending bowel function via colostomy Admission and Anticipated Discharge Date Admission Date: February 24, 2024 Subjective Patient with ongoing abdominal pain No active output/gas in ostomy Reports nausea, no vomiting Physical Exam Constitutional: sitting upright uncomfortable. Respiratory: normal respiratory effort, lungs clear to auscultation Cardiovascular: RRR, no murmur, no edema Gastrointestinal (Abdomen): protuberant but soft however tender abdomen, mayco midline without signs of superimposed infection; ostomy without any output in bag Results & Data Results & Data Vital Signs (Past 12 Hours) Vital Signs Temp Pulse Pulse Resp BP Pulse Ox O2 Del Method 03/03/24 11:51 36.8 C 88 16 162/74 H 97 Room Air 03/03/24 11:16 97 Room Air 03/03/24 07:58 37.2 C 85 16 116/69 98 Room Air 03/03/24 07:33 77 03/03/24 04:16 36.5 C 81 20 121/72 98 Room Air 03/03/24 02:15 36.4 C L 80 20 109/72 98 Nasal Cannula O2 Flow Rate 03/03/24 11:51 03/03/24 11:16 03/03/24 07:58 03/03/24 07:33 03/03/24 04:16 03/03/24 02:15 2 Laboratory Results Short CBC 03/03/24 Range/Units 06:51 WBC 11.17 H (4.8-10.8) K/ul Hgb 8.9 L (12.0-16.0) g/dl Hct 28.1 L (37.0-47.0) % Plt Count 308 (130-400) K/uL BMP 03/03/24 06:45 Sodium 137 Potassium 4.4 Chloride 105 Carbon Dioxide 26 BUN 60 H Creatinine 1.02 Glucose 163 H Calcium 7.7 L Medications Administered Home Medications Medication Instructions Recorded Confirmed Last Taken ascorbic acid (vitamin C) 1,000 mg 1 g PO [facility] 06/22/18 02/24/24 02/23/24 tablet (Vitamin C) fexofenadine 180 mg tablet 180 mg PO QA 06/22/18 02/24/24 02/23/24 (Aleisha Allergy) folic acid 1 mg tablet 1 mg PO QAM 06/22/18 02/24/24 02/23/24 [id number]-[id number] 1 tab PO QA 06/22/18 02/24/24 02/23/24 tablet (Multivitamin 50 Plus tablet) thiamine HCl (vitamin B1) 50 mg 50 mg PO [facility] 06/22/18 02/24/24 02/23/24 tablet (Vitamin B-1) vitamin E 200 unit capsule 200 unit PO 06/22/18 02/24/24 02/23/24 latanoprost (PF) 0.005 % eye drops 1 drp OPB DAILY 01/22/20 02/24/24 02/23/24 semaglutide 0.25 mg or 0.5 mg (2 1.25 mg subcut WK 04/08/20 02/24/24 2 Weeks Ago mg/1.5 mL) subcutaneous pen ~02/10/24 injector (Ozempic) aspirin 81 mg tablet,delayed 81 mg PO QAM 07/14/22 02/24/24 02/23/24 release dorzolamide-timolol (PF) 2 %-0.5 % 1 drp OPB DAILY 08/02/22 02/24/24 02/23/24 eye drops in a dropperette B-complex with vitamin C 1 tab PO DAILY 11/11/23 02/24/24 02/23/24 glucosamine-chondroitin 250 mg-200 1 tab PO DAILY 11/11/23 02/24/24 02/23/24 mg tablet (Osteo Bi-Flex) omega 2-tbi-bjg-fish oil 1,000 mg 1 cap PO DAILY 11/11/23 02/24/24 1 Month Ago (120 mg-180 mg) capsule (Fish Oil) ~01/24/24 pantoprazole 40 mg tablet,delayed 40 mg PO DAILY 11/11/23 02/24/24 02/23/24 release entacapone 200 mg tablet 200 mg PO TID #270 tabs 01/11/24 02/24/24 02/23/24 atorvastatin 80 mg tablet 80 mg PO DAILY 02/24/24 02/24/24 02/23/24 carbidopa 25 mg-levodopa 100 mg 2 tab PO TID 02/24/24 02/24/24 02/23/24 tablet carvedilol 12.5 mg tablet 12.5 mg PO BID 02/24/24 02/24/24 02/23/24 levothyroxine 100 mcg tablet 100 mcg PO DAILY 02/24/24 02/24/24 02/23/24 liothyronine 5 mcg tablet 5 mcg PO DAILY 02/24/24 02/24/24 02/23/24 lisinopril 20 mg tablet 20 mg PO DAILY 02/24/24 02/24/24 02/23/24 tramadol 50 mg tablet 50 mg PO Q6H PRN Moderate Pain 02/24/24 02/24/24 02/23/24 (Scale Score 5-6) Active Medications Generic Name Dose Route Start Last Admin Trade Name Lyly PRN Reason Stop Dose Admin Acetaminophen 1,000 mg 02/26/24 21:00 03/03/24 10:03 Acetaminophen 500 Mg Tab PO 03/27/24 20:59 1,000 mg TID JOEL Administration Carbidopa/Levodopa 2 tab 02/24/24 21:00 03/03/24 10:03 Carbidopa/Levodopa 25/100mg Tab PO 03/25/24 20:59 2 tab TID JOEL Administration Carvedilol 12.5 mg 03/01/24 17:00 03/03/24 10:03 Carvedilol 12.5 Mg Tab PO 03/31/24 16:59 12.5 mg BIDM JOEL Administration Docusate Sodium 100 mg 03/01/24 21:00 03/03/24 10:01 Docusate Sodium 100 Mg Cap PO 03/31/24 20:59 100 mg BID JOEL Administration Dorzolamide HCl 1 drops 02/25/24 09:00 03/03/24 10:02 Dorzolamide Hcl 2% Oph Soln 10 Ml Btl OPB 03/26/24 08:59 1 drops DAILY JOEL Administration Entacapone 200 mg 02/24/24 21:00 03/03/24 10:02 Entacapone 200 Mg Tab PO 03/25/24 20:59 200 mg TID JOEL Administration Heparin Sodium (Porcine) 5,000 units 02/26/24 14:00 03/03/24 05:01 Heparin Sod 5,000 Unit/0.5 Ml Vial SQ 03/27/24 13:59 5,000 units Q8 JOEL Administration Ceftriaxone Sodium 2,000 mg in 50 mls @ 100 mls/hr 02/27/24 12:00 03/02/24 12:28 Rocephin IV 03/08/24 11:59 Infused Q24H JOEL Infusion Metronidazole 500 mg in 100 mls @ 100 mls/hr 02/27/24 12:00 03/03/24 06:07 Flagyl IV 03/08/24 11:59 Infused Q8H JOEL Infusion Amino Acids/Dextrose 1,558.3 1,558.3 mls @ 64.9 mls/hr 03/02/24 16:00 03/02/24 16:25 ml/ Nutrition (Parenteral) IV 03/03/24 15:59 64.9 mls/hr .Q24H JOEL Administration Protocol Insulin Aspart 0 units 03/01/24 12:00 03/03/24 10:00 Insulin Aspart Per Unit Charge SC 03/31/24 11:59 7 units Q4 JOEL Administration Insulin Glargine 26 units 03/03/24 09:00 03/03/24 10:01 Lantus Per Unit Charge SC 04/02/24 08:59 26 units DAILY JOEL Administration Latanoprost 1 drops 02/25/24 09:00 03/03/24 10:02 Latanoprost 0.005% Op Soln 2.5 Ml Btl OP 03/26/24 08:59 1 drops DAILY JOEL Administration Levothyroxine Sodium 100 mcg 02/25/24 06:30 03/03/24 05:02 Levothyroxine Sodium 100 Mcg Tablet PO 03/26/24 06:29 100 mcg DAILYBB JOEL Administration Liothyronine Sodium 5 mcg 02/25/24 09:00 03/03/24 10:02 Liothyronine Sodium 5 Mcg Tab PO 03/26/24 08:59 5 mcg DAILY JOEL Administration Miscellaneous 1 each 02/28/24 22:00 03/02/24 22:00 Stop Clinolipid N/A 03/29/24 21:59 1 each DAILY@2200 JOEL Administration Nystatin 500,000 units 03/02/24 17:00 03/03/24 10:01 Nystatin 500,000 Unit Tab PO 03/12/24 16:59 500,000 units QID JOEL Administration Oxycodone HCl 5 - 10 mg 02/24/24 18:33 03/02/24 20:13 Oxycodone Hcl Ir 5 Mg Tab (Immediate Release) PO 03/09/24 18:32 10 mg Q6H PRN Administration pain Timolol Maleate 1 drops 02/25/24 09:00 03/03/24 10:03 Timolol Maleate 0.5% Op Soln 5 Ml Btl OPB 03/26/24 08:59 1 drops DAILY JOEL Administration Vibegron 75 mg 02/24/24 21:00 03/02/24 22:29 Vibegron 75 Mg Tab PO 03/25/24 20:59 75 mg QPM JOEL Administration
[2024-03-03] MEDS: KETOROLAC TROMETHAMINE 15 MG/ML VIAL IV ONE ×2 (12:26→22:03)
[2024-03-03] MEDS: [UNRECOGNIZED DRUG - OTHER] IV SCH (16:26)
[2024-03-03] MEDS: CENTRAL TPN IV SCH (16:26)
[2024-03-03] MEDS: CLINOLIPID 20% IV FAT EMULSION 250 ML IV SCH (16:26)
[2024-03-03] MEDS ORDERED: CHLORASEPTIC (PHENOL) 1.4% SOLN 180 ML BTL MT PRN (20:26)
[2024-03-03] MEDS: HYDROmorphone INJ 0.5 MG/0.5 ML SYR IV PRN (23:50)
--- NOTE | 2024-03-04 10:52 | Surgery Progress Note ---
Date of Service March 04, 2024 Assessment & Plan (1) Status post [facility] procedure: Plan: POD #9 [facility] procedure for stercoral perforation Continue sips and chips CT scan negative PT/OT, ambulate, out of bed to chair, I-S need to be more aggressive with mobilization of patient Continue antibiotics (2) Stercoral colitis: Admission and Anticipated Discharge Date Admission Date: February 24, [address] scan yesterday did not demonstrate any intra-abdominal pathology such as obstruction or abscess. She continues to complain of abdominal pain and some nausea. No ostomy output. No Fevers or chills. Physical Exam Physical Exam: awake, alert, appears in pain intermittently Gastrointestinal (Abdomen): Inspection/Auscultation: + abdomen distended (mild), + abdominal surgical incision (Buchtel in place, no infection) and + abdominal surgical drain present (Serosanguineous) Percussion/Palpation: + abdomen tender (Appropriately tender to palpation) Results & Data Vital Signs (Past 12 Hours) Vital Signs Temp Pulse Pulse Resp BP Pulse Ox O2 Del Method 03/04/24 08:34 36.5 C 78 18 148/80 H 97 Room Air 03/04/24 07:17 67 03/04/24 04:54 36.4 C L 69 20 116/69 98 Room Air 03/04/24 01:11 36.5 C 71 20 105/66 96 Room Air 03/04/24 00:49 79 Laboratory Results 03/04/24 03/04/24 03/04/24 Range/Units 08:23 04:07 00:41 POC Glucose 156 H 184 H 174 H (70-99) mg/dl 03/03/24 03/03/24 03/03/24 Range/Units 21:01 17:29 12:27 POC Glucose 173 H 178 H 216 H (70-99) mg/dl
[2024-03-04] MEDS: [UNRECOGNIZED DRUG - OTHER] IV SCH (17:01)
[2024-03-04] MEDS: CENTRAL TPN IV SCH (17:01)
[2024-03-04] MEDS: CLINOLIPID 20% IV FAT EMULSION 250 ML IV SCH (17:05)
--- NOTE | 2024-03-04 17:15 | Hospitalist Progress Note ---
Date of Service March 04, 2024 Assessment & Plan (1) Diverticulitis of large intestine with perforation and abscess: (2) Peritonitis due to abscess: (3) Perforation of sigmoid colon: (4) Paroxysmal atrial fibrillation: (5) Severe sepsis with acute organ dysfunction: (6) Acute metabolic encephalopathy: (7) Acute renal failure superimposed on stage 3 chronic kidney disease: (8) Hypothyroidism: (9) Diabetes mellitus, type 2: Plan Ms. 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 Patient is now POD 9 from [facility] procedure for stercoral perforation. Patient remains without active bowel output at this time/gas. Patient is wheelchair dependent at baseline, therefore mobilization is difficult. #Abdominal pain #Stercoral colitis c/b perforation s/p colostomy Currently with minimal stool return Surgery following -Continue enema via colostomy -Encourage mobility as able -Incentive spirometry -Continue Abx--ctx and flagyl CT obtained without signs of abscess Continue TPN #Leukocytosis elevated to 11 this am, afebrile CT ab as above Monitor fever curve and trend cbc #DMTII A1C 7.0% basal bolus while admitted #Parkinson's disorder continue entacapone and Sinemet #CAD echo 04/2022 EF 57%, inferior/basal hypokinesis consistent with chronic cad/occlusion of RCA continue coreg hold lisinopril #Hypertension on coreg, lisinopril as OP continue to hold lisinopril continue coreg #CKD-3 baseline Cr 1.4 monitor renal fxn, avoid nephrotoxic agents #Carotid artery disease s/p L CEA 06/2021 continue asa, statin #Hypothyroidism continue levothyroxine and liothyronine #Glaucoma continue eye drops dvt heparin q 8 sq Pending bowel function via colostomy Admission and Anticipated Discharge Date Admission Date: February 24, 2024 Subjective Patient remains in notable discomfort denies any appetite States pain is constant and same from day prior Physical Exam Constitutional: WD/WN, vitals as above Respiratory: normal respiratory effort, lungs clear to auscultation Cardiovascular: RRR, no murmur, no edema Gastrointestinal (Abdomen): remains soft, nontender; ostomy pink, no gas in bag/or stool Results & Data Results & Data Vital Signs (Past 12 Hours) Vital Signs Temp Pulse Pulse Resp BP Pulse Ox O2 Del Method 03/04/24 15:51 36.9 C 72 24 106/69 97 Room Air 03/04/24 12:06 36.8 C 74 18 127/79 96 Room Air 03/04/24 08:34 36.5 C 78 18 148/80 H 97 Room Air 03/04/24 07:17 67 Laboratory Results Home Medications Medication Instructions Recorded Confirmed Last Taken ascorbic acid (vitamin C) 1,000 mg 1 g PO QAM 06/22/18 02/24/24 02/23/24 tablet (Vitamin C) fexofenadine 180 mg tablet 180 mg PO QAM 06/22/18 02/24/24 02/23/24 (Aleisha Allergy) folic acid 1 mg tablet 1 mg PO QAM 06/22/18 02/24/24 02/23/24 [id number] 1 tab PO QAM 06/22/18 02/24/24 02/23/24 tablet (Multivitamin 50 Plus tablet) thiamine HCl (vitamin B1) 50 mg 50 mg PO QAM 06/22/18 02/24/24 02/23/24 tablet (Vitamin B-1) vitamin E 200 unit capsule 200 unit PO HS 06/22/18 02/24/24 02/23/24 latanoprost (PF) 0.005 % eye drops 1 drp OPB DAILY 01/22/20 02/24/24 02/23/24 semaglutide 0.25 mg or 0.5 mg (2 1.25 mg subcut WK 04/08/20 02/24/24 2 Weeks Ago mg/1.5 mL) subcutaneous pen ~02/10/24 injector (Ozempic) aspirin 81 mg tablet,delayed 81 mg PO QAM 07/14/22 02/24/24 02/23/24 release dorzolamide-timolol (PF) 2 %-0.5 % 1 drp OPB DAILY 08/02/22 02/24/24 02/23/24 eye drops in a dropperette B-complex with vitamin C 1 tab PO DAILY 11/11/23 02/24/24 02/23/24 glucosamine-chondroitin 250 mg-200 1 tab PO DAILY 11/11/23 02/24/24 02/23/24 mg tablet (Osteo Bi-Flex) omega 3-sqc-uxn-fish oil 1,000 mg 1 cap PO DAILY 11/11/23 02/24/24 1 Month Ago (120 mg-180 mg) capsule (Fish Oil) ~01/24/24 pantoprazole 40 mg tablet,delayed 40 mg PO DAILY 11/11/23 02/24/24 02/23/24 release entacapone 200 mg tablet 200 mg PO TID #270 tabs 01/11/24 02/24/24 02/23/24 atorvastatin 80 mg tablet 80 mg PO DAILY 02/24/24 02/24/24 02/23/24 carbidopa 25 mg-levodopa 100 mg 2 tab PO TID 02/24/24 02/24/24 02/23/24 tablet carvedilol 12.5 mg tablet 12.5 mg PO BID 02/24/24 02/24/24 02/23/24 levothyroxine 100 mcg tablet 100 mcg PO DAILY 02/24/24 02/24/24 02/23/24 liothyronine 5 mcg tablet 5 mcg PO DAILY 02/24/24 02/24/24 02/23/24 lisinopril 20 mg tablet 20 mg PO DAILY 02/24/24 02/24/24 02/23/24 tramadol 50 mg tablet 50 mg PO Q6H PRN Moderate Pain 02/24/24 02/24/24 02/23/24 (Scale Score 5-6) Active Medications Generic Name Dose Route Start Last Admin Trade Name Duq PRN Reason Stop Dose Admin Acetaminophen 1,000 mg 02/26/24 21:00 03/04/24 13:46 Acetaminophen 500 Mg Tab PO 03/27/24 20:59 1,000 mg TID JOEL Administration Carbidopa/Levodopa 2 tab 02/24/24 21:00 03/04/24 13:46 Carbidopa/Levodopa 25/100mg Tab PO 03/25/24 20:59 2 tab TID JOEL Administration Carvedilol 12.5 mg 03/01/24 17:00 03/04/24 17:10 Carvedilol 12.5 Mg Tab PO 03/31/24 16:59 12.5 mg BIDM JOEL Administration Docusate Sodium 100 mg 03/01/24 21:00 03/04/24 09:35 Docusate Sodium 100 Mg Cap PO 03/31/24 20:59 100 mg BID JOEL Administration Dorzolamide HCl 1 drops 02/25/24 09:00 03/04/24 09:32 Dorzolamide Hcl 2% Oph Soln 10 Ml Btl OPB 03/26/24 08:59 1 drops DAILY JOEL Administration Entacapone 200 mg 02/24/24 21:00 03/04/24 13:46 Entacapone 200 Mg Tab PO 03/25/24 20:59 200 mg TID JOEL Administration Heparin Sodium (Porcine) 5,000 units 02/26/24 14:00 03/04/24 14:25 Heparin Sod 5,000 Unit/0.5 Ml Vial SQ 03/27/24 13:59 5,000 units Q8 JOEL Administration Ceftriaxone Sodium 2,000 mg in 50 mls @ 100 mls/hr 02/27/24 12:00 03/04/24 12:51 Rocephin IV 03/08/24 11:59 Infused Q24H JOEL Infusion Metronidazole 500 mg in 100 mls @ 100 mls/hr 02/27/24 12:00 03/04/24 15:08 Flagyl IV 03/08/24 11:59 Infused Q8H JOEL Infusion Amino Acids/Dextrose 1,564 ml/ 1,564 mls @ 65 mls/hr 03/04/24 16:00 03/04/24 17:01 Nutrition (Parenteral) IV 03/05/24 15:59 65 mls/hr .Q24H JOEL Administration Protocol Fat Emulsion-Wylie Oil/Soybean Oil 250 mls @ 41.667 mls/hr 03/04/24 16:00 03/04/24 17:05 Clinolipid 20% Iv Fat Emulsion IV 03/04/24 21:59 41.7 mls/hr .Q6H JOEL Administration Insulin Aspart 0 units 03/01/24 12:00 03/04/24 16:30 Insulin Aspart Per Unit Charge SC 03/31/24 11:59 10 units Q4 JOEL Administration Insulin Glargine 26 units 03/03/24 09:00 03/04/24 09:35 Lantus Per Unit Charge SC 04/02/24 08:59 26 units DAILY JOEL Administration Latanoprost 1 drops 02/25/24 09:00 03/04/24 09:32 Latanoprost 0.005% Op Soln 2.5 Ml Btl OP 03/26/24 08:59 1 drops DAILY JOEL Administration Levothyroxine Sodium 100 mcg 02/25/24 06:30 03/04/24 05:31 Levothyroxine Sodium 100 Mcg Tablet PO 03/26/24 06:29 100 mcg DAILYBB JOEL Administration Liothyronine Sodium 5 mcg 02/25/24 09:00 03/04/24 09:30 Liothyronine Sodium 5 Mcg Tab PO 03/26/24 08:59 5 mcg DAILY JOEL Administration Miscellaneous 1 each 02/28/24 22:00 03/03/24 22:03 Stop Clinolipid N/A 03/29/24 21:59 1 each DAILY@2200 JOEL Administration Nystatin 500,000 units 03/02/24 17:00 03/04/24 17:10 Nystatin 500,000 Unit Tab PO 03/12/24 16:59 500,000 units QID JOEL Administration Oxycodone HCl 5 - 10 mg 02/24/24 18:33 03/03/24 21:20 Oxycodone Hcl Ir 5 Mg Tab (Immediate Release) PO 03/09/24 18:32 5 mg Q6H PRN Administration pain Timolol Maleate 1 drops 02/25/24 09:00 03/04/24 09:32 Timolol Maleate 0.5% Op Soln 5 Ml Btl OPB 03/26/24 08:59 1 drops DAILY JOEL Administration Vibegron 75 mg 02/24/24 21:00 03/03/24 20:10 Vibegron 75 Mg Tab PO 03/25/24 20:59 75 mg QPM JOEL Administration Medications Administered Home Medications Medication Instructions Recorded Confirmed Last Taken ascorbic acid (vitamin C) 1,000 mg 1 g PO QAM 06/22/18 02/24/24 02/23/24 tablet (Vitamin C) fexofenadine 180 mg tablet 180 mg PO QAM 06/22/18 02/24/24 02/23/24 (Aleisha Allergy) folic acid 1 mg tablet 1 mg PO QAM 06/22/18 02/24/24 02/23/24 [id number] 1 tab PO QAM 06/22/18 02/24/24 02/23/24 tablet (Multivitamin 50 Plus tablet) thiamine HCl (vitamin B1) 50 mg 50 mg PO QAM 06/22/18 02/24/24 02/23/24 tablet (Vitamin B-1) vitamin E 200 unit capsule 200 unit PO HS 06/22/18 02/24/24 02/23/24 latanoprost (PF) 0.005 % eye drops 1 drp OPB DAILY 01/22/20 02/24/24 02/23/24 semaglutide 0.25 mg or 0.5 mg (2 1.25 mg subcut WK 04/08/20 02/24/24 2 Weeks Ago mg/1.5 mL) subcutaneous pen ~02/10/24 injector (Ozempic) aspirin 81 mg tablet,delayed 81 mg PO QAM 07/14/22 02/24/24 02/23/24 release dorzolamide-timolol (PF) 2 %-0.5 % 1 drp OPB DAILY 08/02/22 02/24/24 02/23/24 eye drops in a dropperette B-complex with vitamin C 1 tab PO DAILY 11/11/23 02/24/24 02/23/24 glucosamine-chondroitin 250 mg-200 1 tab PO DAILY 11/11/23 02/24/24 02/23/24 mg tablet (Osteo Bi-Flex) omega 4-adx-hwe-fish oil 1,000 mg 1 cap PO DAILY 11/11/23 02/24/24 1 Month Ago (120 mg-180 mg) capsule (Fish Oil) ~01/24/24 pantoprazole 40 mg tablet,delayed 40 mg PO DAILY 11/11/23 02/24/24 02/23/24 release entacapone 200 mg tablet 200 mg PO TID #270 tabs 01/11/24 02/24/24 02/23/24 atorvastatin 80 mg tablet 80 mg PO DAILY 02/24/24 02/24/24 02/23/24 carbidopa 25 mg-levodopa 100 mg 2 tab PO TID 02/24/24 02/24/24 02/23/24 tablet carvedilol 12.5 mg tablet 12.5 mg PO BID 02/24/24 02/24/24 02/23/24 levothyroxine 100 mcg tablet 100 mcg PO DAILY 02/24/24 02/24/24 02/23/24 liothyronine 5 mcg tablet 5 mcg PO DAILY 02/24/24 02/24/24 02/23/24 lisinopril 20 mg tablet 20 mg PO DAILY 02/24/24 02/24/24 02/23/24 tramadol 50 mg tablet 50 mg PO Q6H PRN Moderate Pain 02/24/24 02/24/24 02/23/24 (Scale Score 5-6) Active Medications Generic Name Dose Route Start Last Admin Trade Name Lyly PRN Reason Stop Dose Admin Acetaminophen 1,000 mg 02/26/24 21:00 03/04/24 13:46 Acetaminophen 500 Mg Tab PO 03/27/24 20:59 1,000 mg TID JOEL Administration Carbidopa/Levodopa 2 tab 02/24/24 21:00 03/04/24 13:46 Carbidopa/Levodopa 25/100mg Tab PO 03/25/24 20:59 2 tab TID JOEL Administration Carvedilol 12.5 mg 03/01/24 17:00 03/04/24 17:10 Carvedilol 12.5 Mg Tab PO 03/31/24 16:59 12.5 mg BIDM JOEL Administration Docusate Sodium 100 mg 03/01/24 21:00 03/04/24 09:35 Docusate Sodium 100 Mg Cap PO 03/31/24 20:59 100 mg BID JOEL Administration Dorzolamide HCl 1 drops 02/25/24 09:00 03/04/24 09:32 Dorzolamide Hcl 2% Oph Soln 10 Ml Btl OPB 03/26/24 08:59 1 drops DAILY JOEL Administration Entacapone 200 mg 02/24/24 21:00 03/04/24 13:46 Entacapone 200 Mg Tab PO 03/25/24 20:59 200 mg TID JOEL Administration Heparin Sodium (Porcine) 5,000 units 02/26/24 14:00 03/04/24 14:25 Heparin Sod 5,000 Unit/0.5 Ml Vial SQ 03/27/24 13:59 5,000 units Q8 JOEL Administration Ceftriaxone Sodium 2,000 mg in 50 mls @ 100 mls/hr 02/27/24 12:00 03/04/24 12:51 Rocephin IV 03/08/24 11:59 Infused Q24H JOEL Infusion Metronidazole 500 mg in 100 mls @ 100 mls/hr 02/27/24 12:00 03/04/24 15:08 Flagyl IV 03/08/24 11:59 Infused Q8H JOEL Infusion Amino Acids/Dextrose 1,564 ml/ 1,564 mls @ 65 mls/hr 03/04/24 16:00 03/04/24 17:01 Nutrition (Parenteral) IV 03/05/24 15:59 65 mls/hr .Q24H JOEL Administration Protocol Fat Emulsion-Wylie Oil/Soybean Oil 250 mls @ 41.667 mls/hr 03/04/24 16:00 03/04/24 17:05 Clinolipid 20% Iv Fat Emulsion IV 03/04/24 21:59 41.7 mls/hr .Q6H JOEL Administration Insulin Aspart 0 units 03/01/24 12:00 03/04/24 16:30 Insulin Aspart Per Unit Charge SC 03/31/24 11:59 10 units Q4 JOEL Administration Insulin Glargine 26 units 03/03/24 09:00 03/04/24 09:35 Lantus Per Unit Charge SC 04/02/24 08:59 26 units DAILY JOEL Administration Latanoprost 1 drops 02/25/24 09:00 03/04/24 09:32 Latanoprost 0.005% Op Soln 2.5 Ml Btl OP 03/26/24 08:59 1 drops DAILY JOEL Administration Levothyroxine Sodium 100 mcg 02/25/24 06:30 03/04/24 05:31 Levothyroxine Sodium 100 Mcg Tablet PO 03/26/24 06:29 100 mcg DAILYBB JOEL Administration Liothyronine Sodium 5 mcg 02/25/24 09:00 03/04/24 09:30 Liothyronine Sodium 5 Mcg Tab PO 03/26/24 08:59 5 mcg DAILY JOEL Administration Miscellaneous 1 each 02/28/24 22:00 03/03/24 22:03 Stop Clinolipid N/A 03/29/24 21:59 1 each DAILY@2200 JOEL Administration Nystatin 500,000 units 03/02/24 17:00 03/04/24 17:10 Nystatin 500,000 Unit Tab PO 03/12/24 16:59 500,000 units QID JOEL Administration Oxycodone HCl 5 - 10 mg 02/24/24 18:33 03/03/24 21:20 Oxycodone Hcl Ir 5 Mg Tab (Immediate Release) PO 03/09/24 18:32 5 mg Q6H PRN Administration pain Timolol Maleate 1 drops 02/25/24 09:00 03/04/24 09:32 Timolol Maleate 0.5% Op Soln 5 Ml Btl OPB 03/26/24 08:59 1 drops DAILY JOEL Administration Vibegron 75 mg 02/24/24 21:00 03/03/24 20:10 Vibegron 75 Mg Tab PO 03/25/24 20:59 75 mg QPM JOEL Administration
[2024-03-04 21:56] LABS: Hematocrit (blood only) 23.8 % (37.0-47.0); Hemoglobin 7.6 g/dl (12.0-16.0); Mean Corpuscular Hemoglobin 28.8 pg (25.0-34.0); Mean Corpuscular Hgb Conc 31.9 g/dL (32.0-36.0); Mean Corpuscular Volume 90.2 fL (80.0-100.0); Mean Platelet Volume 9.6 fL (9.4-12.4); Platelet Count 350 K/uL (130-400); RDW Coefficient of Variation 14.4 % (11.5-14.5); RDW Standard Deviation 46.3 fL (36.4-46.3); Red Blood Count 2.64 M/uL (4.20-5.40); White Blood Count 11.93 K/ul (4.8-10.8)
[2024-03-04 22:16] LABS: BUN Creatinine Ratio 65.1 (10-20); Calcium 7.9 mg/dl (8.6-10.3); Creatinine Clr Calc Pharmacy 57.3 ml/min; Est GFR (African American) 60.8 ml/min; Est GFR (Non-African American) 52.4 ml/min; Magnesium 2.1 mg/dl (1.7-2.4); Phosphorus 4.1 mg/dl (2.5-4.9); Potassium 4.4 mmol/L (3.5-5.1)
[2024-03-05 08:57] LABS: Anion Gap 5 (3-11); BUN Creatinine Ratio 65.7 (10-20); Blood Urea Nitrogen 69 mg/dl (6-23); Carbon Dioxide 24 mmol/L (21-32); Chloride 108 mmol/L (98-107); Creatinine Clr Calc Pharmacy 58.7 ml/min; Est GFR (African American) 61.4 ml/min; Glucose 173 mg/dl (70-99(Fasting)); Potassium 4.9 mmol/L (3.5-5.1); Sodium 137 mmol/L (136-145)
[2024-03-05 08:58] LABS: Alanine Aminotransferase < 3 U/L (7-52); Alkaline Phosphatase 119 U/L (34-104); Aspartate Aminotransferase 14 U/L (13-39); Bilirubin,Total 0.3 mg/dl (0.2-1.0); Magnesium 2.3 mg/dl (1.7-2.4); Phosphorus 4.2 mg/dl (2.5-4.9); Triglycerides 106 mg/dl (0-150)
--- NOTE | 2024-03-05 11:36 | Surgery Progress Note ---
Date of Service March 05, 2024 Assessment & Plan (1) Stercoral colitis: Plan: Roosevelt procedure for stercoral perforation on 02/23 CT scan over wknd showed no undrained fluid collections or acute findings Daily enema administered since Tuesday Today ostomy is starting to function with + flatus, stool, and multiple hard/formed stool balls Advanced to clears. Can hold off on further enemas for now. Continue PO colace and will add miralax Ambulating and Pulmonary toilet encouraged PT/OT on board Okay to d/c [place] from our standpoint when okay with medicine (2) Colon perforation: Admission and Anticipated Discharge Date Admission Date: February 24, 2024 Supervising Physician Co-Signing Physician Notes Patient seen and examined, agree with above. Status post Morin's procedure for stercoral perforation. Over the weekend started to have ostomy output. CT showed no evidence of obstruction or abscess. On exam afebrile with stable vitals, incision without infection, ostomy with air and thick pasty stool in bag. Will make sure she has an aggressive bowel regimen and gradually increase her diet as tolerated. Continue DEVONTE drain for another day or 2. Subjective Patient sitting in chair. Reports abdominal soreness, controlled on prn pain meds. + ostomy starting to function. No nausea. No other complaints Physical Exam Physical Exam: awake/alert, no distress. sitting in chair Respiratory: normal respiratory effort Gastrointestinal (Abdomen): Percussion/Palpation: + abdomen tender (mild fernando incisional discomfort to palpation) and abdomen soft + ostomy viable, gas and stool in bag al cornelio with some hard/formed stool balls Results & Data Vital Signs (Past 12 Hours) Vital Signs Temp Pulse Pulse Resp BP Pulse Ox O2 Del Method 03/05/24 07:46 99.0 F 80 24 135/79 96 Room Air 03/05/24 07:28 72 03/05/24 03:55 97.7 F 79 20 123/73 95 Room Air 03/05/24 00:44 98.4 F 76 20 135/64 92 Room Air 03/04/24 23:38 73 PG Care Time/CCT Total # of Minutes Spent Total Time Spent with Patient: Total time spent is greater than 50% in coordination of care (as documented) at patient's floor/unit and/or counseling patient: Coding Level of Care Code 92668 Post Operative Follow-Up Diagnoses Stercoral colitis K52.89 Colon perforation K63.1
--- NOTE | 2024-03-05 12:56 | Hospitalist Progress Note ---
Date of Service March 05, 2024 Assessment & Plan (1) Diverticulitis of large intestine with perforation and abscess: (2) Peritonitis due to abscess: (3) Perforation of sigmoid colon: (4) Paroxysmal atrial fibrillation: (5) Severe sepsis with acute organ dysfunction: (6) Acute metabolic encephalopathy: (7) Acute renal failure superimposed on stage 3 chronic kidney disease: (8) Hypothyroidism: (9) Diabetes mellitus, type 2: (10) Postoperative anemia: Plan Patient finally demonstrating some bowel activity. With gas and stool in the colostomy bag Trial of clear liquids Communication with surgical team, agrees with trial of liquids Hemoglobin has been slowly trending down since surgery, at this point vital signs stable will continue to monitor, expected anemia with poor nutrition over multiple days. Hold on any transfusion at this time Encourage activity, continue therapies Will continue TPN until patient taking oral diet significantly better than currently Continue to monitor glucose covering with insulin Continue other oral medications Communication with care management, [facility], possibly ready for discharge by the end of the week. Reviewed telemetry, has maintained sinus rhythm, no recurrence of A-fib. Suspect brief atrial fibrillation in the setting of postoperative state, will continue to hold and not initiate anticoagulation with her anemia. Continue current medications. Okay for MedSurg Updated via phone Admission and Anticipated Discharge Date Admission Date: February 24, 2024 Subjective Patient much more interactive today when compared to last week. States her abdominal pain is improved. Physical Exam Physical Exam: Constitutional: Alert HEENT: Mucous membranes moist. Lungs: Clear to auscultation, decreased, no wheezes rales or rhonchi CV: S1-S2, regular, systolic murmur Abdomen: Soft, mild incisional tenderness, colostomy pink, gas and stool in colostomy bag, surgical dressing clean and dry Extremities: Stable dependent edema posterior thighs Neuro: No focal deficits, chronic resting tremor, generalized weakness Psych: Cooperative, normal mood Results & Data Results & Data Vital Signs (Past 12 Hours) Vital Signs Temp Pulse Pulse Resp BP Pulse Ox O2 Del Method 03/05/24 11:49 36.9 C 79 20 114/74 97 Room Air 03/05/24 07:46 37.2 C 80 24 135/79 96 Room Air 03/05/24 07:28 72 03/05/24 03:55 36.5 C 79 20 123/73 95 Room Air Laboratory Results Reviewed imaging, laboratory and diagnostic studies. Pertinent findings as below. Hemoglobin 7.9, slowly trending down
[2024-03-05] MEDS: CENTRAL TPN IV SCH (17:26)
[2024-03-05] MEDS: [UNRECOGNIZED DRUG - OTHER] IV SCH (17:26)
[2024-03-05] MEDS: CLINOLIPID 20% IV FAT EMULSION 250 ML IV SCH (17:27)
[2024-03-05] MEDS: KETOROLAC TROMETHAMINE 15 MG/ML VIAL IV ONE (23:11)
--- NOTE | 2024-03-06 08:10 | Surgery Progress Note ---
Date of Service March 06, 2024 Assessment & Plan (1) Stercoral colitis: Plan: Roosevelt procedure for stercoral perforation on 02/23 ostomy function with + air and stool in bag Advanced to fulls this AM, if tolerates can advance to low fiber later today Continue PO colace and miralax Ambulating and Pulmonary toilet encouraged PT/OT, OOB to chair increase activity as able Okay to d/c [place] from our standpoint when okay with medicine (2) Colon perforation: Admission and Anticipated Discharge Date Admission Date: February 24, 2024 Supervising Physician Co-Signing Physician Notes Patient discussed with MARIE, labs reviewed, agree with above. Status post Morin's procedure for stercoral perforation, now with ostomy output. WBC up slightly. Will continue to monitor. Can advance to full liquids and later low fiber if tolerates, will need aggressive bowel regimen. Continue DEVONTE for now Subjective abd pain still present but improvement with ostomy function Review of Systems Gastrointestinal: + abdominal pain; no nausea and no vomit ing Physical Exam Constitutional: cooperative; no acute distress Respiratory: normal respiratory effort and able to speak in complete sentences; no respiratory distress Cardiovascular: Rate/Rhythm: regular rate Gastrointestinal (Abdomen): Inspection/Auscultation: + abdominal surgical incision (mayco midline CDI ) and + abdominal surgical drain present Percussion/Palpation: + abdomen tender and abdomen soft Results & Data Vital Signs (Past 12 Hours) Vital Signs Temp Pulse Resp BP Pulse Ox O2 Del Method 03/06/24 07:20 97.5 F L 72 16 133/81 97 Room Air 03/06/24 03:51 97.3 F L 81 20 123/62 94 Room Air 03/06/24 00:07 97.9 F 80 20 130/68 95 Room Air PG Care Time/CCT Total # of Minutes Spent Total Time Spent with Patient: Total time spent is greater than 50% in coordination of care (as documented) at patient's floor/unit and/or counseling patient: Coding Level of Care Code 58839 Post Operative Follow-Up Diagnoses Stercoral colitis K52.89 Colon perforation K63.1
[2024-03-06 08:21] LABS: Hematocrit (blood only) 28.5 % (37.0-47.0); Mean Corpuscular Hemoglobin 28.8 pg (25.0-34.0); Mean Corpuscular Hgb Conc 31.6 g/dL (32.0-36.0); Mean Corpuscular Volume 91.1 fL (80.0-100.0); Mean Platelet Volume 9.8 fL (9.4-12.4); Platelet Count 448 K/uL (130-400); RDW Coefficient of Variation 14.9 % (11.5-14.5); RDW Standard Deviation 48.9 fL (36.4-46.3); Red Blood Count 3.13 M/uL (4.20-5.40); White Blood Count 15.66 K/ul (4.8-10.8)
[2024-03-06 08:38] LABS: BUN Creatinine Ratio 66.7 (10-20); Calcium 8.4 mg/dl (8.6-10.3); Creatinine Clr Calc Pharmacy 59.1 ml/min; Est GFR (African American) 61.4 ml/min; Magnesium 2.3 mg/dl (1.7-2.4); Phosphorus 4.5 mg/dl (2.5-4.9); Potassium 4.7 mmol/L (3.5-5.1)
[2024-03-06] MEDS: POLYETHYLENE (MIRALAX) 17 GM PACK PO SCH (08:56)
--- NOTE | 2024-03-06 13:11 | Hospitalist Progress Note ---
Date of Service March 06, 2024 Assessment & Plan (1) Diverticulitis of large intestine with perforation and abscess: (2) Peritonitis due to abscess: (3) Perforation of sigmoid colon: (4) Paroxysmal atrial fibrillation: (5) Severe sepsis with acute organ dysfunction: (6) Acute metabolic encephalopathy: (7) Acute renal failure superimposed on stage 3 chronic kidney disease: (8) Hypothyroidism: (9) Diabetes mellitus, type 2: (10) Postoperative anemia: (11) Volume overload: Plan Patient continues to show evidence of improving bowel function Advance to full liquid diet, possibly advance to low fiber diet if tolerates in the next 24 hours Patient does appear to be volume overloaded, weight significantly increased IV Lasix 40 mg x 1 today repeat for the next 2 days Follow electrolytes and hemoglobin Antibiotics were completed yesterday, continue to monitor off antibiotics Continue to encourage activity and up and out of bed Surgery has cleared for Douglas to be removed, however, with patient's limited mobility concern there is still may be some bladder dysfunction. Will maintain Douglas and consider voiding trial when patient closer to discharge Continue to monitor glucose, insulin coverage as needed along with basal insulin Admission and Anticipated Discharge Date Admission Date: February 24, 2024 Subjective Patient reports feeling good. Denies any abdominal pain. Nurse reports that she is only taking a little bit of Jell-O. However, patient states does not really like a lot of the clear liquids. Physical Exam Physical Exam: Constitutional: Alert, nontoxic, no acute distress HEENT: Mucous membranes moist. Lungs: Clear to auscultation, decreased, no wheezes rales or rhonchi CV: S1-S2, regular Abdomen: Soft, mild tenderness, not distended, gas and stool in colostomy bag, DEVONTE drain in place, surgical dressing dry and clean Extremities: Seems to have increasing dependent edema posterior thighs Neuro: No focal deficits, chronic tremor, chronic global weakness Psych: Cooperative, normal mood Results & Data Results & Data Vital Signs (Past 12 Hours) Vital Signs Temp Pulse Resp BP Pulse Ox O2 Del Method 03/06/24 12:48 36.5 C 83 20 114/74 97 Room Air 03/06/24 10:00 37.1 C 81 16 114/74 96 Room Air 03/06/24 07:20 36.4 C L 72 16 133/81 97 Room Air 03/06/24 03:51 36.3 C L 81 20 123/62 94 Room Air Diagnostic Findings Reviewed imaging, laboratory and diagnostic studies. Pertinent findings as below. BUN 70/creatinine 1.0 Glucose 225 Weight significantly increased 6 to 7 kg
[2024-03-06] MEDS: FUROSEMIDE 40 MG/4 ML VIAL IV STA (13:34)
[2024-03-06] MEDS ORDERED: AA 8%/D14W 1L 1,000 ML in Central TPN bag 0 ML IV SCH (16:00)
[2024-03-06] MEDS: [UNRECOGNIZED DRUG - OTHER] IV SCH (16:48)
[2024-03-06] MEDS: CENTRAL TPN IV SCH (16:48)
[2024-03-06] MEDS: CLINOLIPID 20% IV FAT EMULSION 250 ML IV SCH (16:49)
[2024-03-06] MEDS: MELATONIN 3 MG TAB PO PRN (21:48)
[2024-03-07] MEDS: KETOROLAC TROMETHAMINE 15 MG/ML VIAL IV ONE ×2 (02:19→19:34)
--- NOTE | 2024-03-07 07:43 | Surgery Progress Note ---
Date of Service March 07, 2024 Assessment & Plan (1) Stercoral colitis: Plan: Roosevelt procedure for stercoral perforation on 02/23 ostomy function with stool in bag Tolerating diet without reported worsening abdominal pain, N/V. May advance to low fiber diet. Continue PO colace and miralax Ambulating and Pulmonary toilet encouraged PT/OT, OOB to chair increase activity as able Okay to d/c [place] from our standpoint when okay with medicine Pending AM WBC (2) Colon perforation: Admission and Anticipated Discharge Date Admission Date: February 24, 2024 Supervising Physician Co-Signing Physician Notes Patient seen and examined, agree with above. Status post Morin's procedure for stercoral perforation. Bowel function has returned and her ostomy is productive. She has been tolerating low fiber diet. Incision with a little erythema superiorly and some drainage inferiorly, may need to remove a few mayco later today. DEVONTE serosanguineous. Await CBC, continue low fiber diet, await placement. Subjective Pt sleeping this morning during exam, however is arousable. No complaints Ostomy with liquid output, pt's diet has been advanced to fulls, no reported N/V WBC elevated yesterday, currently not on any antibiotics, afebrile, pending AM l abs. Physical Exam Constitutional: WD/WN, vitals as above Gastrointestinal (Abdomen): Inspection/Auscultation: + abdominal surgical incision (mayco midline CDI without signs of surrounding infection ) and + abdominal surgical drain present Percussion/Palpation: abdomen soft; abdomen nontender, no guarding and abdomen not rigid Results & Data Vital Signs (Past 12 Hours) Vital Signs Temp Pulse Resp BP Pulse Ox O2 Del Method 03/07/24 07:39 36.5 C 74 18 136/71 100 Room Air 03/06/24 23:19 Room Air 03/06/24 21:12 36.6 C 84 14 143/82 H 98 Room Air PG Care Time/CCT Total # of Minutes Spent Total Time Spent with Patient: Total time spent is greater than 50% in coordination of care (as documented) at patient's floor/unit and/or counseling patient: Coding Level of Care Code 95391 Post Operative Follow-Up Diagnoses Stercoral colitis K52.89 Colon perforation K63.1
--- NOTE | 2024-03-07 09:22 | Hospitalist Progress Note ---
Date of Service March 07, 2024 Assessment & Plan (1) Diverticulitis of large intestine with perforation and abscess: (2) Peritonitis due to abscess: (3) Perforation of sigmoid colon: (4) Paroxysmal atrial fibrillation: (5) Severe sepsis with acute organ dysfunction: (6) Acute metabolic encephalopathy: (7) Acute renal failure superimposed on stage 3 chronic kidney disease: (8) Hypothyroidism: (9) Diabetes mellitus, type 2: (10) Postoperative anemia: (11) Volume overload: Plan Ms. 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 Patient is now POD 12 from Roosevelt procedure for stercoral perforation. Course complicated by slow bowel return to function and abdominal pain. Patient now advancing diet. Plan to discontinue [place] and plan to discontinue PPN once eating sufficiently. #Abdominal pain #Stercoral colitis c/b perforation s/p colostomy CT obtained without signs of abscess ostomy with liquid output Remains afebrile Surgery following -Encourage mobility as able -Incentive spirometry -Complete IV antibitoics, fluctuating WBC -Encourage PO, plan to d/c PPN #Volume overload IV lasix prn, CTM replace lytes prn #Leukocytosis pending labs Remains afebrile, no IV antibiotics completed 10 days postop Follow up labs #DMTII A1C 7.0% basal bolus while admitted glycemic pharmacy following, discussed pending recommendations for insulin s/p d/c PPN #Parkinson's disorder continue entacapone and Sinemet #CAD echo 04/2022 EF 57%, inferior/basal hypokinesis consistent with chronic cad/occlusion of RCA continue coreg hold lisinopril #Hypertension on coreg, lisinopril as OP continue to hold lisinopril continue coreg #CKD-3 baseline Cr 1.4 monitor renal fxn, avoid nephrotoxic agents #Carotid artery disease s/p L CEA 06/2021 continue asa, statin #Hypothyroidism continue levothyroxine and liothyronine #Glaucoma continue eye drops dvt heparin q 8 sq Pending adequate intake Admission and Anticipated Discharge Date Admission Date: February 24, 2024 Subjective Resting at bedside, awakens easily, denies any acute concerns, endorses discomfort but no acute pain Physical Exam Constitutional: resting quietly, no distress Respiratory: normal respiratory effort, lungs clear to auscultation Cardiovascular: RRR, no murmur, no edema Gastrointestinal (Abdomen): ostomy with pink mucosa, no irritation, gas and liquid stool Results & Data Results & Data Vital Signs (Past 12 Hours) Vital Signs Temp Pulse Resp BP Pulse Ox O2 Del Method 03/07/24 07:39 36.5 C 74 18 136/71 100 Room Air 03/06/24 23:19 Room Air Laboratory Results pending labs for review Medications Administered Home Medications Medication Instructions Recorded Confirmed Last Taken ascorbic acid (vitamin C) 1,000 mg 1 g PO QAM 06/22/18 02/24/24 02/23/24 tablet (Vitamin C) fexofenadine 180 mg tablet 180 mg PO QAM 06/22/18 02/24/24 02/23/24 (Aleisha Allergy) folic acid 1 mg tablet 1 mg PO QAM 06/22/18 02/24/24 02/23/24 enylricobdyw-rgkxfwzr-jaclpu 1 tab PO QAM 06/22/18 02/24/24 02/23/24 tablet (Multivitamin 50 Plus tablet) thiamine HCl (vitamin B1) 50 mg 50 mg PO QAM 06/22/18 02/24/24 02/23/24 tablet (Vitamin B-1) vitamin E 200 unit capsule 200 unit PO HS 06/22/18 02/24/24 02/23/24 latanoprost (PF) 0.005 % eye drops 1 drp OPB DAILY 01/22/20 02/24/24 02/23/24 semaglutide 0.25 mg or 0.5 mg (2 1.25 mg subcut WK 04/08/20 02/24/24 2 Weeks Ago mg/1.5 mL) subcutaneous pen ~02/10/24 injector (Ozempic) aspirin 81 mg tablet,delayed 81 mg PO QAM 07/14/22 02/24/24 02/23/24 release dorzolamide-timolol (PF) 2 %-0.5 % 1 drp OPB DAILY 08/02/22 02/24/24 02/23/24 eye drops in a dropperette B-complex with vitamin C 1 tab PO DAILY 11/11/23 02/24/24 02/23/24 glucosamine-chondroitin 250 mg-200 1 tab PO DAILY 11/11/23 02/24/24 02/23/24 mg tablet (Osteo Bi-Flex) omega 1-aah-ljm-fish oil 1,000 mg 1 cap PO DAILY 11/11/23 02/24/24 1 Month Ago (120 mg-180 mg) capsule (Fish Oil) ~01/24/24 pantoprazole 40 mg tablet,delayed 40 mg PO DAILY 11/11/23 02/24/24 02/23/24 release entacapone 200 mg tablet 200 mg PO TID #270 tabs 01/11/24 02/24/24 02/23/24 atorvastatin 80 mg tablet 80 mg PO DAILY 02/24/24 02/24/24 02/23/24 carbidopa 25 mg-levodopa 100 mg 2 tab PO TID 02/24/24 02/24/24 02/23/24 tablet carvedilol 12.5 mg tablet 12.5 mg PO BID 02/24/24 02/24/24 02/23/24 levothyroxine 100 mcg tablet 100 mcg PO DAILY 02/24/24 02/24/24 02/23/24 liothyronine 5 mcg tablet 5 mcg PO DAILY 02/24/24 02/24/24 02/23/24 lisinopril 20 mg tablet 20 mg PO DAILY 02/24/24 02/24/24 02/23/24 tramadol 50 mg tablet 50 mg PO Q6H PRN Moderate Pain 02/24/24 02/24/24 02/23/24 (Scale Score 5-6) Active Medications Generic Name Dose Route Start Last Admin Trade Name Freq PRN Reason Stop Dose Admin Acetaminophen 1,000 mg 02/26/24 21:00 03/07/24 08:30 Acetaminophen 500 Mg Tab PO 03/27/24 20:59 1,000 mg TID JOEL Administration Carbidopa/Levodopa 2 tab 02/24/24 21:00 03/06/24 20:44 Carbidopa/Levodopa 25/100mg Tab PO 03/25/24 20:59 2 tab TID JOEL Administration Carvedilol 12.5 mg 03/01/24 17:00 03/06/24 17:01 Carvedilol 12.5 Mg Tab PO 03/31/24 16:59 12.5 mg BIDM JOEL Administration Docusate Sodium 100 mg 03/01/24 21:00 03/06/24 20:44 Docusate Sodium 100 Mg Cap PO 03/31/24 20:59 100 mg BID JOEL Administration Dorzolamide HCl 1 drops 02/25/24 09:00 03/06/24 08:53 Dorzolamide Hcl 2% Oph Soln 10 Ml Btl OPB 03/26/24 08:59 1 drops DAILY JOEL Administration Entacapone 200 mg 02/24/24 21:00 03/06/24 20:44 Entacapone 200 Mg Tab PO 03/25/24 20:59 200 mg TID JOEL Administration Heparin Sodium (Beef Lung) 5 ml 02/29/24 16:24 03/06/24 08:50 Heparin 10 Unit/Ml 5 Ml Flush FLUSH 03/30/24 16:23 5 ml PRN PRN Administration Flush Heparin Sodium (Porcine) 5,000 units 02/26/24 14:00 03/07/24 05:06 Heparin Sod 5,000 Unit/0.5 Ml Vial SQ 03/27/24 13:59 5,000 units Q8 JOEL Administration Amino Acids/Dextrose 1,542.4 1,542.4 mls @ 64.3 mls/hr 03/06/24 16:00 03/06/24 16:48 ml/ Nutrition (Parenteral) IV 03/07/24 15:59 64.3 mls/hr .Q24H JOEL Administration Protocol Insulin Aspart 0 units 03/01/24 12:00 03/07/24 05:06 Insulin Aspart Per Unit Charge SC 03/31/24 11:59 1 units Q4 JOEL Administration Insulin Glargine 26 units 03/03/24 09:00 03/06/24 09:42 Lantus Per Unit Charge SC 04/02/24 08:59 26 units DAILY JOEL Administration Latanoprost 1 drops 02/25/24 09:00 03/06/24 08:53 Latanoprost 0.005% Op Soln 2.5 Ml Btl OP 03/26/24 08:59 1 drops DAILY JOEL Administration Levothyroxine Sodium 100 mcg 02/25/24 06:30 03/07/24 05:06 Levothyroxine Sodium 100 Mcg Tablet PO 03/26/24 06:29 100 mcg DAILYBB JOEL Administration Liothyronine Sodium 5 mcg 02/25/24 09:00 03/07/24 08:28 Liothyronine Sodium 5 Mcg Tab PO 03/26/24 08:59 5 mcg DAILY JOEL Administration Melatonin 6 mg 03/06/24 21:36 03/06/24 21:48 Melatonin 3 Mg Tab PO 04/05/24 21:35 6 mg HS PRN Administration Sleep Nystatin 500,000 units 03/02/24 17:00 03/07/24 08:27 Nystatin 500,000 Unit Tab PO 03/12/24 16:59 500,000 units QID JOEL Administration Oxycodone HCl 5 - 10 mg 02/24/24 18:33 03/07/24 05:06 Oxycodone Hcl Ir 5 Mg Tab (Immediate Release) PO 03/09/24 18:32 10 mg Q6H PRN Administration pain Polyethylene Glycol 17 gm 03/06/24 09:00 03/06/24 08:56 Polyethylene (Miralax) 17 Gm Pack PO 04/05/24 08:59 17 gm DAILY JOEL Administration Timolol Maleate 1 drops 02/25/24 09:00 03/06/24 08:53 Timolol Maleate 0.5% Op Soln 5 Ml Btl OPB 03/26/24 08:59 1 drops DAILY JOEL Administration Vibegron 75 mg 02/24/24 21:00 03/06/24 20:44 Vibegron 75 Mg Tab PO 03/25/24 20:59 75 mg QPM JOEL Administration
[2024-03-07 10:08] LABS: Hematocrit (blood only) 24.4 % (37.0-47.0); Hemoglobin 7.9 g/dl (12.0-16.0); Mean Corpuscular Hemoglobin 28.8 pg (25.0-34.0); Mean Corpuscular Hgb Conc 32.4 g/dL (32.0-36.0); Mean Corpuscular Volume 89.1 fL (80.0-100.0); Mean Platelet Volume 9.5 fL (9.4-12.4); Platelet Count 569 K/uL (130-400); RDW Coefficient of Variation 14.9 % (11.5-14.5); RDW Standard Deviation 47.8 fL (36.4-46.3); Red Blood Count 2.74 M/uL (4.20-5.40); White Blood Count 15.08 K/ul (4.8-10.8)
[2024-03-07 10:35] LABS: BUN Creatinine Ratio 67.6 (10-20); Calcium 8.4 mg/dl (8.6-10.3); Creatinine Clr Calc Pharmacy 57.4 ml/min; Est GFR (African American) 59.4 ml/min; Est GFR (Non-African American) 51.2 ml/min; Magnesium 2.2 mg/dl (1.7-2.4); Potassium 4.6 mmol/L (3.5-5.1)
[2024-03-07 10:44] LABS: ALC (manual) 0.75 K/uL (1.2-3.4); ANC (manual) 12.97 K/uL (1.4-6.5); Acanthocytes 1+; Blast # (manual) 0.15 K/uL (0-0); Blast Cells % (manual) 1 %; Eosinophils # (manual) 0.15 K/uL (0-0.50); Eosinophils % (manual) 1 %; Lymphocytes # (manual) 0.75 K/uL (1.2-3.4); Lymphocytes % (manual) 5 %; Metamyelocytes # (manual) 0.15 K/uL (0-0); Metamyelocytes % (manual) 1 %; Monocytes # (manual) 0.75 K/uL (0.11-0.59); Monocytes % (manual) 5 %; Myelocytes # (manual) 0.15 K/uL (0-0); Myelocytes % (manual) 1 %; Neutrophils # (manual) 12.97 K/uL (1.40-6.50); Neutrophils % (manual) 86 %; Ovalocytes 1+; Polychromasia 1+
[2024-03-07] MEDS: FUROSEMIDE 40 MG/4 ML VIAL IV SCH (10:54)
[2024-03-07] MEDS: INSULIN ASPART PER UNIT CHARGE SC SCH (11:22)
[2024-03-07] MEDS: LANTUS PER UNIT CHARGE SC SCH (11:23)
--- NOTE | 2024-03-07 13:09 | Communication Note ---
Date of Service: March 07, 2024 Three mayco removed from inferior aspect of post operative wound and two removed from superior aspect. Bloody/purulent fluid was able to be expressed at bedside, inferior /superior wound packed with edged of gauze, abd and medipore tape applied. Please do BID dressing changes, if dressing becomes saturated then change as needed to keep wound clean and dry. Pack wound with dry gauze , cover with abd and tape. WBC 15 this Am, afebrile, will restart on IV Zoysn.
[2024-03-07] MEDS: PIPERACILLIN/TAZOBACTAM 4.5 GM/100 ML BAG IV STA (15:20)
--- NOTE | 2024-03-07 19:30 | Communication Note ---
Date of Service: March 07, 2024 Patient complaining of RLQ pain going to the hips and buttocks as per RN. Progressive hemoglobin drop AP Anemia Abdominal pain, recent bowel surgery for bowel perforation Follow H&H Hold heparin subcu CT abdomen pelvis
[2024-03-07] MEDS: SODIUM CHLORIDE 0.9% 1,000 ML IV ONE (19:33)
[2024-03-07] MEDS: OPTIRAY 320 100ml IV ONE (19:57)
[2024-03-07] MEDS: PIPERACILLIN/TAZOBACTAM 4.5 GM/100 ML BAG IV SCH (21:05)
[2024-03-07 21:37] LABS: Hematocrit (blood only) 23.2 % (37.0-47.0); Hemoglobin 7.3 g/dl (12.0-16.0)
--- NOTE | 2024-03-07 23:03 | CT Scan Report ---
Exam(s): CT ABDOMEN + PELVIS With Contrast IV Amt: 90ml EXAM: CT Abdomen and Pelvis With Intravenous Contrast CLINICAL HISTORY: rlq pain. Previous sigmoid colonic perforation noted on the prior examination. TECHNIQUE: Axial computed tomography images of the abdomen and pelvis with intravenous contrast. CTDI is 26.76 mGy and DLP is 1479.42 mGy-cm. Automated exposure control was utilized for the study. A dose lowering technique was utilized adhering to the principles of ALARA. CONTRAST: Patient received 90ml of IV contrast COMPARISON: CT abdomen and pelvis without contrast dated 02/24/2024 FINDINGS: Lung bases: Unremarkable. No mass. No consolidation. ABDOMEN: Liver: Unremarkable. No mass. Gallbladder and bile ducts: The gallbladder is fully distended. No calcified gallstones. Mild prominence of the gallbladder wall. No pericholecystic fluid. Pancreas: Unremarkable. No mass. No ductal dilation. Spleen: Unremarkable. No splenomegaly. Adrenals: Unremarkable. No mass. Kidneys and ureters: The kidneys remain slightly atrophic. No pyelonephritis or hydronephrosis. Calcifications are presumed mixed vascular and nonobstructive subcentimeter nephrolithiasis. Stomach and bowel: There has been interval diverting colostomy involving the left lower quadrant when compared to the previous examination. There is no definite evidence for focal high-grade bowel obstruction. However, there is mild fluid and gas distention of the small bowel in the abdomen with some residual mesenteric fat stranding remaining. Moderate stool burden. PELVIS: Appendix: No findings to suggest acute appendicitis. Bladder: A Douglas catheter is noted in the bladder. Reproductive: The uterus is ill-defined and heterogeneous, although normal in size. ABDOMEN and PELVIS: Intraperitoneal space: A surgical drain extends from the right lower quadrant across the midline pelvis. Adjacent and superior to the surgical drain, there is residual fluid and minimal gas remaining, with the fluid measuring 2.1 x 3 x 2.7 cm (series 301; images 34-44 and series 2; images 57-68). Bones/joints: Multilevel degenerative changes. No acute osseous abnormality. No dislocation. Soft tissues: Midline superficial skin mayco identified involving the infraumbilical anterior pelvic wall. There is some residual fluid and gas along the deep margin of the incision, measuring 1.8 x 2.5 x 3.5 cm (series 300; image 45). Diffuse soft tissue edema suggesting anasarca. Vasculature: Atherosclerotic calcification of the aorta and iliac arteries. No alteration. No abdominal aortic aneurysm. Lymph nodes: Unremarkable. No enlarged lymph nodes. IMPRESSION: 1. There has been interval diverting colostomy involving the left lower quadrant when compared to the previous examination. There is no definite evidence for focal high-grade bowel obstruction. However, there is mild fluid and gas distention of the small bowel in the abdomen with some residual mesenteric fat stranding remaining. Mild enteritis may be present. 2. A surgical drain extends from the right lower quadrant across the midline pelvis. Adjacent and superior to the surgical drain, there is residual fluid and minimal gas remaining, with the fluid measuring 2.1 x 3 x 2.7 cm (series 301; images 34-44 and series 2; images 57-68). 3. Midline superficial skin mayco identified involving the infraumbilical anterior pelvic wall. There is some residual fluid and gas along the deep margin of the incision, measuring 1.8 x 2.5 x 3.5 cm (series 300; image 45). 4. Diffuse soft tissue edema suggesting anasarca. Electronically signed by: Ruiz Cosme MD 03/07/24 23:02 PM
--- NOTE | 2024-03-08 07:31 | Surgery Progress Note ---
Date of Service March 08, 2024 Assessment & Plan (1) Stercoral colitis: Plan: Roosevelt procedure for stercoral perforation on 02/23 labs pending this AM. vitals stable ostomy function with stool in bag on low fiber diet two areas of incision were draining yesterday, therefore some mayco removed and will continue BID packing/dressing changes CT scan obtained overnight, results as above. We will keep pt on abx and continue DEVONTE drain for time being Ambulating and Pulmonary toilet encouraged PT/OT, OOB to chair increase activity as able Okay to d/c b[place] from our standpoint when okay with medicine Admission and Anticipated Discharge Date Admission Date: February 24, 2024 Supervising Physician Co-Signing Physician Notes Patient discussed with MARIE, labs and imaging reviewed, agree with above. Status post Morin's procedure for stercoral perforation. She has had good return of bowel function but is not eating much. She had some right lower quadrant pain and a CT scan was performed. He is currently afebrile with stable vitals. Her WBC is downtrending. She did have a few mayco removed yesterday for some erythema and drainage. CT personally reviewed and interpreted and there is no obvious abscess or obstruction. The areas in her pelvis are likely related to her pouch and are getting smaller in size. At this point no intervention is necessary. She does have quite a significant stool burden with large fecaliths both in her colon as well as in her rectal pouch. She will continue to require an aggressive bowel regimen. Continue low fiber diet continue bowel regimen continue DEVONTE for now. Subjective Patient resting in bed. Says she feels "fair". No other complaints offered. Physical Exam Physical Exam: resting, but arousable Respiratory: normal respiratory effort on room air Gastrointestinal (Abdomen): Inspection/Auscultation: + abdominal surgical incision midline incision with two areas of mayco removed with packing, some purulent/bloody discharge noted. + ostomy with large amount of gas and stool in the bag. DEVONTE drain with scant output-tannish Results & Data Vital Signs (Past 12 Hours) Vital Signs Temp Pulse Resp BP Pulse Ox O2 Del Method 03/08/24 07:07 97.7 F 82 16 142/68 H 98 Room Air 03/07/24 23:47 Room Air Diagnostic Findings Exam(s): CT ABDOMEN + PELVIS With Contrast IV Amt: 90ml EXAM: CT Abdomen and Pelvis With Intravenous Contrast CLINICAL HISTORY: rlq pain. Previous sigmoid colonic perforation noted on the prior examination. TECHNIQUE: Axial computed tomography images of the abdomen and pelvis with intravenous contrast. CTDI is 26.76 mGy and DLP is 1479.42 mGy-cm. Automated exposure control was utilized for the study. A dose lowering technique was utilized adhering to the principles of ALARA. CONTRAST: Patient received 90ml of IV contrast COMPARISON: CT abdomen and pelvis without contrast dated 02/24/2024 FINDINGS: Lung bases: Unremarkable. No mass. No consolidation. ABDOMEN: Liver: Unremarkable. No mass. Gallbladder and bile ducts: The gallbladder is fully distended. No calcified gallstones. Mild prominence of the gallbladder wall. No pericholecystic fluid. Pancreas: Unremarkable. No mass. No ductal dilation. Spleen: Unremarkable. No splenomegaly. Adrenals: Unremarkable. No mass. Kidneys and ureters: The kidneys remain slightly atrophic. No pyelonephritis or hydronephrosis. Calcifications are presumed mixed vascular and nonobstructive subcentimeter nephrolithiasis. Stomach and bowel: There has been interval diverting colostomy involving the left lower quadrant when compared to the previous examination. There is no definite evidence for focal high-grade bowel obstruction. However, there is mild fluid and gas distention of the small bowel in the abdomen with some residual mesenteric fat stranding remaining. Moderate stool burden. PELVIS: Appendix: No findings to suggest acute appendicitis. Bladder: A Boston catheter is noted in the bladder. Reproductive: The uterus is ill-defined and heterogeneous, although normal in size. ABDOMEN and PELVIS: Intraperitoneal space: A surgical drain extends from the right lower quadrant across the midline pelvis. Adjacent and superior to the surgical drain, there is residual fluid and minimal gas remaining, with the fluid measuring 2.1 x 3 x 2.7 cm (series 301; images 34-44 and series 2; images 57-68). Bones/joints: Multilevel degenerative changes. No acute osseous abnormality. No dislocation. Soft tissues: Midline superficial skin mayco identified involving the infraumbilical anterior pelvic wall. There is some residual fluid and gas along the deep margin of the incision, measuring 1.8 x 2.5 x 3.5 cm (series 300; image 45). Diffuse soft tissue edema suggesting anasarca. Vasculature: Atherosclerotic calcification of the aorta and iliac arteries. No alteration. No abdominal aortic aneurysm. Lymph nodes: Unremarkable. No enlarged lymph nodes. IMPRESSION: 1. There has been interval diverting colostomy involving the left lower quadrant when compared to the previous examination. There is no definite evidence for focal high-grade bowel obstruction. However, there is mild fluid and gas distention of the small bowel in the abdomen with some residual mesenteric fat stranding remaining. Mild enteritis may be present. 2. A surgical drain extends from the right lower quadrant across the midline pelvis. Adjacent and superior to the surgical drain, there is residual fluid and minimal gas remaining, with the fluid measuring 2.1 x 3 x 2.7 cm (series 301; images 34-44 and series 2; images 57-68). 3. Midline superficial skin mayco identified involving the infraumbilical anterior pelvic wall. There is some residual fluid and gas along the deep margin of the incision, measuring 1.8 x 2.5 x 3.5 cm (series 300; image 45). 4. Diffuse soft tissue edema suggesting anasarca. Electronically signed by: Ruiz Cosme MD 03/07/24 23:02 PM PG Care Time/CCT Total # of Minutes Spent Total Time Spent with Patient: Total time spent is greater than 50% in coordination of care (as documented) at patient's floor/unit and/or counseling patient: Coding Level of Care Code 00958 Post Operative Follow-Up Diagnoses Stercoral colitis K52.89
[2024-03-08 08:16] LABS: Hematocrit (blood only) 21.1 % (37.0-47.0); Hemoglobin 6.7 g/dl (12.0-16.0); Mean Corpuscular Hemoglobin 28.4 pg (25.0-34.0); Mean Corpuscular Hgb Conc 31.8 g/dL (32.0-36.0); Mean Corpuscular Volume 89.4 fL (80.0-100.0); Mean Platelet Volume 9.5 fL (9.4-12.4); Platelet Count 492 K/uL (130-400); RDW Standard Deviation 47.8 fL (36.4-46.3); Red Blood Count 2.36 M/uL (4.20-5.40); White Blood Count 10.23 K/ul (4.8-10.8)
[2024-03-08] MEDS ORDERED: SODIUM CHLORIDE 0.9% 250 ML IV PRN (08:31)
--- NOTE | 2024-03-08 08:33 | Hospitalist Progress Note ---
Date of Service March 08, 2024 Assessment & Plan (1) Diverticulitis of large intestine with perforation and abscess: (2) Peritonitis due to abscess: (3) Perforation of sigmoid colon: (4) Paroxysmal atrial fibrillation: (5) Severe sepsis with acute organ dysfunction: (6) Acute metabolic encephalopathy: (7) Acute renal failure superimposed on stage 3 chronic kidney disease: (8) Hypothyroidism: (9) Diabetes mellitus, type 2: (10) Postoperative anemia: (11) Volume overload: Plan Ms. 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 Patient is now POD 13 from Roosevelt procedure for stercoral perforation. Course complicated by slow bowel return to function and abdominal pain. Diet advanced. Patient with minimal appetite. Now with anemia 13 days post op with no overt sign of bleeding/occult losses. Transfusing 1 UPRBC for Hgb 6.7. Hgb subtly downtrending #Acute on chronic anemia, likely multifactorial #Abnormal differential #Thrombocytosis likely iso post-op losses. nutritional component Anemia Labs ordered including retic No clear source of bleeding, no reported vomiting, stool in ostomy brown Blast 0.15 03/07, repeat diff today -if elevated discuss with Heme Transfuse < 7.0 hgb or symptomatic Repeat HH after 1 Uprbc Peripheral smear review #Surgical incision infection #Abdominal pain #Stercoral colitis c/b perforation s/p colostomy CT obtained without signs of abscess ostomy with liquid output Remains afebrile Surgery following -Encourage mobility as able -Incentive spirometry -IV antibiotics resumed 03/07 2/2 leukocytosis and surgical site drainage -Encourage PO, plan to d/c PPN -Maintain boston 2/2 reduced mobility #Volume overload IV lasix prn, CTM replace lytes prn #Leukocytosis *improved completed 10 days IV abx post op However, now with new drainage of incision site 03/07, resumed on zosyn with improvement in WBC remains afebrile Follow up labs #DMTII A1C 7.0% basal bolus while admitted glycemic pharmacy following, discussed pending recommendations for insulin s/p d/c PPN #Parkinson's disorder continue entacapone and Sinemet #CAD echo 04/2022 EF 57%, inferior/basal hypokinesis consistent with chronic cad/occlusion of RCA continue coreg hold lisinopril #Hypertension on coreg, lisinopril as OP continue to hold lisinopril continue coreg #CKD-3 baseline Cr 1.4 monitor renal fxn, avoid nephrotoxic agents #Carotid artery disease s/p L CEA 06/2021 continue asa, statin #Hypothyroidism continue levothyroxine and liothyronine #Glaucoma continue eye drops dvt heparin q 8 sq Pending adequate intake/ stability of anemia Admission and Anticipated Discharge Date Admission Date: February 24, 2024 Subjective evaluated patient at bedside She states she doesn't feel well overall and still has abdominal pain Denies nausea, but notes she does not have any appetite States she doesn't think she has ever required a blood transfusion, but consents, unable to sign 2/2 tremor and not wishing to move Physical Exam Constitutional: WD/WN, vitals as above wincing eyes closed, answers appropriately Respiratory: normal respiratory effort, lungs clear to auscultation Cardiovascular: RRR, no murmur, no edema Gastrointestinal (Abdomen): pads along midline incision, DEVONTE drain with minimal serosanguineous output Results & Data Results & Data Vital Signs (Past 12 Hours) Vital Signs Temp Pulse Resp BP Pulse Ox O2 Del Method 03/08/24 07:46 Room Air 03/08/24 07:07 36.5 C 82 16 142/68 H 98 Room Air 03/07/24 23:47 Room Air Laboratory Results Short CBC 03/07/24 03/07/24 03/08/24 Range/Units 09:26 20:35 07:14 WBC 15.08 H 10.23 (4.8-10.8) K/ul Hgb 7.9 L 7.3 L 6.7 L* (12.0-16.0) g/dl Hct 24.4 L 23.2 L 21.1 L (37.0-47.0) % Plt Count 569 H 492 H (130-400) K/uL BMP 03/07/24 09:26 Sodium 135 L Potassium 4.6 Chloride 105 Carbon Dioxide 24 BUN 73 H Creatinine 1.08 Glucose 199 H Calcium 8.4 L Medications Administered Home Medications Medication Instructions Recorded Confirmed Last Taken ascorbic acid (vitamin C) 1,000 mg 1 g PO QAM 06/22/18 02/24/24 02/23/24 tablet (Vitamin C) fexofenadine 180 mg tablet 180 mg PO QAM 06/22/18 02/24/24 02/23/24 (Aleisha Allergy) folic acid 1 mg tablet 1 mg PO QAM 06/22/18 02/24/24 02/23/24 [id number] 1 tab PO QAM 06/22/18 02/24/24 02/23/24 tablet (Multivitamin 50 Plus tablet) thiamine HCl (vitamin B1) 50 mg 50 mg PO QAM 06/22/18 02/24/24 02/23/24 tablet (Vitamin B-1) vitamin E 200 unit capsule 200 unit PO HS 06/22/18 02/24/24 02/23/24 latanoprost (PF) 0.005 % eye drops 1 drp OPB DAILY 01/22/20 02/24/24 02/23/24 semaglutide 0.25 mg or 0.5 mg (2 1.25 mg subcut WK 04/08/20 02/24/24 2 Weeks Ago mg/1.5 mL) subcutaneous pen ~02/10/24 injector (Ozempic) aspirin 81 mg tablet,delayed 81 mg PO QAM 07/14/22 02/24/24 02/23/24 release dorzolamide-timolol (PF) 2 %-0.5 % 1 drp OPB DAILY 08/02/22 02/24/24 02/23/24 eye drops in a dropperette B-complex with vitamin C 1 tab PO DAILY 11/11/23 02/24/24 02/23/24 glucosamine-chondroitin 250 mg-200 1 tab PO DAILY 11/11/23 02/24/24 02/23/24 mg tablet (Osteo Bi-Flex) omega 2-wgt-ynt-fish oil 1,000 mg 1 cap PO DAILY 11/11/23 02/24/24 1 Month Ago (120 mg-180 mg) capsule (Fish Oil) ~01/24/24 pantoprazole 40 mg tablet,delayed 40 mg PO DAILY 11/11/23 02/24/24 02/23/24 release entacapone 200 mg tablet 200 mg PO TID #270 tabs 01/11/24 02/24/24 02/23/24 atorvastatin 80 mg tablet 80 mg PO DAILY 02/24/24 02/24/24 02/23/24 carbidopa 25 mg-levodopa 100 mg 2 tab PO TID 02/24/24 02/24/24 02/23/24 tablet carvedilol 12.5 mg tablet 12.5 mg PO BID 02/24/24 02/24/24 02/23/24 levothyroxine 100 mcg tablet 100 mcg PO DAILY 02/24/24 02/24/24 02/23/24 liothyronine 5 mcg tablet 5 mcg PO DAILY 02/24/24 02/24/24 02/23/24 lisinopril 20 mg tablet 20 mg PO DAILY 02/24/24 02/24/24 02/23/24 tramadol 50 mg tablet 50 mg PO Q6H PRN Moderate Pain 02/24/24 02/24/24 02/23/24 (Scale Score 5-6) Active Medications Generic Name Dose Route Start Last Admin Trade Name Freq PRN Reason Stop Dose Admin Acetaminophen 1,000 mg 02/26/24 21:00 03/07/24 21:05 Acetaminophen 500 Mg Tab PO 03/27/24 20:59 1,000 mg TID JOEL Administration Carbidopa/Levodopa 2 tab 02/24/24 21:00 03/07/24 21:07 Carbidopa/Levodopa 25/100mg Tab PO 03/25/24 20:59 2 tab TID JOEL Administration Carvedilol 12.5 mg 03/01/24 17:00 03/07/24 16:55 Carvedilol 12.5 Mg Tab PO 03/31/24 16:59 12.5 mg BIDM JOEL Administration Docusate Sodium 100 mg 03/01/24 21:00 03/07/24 21:06 Docusate Sodium 100 Mg Cap PO 03/31/24 20:59 100 mg BID JOEL Administration Dorzolamide HCl 1 drops 02/25/24 09:00 03/07/24 11:23 Dorzolamide Hcl 2% Oph Soln 10 Ml Btl OPB 03/26/24 08:59 1 drops DAILY JOEL Administration Entacapone 200 mg 02/24/24 21:00 03/07/24 21:07 Entacapone 200 Mg Tab PO 03/25/24 20:59 200 mg TID JOEL Administration Furosemide 40 mg 03/07/24 09:00 03/07/24 10:54 Furosemide 40 Mg/4 Ml Vial IV 03/08/24 11:15 40 mg DAILY JOEL Administration Heparin Sodium (Beef Lung) 5 ml 02/29/24 16:24 03/07/24 11:13 Heparin 10 Unit/Ml 5 Ml Flush FLUSH 03/30/24 16:23 5 ml PRN PRN Administration Flush Heparin Sodium (Porcine) 5,000 units 02/26/24 14:00 03/07/24 13:30 Heparin Sod 5,000 Unit/0.5 Ml Vial SQ 03/27/24 13:59 5,000 units Q8 JOEL Administration Insulin Aspart 0 units 03/07/24 10:00 03/07/24 21:06 Insulin Aspart Per Unit Charge SC 04/06/24 09:59 1 units ACHS JOEL Administration Insulin Glargine 10 units 03/07/24 10:00 03/07/24 11:23 Lantus Per Unit Charge SC 04/06/24 09:59 10 units DAILY JOEL Administration Latanoprost 1 drops 02/25/24 09:00 03/07/24 11:24 Latanoprost 0.005% Op Soln 2.5 Ml Btl OP 03/26/24 08:59 1 drops DAILY JOEL Administration Levothyroxine Sodium 100 mcg 02/25/24 06:30 03/08/24 05:18 Levothyroxine Sodium 100 Mcg Tablet PO 03/26/24 06:29 100 mcg DAILYBB JOEL Administration Liothyronine Sodium 5 mcg 02/25/24 09:00 03/07/24 11:09 Liothyronine Sodium 5 Mcg Tab PO 03/26/24 08:59 5 mcg DAILY JOEL Administration Melatonin 6 mg 03/06/24 21:36 03/07/24 21:06 Melatonin 3 Mg Tab PO 04/05/24 21:35 6 mg HS PRN Administration Sleep Nystatin 500,000 units 03/02/24 17:00 03/07/24 21:06 Nystatin 500,000 Unit Tab PO 03/12/24 16:59 500,000 units QID JOEL Administration Oxycodone HCl 5 - 10 mg 02/24/24 18:33 03/08/24 03:37 Oxycodone Hcl Ir 5 Mg Tab (Immediate Release) PO 03/09/24 18:32 10 mg Q6H PRN Administration pain Polyethylene Glycol 17 gm 03/06/24 09:00 03/07/24 10:59 Polyethylene (Miralax) 17 Gm Pack PO 04/05/24 08:59 17 gm DAILY JOEL Administration Timolol Maleate 1 drops 02/25/24 09:00 03/07/24 11:24 Timolol Maleate 0.5% Op Soln 5 Ml Btl OPB 03/26/24 08:59 1 drops DAILY JOEL Administration Vibegron 75 mg 02/24/24 21:00 03/07/24 21:07 Vibegron 75 Mg Tab PO 03/25/24 20:59 75 mg QPM JOEL Administration
[2024-03-08 08:43] LABS: Basophils # (auto) 0.04 K/uL (0.00-0.20); Basophils % (auto) 0.4 %; Eosinophils % (auto) 2.9 %; Immature Granulocytes # (auto) 0.23 K/uL (0.01-0.20); Immature Granulocytes % (auto) 2.2 %; Lymphocytes # (auto) 0.94 K/uL (1.20-3.40); Lymphocytes % (auto) 9.2 %; Monocytes # (auto) 0.69 K/uL (0.11-0.59); Monocytes % (auto) 6.7 %; Neutrophils # (auto) 8.03 K/uL (1.40-6.50); Neutrophils % (auto) 78.6 %; RBC Morphology Unremarkable
[2024-03-08 09:43] LABS: Magnesium 1.9 mg/dl (1.7-2.4); Potassium 4.1 mmol/L (3.5-5.1)
[2024-03-08 09:49] LABS: BUN Creatinine Ratio 61.6 (10-20); Creatinine Clr Calc Pharmacy 55.4 ml/min; Est GFR (African American) 56.8 ml/min; Phosphorus 4.9 mg/dl (2.5-4.9)
[2024-03-08] MEDS: AMOXICILLIN/CLAVULANATE 875 MG TAB PO SCH (10:06)
[2024-03-08 10:23] LABS: Partial Thromboplastin Ratio 1.1; Partial Thromboplastin Time 30 Seconds (21-31); Prothrombin Time 10.5 Seconds (9.0-12.0)
[2024-03-08 11:04] LABS: Ferritin 86.3 ng/ml (8-388)
[2024-03-08 11:09] LABS: Folate (Folic Acid),Ser orPlas > 22.30 ng/ml (>5.38)
[2024-03-08 11:10] LABS: Vitamin B12 1450 pg/ml (180-914)
[2024-03-08 11:13] LABS: Immature Retic Fraction 25.6 % (2.3-15.9); Reticulated Hemoglobin 32.5 pg (28.2-36.6); Reticulocyte % 2.93 % (0.50-2.00); Reticulocytes # 0.07 10^6/uL (0.020-0.100)
[2024-03-08 17:09] LABS: Hemoglobin 8.2 g/dl (12.0-16.0)
[2024-03-08] MEDS: DEXTROSE 5% 1,000 ML IV SCH (17:43)
[2024-03-09 07:23] LABS: Basophils # (auto) 0.08 K/uL (0.00-0.20); Basophils % (auto) 0.8 %; Eosinophils # (auto) 0.28 K/uL (0.00-0.50); Eosinophils % (auto) 2.6 %; Hematocrit (blood only) 27.7 % (37.0-47.0); Immature Granulocytes # (auto) 0.14 K/uL (0.01-0.20); Immature Granulocytes % (auto) 1.3 %; Lymphocytes # (auto) 0.91 K/uL (1.20-3.40); Lymphocytes % (auto) 8.6 %; Mean Corpuscular Hgb Conc 32.5 g/dL (32.0-36.0); Mean Corpuscular Volume 89.4 fL (80.0-100.0); Mean Platelet Volume 9.3 fL (9.4-12.4); Monocytes # (auto) 1.03 K/uL (0.11-0.59); Monocytes % (auto) 9.7 %; Neutrophils # (auto) 8.18 K/uL (1.40-6.50); Platelet Count 604 K/uL (130-400); RDW Coefficient of Variation 15.1 % (11.5-14.5); RDW Standard Deviation 48.7 fL (36.4-46.3); White Blood Count 10.62 K/ul (4.8-10.8)
--- NOTE | 2024-03-09 07:49 | Surgery Progress Note ---
Date of Service March 09, 2024 Assessment & Plan (1) Stercoral colitis: Plan: [facility] procedure for stercoral perforation on 02/23 ostomy function with stool in bag on low fiber diet however pt not eating much continue BID packing/dressing changes to incisional areas Switched to oral abx yesterday, wbc wnl continue DEVONTE drain for time being and remove the day of discharge and cover with dry gauze dressing Ambulating and Pulmonary toilet encouraged PT/OT, OOB to chair increase activity as able Okay to d/c [place] from our standpoint when okay with medicine If patient is discharged over the weekend she can follow up in general surgical office next week for staple removal Admission and Anticipated Discharge Date Admission Date: February 24, 2024 Supervising Physician Co-Signing Physician Notes d/w nelly, good bowel function, needs bowel regimen. Lack of appetite and likely chronic issue from delayed bowel motility and chronic constipation from Parkinson's, that led to stercoral perforation. Will need bowel regimen for large stool balls, may need disimpaction of rectal remnant at some point when better healed. Subjective pt with c/o abd discomfort denies n/v , no appetite Review of Systems Gastrointestinal: + abdominal pain; no nausea and no vomit ing Physical Exam Constitutional: cooperative; no acute distress Respiratory: normal respiratory effort; no respiratory distress Gastrointestinal (Abdomen): Inspection/Auscultation: + abdominal surgical incision and + abdominal surgical drain present Percussion/Palpation: + abdomen tender and abdomen soft Results & Data Vital Signs (Past 12 Hours) Vital Signs Temp Pulse Resp BP Pulse Ox O2 Del Method 03/09/24 07:15 99.0 F 90 16 115/76 96 Room Air 03/08/24 19:45 Room Air PG Care Time/CCT Total # of Minutes Spent Total Time Spent with Patient: Total time spent is greater than 50% in coordination of care (as documented) at patient's floor/unit and/or counseling patient: Coding Level of Care Code 20094 Post Operative Follow-Up Diagnoses Stercoral colitis K52.89
--- NOTE | 2024-03-09 12:02 | Hospitalist Progress Note ---
Date of Service March 09, 2024 Assessment & Plan (1) Diverticulitis of large intestine with perforation and abscess: (2) Peritonitis due to abscess: (3) Perforation of sigmoid colon: (4) Paroxysmal atrial fibrillation: (5) Severe sepsis with acute organ dysfunction: (6) Acute metabolic encephalopathy: (7) Acute renal failure superimposed on stage 3 chronic kidney disease: (8) Hypothyroidism: (9) Diabetes mellitus, type 2: (10) Postoperative anemia: (11) Volume overload: Plan Ms. 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 Patient is now POD 14 from [place] procedure for stercoral perforation. Course complicated by slow bowel return to function and abdominal pain. Patient s/p 1 UPRBC 03/08. Patient with poor appetite and refusal to eat for 48 hours. Plan to resume PPN possibly tomorrow if not eating #Acute on chronic anemia, likely multifactorial #Abnormal differential #Thrombocytosis likely iso post-op losses. nutritional component Anemia Labs ordered including retic No clear source of bleeding, no reported vomiting, stool in ostomy brown Blast 0.15 03/07, repeat diff without blasts Transfuse < 7.0 hgb or symptomatic -s/p 1 UPRBC 03/08 Notable iron deficiency, likely contributing, will consider venofer when infection better controlled #Surgical incision infection #Abdominal pain #Stercoral colitis c/b perforation s/p colostomy CT obtained without signs of abscess ostomy with liquid output Remains afebrile Surgery following -Encourage mobility as able -Incentive spirometry -IV antibiotics resumed 03/07 2/2 leukocytosis and surgical site drainage, patient did not tolerate PO Augmentin, therefore resuming IV -Start 'PPN once more 2/2 poor intake -Maintain boston 2/2 reduced mobility -KUB ordered MRSA ordered--determine coverage for surgical site infection for staph aureus #Volume overload IV lasix prn, CTM replace lytes prn #Leukocytosis *improved completed 10 days IV abx post op However, now with new drainage of incision site 03/07, resumed on zosyn with improvement in WBC remains afebrile Follow up labs #DMTII A1C 7.0% basal bolus while admitted glycemic pharmacy following, discussed pending recommendations for insulin s/p d/c PPN #Parkinson's disorder continue entacapone and Sinemet #CAD echo 04/2022 EF 57%, inferior/basal hypokinesis consistent with chronic cad/occlusion of RCA continue coreg hold lisinopril #Hypertension on coreg, lisinopril as OP continue to hold lisinopril continue coreg #CKD-3 baseline Cr 1.4 monitor renal fxn, avoid nephrotoxic agents #Carotid artery disease s/p L CEA 06/2021 continue asa, statin #Hypothyroidism continue levothyroxine and liothyronine #Glaucoma continue eye drops dvt heparin q 8 sq Pending adequate intake/ stability of anemia Admission and Anticipated Discharge Date Admission Date: February 24, 2024 Subjective Remains with poor diet, refusing po medications Patient sleeping and very works up when attempting to awaken Reports discomfort "all over" Physical Exam Constitutional: WD/WN, vitals as above Respiratory: normal respiratory effort, lungs clear to auscultation Cardiovascular: RRR, no murmur, no edema Gastrointestinal (Abdomen): pain across abdomen, ostomy with brown liquid output Results & Data Results & Data Vital Signs (Past 12 Hours) Vital Signs Temp Pulse Resp BP Pulse Ox O2 Del Method 03/09/24 07:15 37.2 C 90 16 115/76 96 Room Air Laboratory Results Short CBC 03/08/24 03/09/24 Range/Units 16:17 06:41 WBC 10.62 (4.8-10.8) K/ul Hgb 8.2 L 9.0 L (12.0-16.0) g/dl Hct 24.0 L 27.7 L (37.0-47.0) % Plt Count 604 H (130-400) K/uL Medications Administered Home Medications Medication Instructions Recorded Confirmed Last Taken ascorbic acid (vitamin C) 1,000 mg 1 g PO QAM 06/22/18 02/24/24 02/23/24 tablet (Vitamin C) fexofenadine 180 mg tablet 180 mg PO QAM 06/22/18 02/24/24 02/23/24 (Aleisha Allergy) folic acid 1 mg tablet 1 mg PO QAM 06/22/18 02/24/24 02/23/24 [id number] 1 tab PO QAM 06/22/18 02/24/24 02/23/24 tablet (Multivitamin 50 Plus tablet) thiamine HCl (vitamin B1) 50 mg 50 mg PO QAM 06/22/18 02/24/24 02/23/24 tablet (Vitamin B-1) vitamin E 200 unit capsule 200 unit PO HS 06/22/18 02/24/24 02/23/24 latanoprost (PF) 0.005 % eye drops 1 drp OPB DAILY 01/22/20 02/24/24 02/23/24 semaglutide 0.25 mg or 0.5 mg (2 1.25 mg subcut WK 04/08/20 02/24/24 2 Weeks Ago mg/1.5 mL) subcutaneous pen ~02/10/24 injector (Ozempic) aspirin 81 mg tablet,delayed 81 mg PO QAM 07/14/22 02/24/24 02/23/24 release dorzolamide-timolol (PF) 2 %-0.5 % 1 drp OPB DAILY 08/02/22 02/24/24 02/23/24 eye drops in a dropperette B-complex with vitamin C 1 tab PO DAILY 11/11/23 02/24/24 02/23/24 glucosamine-chondroitin 250 mg-200 1 tab PO DAILY 11/11/23 02/24/24 02/23/24 mg tablet (Osteo Bi-Flex) omega 6-xcc-wqe-fish oil 1,000 mg 1 cap PO DAILY 11/11/23 02/24/24 1 Month Ago (120 mg-180 mg) capsule (Fish Oil) ~01/24/24 pantoprazole 40 mg tablet,delayed 40 mg PO DAILY 11/11/23 02/24/24 02/23/24 release entacapone 200 mg tablet 200 mg PO TID #270 tabs 01/11/24 02/24/24 02/23/24 atorvastatin 80 mg tablet 80 mg PO DAILY 02/24/24 02/24/24 02/23/24 carbidopa 25 mg-levodopa 100 mg 2 tab PO TID 02/24/24 02/24/2402/22/24 tablet carvedilol 12.5 mg tablet 12.5 mg PO BID 02/24/24 02/24/24 02/23/24 levothyroxine 100 mcg tablet 100 mcg PO DAILY 02/24/24 02/24/24 02/23/24 liothyronine 5 mcg tablet 5 mcg PO DAILY 02/24/24 02/24/24 02/23/24 lisinopril 20 mg tablet 20 mg PO DAILY 02/24/24 02/24/24 02/23/24 tramadol 50 mg tablet 50 mg PO Q6H PRN Moderate Pain 02/24/24 02/24/24 02/23/24 (Scale Score 5-6) Active Medications Generic Name Dose Route Start Last Admin Trade Name Lyly PRN Reason Stop Dose Admin Acetaminophen 1,000 mg 02/26/24 21:00 03/09/24 08:58 Acetaminophen 500 Mg Tab PO 03/27/24 20:59 Not Given TID JOEL Carbidopa/Levodopa 2 tab 02/24/24 21:00 03/09/24 08:58 Carbidopa/Levodopa 25/100mg Tab PO 03/25/24 20:59 Not Given TID JOEL Carvedilol 12.5 mg 03/01/24 17:00 03/09/24 08:58 Carvedilol 12.5 Mg Tab PO 03/31/24 16:59 Not Given BIDM JOEL Docusate Sodium 100 mg 03/01/24 21:00 03/09/24 08:58 Docusate Sodium 100 Mg Cap PO 03/31/24 20:59 Not Given BID JOEL Dorzolamide HCl 1 drops 02/25/24 09:00 03/09/24 08:58 Dorzolamide Hcl 2% Oph Soln 10 Ml Btl OPB 03/26/24 08:59 Not Given DAILY JOEL Entacapone 200 mg 02/24/24 21:00 03/09/24 08:58 Entacapone 200 Mg Tab PO 03/25/24 20:59 Not Given TID JOEL Heparin Sodium (Beef Lung) 5 ml 02/29/24 16:24 03/07/24 11:13 Heparin 10 Unit/Ml 5 Ml Flush FLUSH 03/30/24 16:23 5 ml PRN PRN Administration Flush Heparin Sodium (Porcine) 5,000 units 02/26/24 14:00 03/07/24 13:30 Heparin Sod 5,000 Unit/0.5 Ml Vial SQ 03/27/24 13:59 5,000 units Q8 JOEL Administration Insulin Aspart 0 units 03/07/24 10:00 03/09/24 08:57 Insulin Aspart Per Unit Charge SC 04/06/24 09:59 Not Given ACHS JOEL Insulin Glargine 10 units 03/07/24 10:00 03/09/24 08:58 Lantus Per Unit Charge SC 04/06/24 09:59 Not Given DAILY JOEL Latanoprost 1 drops 02/25/24 09:00 03/09/24 08:58 Latanoprost 0.005% Op Soln 2.5 Ml Btl OP 03/26/24 08:59 Not Given DAILY JOEL Levothyroxine Sodium 100 mcg 02/25/24 06:30 03/09/24 05:33 Levothyroxine Sodium 100 Mcg Tablet PO 03/26/24 06:29 100 mcg DAILYBB JOEL Administration Liothyronine Sodium 5 mcg 02/25/24 09:00 03/09/24 08:59 Liothyronine Sodium 5 Mcg Tab PO 03/26/24 08:59 Not Given DAILY JOEL Melatonin 6 mg 03/06/24 21:36 03/07/24 21:06 Melatonin 3 Mg Tab PO 04/05/24 21:35 6 mg HS PRN Administration Sleep Nystatin 500,000 units 03/02/24 17:00 03/09/24 08:59 Nystatin 500,000 Unit Tab PO 03/12/24 16:59 Not Given QID JOEL Oxycodone HCl 5 - 10 mg 02/24/24 18:33 03/08/24 23:43 Oxycodone Hcl Ir 5 Mg Tab (Immediate Release) PO 03/09/24 18:32 10 mg Q6H PRN Administration pain Polyethylene Glycol 17 gm 03/06/24 09:00 03/09/24 08:59 Polyethylene (Miralax) 17 Gm Pack PO 04/05/24 08:59 Not Given DAILY JOEL Timolol Maleate 1 drops 02/25/24 09:00 03/09/24 08:59 Timolol Maleate 0.5% Op Soln 5 Ml Btl OPB 03/26/24 08:59 Not Given DAILY JOEL Vibegron 75 mg 02/24/24 21:00 03/08/24 20:21 Vibegron 75 Mg Tab PO 03/25/24 20:59 75 mg QPM JOEL Administration
[2024-03-09] MEDS ORDERED: TPN/PPN CONSULT PHARMACY PRN (12:11)
[2024-03-09] MEDS: PANTOprazole 40 MG in SYRINGE 0 ML IV SCH (12:42)
[2024-03-09] MEDS: 4.5GM X1 IV STA (12:42)
[2024-03-09] MEDS: POLYETHYLENE (MIRALAX) 17 GM PACK PO SCH (12:44)
--- NOTE | 2024-03-09 14:34 | XRay Report ---
KUB CLINICAL HISTORY: Abdominal distention. FINDINGS: 3 AP, portable, supine abdominal radiographs are compared to study dated 02/24/2024 and briana elated with abdominal CT dated 03/07/2024. There is no radiographic evidence of high-grade obstruction . Mild gaseous distention of the small bowel loops and right colon could represent a postsurgical ile us. Midline skin clips and a surgical drain project over the pelvis. Inspissated enteric contrast is again seen projecting over the rectum. No evidence of intraperitoneal free air is seen on these supin e images. There are no abnormal abdominal calcifications. Tiny renal calculi seen by CT are not appar ent on x-ray. The skeletal structures are osteopenic. There is advanced cervical spondylosis and mild scoliosis. IMPRESSION: 1. There is no radiographic evidence of high-grade obstruction. 2. Mild gaseous distention of the small bowel loops and the right colon is a suggestive of ileus. Cor relate clinically. 3. Postsurgical change in the pelvis as above. Electronically signed by: Nile Schwartz M.D. 03/09/2024 2:33 PM
[2024-03-09] MEDS: PIPERACILLIN/TAZOBACTAM 4.5 GM/100 ML BAG IV SCH (17:31)
[2024-03-10 06:55] LABS: Basophils # (auto) 0.07 K/uL (0.00-0.20); Basophils % (auto) 0.9 %; Eosinophils # (auto) 0.24 K/uL (0.00-0.50); Hematocrit (blood only) 27.6 % (37.0-47.0); Hemoglobin 8.7 g/dl (12.0-16.0); Immature Granulocytes # (auto) 0.08 K/uL (0.01-0.20); Lymphocytes # (auto) 1.03 K/uL (1.20-3.40); Mean Corpuscular Hemoglobin 28.8 pg (25.0-34.0); Mean Corpuscular Hgb Conc 31.5 g/dL (32.0-36.0); Mean Corpuscular Volume 91.4 fL (80.0-100.0); Mean Platelet Volume 9.1 fL (9.4-12.4); Monocytes # (auto) 0.74 K/uL (0.11-0.59); Monocytes % (auto) 9.4 %; Neutrophils # (auto) 5.75 K/uL (1.40-6.50); Neutrophils % (auto) 72.7 %; Platelet Count 641 K/uL (130-400); RDW Coefficient of Variation 15.3 % (11.5-14.5); RDW Standard Deviation 50.2 fL (36.4-46.3); Red Blood Count 3.02 M/uL (4.20-5.40); White Blood Count 7.91 K/ul (4.8-10.8)
[2024-03-10 07:34] LABS: Albumin Level 2.4 gm/dl (3.4-5.0); Anion Gap 6 (3-11); Bilirubin,Total 0.4 mg/dl (0.2-1.0); Carbon Dioxide 24 mmol/L (21-32); Chloride 109 mmol/L (98-107); Magnesium 1.9 mg/dl (1.7-2.4); Potassium 4.3 mmol/L (3.5-5.1); Sodium 139 mmol/L (136-145)
[2024-03-10 07:42] LABS: Alanine Aminotransferase < 3 U/L (7-52); Albumin Globulin Ratio 0.9 (0.9-2); Alkaline Phosphatase 91 U/L (34-104); Aspartate Aminotransferase 15 U/L (13-39); BUN Creatinine Ratio 31.7 (10-20); Blood Urea Nitrogen 32 mg/dl (6-23); Creatinine Clr Calc Pharmacy 61.4 ml/min; Est GFR (African American) 64.4 ml/min; Est GFR (Non-African American) 55.6 ml/min; Globulin 2.8 gm/dl (2.5-4.0); Glucose 107 mg/dl (70-99(Fasting)); Phosphorus 3.8 mg/dl (2.5-4.9); Total Protein 5.2 gm/dl (6.0-8.3)
--- NOTE | 2024-03-10 11:49 | Hospitalist Progress Note ---
Date of Service March 10, 2024 Assessment & Plan (1) Diverticulitis of large intestine with perforation and abscess: (2) Peritonitis due to abscess: (3) Perforation of sigmoid colon: (4) Paroxysmal atrial fibrillation: (5) Severe sepsis with acute organ dysfunction: (6) Acute metabolic encephalopathy: (7) Acute renal failure superimposed on stage 3 chronic kidney disease: (8) Hypothyroidism: (9) Diabetes mellitus, type 2: (10) Postoperative anemia: (11) Volume overload: Plan Ms. 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 Patient is now POD 14 from [place] procedure for stercoral perforation. Course complicated by slow bowel return to function and abdominal pain. Patient s/p 1 UPRBC 03/08. Patient with poor appetite and refusal to eat for 48 hours until 03/10 when patient reported feeling much improved. Patient eating and without pain. Continue to encourage PO intake #Acute on chronic anemia, likely multifactorial *stable #Abnormal differential #Thrombocytosis likely iso post-op losses. nutritional component Anemia Labs ordered including retic No clear source of bleeding, no reported vomiting, stool in ostomy brown Blast 0.15 03/07, repeat diff without blasts Transfuse < 7.0 hgb or symptomatic -s/p 1 UPRBC 03/08 Notable iron deficiency, likely contributing, will consider venofer when infection better controlled Plan for venofer tomorrow x 2 #Surgical incision infection #Abdominal pain #Stercoral colitis c/b perforation s/p colostomy CT obtained without signs of abscess ostomy with liquid output Remains afebrile Surgery following -Encourage mobility as able -Incentive spirometry -Resume po Augmentin once more, -Maintain boston 2/2 reduced mobility -MRSA negative, #Volume overload IV lasix prn, CTM replace lytes prn #Leukocytosis *resolved completed 10 days IV abx post op However, now with new drainage of incision site 03/07, resumed on zosyn with improvement in WBC remains afebrile Follow up labs #DMTII A1C 7.0% basal bolus while admitted glycemic pharmacy following, discussed pending recommendations for insulin s/p d/c PPN #Parkinson's disorder continue entacapone and Sinemet #CAD echo 04/2022 EF 57%, inferior/basal hypokinesis consistent with chronic cad/occlusion of RCA continue coreg hold lisinopril #Hypertension on coreg, lisinopril as OP continue to hold lisinopril until intake sufficient continue coreg #CKD-3 baseline Cr 1.4 monitor renal fxn, avoid nephrotoxic agents #Carotid artery disease s/p L CEA 06/2021 continue asa, statin #Hypothyroidism continue levothyroxine and liothyronine #Glaucoma continue eye drops dvt heparin q 8 sq Pending adequate intake/ stability of anemia Admission and Anticipated Discharge Date Admission Date: February 24, 2024 Subjective NAEO Patient remarkably alert and eager to eat this am Reports improvement in abdominal pain Denies nausea or vomiting after eating breakfast! Physical Exam Constitutional: WD/WN, vitals as above Respiratory: normal respiratory effort, lungs clear to auscultation Cardiovascular: RRR, no murmur, no edema Gastrointestinal (Abdomen): normal bowel sounds, soft, nontender, no hepatosplenomegaly clean dressing in place Results & Data Results & Data Vital Signs (Past 12 Hours) Vital Signs Temp Pulse Resp BP Pulse Ox O2 Del Method 03/10/24 07:20 36.4 C L 82 16 167/77 H 95 Room Air Laboratory Results Short CBC 03/10/24 Range/Units 05:45 WBC 7.91 (4.8-10.8) K/ul Hgb 8.7 L (12.0-16.0) g/dl Hct 27.6 L (37.0-47.0) % Plt Count 641 H (130-400) K/uL BMP 03/10/24 05:45 Sodium 139 Potassium 4.3 Chloride 109 H Carbon Dioxide 24 BUN 32 H D Creatinine 1.01 Glucose 107 H Calcium 8.0 L Liver Function 03/10/24 Range/Units 05:45 Total Bilirubin 0.4 (0.2-1.0) mg/dl AST 15 (13-39) U/L ALT < 3 L (7-52) U/L Alkaline Phosphatase 91 (34-104) U/L Albumin 2.4 L (3.4-5.0) gm/dl Medications Administered Home Medications Medication Instructions Recorded Confirmed Last Taken ascorbic acid (vitamin C) 1,000 mg 1 g PO QAM 06/22/18 02/24/24 02/23/24 tablet (Vitamin C) fexofenadine 180 mg tablet 180 mg PO QAM 06/22/18 02/24/24 02/23/24 (Aleisha Allergy) folic acid 1 mg tablet 1 mg PO QAM 06/22/18 02/24/24 02/23/24 [id number] 1 tab PO QAM 06/22/18 02/24/24 02/23/24 tablet (Multivitamin 50 Plus tablet) thiamine HCl (vitamin B1) 50 mg 50 mg PO QAM 06/22/18 02/24/24 02/23/24 tablet (Vitamin B-1) vitamin E 200 unit capsule 200 unit PO HS 06/22/18 02/24/24 02/23/24 latanoprost (PF) 0.005 % eye drops 1 drp OPB DAILY 01/22/20 02/24/24 02/23/24 semaglutide 0.25 mg or 0.5 mg (2 1.25 mg subcut WK 04/08/20 02/24/24 2 Weeks Ago mg/1.5 mL) subcutaneous pen ~02/10/24 injector (Ozempic) aspirin 81 mg tablet,delayed 81 mg PO QAM 07/14/22 02/24/24 02/23/24 release dorzolamide-timolol (PF) 2 %-0.5 % 1 drp OPB DAILY 08/02/22 02/24/24 02/23/24 eye drops in a dropperette B-complex with vitamin C 1 tab PO DAILY 11/11/23 02/24/24 02/23/24 glucosamine-chondroitin 250 mg-200 1 tab PO DAILY 11/11/23 02/24/24 02/23/24 mg tablet (Osteo Bi-Flex) omega 5-kht-ztt-fish oil 1,000 mg 1 cap PO DAILY 11/11/23 02/24/24 1 Month Ago (120 mg-180 mg) capsule (Fish Oil) ~01/24/24 pantoprazole 40 mg tablet,delayed 40 mg PO DAILY 11/11/23 02/24/24 02/23/24 release entacapone 200 mg tablet 200 mg PO TID #270 tabs 01/11/24 02/24/24 02/23/24 atorvastatin 80 mg tablet 80 mg PO DAILY 02/24/24 02/24/24 02/23/24 carbidopa 25 mg-levodopa 100 mg 2 tab PO TID 02/24/24 02/24/24 02/23/24 tablet carvedilol 12.5 mg tablet 12.5 mg PO BID 02/24/24 02/24/24 02/23/24 levothyroxine 100 mcg tablet 100 mcg PO DAILY 02/24/24 02/24/24 02/23/24 liothyronine 5 mcg tablet 5 mcg PO DAILY 02/24/24 02/24/24 02/23/24 lisinopril 20 mg tablet 20 mg PO DAILY 02/24/24 02/24/24 02/23/24 tramadol 50 mg tablet 50 mg PO Q6H PRN Moderate Pain 02/24/24 02/24/24 02/23/24 (Scale Score 5-6) Active Medications Generic Name Dose Route Start Last Admin Trade Name Freq PRN Reason Stop Dose Admin Acetaminophen 1,000 mg 02/26/24 21:00 03/10/24 08:30 Acetaminophen 500 Mg Tab PO 03/27/24 20:59 1,000 mg TID JOEL Administration Carbidopa/Levodopa 2 tab 02/24/24 21:00 03/10/24 08:25 Carbidopa/Levodopa 25/100mg Tab PO 03/25/24 20:59 2 tab TID JOEL Administration Carvedilol 12.5 mg 03/01/24 17:00 03/10/24 08:26 Carvedilol 12.5 Mg Tab PO 03/31/24 16:59 12.5 mg BIDM JOEL Administration Docusate Sodium 100 mg 03/01/24 21:00 03/10/24 08:30 Docusate Sodium 100 Mg Cap PO 03/31/24 20:59 100 mg BID JOEL Administration Dorzolamide HCl 1 drops 02/25/24 09:00 03/10/24 08:28 Dorzolamide Hcl 2% Oph Soln 10 Ml Btl OPB 03/26/24 08:59 1 drops DAILY JOEL Administration Entacapone 200 mg 02/24/24 21:00 03/10/24 08:26 Entacapone 200 Mg Tab PO 03/25/24 20:59 200 mg TID JOEL Administration Heparin Sodium (Beef Lung) 5 ml 02/29/24 16:24 03/10/24 10:00 Heparin 10 Unit/Ml 5 Ml Flush FLUSH 03/30/24 16:23 5 ml PRN PRN Administration Flush Heparin Sodium (Porcine) 5,000 units 02/26/24 14:00 03/07/24 13:30 Heparin Sod 5,000 Unit/0.5 Ml Vial SQ 03/27/24 13:59 5,000 units Q8 JOEL Administration Piperacillin Sod/Tazobactam Sod 4.5 gm in 100 mls @ 25 mls/hr 03/09/24 18:00 03/10/24 10:16 Zosyn IV 03/11/24 17:59 25 mls/hr Q8H JOEL Administration Pantoprazole Sodium 40 mg/ 10 mls @ 5 mls/min 03/09/24 12:00 03/10/24 08:28 Syringe IV 04/08/24 11:59 5 mls/min BID JOEL Administration Insulin Aspart 0 units 03/07/24 10:00 03/10/24 08:44 Insulin Aspart Per Unit Charge SC 04/06/24 09:59 Not Given ACHS JOEL Insulin Glargine 10 units 03/07/24 10:00 03/10/24 08:45 Lantus Per Unit Charge SC 04/06/24 09:59 Not Given DAILY JOEL Latanoprost 1 drops 02/25/24 09:00 03/10/24 08:27 Latanoprost 0.005% Op Soln 2.5 Ml Btl OP 03/26/24 08:59 1 drops DAILY JOEL Administration Levothyroxine Sodium 100 mcg 02/25/24 06:30 03/10/24 05:59 Levothyroxine Sodium 100 Mcg Tablet PO 03/26/24 06:29 100 mcg DAILYBB JOEL Administration Liothyronine Sodium 5 mcg 02/25/24 09:00 03/10/24 08:27 Liothyronine Sodium 5 Mcg Tab PO 03/26/24 08:59 5 mcg DAILY JOEL Administration Melatonin 6 mg 03/06/24 21:36 03/07/24 21:06 Melatonin 3 Mg Tab PO 04/05/24 21:35 6 mg HS PRN Administration Sleep Nystatin 500,000 units 03/02/24 17:00 03/10/24 08:25 Nystatin 500,000 Unit Tab PO 03/12/24 16:59 500,000 units QID JOEL Administration Polyethylene Glycol 17 gm 03/09/24 12:01 03/10/24 05:59 Polyethylene (Miralax) 17 Gm Pack PO 04/08/24 12:00 17 gm Q6H JOEL Administration Timolol Maleate 1 drops 02/25/24 09:00 03/10/24 08:28 Timolol Maleate 0.5% Op Soln 5 Ml Btl OPB 03/26/24 08:59 1 drops DAILY JOEL Administration Vibegron 75 mg 02/24/24 21:00 03/09/24 21:17 Vibegron 75 Mg Tab PO 03/25/24 20:59 75 mg QPM JOEL Administration
[2024-03-10] MEDS: AMOXICILLIN/CLAVULANATE 875 MG TAB PO SCH (16:48)
[2024-03-11 06:36] LABS: Basophils # (auto) 0.06 K/uL (0.00-0.20); Basophils % (auto) 0.9 %; Eosinophils # (auto) 0.16 K/uL (0.00-0.50); Eosinophils % (auto) 2.4 %; Hematocrit (blood only) 25.1 % (37.0-47.0); Immature Granulocytes # (auto) 0.04 K/uL (0.01-0.20); Immature Granulocytes % (auto) 0.6 %; Lymphocytes # (auto) 0.83 K/uL (1.20-3.40); Lymphocytes % (auto) 12.4 %; Mean Corpuscular Hemoglobin 29.1 pg (25.0-34.0); Mean Corpuscular Hgb Conc 31.9 g/dL (32.0-36.0); Mean Corpuscular Volume 91.3 fL (80.0-100.0); Mean Platelet Volume 8.8 fL (9.4-12.4); Monocytes % (auto) 7.5 %; Neutrophils # (auto) 5.09 K/uL (1.40-6.50); Neutrophils % (auto) 76.2 %; Platelet Count 571 K/uL (130-400); RDW Coefficient of Variation 15.4 % (11.5-14.5); RDW Standard Deviation 49.8 fL (36.4-46.3); Red Blood Count 2.75 M/uL (4.20-5.40); White Blood Count 6.68 K/ul (4.8-10.8)
[2024-03-11] MEDS: lisinopril 5 MG TAB PO SCH (11:05)
--- NOTE | 2024-03-11 16:16 | Hospitalist Progress Note ---
Date of Service March 11, 2024 Assessment & Plan (1) Diverticulitis of large intestine with perforation and abscess: (2) Peritonitis due to abscess: (3) Perforation of sigmoid colon: (4) Paroxysmal atrial fibrillation: (5) Severe sepsis with acute organ dysfunction: (6) Acute metabolic encephalopathy: (7) Acute renal failure superimposed on stage 3 chronic kidney disease: (8) Hypothyroidism: (9) Diabetes mellitus, type 2: (10) Postoperative anemia: (11) Volume overload: Plan Ms. 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 Patient is now POD 15 from [facility] procedure for stercoral perforation. Course complicated by slow bowel return to function and abdominal pain. Patient s/p 1 UPRBC 03/08. Patient with poor appetite and refusal to eat for 48 hours until 03/10 when patient reported feeling much improved. Patient eating and without pain. Continue to encourage PO intake Patient remains oriented and eating. Now medically stable for dispo to rehab #Acute on chronic anemia, likely multifactorial *stable #Abnormal differential #Thrombocytosis likely iso post-op losses. nutritional component Anemia Labs ordered including retic No clear source of bleeding, no reported vomiting, stool in ostomy brown Blast 0.15 03/07, repeat diff without blasts Transfuse < 7.0 hgb or symptomatic -s/p 1 UPRBC 03/08 Notable iron deficiency, likely contributing, will consider venofer when infection better controlled Venofer x 2 doses #Surgical incision infection #Abdominal pain #Stercoral colitis c/b perforation s/p colostomy CT obtained without signs of abscess ostomy with liquid output Remains afebrile Surgery following -Encourage mobility as able -Incentive spirometry -continue po Augmentin once more, EOT 03/14 -Maintain [place] 2/2 reduced mobility -MRSA negative, #Volume overload IV lasix prn, CTM replace lytes prn #Leukocytosis *resolved completed 10 days IV abx post op However, now with new drainage of incision site 03/07, resumed on zosyn with improvement in WBC remains afebrile Follow up labs #DMTII A1C 7.0% basal bolus while admitted glycemic pharmacy #Parkinson's disorder continue entacapone and Sinemet #CAD echo 04/2022 EF 57%, inferior/basal hypokinesis consistent with chronic cad/occlusion of RCA continue coreg resume lisinopril #Hypertension on coreg, lisinopril as OP resume lisinopril continue coreg #CKD-3 baseline Cr 1.4 monitor renal fxn, avoid nephrotoxic agents #Carotid artery disease s/p L CEA 06/2021 continue asa, statin #Hypothyroidism continue levothyroxine and liothyronine #Glaucoma continue eye drops dvt heparin q 8 sq Pending adequate intake/ stability of anemia Admission and Anticipated Discharge Date Admission Date: February 24, 2024 Subjective NAEO Reports wanting to go home Discussed need for rehab, verbalized understanding Reports no pain this morning Physical Exam Constitutional: WD/WN, vitals as above Respiratory: normal respiratory effort, lungs clear to auscultation Cardiovascular: RRR, no murmur, no edema Gastrointestinal (Abdomen): ostomy with continued output Results & Data Results & Data Vital Signs (Past 12 Hours) Vital Signs Temp Pulse Resp BP Pulse Ox O2 Del Method 03/11/24 15:26 36.9 C 72 16 163/78 H 96 Room Air 03/11/24 09:48 Room Air 03/11/24 07:14 36.6 C 81 16 173/77 H 96 Room Air Laboratory Results Short CBC 03/11/24 Range/Units 06:15 WBC 6.68 (4.8-10.8) K/ul Hgb 8.0 L (12.0-16.0) g/dl Hct 25.1 L (37.0-47.0) % Plt Count 571 H (130-400) K/uL Medications Administered Home Medications Medication Instructions Recorded Confirmed Last Taken ascorbic acid (vitamin C) 1,000 mg 1 g PO QAM 06/22/18 02/24/24 02/23/24 tablet (Vitamin C) fexofenadine 180 mg tablet 180 mg PO QAM 06/22/18 02/24/24 02/23/24 (Aleisha Allergy) folic acid 1 mg tablet 1 mg PO QAM 06/22/18 02/24/24 02/23/24 [id number]-[id number] 1 tab PO QAM 06/22/18 02/24/24 02/23/24 tablet (Multivitamin 50 Plus tablet) thiamine HCl (vitamin B1) 50 mg 50 mg PO QAM 06/22/18 02/24/24 02/23/24 tablet (Vitamin B-1) vitamin E 200 unit capsule 200 unit PO HS 06/22/18 02/24/24 02/23/24 latanoprost (PF) 0.005 % eye drops 1 drp OPB DAILY 01/22/20 02/24/24 02/23/24 semaglutide 0.25 mg or 0.5 mg (2 1.25 mg subcut WK 04/08/20 02/24/24 2 Weeks Ago mg/1.5 mL) subcutaneous pen ~02/10/24 injector (Ozempic) aspirin 81 mg tablet,delayed 81 mg PO QAM 07/14/22 02/24/24 02/23/24 release dorzolamide-timolol (PF) 2 %-0.5 % 1 drp OPB DAILY 08/02/22 02/24/24 02/23/24 eye drops in a dropperette B-complex with vitamin C 1 tab PO DAILY 11/11/23 02/24/24 02/23/24 glucosamine-chondroitin 250 mg-200 1 tab PO DAILY 11/11/23 02/24/24 02/23/24 mg tablet (Osteo Bi-Flex) omega 4-ktf-peh-fish oil 1,000 mg 1 cap PO DAILY 11/11/23 02/24/24 1 Month Ago (120 mg-180 mg) capsule (Fish Oil) ~01/24/24 pantoprazole 40 mg tablet,delayed 40 mg PO DAILY 11/11/23 02/24/24 02/23/24 release entacapone 200 mg tablet 200 mg PO TID #270 tabs 01/11/24 02/24/24 02/23/24 atorvastatin 80 mg tablet 80 mg PO DAILY 02/24/24 02/24/24 02/23/24 carbidopa 25 mg-levodopa 100 mg 2 tab PO TID 02/24/24 02/24/24 02/23/24 tablet carvedilol 12.5 mg tablet 12.5 mg PO BID 02/24/24 02/24/24 02/23/24 levothyroxine 100 mcg tablet 100 mcg PO DAILY 02/24/24 02/24/24 02/23/24 liothyronine 5 mcg tablet 5 mcg PO DAILY 02/24/24 02/24/24 02/23/24 lisinopril 20 mg tablet 20 mg PO DAILY 02/24/24 02/24/24 02/23/24 tramadol 50 mg tablet 50 mg PO Q6H PRN Moderate Pain 02/24/24 02/24/24 02/23/24 (Scale Score 5-6) Active Medications Generic Name Dose Route Start Last Admin Trade Name Lyly PRN Reason Stop Dose Admin Acetaminophen 1,000 mg 02/26/24 21:00 03/11/24 14:40 Acetaminophen 500 Mg Tab PO 03/27/24 20:59 1,000 mg TID JOEL Administration Amoxicillin/Clavulanate Potassium 1 tab 03/10/24 17:00 03/11/24 08:23 Amoxicillin/Clavulanate 875 Mg Tab PO 03/14/24 16:59 1 tab BIDM JOEL Administration Protocol Carbidopa/Levodopa 2 tab 02/24/24 21:00 03/11/24 14:41 Carbidopa/Levodopa 25/100mg Tab PO 03/25/24 20:59 2 tab TID JOEL Administration Carvedilol 12.5 mg 03/01/24 17:00 03/11/24 08:24 Carvedilol 12.5 Mg Tab PO 03/31/24 16:59 12.5 mg BIDM JOEL Administration Docusate Sodium 100 mg 03/01/24 21:00 03/11/24 08:23 Docusate Sodium 100 Mg Cap PO 03/31/24 20:59 100 mg BID JOEL Administration Dorzolamide HCl 1 drops 02/25/24 09:00 03/11/24 08:26 Dorzolamide Hcl 2% Oph Soln 10 Ml Btl OPB 03/26/24 08:59 1 drops DAILY JOEL Administration Entacapone 200 mg 02/24/24 21:00 03/11/24 14:41 Entacapone 200 Mg Tab PO 03/25/24 20:59 200 mg TID JOEL Administration Heparin Sodium (Beef Lung) 5 ml 02/29/24 16:24 03/11/24 08:26 Heparin 10 Unit/Ml 5 Ml Flush FLUSH 03/30/24 16:23 5 ml PRN PRN Administration Flush Heparin Sodium (Porcine) 5,000 units 02/26/24 14:00 03/07/24 13:30 Heparin Sod 5,000 Unit/0.5 Ml Vial SQ 03/27/24 13:59 5,000 units Q8 JOEL Administration Pantoprazole Sodium 40 mg/ 10 mls @ 5 mls/min 03/09/24 12:00 03/11/24 08:24 Syringe IV 04/08/24 11:59 5 mls/min BID JOEL Administration Insulin Aspart 0 units 03/07/24 10:00 03/11/24 14:40 Insulin Aspart Per Unit Charge SC 04/06/24 09:59 4 units ACHS JOEL Administration Insulin Glargine 10 units 03/07/24 10:00 03/11/24 08:47 Lantus Per Unit Charge SC 04/06/24 09:59 10 units DAILY JOEL Administration Latanoprost 1 drops 02/25/24 09:00 03/11/24 08:26 Latanoprost 0.005% Op Soln 2.5 Ml Btl OP 03/26/24 08:59 1 drops DAILY JOEL Administration Levothyroxine Sodium 100 mcg 02/25/24 06:30 03/11/24 06:17 Levothyroxine Sodium 100 Mcg Tablet PO 03/26/24 06:29 100 mcg DAILYBB JOEL Administration Liothyronine Sodium 5 mcg 02/25/24 09:00 03/11/24 08:24 Liothyronine Sodium 5 Mcg Tab PO 03/26/24 08:59 5 mcg DAILY JOEL Administration Melatonin 6 mg 03/06/24 21:36 03/07/24 21:06 Melatonin 3 Mg Tab PO 04/05/24 21:35 6 mg HS PRN Administration Sleep Nystatin 500,000 units 03/02/24 17:00 03/11/24 14:41 Nystatin 500,000 Unit Tab PO 03/12/24 16:59 500,000 units QID JOEL Administration Polyethylene Glycol 17 gm 03/09/24 12:01 03/11/24 14:39 Polyethylene (Miralax) 17 Gm Pack PO 04/08/24 12:00 17 gm Q6H JOEL Administration Timolol Maleate 1 drops 02/25/24 09:00 03/11/24 08:26 Timolol Maleate 0.5% Op Soln 5 Ml Btl OPB 03/26/24 08:59 1 drops DAILY JOEL Administration Vibegron 75 mg 02/24/24 21:00 03/10/24 21:21 Vibegron 75 Mg Tab PO 03/25/24 20:59 75 mg QPM JOEL Administration
[2024-03-11] MEDS: IRON SUCROSE 300 MG in SODIUM CHLORIDE 0.9% 250 ML IV SCH (16:43)
[2024-03-11] MEDS: HYDROmorphone INJ 0.5 MG/0.5 ML SYR IV STA (18:44)
[2024-03-11] MEDS: ONDANSETRON INJ 2 MG/ML 2 ML VIAL IV PRN (23:09)
[2024-03-12 06:31] LABS: Basophils # (auto) 0.05 K/uL (0.00-0.20); Basophils % (auto) 0.6 %; Eosinophils # (auto) 0.15 K/uL (0.00-0.50); Eosinophils % (auto) 1.9 %; Hematocrit (blood only) 27.2 % (37.0-47.0); Hemoglobin 8.6 g/dl (12.0-16.0); Immature Granulocytes # (auto) 0.06 K/uL (0.01-0.20); Immature Granulocytes % (auto) 0.8 %; Lymphocytes # (auto) 0.87 K/uL (1.20-3.40); Lymphocytes % (auto) 11.1 %; Mean Corpuscular Hemoglobin 29.1 pg (25.0-34.0); Mean Corpuscular Hgb Conc 31.6 g/dL (32.0-36.0); Mean Corpuscular Volume 91.9 fL (80.0-100.0); Mean Platelet Volume 8.9 fL (9.4-12.4); Monocytes # (auto) 0.61 K/uL (0.11-0.59); Monocytes % (auto) 7.8 %; Neutrophils # (auto) 6.13 K/uL (1.40-6.50); Neutrophils % (auto) 77.8 %; Platelet Count 597 K/uL (130-400); RDW Coefficient of Variation 15.4 % (11.5-14.5); RDW Standard Deviation 50.8 fL (36.4-46.3); Red Blood Count 2.96 M/uL (4.20-5.40); White Blood Count 7.87 K/ul (4.8-10.8)
[2024-03-12] MEDS: lisinopril 10 MG TAB PO SCH (07:25)
--- NOTE | 2024-03-12 07:48 | Surgery Progress Note ---
Date of Service March 12, 2024 Assessment & Plan (1) Stercoral colitis: Plan: [facility] procedure for stercoral perforation on 02/23 WBC 7.8, Hbg 8.6. vitals stable ostomy function with stool in bag on low fiber diet, appears appetite improving over the wknd continue BID packing/dressing changes to incisional areas On augmentin, per medicine note to continue through 03/14 Ambulating and Pulmonary toilet encouraged PT/OT, OOB to chair increase activity as able Okay to d/c [place] from our standpoint when okay with medicine Dispo planning per medicine (2) Status post [facility] procedure: Admission and Anticipated Discharge Date Admission Date: February 24, 2024 Supervising Physician Co-Signing Physician Notes Patient seen examined, labs reviewed, agree with above. Status post Morin's procedure for stercoral perforation. Appetite improved, ostomy functional. Incision healing well with 2 areas with wet-to-dry dressings, remainder with mayco in place. Remove mayco in the next day or 2, drain removed over the weekend. Continue current diet, continue aggressive bowel regimen given significant stool burden. Await placement, okay for discharge from surgery standpoint. Subjective Patient denies nausea/vomiting. Chart review appears pt was eating more over the wknd. Some abdominal pain but says it's getting better. No other complaints Physical Exam Physical Exam: resting, eyes closed but communicative when asking her questions Respiratory: normal respiratory effort Gastrointestinal (Abdomen): Inspection/Auscultation: + abdominal surgical incision (midline with mayco; 2 areas packed with gauze, small drainage); abdomen not distended Percussion/Palpation: abdomen soft; abdomen nontender + ostomy with liquid stool in bag Results & Data Vital Signs (Past 12 Hours) Vital Signs Temp Pulse Resp BP Pulse Ox O2 Del Method 03/12/24 07:44 98.4 F 87 16 172/75 H 94 Room Air 03/11/24 20:12 97.9 F 72 16 147/62 H 97 Room Air PG Care Time/CCT Total # of Minutes Spent Total Time Spent with Patient: Total time spent is greater than 50% in coordination of care (as documented) at patient's floor/unit and/or counseling patient: Coding Level of Care Code 31323 Post Operative Follow-Up Diagnoses Stercoral colitis K52.89 Status post [facility] procedure Z93.3
--- NOTE | 2024-03-12 11:43 | Hospitalist Progress Note ---
Date of Service March 12, 2024 Assessment & Plan (1) Diverticulitis of large intestine with perforation and abscess: (2) Peritonitis due to abscess: (3) Perforation of sigmoid colon: (4) Paroxysmal atrial fibrillation: (5) Severe sepsis with acute organ dysfunction: (6) Acute metabolic encephalopathy: (7) Acute renal failure superimposed on stage 3 chronic kidney disease: (8) Hypothyroidism: (9) Diabetes mellitus, type 2: (10) Postoperative anemia: (11) Volume overload: Plan Ms. 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 Course complicated by slow bowel return to function and abdominal pain. Patient s/p 1 UPRBC 03/08. Patient with poor appetite and refusal to eat for 48 hours until 03/10 when patient reported feeling much improved. Patient eating and without pain. Continue to encourage PO intake and appears to have ate over weekend Acute on chronic anemia, likely multifactorial *stable Abnormal differential Thrombocytosis likely iso post-op losses. nutritional component Anemia Labs ordered including retic No clear source of bleeding, no reported vomiting, stool in ostomy brown Blast 0.15 03/07, repeat diff without blasts Transfuse < 7.0 hgb or symptomatic -s/p 1 UPRBC 03/08 Notable iron deficiency, likely contributing Venofer x 2 doses, 03/11 and 03/12 Hgb stable at 8.6 Surgical incision infection Abdominal pain Stercoral colitis c/b perforation s/p colostomy CT obtained without signs of abscess ostomy with liquid output Remains afebrile Surgery following -Encourage mobility as able, Incentive spirometry -continue po Augmentin once more, EOT 03/14 -Maintain [place] 2/2 reduced mobility -MRSA negative, Volume overload Acute on Chronic HFpEf will give dose of IV lasix 40mg x 1 day strict I and O, daily weights - weights up from 94kg-100.7kg since admission IV lasix prn, CTM replace lytes prn, check CBC, BMP, mag, bnp in a.m. Leukocytosis *resolved completed 10 days IV abx post op However, now with new drainage of incision site 03/07, resumed on zosyn with improvement in WBC remains afebrile, to complete augmentin on 03/14 DMTII A1C 7.0% basal bolus while admitted glycemic pharmacy Parkinson's disorder continue entacapone and Sinemet CAD echo 04/2022 EF 57%, inferior/basal hypokinesis consistent with chronic cad/occlusion of RCA continue coreg, lisinopril Hypertension on coreg, lisinopril as OP Bp elevated today, likely in setting of excess volume, to receive IV lasix home dose lisinopril is 20mg daily, increased to 10mg yesterday, will slowly up titrate back to home dose as able CKD-3 baseline Cr 1.4 monitor renal fxn, avoid nephrotoxic agents Carotid artery disease s/p L CEA 06/2021 continue asa, statin Hypothyroidism continue levothyroxine and liothyronine Glaucoma continue eye drops DVT ppx: SQ heparin Dispo: medically stable, pending rehab placement I spent a total of 55 minutes minutes reviewing notes, outpatient records, labs, medication, coordinating, documenting and providing care for this patient excluding time spent in the performance of separately billed services. Admission and Anticipated Discharge Date Admission Date: February 24, 2024 Supervising Physician Co-Signing Physician Notes I have seen and discussed the case with the collaborating advanced practitioner. I agree with the above PN. I have reviewed and confirmed the patients medical history, the findings on physical examination, and the patients diagnosis and treatment plan with Ruba MACKENZIE and agree with the information documented. Agree with lasix, increased lisinopril back to hoome dosing Pending rehab I spent a total of 15 minutes coordinating, documenting, and providing care for this patient excluding time spent in the performance of separately billed services. All of the aforementioned completed outside of collaborating with the assigned advanced practitioner for a full treatment plan. I have reviewed the advanced practitioner's documentation, and I agree with, and take responsibility for the plan of care Subjective NAEO Discussed with nurse and no acute concerns Pt reports tolerating diet and denies n/v. She denies significant abd pain. Review of Systems Review of Systems: All systems reviewed & are unremarkable except as noted in HPI & below Physical Exam Physical Exam: Gen: WD/WN, NAD, Sleeping but arouses to verbal stimulation HEENT: Normocephalic, atraumatic, conjunctivae moist, sclerae anicteric, mucous membranes moist. Lung: Clear to Auscultation bilaterally, no wheezes/rales/rhonchi Heart: Regular rate, regular rhythm, 2/6 PADMAJA RUSB no murmurs, rubs, or gallops Abdomen: Soft, +BS x 4, +dressing CDI, +ostomy with liquid stool output Extremities: + edema Skin: Warm, no rash, negative turgor. Constitutional: WD/WN, vitals as above Respiratory: normal respiratory effort, lungs clear to auscultation Cardiovascular: RRR, no murmur, no edema Gastrointestinal (Abdomen): normal bowel sounds, soft, nontender, no hepatosplenomegaly Results & Data Results & Data Vital Signs (Past 12 Hours) Vital Signs Temp Pulse Resp BP Pulse Ox O2 Del Method 03/12/24 07:44 36.9 C 87 16 172/75 H 94 Room Air 03/12/24 07:15 Room Air Medications Administered Current Inpatient Medications Acetaminophen (Acetaminophen 500 Mg Tab) 1,000 mg PO TID [facility] Stop: 03/27/24 20:59 Last Admin: 03/12/24 07:25 Dose: 1,000 mg Amoxicillin/Clavulanate Potassium (Amoxicillin/Clavulanate 875 Mg Tab) 1 tab PO BIDM [facility]; Protocol Stop: 03/14/24 16:59 Last Admin: 03/12/24 07:26 Dose: 1 tab Carbidopa/Levodopa (Carbidopa/Levodopa 25/100mg Tab) 2 tab PO TID JOEL Stop: 03/25/24 20:59 Last Admin: 03/12/24 07:26 Dose: 2 tab Carvedilol (Carvedilol 12.5 Mg Tab) 12.5 mg PO BIDM [facility] Stop: 03/31/24 16:59 Last Admin: 03/12/24 07:26 Dose: 12.5 mg Dextrose (Dextrose 50% 50 Ml Syringe) 25 - 50 ml IV UD PRN; Protocol PRN Reason: Hypoglycemia Protocol Stop: 03/25/24 18:32 Docusate Sodium (Docusate Sodium 100 Mg Cap) 100 mg PO BID [facility] Stop: 03/31/24 20:59 Last Admin: 03/12/24 07:25 Dose: 100 mg Dorzolamide HCl (Dorzolamide Hcl 2% Oph Soln 10 Ml Btl) 1 drops OPB DAILY JOEL Stop: 03/26/24 08:59 Last Admin: 03/12/24 07:27 Dose: 1 drops Entacapone (Entacapone 200 Mg Tab) 200 mg PO TID JOEL Stop: 03/25/24 20:59 Last Admin: 03/12/24 07:26 Dose: 200 mg Glucagon (Glucagon For Inj 1 Mg Vial) 1 mg SQ UD PRN; Protocol PRN Reason: Hypoglycemia Protocol Stop: 03/25/24 18:32 Glucose (Glucose 40% Gel 15 Gm Tube) 15 - 30 gm PO UD PRN; Protocol PRN Reason: Hypoglycemia Protocol Stop: 03/25/24 18:32 Glucose (Glucose 10 Tab/Tube) 4 - 8 tab PO UD PRN; Protocol PRN Reason: Hypoglycemia Treatment Stop: 03/25/24 18:32 Heparin Sodium (Beef Lung) (Heparin 10 Unit/Ml 5 Ml Flush) 5 ml FLUSH PRN PRN PRN Reason: Flush Stop: 03/30/24 16:23 Last Admin: 03/12/24 07:33 Dose: 5 ml Heparin Sodium (Porcine) (Heparin Sod 5,000 Unit/0.5 Ml Vial) 5,000 units SQ Q8 JOEL Stop: 03/27/24 13:59 Last Admin: 03/07/24 13:30 Dose: 5,000 units Pantoprazole Sodium 40 mg/ (Syringe) 10 mls @ 5 mls/min IV BID JOEL Stop: 04/08/24 11:59 Last Admin: 03/12/24 07:27 Dose: 5 mls/min Iron Sucrose 300 mg/ Sodium (Chloride) 265 mls @ 176.667 mls/hr IV Q24H [facility]; Protocol Stop: 03/12/24 17:59 Last Infusion: 03/11/24 18:22 Dose: Infused Insulin Aspart (Insulin Aspart Per Unit Charge) 0 units SC ACHS JOEL Stop: 04/06/24 09:59 Last Admin: 03/12/24 08:35 Dose: Not Given Insulin Glargine (Lantus Per Unit Charge) 10 units SC DAILY JOLE Stop: 04/06/24 09:59 Last Admin: 03/12/24 08:36 Dose: 10 units Latanoprost (Latanoprost 0.005% Op Soln 2.5 Ml Btl) 1 drops OP DAILY JOEL Stop: 03/26/24 08:59 Last Admin: 03/12/24 07:27 Dose: 1 drops Levothyroxine Sodium (Levothyroxine Sodium 100 Mcg Tablet) 100 mcg PO DAILYBB JOEL Stop: 03/26/24 06:29 Last Admin: 03/12/24 05:56 Dose: 100 mcg Liothyronine Sodium (Liothyronine Sodium 5 Mcg Tab) 5 mcg PO DAILY JOEL Stop: 03/26/24 08:59 Last Admin: 03/12/24 07:25 Dose: 5 mcg Lisinopril (Lisinopril 10 Mg Tab) 10 mg PO QAM [facility] Stop: 04/11/24 08:59 Last Admin: 03/12/24 07:25 Dose: 10 mg Melatonin (Melatonin 3 Mg Tab) 6 mg PO HS PRN PRN Reason: Sleep Stop: 04/05/24 21:35 Last Admin: 03/11/24 20:02 Dose: 6 mg Miscellaneous (Carbohydrates For Hypoglycemia ) 15 - 30 gm PO UD PRN PRN Reason: Hypoglycemia Protocol Stop: 03/25/24 18:32 Nystatin (Nystatin 500,000 Unit Tab) 500,000 units PO QID [facility] Stop: 03/12/24 16:59 Last Admin: 03/12/24 07:26 Dose: 500,000 units Ondansetron HCl (Ondansetron Inj 2 Mg/Ml 2 Ml Vial) 4 mg IV Q6H PRN PRN Reason: Nausea Stop: 03/25/24 18:32 Last Admin: 03/11/24 23:09 Dose: 4 mg Phenol (Chloraseptic (Phenol) 1.4% Soln 180 Ml Btl) 1 sprays MT Q2H PRN PRN Reason: oral cavity/oropharyngeal pain Stop: 04/02/24 20:25 Polyethylene Glycol (Polyethylene (Miralax) 17 Gm Pack) 17 gm PO Q6H JOEL Stop: 04/08/24 12:00 Last Admin: 03/12/24 05:58 Dose: 17 gm Timolol Maleate (Timolol Maleate 0.5% Op Soln 5 Ml Btl) 1 drops OPB DAILY [facility] Stop: 03/26/24 08:59 Last Admin: 03/12/24 07:27 Dose: 1 drops Vibegron (Vibegron 75 Mg Tab) 75 mg PO QPM [facility] Stop: 03/25/24 20:59 Last Admin: 03/11/24 20:02 Dose: 75 mg
[2024-03-12] MEDS: FUROSEMIDE 40 MG/4 ML VIAL IV ONE (12:39)
[2024-03-12] MEDS: PANTOprazole 40 MG TAB PO SCH (20:17)
[2024-03-13 06:36] LABS: Basophils # (auto) 0.06 K/uL (0.00-0.20); Basophils % (auto) 0.9 %; Eosinophils # (auto) 0.21 K/uL (0.00-0.50); Hematocrit (blood only) 28.2 % (37.0-47.0); Hemoglobin 9.2 g/dl (12.0-16.0); Immature Granulocytes # (auto) 0.05 K/uL (0.01-0.20); Immature Granulocytes % (auto) 0.7 %; Lymphocytes # (auto) 1.02 K/uL (1.20-3.40); Lymphocytes % (auto) 14.5 %; Mean Corpuscular Hemoglobin 29.1 pg (25.0-34.0); Mean Corpuscular Hgb Conc 32.6 g/dL (32.0-36.0); Mean Corpuscular Volume 89.2 fL (80.0-100.0); Mean Platelet Volume 8.6 fL (9.4-12.4); Monocytes # (auto) 0.63 K/uL (0.11-0.59); Neutrophils # (auto) 5.05 K/uL (1.40-6.50); Neutrophils % (auto) 71.9 %; Platelet Count 581 K/uL (130-400); RDW Coefficient of Variation 15.3 % (11.5-14.5); RDW Standard Deviation 49.6 fL (36.4-46.3); Red Blood Count 3.16 M/uL (4.20-5.40); White Blood Count 7.02 K/ul (4.8-10.8)
[2024-03-13 07:03] LABS: BUN Creatinine Ratio 19.3 (10-20); Calcium 8.2 mg/dl (8.6-10.3); Creatinine Clr Calc Pharmacy 71.7 ml/min; Est GFR (African American) 81.7 ml/min; Est GFR (Non-African American) 70.4 ml/min; Magnesium 1.6 mg/dl (1.7-2.4)
[2024-03-13] MEDS: lisinopril 20 MG TAB PO SCH (07:23)
--- NOTE | 2024-03-13 07:45 | Surgery Progress Note ---
Date of Service March 13, 2024 Assessment & Plan (1) Stercoral colitis: Plan: [facility] procedure for stercoral perforation on 02/23 WBC 7.8, Hbg 9.2, vitals stable ostomy function with stool in bag. abdomen soft, non tender on low fiber diet, no nausea/vomiting continue BID packing/dressing changes to incisional areas . mayco removed yesterday On augmentin, per medicine note to continue through 03/14 Ambulating and Pulmonary toilet encouraged PT/OT, OOB to chair increase activity as able Okay to d/c [place] from our standpoint when okay with medicine Dispo planning per medicine.. .she is stable for dispo from our POV when accepted to facility (2) Status post [facility] procedure: Admission and Anticipated Discharge Date Admission Date: February 24, 2024 Supervising Physician Co-Signing Physician Notes Patient seen examined, agree with above. Status post Morin's procedure for stercoral perforation. She is tolerating a diet and her appetite is increasing, she is having good output from her stoma. On exam afebrile with stable vitals, mayco removed yesterday, 2 areas that were opened are healing well by secondary intent. Ostomy productive. Continue current management, patient will likely need placement. Surgery will follow peripherally, call with questions or concerns. Subjective Patient resting with eyes closed. Says her abdominal pain is good. Says yes when I ask her if she is eating. Denies nausea/vomiting. Physical Exam Physical Exam: resting, eyes closed but communicative when asking her questions Respiratory: normal respiratory effort Cardiovascular: Rate/Rhythm: regular rate Gastrointestinal (Abdomen): Inspection/Auscultation: + abdominal surgical incision (midline with mayco removed; 2 areas packed with gauze, small drainage); abdomen not distended Percussion/Palpation: abdomen soft; abdomen nontender and no guarding + ostomy functioning with stool in the b ag PG Care Time/CCT Total # of Minutes Spent Total Time Spent with Patient: Total time spent is greater than 50% in coordination of care (as documented) at patient's floor/unit and/or counseling patient: Coding Level of Care Code 71156 Post Operative Follow-Up Diagnoses Stercoral colitis K52.89 Status post [facility] procedure Z93.3
[2024-03-13] MEDS ORDERED: MAGNESIUM OXIDE 400 MG TAB PO SCH (09:00)
[2024-03-13] MEDS ORDERED: LANTUS PER UNIT CHARGE SC SCH (09:00)
[2024-03-13] MEDS: MAGNESIUM CHLORIDE W/CALCIUM 64MG DELAYED REL TAB PO SCH (09:47)
[2024-03-13 11:54] VITALS: RESP 16
[2024-03-13] MEDS: FUROSEMIDE 40 MG/4 ML VIAL IV SCH (12:09)
[2024-03-13] MEDS ORDERED: AMOXICILLIN/CLAVULANATE 875 MG TAB PO ONE (15:12)
--- NOTE | 2024-03-13 15:22 | Discharge Summary ---
Discharge Summary Date of Service March 13, 2024 Principal Dx & Hospital Course #1 = Principal Diagnosis (1) Diverticulitis of large intestine with perforation and abscess: (2) Peritonitis due to abscess: (3) Perforation of sigmoid colon: (4) Paroxysmal atrial fibrillation: (5) Severe sepsis with acute organ dysfunction: (6) Acute metabolic encephalopathy: (7) Acute renal failure superimposed on stage 3 chronic kidney disease: (8) Hypothyroidism: (9) Diabetes mellitus, type 2: (10) Postoperative anemia: (11) Volume overload: Plan Ms. 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 Course complicated by slow bowel return to function and abdominal pain. Patient s/p 1 UPRBC 03/08. Patient with poor appetite and refusal to eat for 48 hours until 03/10 when patient reported feeling much improved. Patient eating and without pain. Continue to encourage PO intake with low fiber/heart healthy diet Acute on chronic anemia, likely multifactorial *stable Abnormal differential Thrombocytosis likely iso post-op losses. nutritional component Anemia Labs ordered including retic No clear source of bleeding, no reported vomiting, stool in ostomy brown Blast 0.15 03/07, repeat diff without blasts Transfuse < 7.0 hgb or symptomatic -s/p 1 UPRBC 03/08 Notable iron deficiency, likely contributing Venofer x 2 doses, 03/11 and 03/12 Hgb stable at 8.6 Surgical incision infection Abdominal pain Stercoral colitis c/b perforation s/p colostomy CT obtained without signs of abscess ostomy with liquid output Remains afebrile Surgery following -Encourage mobility as able, Incentive spirometry -continue po Augmentin once more, EOT 03/14 -continue bowel regimen of Senna S and miralax -Maintain boston 2/2 reduced mobility, remove boston when more mobile Volume overload Acute on Chronic HFpEf day of discharge weight 94kg, pt still with significant lower extremity edema IV lasix given 03/12 and 03/13 will transition to lasix 40mg daily with KCL supplementation as well as slow mag Strict I and O, daily weights - weights up from 94kg-100.7kg since admission obtain a CBC, BMP, Mag in 1 week of discharge DMTII A1C 7.0% Pt bsgs have been running on lower side, insulin discontinued would monitor bsgs at rehab before initiating coverage Parkinson's disorder continue entacapone and Sinemet, chronic, stable CAD echo 04/2022 EF 57%, inferior/basal hypokinesis consistent with chronic cad/occlusion of RCA continue coreg, lisinopril Hypertension on coreg, lisinopril as OP chronic, stable, BP 115/80 today CKD-3 baseline Cr 1, bun/cr 16 and 0.83 monitor renal fxn, avoid nephrotoxic agents Carotid artery disease s/p L CEA 06/2021 continue asa, statin Hypothyroidism continue levothyroxine and liothyronine Glaucoma continue eye drops DVT ppx: SQ heparin Dispo: medically stable, discharge to [facility] this afternoon Notes For Next Care Provider Please obtain a CBC, BMP and Mag in 1 week. Pt started on Lasix 40mg, KCL and mag supplementation due to lower extremity edema and acute/chronic HFpEF. THis may need to be adjusted based on response. Remove boston catheter at your discretion when at more ambulatory. Pts blood glucose has been running on the lower side due to variable intake. Her A1C is 7.0 as outpatient and on Ozempic. I would recommend monitoring ACHS accuchecks for now, but holding insulin coverage until your see how her BSG trends to avoid hypoglycemia. 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 History obtained from patient and associated chart review. Patient with persistent, worsening abdominal pain. Mostly in the LLQ region, however has spread to become more generalized. Has bee n experiencing abdominal pain for almost 3 weeks. Does report persistent nausea as well with this abdominal pain. Saw her PCP on 02/07/24 and had a CTAP done on 02/08/24 at [facility] that showed "colonic diverticulosis with sigmoid colonic wall thickening and perisigmoid inflammatory changes" - suggestive of colitis/diverticulitis. She was therefore started on ciprofloxacin and metronidazole at that time. Patient did initially have improvement in her symptoms, however the antibiotics were finished on 02/15/24 and her symptoms subsequently returned a few days later. She was seen in [facility] ED on 02/20/24 and CTAP at that time showed nonspecific thickening of the rectosigmoid colon wall. Patient also had a questionably infected urine specimen. She was discharged home from the ED with a 2-week course of ciprofloxacin and metronidazole. She had intense return of pain today and called her PCP for advice --> was subsequently referred to the ED for further evaluation. No vomiting today but nausea still persists. Has not had a BM in approximately 5 days. Notes significantly decreased oral intake secondary to pain and nausea. No fevers. Denies any urinary issues. She has been compliant with her prescribed antibiotics. CTAP today reveals findings consistent with interval sigmoid colon perforation. Associated retroperitoneal gas, pneumoperitoneum and gas w/in the mesentery with extensive inflammation and small amount of ascites noted as well. There is also an extraluminal 7cm stool ball extending through the defect. No drainable fluid collection seen. General surgery was emergently consulted on this patient by Dr. Wallace in the ED. She is scheduled to undergo surgical intervention with Dr. Hood. Admission Exam Per Admitting Provider Physical Exam: awake, alert, appears in pain intermittently Respiratory: normal respiratory effort Cardiovascular: Rate/Rhythm: regular rate Gastrointestinal (Abdomen): Inspection/Auscultation: + abdomen distended (mild) Percussion/Palpation: + abdomen tender (tender across lower/mid abdomen worse in the LLQ), + guarding (in LLQ) and abdomen soft Discharge Exam Gen: WD/WN, NAD, keeps eyes closed but answers questions approp HEENT: Normocephalic, atraumatic, conjunctivae moist, sclerae anicteric, mucous membranes moist. Lung: Clear to Auscultation bilaterally, no wheezes/rales/rhonchi Heart: Regular rate, regular rhythm, 2/6 PADMAJA RUSB no murmurs, rubs, or gallops Abdomen: Soft, +BS x 4, +dressing CDI, +ostomy with liquid stool output Extremities: +++ edema Skin: Warm, no rash, negative turgor. Constitutional WD/WN, vitals as above Respiratory normal respiratory effort, lungs clear to auscultation Cardiovascular RRR, no murmur, no edema Gastrointestinal (Abdomen) normal bowel sounds, soft, nontender, no hepatosplenomegaly Updated Medication List Medication Instructions Recorded Confirmed Type vitamin E 200 unit capsule 200 unit PO HS 06/22/18 02/24/24 History latanoprost (PF) 0.005 % eye drops 1 drp OPB DAILY 01/22/20 02/24/24 History semaglutide 0.25 mg or 0.5 mg (2 1.25 mg subcut WK 04/08/20 02/24/24 History mg/1.5 mL) subcutaneous pen injector (Ozempic) glucosamine-chondroitin 250 mg-200 1 tab PO DAILY 11/11/23 02/24/24 History mg tablet (Osteo Bi-Flex) B-complex with vitamin C 1 tab PO DAILY #30 tabs 03/13/24 Rx acetaminophen 500 mg tablet 1,000 mg (2 x 500 mg) PO TID PRN 03/13/24 Rx (Tylenol Extra Strength) pain #90 tabs amoxicillin 875 mg-potassium 1 tab PO BIDM #2 tabs 03/13/24 Rx clavulanate 125 mg tablet ascorbic acid (vitamin C) 1,000 mg 1 g PO QAM #30 tabs 03/13/24 Rx tablet (Vitamin C) aspirin 81 mg tablet,delayed 81 mg PO QAM #30 tabs 03/13/24 Rx release atorvastatin 80 mg tablet 80 mg PO DAILY #30 tabs 03/13/24 Rx carbidopa 25 mg-levodopa 100 mg 2 tab PO TID 30 days #180 tabs 03/13/24 02/24/24 Rx tablet carvedilol 12.5 mg tablet 12.5 mg PO BID #60 tabs 03/13/24 Rx docusate sodium 100 mg capsule 100 mg PO BID #60 caps 03/13/24 Rx dorzolamide-timolol (PF) 2 %-0.5 % 1 drp OPB DAILY #60 ea 03/13/24 Rx eye drops in a dropperette entacapone 200 mg tablet 200 mg PO TID #270 tabs 03/13/24 Rx fexofenadine 180 mg tablet 180 mg PO QAM #30 tabs 03/13/24 Rx (Aleisha Allergy) folic acid 1 mg tablet 1 mg PO QAM #30 tabs 03/13/24 Rx furosemide 40 mg tablet 40 mg PO DAILY #30 tabs 03/13/24 Rx levothyroxine 100 mcg tablet 100 mcg PO DAILY #30 tabs 03/13/24 Rx liothyronine 5 mcg tablet 5 mcg PO DAILY #30 tabs 03/13/24 Rx lisinopril 20 mg tablet 20 mg PO DAILY #30 tabs 03/13/24 Rx magnesium chloride 64 mg 64 mg PO BID #60 tabs 03/13/24 Rx (magnesium chloride) tablet,delayed release (Mag 64) ljptwqxnreqv-gcneuhpu-ugugye 1 tab PO QAM #30 tabs 03/13/24 Rx tablet (Multivitamin 50 Plus tablet) omega 4-xei-qfy-fish oil 1,000 mg 1 cap PO DAILY #30 caps 03/13/24 Rx (120 mg-180 mg) capsule (Fish Oil) pantoprazole 40 mg tablet,delayed 40 mg PO DAILY #30 tabs 03/13/24 Rx release polyethylene glycol 3350 17 gram 17 g PO Q6H #100 ea 03/13/24 Rx oral powder packet (Miralax) potassium chloride 20 mEq 20 meq PO DAILY #30 tabs 03/13/24 Rx tablet,extended release thiamine HCl (vitamin B1) 50 mg 50 mg PO QAM #30 tabs 03/13/24 Rx tablet (Vitamin B-1) vibegron 75 mg tablet (Gemtesa) 75 mg PO QPM #30 tabs 03/13/24 Rx Hospital Stay Data Consultations 02/24/24 12:55 Consult General Surgery Stat 02/24/24 13:06 ED Decision to Admit Stat Procedures Performed Operation Date: 02/24/24 11:55 Actual Procedures p Exploratory Laparotomy with Sigmoidectomy and Colostomy Formation(Not Applicable) - Art Hood, DO, FACS Diagnostic Imagining Performed Abdomen/Pelvis CT 02/24/24 12:13 CT OF THE ABDOMEN AND PELVIS WITHOUT CONTRAST CLINICAL HISTORY: Left lower quadrant abdominal pain. COMPARISON STUDY: CT of the abdomen and pelvis February 20, 2024. TECHNIQUE: Axial images of the abdomen and pelvis were obtained without IV contrast. Images were reviewed in the axial, sagittal, and coronal planes. Automated exposure control was utilized for the study. A dose lowering technique was utilized adhering to the principles of ALARA. FINDINGS: Lung bases are unremarkable. Unenhanced images of the liver, spleen, adrenal glands and pancreas are unremarkable. There is moderate bilateral renal cortical thinning. There are numerous calcifications within the bilateral renal sinuses. Many of these are likely vascular in etiology. However, there are suspected nonobstructing bilateral renal calculi as well. There is no hydronephrosis. No ureteral calculi are identified. There is no evidence for a bowel obstruction. Of note, there has been interval development of moderate gas within the retroperitoneum which extends into the left anterior pararenal space. There is also pneumoperitoneum/extraluminal gas within the mesentery. The find ings are due to interval colonic perforation involving the sigmoid colon, shown on image 272 of 369. Bowel wall thickening is noted. There is extensive adjacent inflammation. Extraluminal contrast and stool extending into the mesentery is present. The stool ball measures approximately 7 cm. There is a small amount of ascites. No drainable fluid collection is present. IMPRESSION: Findings consistent with interval sigmoid colon perforation, as described above. Associated retroperitoneal gas, pneumoperitoneum and gas within the mesentery with extensive inflammation and a small amount of ascites. Extraluminal 7 cm stool ball extending through the defect. No drainable fluid collection. Surgical consultation is recommended. Findings discussed with Dr. Wallace at time of dictation. ACT 112: Negative or not required by law. Electronically signed by: Man Jones M.D. 02/24/2024 1:16 PM KUB X-Ray 02/24/24 20:23 XR KUB/Abdomen 1 view CLINICAL HISTORY: NG placement TECHNIQUE: 1 view of the abdomen was obtained. Comparison: None available at the time of this dictation. FINDINGS: Enteric tube terminates in the stomach. The osseous structures are grossly unremarkable. The bowel gas pattern is nonobstructive. Large stool burden is seen without evidence of inspissated stool in the rectum. IMPRESSION: Satisfactory position of enteric tube. ACT 112: Negative or not required by law. Electronically signed by: Elijah Paredes M.D. 02/25/2024 10:26 AM Renal Ultrasound 02/25/24 08:22 US renal/blad retro comp CLINICAL HISTORY: low urine output, recent abd surgery, r/o obs TECHNIQUE: Multiple sonographic real-time images of the kidneys and bladder were obtained. COMPARISON: Comparison is made to CT abdomen pelvis 02/24/2020 FINDINGS: The right kidney measures 9.8 cm in length, and the left kidney measures 10.0 cm in length. The right renal cortex is diffusely echogenic in appearance with diffuse cortical thinning. No hydronephrosis is identified. Nonobstructive nephrolithiasis is seen. Perinephric stranding is seen in the anterior aspect of the midpole. The left renal cortex is diffusely echogenic in appearance, with diffuse cortical thinning. No hydronephrosis is identified. Nonobstructive nephrolithiasis is seen. A Boston catheter is seen in the collapsed bladder. No large intraluminal mass is seen. IMPRESSION: Unremarkable examination and in particular no evidence of hydronephrosis. ACT 112: Negative or not required by law. Electronically signed by: Elijah Paredes M.D. 02/25/2024 10:02 AM Abdomen/Pelvis CTA 03/03/24 09:57 CT angio abdomen pelvis w con CLINICAL HISTORY: 73 years-old Female with no BM, c/f abscess no BM, c/f abscess acute has abdominal pain COMPARISON STUDY: CT abdomen and pelvis 02/24/2024 TECHNIQUE: Following the IV administration of 120 cc of Optiray, CT angiogram of the abdomen and pelvis was performed from the lung bases the proximal femora. Images are reviewed in the axial, sagittal, and coronal planes. 3-D MIPS images are created and assessed. All measurements were obtained according to NASCET criteria. IV contrast was administered without complication. A dose lowering technique was utilized adhering to the principles of ALARA. CT DOSE: 1300.99 mGy.cm FINDINGS: CTA: Mild cardiomegaly. Partially imaged catheter within the right atrium. Coronary artery calcifications. Atherosclerosis of the thoracic aorta and branch vessels without aneurysm or dissection. There is patency of the celiac trunk, superior and inferior mesenteric arteries. The renal arteries are patent with moderate narrowing at the origins. CT ABDOMEN/PELVIS: Trace pleural effusions with mild dependent bibasilar atelectasis. Unremarkable spleen, pancreas and adrenal glands. Cholelithiasis with mild nonspecific gallbladder wall thickening and trace pericholecystic fluid redemonstrated. Unremarkable liver. Cortical thinning of the kidneys. Scattered subcentimeter calcifications of the kidneys mostly appear to be vascular. No ureteral calculi or hydronephrosis. Decompressed or neobladder with Boston catheter in place. Heterogeneous uterus. No lymphadenopathy. Mild nonspecific distal esophageal wall thickening. There is no small bowel obstruction. Status post partial resection of the left hemicolon with left lower quadrant colostomy. Scattered foci of pneumoperitoneum with anterior abdominal wall subcutaneous and deep tissue air, likely expected postoperative changes. Small amount of ascites within the pelvis. A surgical drainage catheter terminates in the abdominal left lower quadrant. No acute fracture. IMPRESSION: 1. Interval partial left hemicolectomy with left lower quadrant colostomy. Small amount of pneumoperitoneum with trace ascites. No drainable fluid collections. 2. Surgical drainage catheter terminates in the left hemipelvis. 3. No small bowel obstruction. 4. Atherosclerosis without aneurysm, dissection, high-grade stenosis or active extravasation. 5. Cholelithiasis with unchanged appearance of the gallbladder. 6. Additional findings as above. ACT 112: Negative or not required by law. The above report was generated using voice recognition software. It may contain grammatical, syntax or spelling errors. Electronically signed by: Eder Torres M.D. 03/03/2024 11:19 AM Abdomen/Pelvis CT 03/07/24 19:28 Exam(s): CT ABDOMEN + PELVIS With Contrast IV Amt: 90ml EXAM: CT Abdomen and Pelvis With Intravenous Contrast CLINICAL HISTORY: rlq pain. Previous sigmoid colonic perforation noted on the prior examination. TECHNIQUE: Axial computed tomography images of the abdomen and pelvis with intravenous contrast. CTDI is 26.76 mGy and DLP is 1479.42 mGy-cm. Automated exposure control was utilized for the study. A dose lowering technique was utilized adhering to the principles of ALARA. CONTRAST: Patient received 90ml of IV contrast COMPARISON: CT abdomen and pelvis without contrast dated 02/24/2024 FINDINGS: Lung bases: Unremarkable. No mass. No consolidation. ABDOMEN: Liver: Unremarkable. No mass. Gallbladder and bile ducts: The gallbladder is fully distended. No calcified gallstones. Mild prominence of the gallbladder wall. No pericholecystic fluid. Pancreas: Unremarkable. No mass. No ductal dilation. Spleen: Unremarkable. No splenomegaly. Adrenals: Unremarkable. No mass. Kidneys and ureters: The kidneys remain slightly atrophic. No pyelonephritis or hydronephrosis. Calcifications are presumed mixed vascular and nonobstructive subcentimeter nephrolithiasis. Stomach and bowel: There has been interval diverting colostomy involving the left lower quadrant when compared to the previous examination. There is no definite evidence for focal high-grade bowel obstruction. However, there is mild fluid and gas distention of the small bowel in the abdomen with some residual mesenteric fat stranding remaining. Moderate stool burden. PELVIS: Appendix: No findings to suggest acute appendicitis. Bladder: A Boston catheter is noted in the bladder. Reproductive: The uterus is ill-defined and heterogeneous, although normal in size. ABDOMEN and PELVIS: Intraperitoneal space: A surgical drain extends from the right lower quadrant across the midline pelvis. Adjacent and superior to the surgical drain, there is residual fluid and minimal gas remaining, with the fluid measuring 2.1 x 3 x 2.7 cm (series 301; images 34-44 and series 2; images 57-68). Bones/joints: Multilevel degenerative changes. No acute osseous abnormality. No dislocation. Soft tissues: Midline superficial skin mayco identified involving the infraumbilical anterior pelvic wall. There is some residual fluid and gas along the deep margin of the incision, measuring 1.8 x 2.5 x 3.5 cm (series 300; image 45). Diffuse soft tissue edema suggesting anasarca. Vasculature: Atherosclerotic calcification of the aorta and iliac arteries. No alteration. No abdominal aortic aneurysm. Lymph nodes: Unremarkable. No enlarged lymph nodes. IMPRESSION: 1. There has been interval diverting colostomy involving the left lower quadrant when compared to the previous examination. There is no definite evidence for focal high-grade bowel obstruction. However, there is mild fluid and gas distention of the small bowel in the abdomen with some residual mesenteric fat stranding remaining. Mild enteritis may be present. 2. A surgical drain extends from the right lower quadrant across the midline pelvis. Adjacent and superior to the surgical drain, there is residual fluid and minimal gas remaining, with the fluid measuring 2.1 x 3 x 2.7 cm (series 301; images 34-44 and series 2; images 57-68). 3. Midline superficial skin mayco identified involving the infraumbilical anterior pelvic wall. There is some residual fluid and gas along the deep margin of the incision, measuring 1.8 x 2.5 x 3.5 cm (series 300; image 45). 4. Diffuse soft tissue edema suggesting anasarca. Electronically signed by: Ruiz Cosme MD 03/07/24 23:02 PM KUB X-Ray 03/09/24 11:53 KUB CLINICAL HISTORY: Abdominal distention. FINDINGS: 3 AP, portable, supine abdominal radiographs are compared to study dated 02/24/2024 and correlated with abdominal CT dated 03/07/2024. There is no radiographic evidence of high-grade obstruction. Mild gaseous distention of the small bowel loops and right colon could represent a postsurgical ileus. Midline skin clips and a surgical drain project over the pelvis. Inspissated enteric contrast is again seen projecting over the rectum. No evidence of intraperitoneal free air is seen on these supine images. There are no abnormal abdominal calcifications. Tiny renal calculi seen by CT are not apparent on x- ray. The skeletal structures are osteopenic. There is advanced cervical spondylosis and mild scoliosis. IMPRESSION: 1. There is no radiographic evidence of high-grade obstruction. 2. Mild gaseous distention of the small bowel loops and the right colon is a suggestive of ileus. Correlate clinically. 3. Postsurgical change in the pelvis as above. Electronically signed by: Nile Schwartz M.D. 03/09/2024 2:33 PM Pending Results Patient Have Any Pending Studies at Discharge: Yes Discharge Instructions Given to Patient (Per Discharging Provider) Dressing change instructions: pack open incisional areas with 4x4 gauze, cover incision with 4x4 gauze and adhere with tape. Do dressing changes once daily or more often if needed to keep area clean and dry. Cover the site where your surgical drain was removed with dry gauze/tape. Change daily and as needed until healed. Care for your ostomy as you have been instructed prior to discharge. You are on antibiotic, Augmentin, for one more day for your incision infection. Please monitor daily weight. Discharging weight 94kg. If pt gains > 5 lbs in a week please contact primary provider responsible for patient care. You are on bowel regimen senna S and miralax. These medications may need titrated at [facility] to ensure you are having loose stool out of your ostomy. If your stool becomes firm please contact your surgeon. Please follow up with your Primary Care Provider upon discharge from rehab. Please perform a CBC, BMP and magnesium within 1 week of discharge. Monitor electrolytes and replace as necessary. Her discharging hemoglobin is 9.2 and potassium is 4.0. Please perform a voiding trial when more ambulatory. Total Time Total Time Spent Total Time Spent (In Minutes): 55 minutes Supervising Physician Co-Signing Physician Notes I have seen and discussed the case with the collaborating advanced practitioner. I agree with the above DS. I have reviewed and confirmed the patients medical history, the findings on physical examination, and the patients diagnosis and treatment plan with Ruba MACKENZIE and agree with the information documented. Evaluated patient. Wishing she could go home, but understands need for rehab. Will need labs in 1 week. agree with above course and plan I spent a total of 15 minutes coordinating, documenting, and providing care for this patient excluding time spent in the performance of separately billed services. All of the aforementioned completed outside of collaborating with the assigned advanced practitioner for a full treatment plan. I have reviewed the advanced practitioner's documentation, and I agree with, and take responsibility for the plan of care
[2024-03-13 15:23] VITALS: BP 115/80; PULSE 75; TEMP 98.2; O2SAT 97
--- NOTE | 2024-03-19 08:11 | Coding Query ---
CODING QUERY To promote full compliance with coding requirements relating to patient care, provider participation is requested in all cases of inside sales advisor uncertainty. Please assist us with the question(s) below: Coding Question(s): "In the setting of" indicates that the two conditions exist together, it does not indicate a jdzpe-qvg-wfyuej relationship. Could you please clarify the meaning of the following documentation: (acute on chronic anemia likely iso postop losses, nutritional component) Physician's Response(s): ( ) Anemia and postop losses coexist (without fakcf-ipz-dwpsde relationship) ( ) anemia due to postop losses (with kgqhk-svz-kpnviy relationship) ( ) Other, please specify Thank you Eli Painting Principal Diagnosis: "that condition established after study, to be chiefly responsible for occasioning the admission of the patient to the hospital for care." Co-Existing Principal Diagnosis: "when two or more diagnoses equally meet the criteria for principal diagnosis as determined by the circumstances of admission, diagnostic work up, and/or therapy provided, and the Alphabetic Index, Tabular List, or another coding guideline does not provide sequencing direction, any one of the diagnoses may be sequenced first." "When the physician has documented what appears to be a current diagnosis in the body of the record, but has not included the diagnosis in the final diagnostic statement, the physician should be asked whether the diagnosis should be added." ([facility] QTR90. p3-4) ANGÉLICA
--- NOTE | 2024-03-19 08:42 | Coding Query ---
ANEMIA To promote full compliance with coding requirements relating to patient care, physician participation is requested in all cases of electrical cad designer uncertainty. Please assist us with the question(s) below: Coding Question(s): The record reflects the following clinical findings: If these findings are indicative of anemia, please specify the known or suspected type by placing an "X" within the parenthesis (x). If other, please document type. Examples are: ( ) Acute blood loss anemia ( x) Acute Postoperative blood loss anemia ( ) Acute postoperative anemia due to dilutional fluids ( ) Chronic blood loss anemia (x ) Anemia of chronic disease ( ) Aplastic anemia ( ) Anemia due to renal disease ( ) Anemia in neoplastic disease (x ) Iron deficient anemia ( ) Anemia, unspecified or other ( ) Other: (please specify) Thank you Eli LINDSAY
== END 2024-03-13 16:43 | DRG 329 ==
LOC: ED 11:41 → 3N 13:54 → OR 13:54 → SUATTDRO 13:58 → 3E 13:58 → 2S 21:35 → 3N 02-26 16:06 → 2W 03-01 12:33 → 3N 03-06 17:51

== ENCOUNTER 2024-07-12 21:10 | Inpatient (IN) ==
[2024-07-12 21:48] LABS: Basophils # (auto) 0.03 K/uL (0.00-0.20); Basophils % (auto) 0.5 %; Eosinophils # (auto) 0.11 K/uL (0.00-0.50); Eosinophils % (auto) 1.9 %; Hematocrit (blood only) 24.4 % (37.0-47.0); Hemoglobin 8.1 g/dl (12.0-16.0); Immature Granulocytes # (auto) 0.03 K/uL (0.01-0.20); Immature Granulocytes % (auto) 0.5 %; Lymphocytes # (auto) 1.21 K/uL (1.20-3.40); Lymphocytes % (auto) 21.3 %; Mean Corpuscular Hemoglobin 29.8 pg (25.0-34.0); Mean Corpuscular Hgb Conc 33.2 g/dL (32.0-36.0); Mean Corpuscular Volume 89.7 fL (80.0-100.0); Mean Platelet Volume 9.6 fL (9.4-12.4); Monocytes # (auto) 0.51 K/uL (0.11-0.59); Neutrophils # (auto) 3.78 K/uL (1.40-6.50); Neutrophils % (auto) 66.8 %; Platelet Count 253 K/uL (130-400); RDW Coefficient of Variation 14.4 % (11.5-14.5); Red Blood Count 2.72 M/uL (4.20-5.40); White Blood Count 5.67 K/ul (4.8-10.8)
[2024-07-12] MEDS: SODIUM CHLORIDE 0.9% 500 ML IV ONE (21:48)
--- NOTE | 2024-07-12 21:56 | Emergency Department Note ---
Impression & Plan Sepsis, Acute UTI (urinary tract infection), Weakness, Fall, Anemia ED Provider Note NAME: KARIE WARNER AGE: 73 SEX: F : 1950 ARRIVES VIA: Ambulance INFORMANT: Patient, the patient's significant other ED PROVIDER(S): Bhupendra Wallace DO CHIEF COMPLAINT: Weakness HPI: The patient is a 73-year-old female who presented to the emergency department with her significant other by ambulance. The patient has been having generalized weakness over the course of the last several days. The patient rolled out of bed. She fell a short distance. She denies any injuries but there was a question that she may have struck her head. The patient denies having any vomiting but she has noticed nausea. She did note some abdominal pain as well as a cough. She also notices lower extremity pain from pressure ulcers that she has been treating. ROS: See above HPI for pertinent positives & negatives. A total of 10 systems reviewed and were otherwise negative. PAST MEDICAL HISTORY: See Below PAST SURGICAL HISTORY: See Below FAMILY HISTORY: See Below SOCIAL HISTORY: See Below HOME MEDICATIONS: See Below ALLERGIES: See Below VITALS: See Below PHYSICAL EXAMINATION: GENERAL: The patient is awake to verbal commands. She is somewhat listless. EYES: The conjunctivae are clear. The pupils are round and reactive. EARS, NOSE, MOUTH AND THROAT: The nose is without any evidence of any deformity. Mucous membranes are. NECK: The neck is nontender and supple. RESPIRATORY: Normal respiratory effort is noted there is no evidence of wheezing rhonchi or rales CARDIOVASCULAR: Regular rate and rhythm noted there no murmurs rubs or gallops normal S1 normal S2. GASTROINTESTINAL: The abdomen is distended and diffusely tender. MUSCULOSKELETAL/EXTREMITIES: There is no evidence of gross deformity full range of motion is noted in the hips and shoulders. SKIN: Skin is warm and dry. There are pressure ulcer noted on both heels. There is contractures in both lower extremities. NEUROLOGIC: Patient is awake alert and oriented x3. Speech was pressured. There were contractures on the right side. MEDICAL DECISION MAKING: The patient is a 73-year-old female who presented to the emergency department for an evaluation of generalized weakness. The patient was hypotensive on multiple occasions. She was treated with IV fluids as well as IV antibiotics for the possibility of sepsis. The patient has radiographic studies that showed the possibility of a pneumonia but also her urinary specimen could be consistent with infection. She does have a chronic indwelling Douglas. The patient's blood pressure did slowly improve while in the emergency department. I discussed her condition with the on-call [facility] hospitalist. They have agreed to evaluate the patient in the emergency department. Triage Nursing notes reviewed. Prior medical records reviewed Vital Signs: reviewed and remarkable for hypotension Differential diagnosis: Infection, hypoglycemia, electrolyte abnormalities, overdose, toxicologic, cardiac sources, intracerebral event, neurologic, trauma, as well as other pathologies. ER treatment provided: See below Diagnostics interpreted by me: ECG: EKG was obtained in the emergency department. My interpretation is sinus rhythm at 60 bpm. There was no ectopy. Low voltage was noted with nonspecific T wave abnormalities. This was compared to a tracing from March 01, 2024. No changes were noted. Cardiac Monitoring: An order was placed for continuous cardiac monitoring. The monitor shows a rate of 71 bpm with sinus rhythm. Laboratory studies: As stated above and show below. Imaging studies: See below. Radiographic imaging was reviewed by myself Consultation(s): I discussed this case with Dr. Patterson who is on-call for the [facility] Hospitalist group. Past Med/Surg History Problem List (Updated 07/13/24 @ 01:18 by Bhupendra Wallace DO) Anemia (Acute) Fall (Acute) Weakness (Acute) Acute UTI (urinary tract infection) (Acute) Sepsis (Acute) Cervical radiculopathy H/O: CVA (cerebrovascular accident) Severe muscle deconditioning Wrist drop, right wrist Soft tissue injury of right hand Contracture of joint of both hands Volume overload Postoperative anemia Paroxysmal atrial fibrillation Postoperative ileus Stercoral colitis Status post Roosevelt procedure UTI (urinary tract infection), bacterial Peritonitis due to abscess Decreased urine output Acute metabolic encephalopathy Acute renal failure superimposed on stage 3 chronic kidney disease Diverticulitis of large intestine with perforation and abscess Severe sepsis with acute organ dysfunction Perforation of sigmoid colon CADY (acute kidney injury) (Acute) Diverticulitis (Acute) Colon perforation (Acute) Orthostatic dizziness Ambulatory dysfunction Tremor of both hands Status post reverse arthroplasty of right shoulder Rotator cuff arthropathy of right shoulder Slow transit constipation Diabetes mellitus type II, controlled (Chronic) GERD (gastroesophageal reflux disease) (Chronic) HTN (hypertension) (Chronic) Dyslipidemia (Chronic) Encounter for pre-operative examination Osteoarthritis of right knee Status post right knee replacement Traumatic medial retinacular tear of right knee Right patella fracture S/P knee surgery Cerumen impaction Encounter for pre-operative examination Full thickness rotator cuff tear Carotid artery disease Chronic right carotid occlusion s/p L CEA 06/2021 follows with [facility] vascular surgery Depression Hypothyroidism CKD (chronic kidney disease) stage 3, GFR 30-59 ml/min CAD (coronary artery disease) chronic mid right coronary artery occlusion-stent not placed, medical therapy recommended (2015 cardiac cath) Medical History Pulmonary nodules Multiple, under surveillance Stroke Per remote records, denies MTHFR mutation Heterozygous Noted per 2013 [facility] hematology records (diagnosed during workup of bruising) Hx of gastric ulcer Tremor rt/left hand Myocardial Infarction "Silent MA" Hx of vertigo Environmental allergies Osteoarthritis Hypertension Hyperlipidemia GERD (gastroesophageal reflux disease) Diabetes mellitus, type 2 Surgical History History of open sigmoidectomy (02/24/24) Exploratory Laparotomy with Sigmoidectomy and Colostomy Formation(Not Applicable) - Art Hood, , FACS History of carotid endarterectomy Left CEA (07/08/21) History of arthroscopy of shoulder Right shoulder arthroscopy, RCR (09/10/21): LMA iGel #4 + PNB at [facility]. No issues noted per post-op anesthesia progress note. H/O knee surgery Right knee medial retinacular repair and poly exchange 10/01/2020: LMA#4 + PNB. No issues per postop anesthesia progress note. History of anesthesia reaction "Slow to wake" "Goes under very easily" History of total knee replacement right 07/28/2018: SAB at L3-L4, 1 attempt + PNB. No issues per postop anesthesia progress note. History of esophagogastroduodenoscopy (EGD) History of colonoscopy History of back surgery Had laser procedure 03/2018 in [place] > LUMBAR Hx of vaginal surgery LEEP? (Due to precancerous cells on cervix) History of surgery right wrist x2 Hx of arthroscopic knee surgery left Hx of hand surgery right Hx of bilateral cataract extraction Hx of tubal ligation Hx of appendectomy [facility] Hx of decompression of ulnar nerve right History of carpal tunnel surgery of right wrist History of left knee replacement Hx of ankle fusion right History of cardiac cath 2015 [facility]. Moderate CAD, no stents. Family History Aunt Family history of diabetes mellitus Mother Heart disease Other No family history of adverse response to anesthesia No family history of allergies No family history of bleeding disorder Denies family history of Hearing loss Cancer Hypertension Stroke Asthma Social History Smoking Status: Former smoker Tobacco Type: Cigarettes packs per day: 0.5; Cigarettes Per Day: 1/2 PPD; Second Hand Exposure: No; Do You Dip or Chew Tobacco: No; Hx Alcohol Use: No Hx Substance Use: No Preferred Language: Bulgarian Communication Ability: Effective Communication Ability Comment: [place], NO HEARING AIDES Nutrition Intern Required: No Beliefs That Will Affect Care: None marital status: Current Living Situation: Spouse current occupational status: disabled How many Children do You have: 3 Feels Safe at Home: Yes Assistive Devices: Walker and Wheelchair Allergies Allergies Allergy/AdvReac Type Severity Reaction Status Date / Time metformin Allergy Severe tachycardia Verified 06/19/24 14:33 pollen extracts Allergy Mild HAYFEVER Verified 06/19/24 14:33 gabapentin Allergy Verified 06/19/24 14:33 Home Meds Home Medications Medication Instructions Recorded Confirmed vitamin E 200 unit capsule 200 unit PO HS 06/22/18 07/13/24 latanoprost (PF) 0.005 % eye drops 1 drp OPB DAILY 01/22/20 07/13/24 semaglutide 0.25 mg or 0.5 mg (2 1.25 mg subcut WK 04/08/20 07/13/24 mg/1.5 mL) subcutaneous pen injector (Ozempic) glucosamine-chondroitin 250 mg-200 1 tab PO DAILY 11/11/23 07/13/24 mg tablet (Osteo Bi-Flex) haloperidol 1 mg tablet 1 mg PO TID PRN BPSD 06/19/24 07/13/24 levothyroxine 100 mcg tablet 200 mcg PO DAILY 06/19/24 07/13/24 tramadol 50 mg tablet 50 mg PO BID PRN Pain 06/19/24 07/13/24 Dulcolax (bisacodyl) 1 unit NM DIRECTED PRN 07/13/24 07/13/24 Constipation Fish Oil 500 mg PO DAILY 07/13/24 07/13/24 Fleet Enema 1 unit NM DIRECTED PRN 07/13/24 07/13/24 Constipation Gemtesa 75 mg PO DAILY 07/13/24 07/13/24 Icy Hot (menthol) 5 % transdermal DIRECTED PRN 07/13/24 07/13/24 Back pain Milk of Magnesia 30 ml PO DIRECTED PRN 07/13/24 07/13/24 Constipation Miralax 17 g PO DIRECTED PRN 07/13/24 07/13/24 Constipation Nervive Pain Relieving 1 % transdermal BID Foot Pain 07/13/24 07/13/24 cyclobenzaprine 5 mg PO PRN Muscle Spasms 07/13/24 Previous Rx's Medication Instructions Recorded B-complex with vitamin C 1 tab PO DAILY #30 tabs 03/13/24 acetaminophen 500 mg tablet 1,000 mg (2 x 500 mg) PO TID PRN 03/13/24 (Tylenol Extra Strength) pain #90 tabs ascorbic acid (vitamin C) 1,000 mg 1 g PO QAM #30 tabs 03/13/24 tablet (Vitamin C) aspirin 81 mg tablet,delayed 81 mg PO QAM #30 tabs 03/13/24 release atorvastatin 80 mg tablet 80 mg PO DAILY #30 tabs 03/13/24 carbidopa 25 mg-levodopa 100 mg 2 tab PO TID 30 days #180 tabs 03/13/24 tablet carvedilol 12.5 mg tablet 12.5 mg PO BID #60 tabs 03/13/24 docusate sodium 100 mg capsule 100 mg PO BID #60 caps 03/13/24 dorzolamide-timolol (PF) 2 %-0.5 % 1 drp OPB DAILY #60 ea 03/13/24 eye drops in a dropperette entacapone 200 mg tablet 200 mg PO TID #270 tabs 03/13/24 fexofenadine 180 mg tablet 180 mg PO QAM #30 tabs 03/13/24 (Aleisha Allergy) folic acid 1 mg tablet 1 mg PO QAM #30 tabs 03/13/24 liothyronine 5 mcg tablet 5 mcg PO DAILY #30 tabs 03/13/24 magnesium chloride 64 mg 64 mg PO BID #60 tabs 03/13/24 (magnesium chloride) tablet,delayed release (Mag 64) hfvqldxvdfia-hmbhgahh-bdmpey 1 tab PO QAM #30 tabs 03/13/24 tablet (Multivitamin 50 Plus tablet) pantoprazole 40 mg tablet,delayed 40 mg PO DAILY #30 tabs 03/13/24 release polyethylene glycol 3350 17 gram 17 g PO Q6H #100 ea 03/13/24 oral powder packet (Miralax) potassium chloride 20 mEq 20 meq PO DAILY #30 tabs 03/13/24 tablet,extended release thiamine HCl (vitamin B1) 50 mg 50 mg PO QAM #30 tabs 03/13/24 tablet (Vitamin B-1) vibegron 75 mg tablet (Gemtesa) 75 mg PO QPM #30 tabs 03/13/24 celecoxib 200 mg capsule (Celebrex) 200 mg PO DAILY #30 caps 06/19/24 Results & Data (ED) Vital Signs Vital Signs - 24 hr 07/12/24 21:23 07/12/24 21:36 07/12/24 21:40 Temperature 36.6 C 36.6 C Temperature Source Oral Oral Pulse Rate 63 60 Pulse Rate [Apical] 65 Pulse Rhythm Regular Pulse Rhythm [Apical] Regular Pulse Strength Normal Pulse Strength [Apical] Normal Respiratory Rate 18 17 Respiratory Effort / Characteristics Non-Labored Non-Labored Respiratory Depth Normal Normal Respiratory Pattern Regular Regular Blood Pressure 91/43 L Blood Pressure [Left Arm] 81/40 L Blood Pressure Mean 59 Blood Pressure Mean [Left Arm] 53 Blood Pressure Position Lying Blood Pressure Position [Left Arm] Lying Pulse Oximetry 96 98 Oxygen Delivery Method Room Air Room Air Sepsis Recent Fever Within 48 Hours No Sepsis New/Unexplained Change in Mental Status N/A Sepsis Action Taken by Nursing No Action Required 07/12/24 21:42 07/12/24 23:41 Temperature Temperature Source Pulse Rate 63 Pulse Rate [Apical] 71 Pulse Rhythm Regular Pulse Rhythm [Apical] Regular Pulse Strength Pulse Strength [Apical] Normal Respiratory Rate 17 18 Respiratory Effort / Characteristics Non-Labored Respiratory Depth Normal Respiratory Pattern Regular Blood Pressure Blood Pressure [Left Arm] 84/38 L Blood Pressure Mean Blood Pressure Mean [Left Arm] 53 Blood Pressure Position Blood Pressure Position [Left Arm] Sitting Pulse Oximetry 98 98 Oxygen Delivery Method Room Air Room Air Sepsis Recent Fever Within 48 Hours Sepsis New/Unexplained Change in Mental Status Sepsis Action Taken by [facility] Medications Current Medication List: was personally reviewed by me Laboratory Data Attestation: I reviewed the patient's lab results. 07/12/24 21:22 07/12/24 21:22 Lab Results 07/12/24 07/12/24 07/12/24 Range/Units 21:22 21:53 21:57 WBC 5.67 (4.8-10.8) K/ul RBC 2.72 L (4.20-5.40) M/uL Hgb 8.1 L (12.0-16.0) g/dl POC Hgb 6.1 L* (12.0-16.0) g/dl Hct 24.4 L (37.0-47.0) % POC Hct 18 L* (37-47) % MCV 89.7 (80.0-100.0) fL MCH 29.8 (25.0-34.0) pg MCHC 33.2 (32.0-36.0) g/dL RDW Std Deviation 47.0 H (36.4-46.3) fL RDW Coeff of Erwin 14.4 (11.5-14.5) % Plt Count 253 (130-400) K/uL MPV 9.6 (9.4-12.4) fL Immature Gran % (Auto) 0.5 % Neut % (Auto) 66.8 % Lymph % (Auto) 21.3 % Sunflower % (Auto) 9.0 % Eos % (Auto) 1.9 % Baso % (Auto) 0.5 % Neut # (Auto) 3.78 (1.40-6.50) K/uL Lymph # (Auto) 1.21 (1.20-3.40) K/uL Sunflower # (Auto) 0.51 (0.11-0.59) K/uL Eos # (Auto) 0.11 (0.00-0.50) K/uL Baso # (Auto) 0.03 (0.00-0.20) K/uL Immature Gran # (Auto) 0.03 (0.01-0.20) K/uL PT 11.4 (9.0-12.0) Seconds INR 1.1 (0.9-1.1) APTT 33 H (21-31) Seconds PTT Ratio 1.2 VBG pH (7.36-7.41) VBG pCO2 (38-50) mmHg VBG pO2 mmHg VBG HCO3 mmol/L VBG O2 Saturation % VBG Base Excess mEq/L POC Sodium 138 (135-144) mmol/L Sodium 138 (136-145) mmol/L POC Potassium 3.9 (3.3-5.0) mmol/L Potassium 3.9 (3.5-5.1) mmol/L POC Chloride 108 (101-112) mmol/L Chloride 110 H (98-107) mmol/L Carbon Dioxide 23 (21-32) mmol/L POC Total CO2 19 L (24-31) mmol/L Anion Gap 5 (3-11) POC Anion Gap 15.0 L (16-25) mmol/L POC BUN 22 H (7-18) mg/dl BUN 26 H (6-23) mg/dl Creatinine 1.54 H (0.6-1.2) mg/dl POC Creatinine 1.8 H (0.6-1.3) mg/dl Est Cr Clr Drug Dosing 32.1 ml/min eGFR 35.65 BUN/Creatinine Ratio 16.9 (10-20) Glucose 82 (70-99(Fasting)) mg/dl POC Glucose (other) 79 (70-99) mg/dl Lactate (0.4-2.0) mmol/L Calcium 7.4 L (8.6-10.3) mg/dl POC Ioniz Calcium Jeremiah 1.09 L (1.12-1.32) mmol/l Magnesium 1.8 (1.7-2.4) mg/dl Total Bilirubin 0.7 (0.2-1.0) mg/dl Direct Bilirubin 0.2 (0-0.2) mg/dl AST 21 (13-39) U/L ALT 4 L (7-52) U/L Alkaline Phosphatase 120 H (34-104) U/L Total Creatine Kinase 237 H (26-192) U/L Troponin I High Sens 29.3 H (0-14) pg/ml Total Protein 4.8 L (6.0-8.3) gm/dl Albumin 2.4 L (3.4-5.0) gm/dl Procalcitonin 0.32 (0-0.5) ng/ml TSH 3.680 (0.300-4.500) uIu/ml Urine Color Urine Appearance (Clear) Urine pH Ur Specific [place] (1.000-1.030) Urine Protein Urine Glucose (UA) Urine Ketones Urine Blood Urine Nitrite Urine Bilirubin Urine Urobilinogen Ur Leukocyte Esterase Urine RBC (0-2) /hpf Urine WBC (0-5) /hpf Ur Epithelial Cells (0-2) /hpf Urine Bacteria (None Seen) Adenovirus (PCR) Not Detected (NotDetected) B. pertussis DNA (PCR) Not Detected (NotDetected) B.parapertussis DNA PCR Not Detected (NotDetected) C. pneumoniae DNA (PCR) Not Detected (NotDetected) Coronavirus OC43 (PCR) Not Detected (NotDetected) Coronavirus HKU1 (PCR) Not Detected (NotDetected) Coronavirus 229E (PCR) Not Detected (NotDetected) SARS-CoV-2 (PCR) Not Detected (NotDetected) Coronavirus NL63 (PCR) Not Detected (NotDetected) Human Metapneumovir PCR Not Detected (NotDetected) Influenza Type A (PCR) Not Detected (NotDetected) Influenza Type B (PCR) Not Detected (NotDetected) M. pneumoniae (PCR) Not Detected (NotDetected) Parainfluenza 1 (PCR) Not Detected (NotDetected) Parainfluenza 2 (PCR) Not Detected (NotDetected) Parainfluenza 3 (PCR) Not Detected (NotDetected) Parainfluenza 4 (PCR) Not Detected (NotDetected) RSV (PCR) Not Detected (NotDetected) Entero/Rhino (PCR) Not Detected (NotDetected) Blood Type Antibody Screen 07/12/24 07/12/24 07/12/24 Range/Units 22:27 23:07 23:23 WBC (4.8-10.8) K/ul RBC (4.20-5.40) M/uL Hgb (12.0-16.0) g/dl POC Hgb (12.0-16.0) g/dl Hct (37.0-47.0) % POC Hct (37-47) % MCV (80.0-100.0) fL MCH (25.0-34.0) pg MCHC (32.0-36.0) g/dL RDW Std Deviation (36.4-46.3) fL RDW Coeff of Erwin (11.5-14.5) % Plt Count (130-400) K/uL MPV (9.4-12.4) fL Immature Gran % (Auto) % Neut % (Auto) % Lymph % (Auto) % Sunflower % (Auto) % Eos % (Auto) % Baso % (Auto) % Neut # (Auto) (1.40-6.50) K/uL Lymph # (Auto) (1.20-3.40) K/uL Sunflower # (Auto) (0.11-0.59) K/uL Eos # (Auto) (0.00-0.50) K/uL Baso # (Auto) (0.00-0.20) K/uL Immature Gran # (Auto) (0.01-0.20) K/uL PT (9.0-12.0) Seconds INR (0.9-1.1) APTT (21-31) Seconds PTT Ratio VBG pH 7.29 L (7.36-7.41) VBG pCO2 42 (38-50) mmHg VBG pO2 26 mmHg VBG HCO3 20 mmol/L VBG O2 Saturation < 60.0 % VBG Base Excess -6.1 mEq/L POC Sodium (135-144) mmol/L Sodium (136-145) mmol/L POC Potassium (3.3-5.0) mmol/L Potassium (3.5-5.1) mmol/L POC Chloride (101-112) mmol/L Chloride (98-107) mmol/L Carbon Dioxide (21-32) mmol/L POC Total CO2 (24-31) mmol/L Anion Gap (3-11) POC Anion Gap (16-25) mmol/L POC BUN (7-18) mg/dl BUN (6-23) mg/dl Creatinine (0.6-1.2) mg/dl POC Creatinine (0.6-1.3) mg/dl Est Cr Clr Drug Dosing ml/min eGFR BUN/Creatinine Ratio (10-20) Glucose (70-99(Fasting)) mg/dl POC Glucose (other) (70-99) mg/dl Lactate 1.2 (0.4-2.0) mmol/L Calcium (8.6-10.3) mg/dl POC Ioniz Calcium Jeremiah (1.12-1.32) mmol/l Magnesium (1.7-2.4) mg/dl Total Bilirubin (0.2-1.0) mg/dl Direct Bilirubin (0-0.2) mg/dl AST (13-39) U/L ALT (7-52) U/L Alkaline Phosphatase (34-104) U/L Total Creatine Kinase (26-192) U/L Troponin I High Sens 31.3 H (0-14) pg/ml Total Protein (6.0-8.3) gm/dl Albumin (3.4-5.0) gm/dl Procalcitonin (0-0.5) ng/ml TSH (0.300-4.500) uIu/ml Urine Color See Comment Urine Appearance Slightly Cloudy (Clear) Urine pH Not Reportable Ur Specific [place] 1.020 (1.000-1.030) Urine Protein Not Reportable Urine Glucose (UA) Not Reportable Urine Ketones Not Reportable Urine Blood Not Reportable Urine Nitrite Not Reportable Urine Bilirubin Not Reportable Urine Urobilinogen Not Reportable Ur Leukocyte Esterase Not Reportable Urine RBC 11-20 H (0-2) /hpf Urine WBC >50 H (0-5) /hpf Ur Epithelial Cells >20 H (0-2) /hpf Urine Bacteria 3+ H (None Seen) Adenovirus (PCR) (NotDetected) B. pertussis DNA (PCR) (NotDetected) B.parapertussis DNA PCR (NotDetected) C. pneumoniae DNA (PCR) (NotDetected) Coronavirus OC43 (PCR) (NotDetected) Coronavirus HKU1 (PCR) (NotDetected) Coronavirus 229E (PCR) (NotDetected) SARS-CoV-2 (PCR) (NotDetected) Coronavirus NL63 (PCR) (NotDetected) Human Metapneumovir PCR (NotDetected) Influenza Type A (PCR) (NotDetected) Influenza Type B (PCR) (NotDetected) M. pneumoniae (PCR) (NotDetected) Parainfluenza 1 (PCR) (NotDetected) Parainfluenza 2 (PCR) (NotDetected) Parainfluenza 3 (PCR) (NotDetected) Parainfluenza 4 (PCR) (NotDetected) RSV (PCR) (NotDetected) Entero/Rhino (PCR) (NotDetected) Blood Type O Positive Antibody Screen NEGATIVE Administered Medications Discontinued Medications Sodium Chloride (Nss) 500 mls @ 999 mls/hr IV .Q31M ONE Stop: 07/12/24 22:04 Last Infusion: 07/12/24 22:24 Dose: Infused Documented By: Admin: 07/12/24 21:48 Dose: 999 mls/hr Documented By: RAKEL Piperacillin Sod/Tazobactam Sod (Zosyn) 4.5 gm in 100 mls @ 200 mls/hr IV NOW ONE; Protocol Stop: 07/12/24 22:25 Last Infusion: 07/12/24 23:51 Dose: Infused Documented By: Admin: 07/12/24 23:13 Dose: 200 mls/hr Documented By: RAKEL Sodium Chloride (Nss) 1,000 mls @ 999 mls/hr IV .Q1H1M ONE Stop: 07/12/24 22:56 Last Infusion: 07/13/24 00:07 Dose: Infused Documented By: Admin: 07/12/24 22:58 Dose: 999 mls/hr Documented By: ALEK Sodium Chloride (Nss) 500 mls @ 999 mls/hr IV .Q31M ONE Stop: 07/13/24 00:20 Last Infusion: 07/13/24 00:41 Dose: Infused Documented By: Admin: 07/13/24 00:08 Dose: 999 mls/hr Documented By: RAKEL Midodrine (Midodrine Hcl 2.5 Mg Tab) 2.5 mg PO NOW STA Stop: 07/13/24 00:27 Last Admin: 07/13/24 00:40 Dose: 2.5 mg Documented By: RAKEL Imaging Data Attestation: I personally reviewed and interpreted this imaging study as follows: My Impression: 1 view chest x-ray was obtained in the emergency department. My interpretation is no free air, final report below. CT of the brain was obtained in the emergency department. My interpretation is no intracranial hemorrhage or mass effect, final report below. Radiologist's Impression: Chest X-Ray 07/12/24 21:34 Exam(s): XR CXR 1 VIEW EXAM: XR Chest, 1 View CLINICAL HISTORY: Reason for exam: Sepsis. TECHNIQUE: Frontal view of the chest. COMPARISON: 07/16/22 FINDINGS: Lungs: Unremarkable. No consolidation. Pleural space: Unremarkable. No pleural effusion or pneumothorax. Heart: Unremarkable. No cardiomegaly or pulmonary vascular congestion. Bones/joints: Reverse right shoulder arthroplasty. Fusion hardware in the cervical spine. No acute osseous findings. IMPRESSION: No acute findings in the chest. Electronically signed by: Agata Perez M.D. 07/12/24 22:[address] 07/12/24 21:53 Exam(s): CT C SPINE EXAM: CT Cervical Spine Without Intravenous Contrast CLINICAL HISTORY: Reason for exam: fall. TECHNIQUE: Axial computed tomography images of the cervical spine without intravenous contrast. CTDI is 35.92 mGy and DLP is 2877.89 mGy-cm. Automated exposure control was utilized for the study. A dose lowering technique was utilized adhering to the principles of ALARA. COMPARISON: No relevant prior studies available. FINDINGS: Exam is somewhat limited due to artifact Vertebrae: No acute fracture. There are hypertrophic degenerative changes. There are postoperative changes noted extending from C4-C7. There is an anterior fixator plate with intervertebral screws. There is a grade 2 spondylolisthesis of C7 on T1. Discs/spinal canal/neural foramina: No significant disc protrusion is noted.. No spinal canal stenosis. Soft tissues: Unremarkable. IMPRESSION: Hypertrophic degenerative changes. Postoperative changes. There is a grade 2 spondylolisthesis of C7 on T1. If further evaluation is clinically necessary, consider correlation with MRI Electronically signed by: Vinay Lomas MD 07/12/24 23:[address] 07/12/24 21:53 Exam(s): CT HEAD Without Contrast EXAM: CT Head Without Intravenous Contrast CLINICAL HISTORY: Reason for exam: fall. TECHNIQUE: Axial computed tomography images of the head/brain without intravenous contrast. CTDI is 35.92 mGy and DLP is 702.46 mGy-cm. Automated exposure control was utilized for the study. A dose lowering technique was utilized adhering to the principles of ALARA. COMPARISON: 04/08/2020. FINDINGS: Brain: No acute intracranial hemorrhage. There is decreased attenuation within the white matter. 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 Ventricles: There is prominence of ventricular system with deepening the sulci consistent with cortical and central atrophy.. Bones/joints: Unremarkable. No acute fracture. Soft tissues: Unremarkable. Sinuses: Unremarkable as visualized. No acute sinusitis. Mastoid air cells: Unremarkable as visualized. No mastoid effusion. IMPRESSION: Atrophy. Nonspecific white matter disease. 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 Findings appears similar to previous exam Electronically signed by: Vinay Lomas MD 07/12/24 23:43 PM Abdomen/Pelvis CT 07/12/24 22:00 Exam(s): CT ABDOMEN + PELVIS Without Contrast EXAM: CT Abdomen and Pelvis Without Intravenous Contrast CLINICAL HISTORY: Reason for exam: pain. TECHNIQUE: Axial computed tomography images of the abdomen and pelvis without intravenous contrast. CTDI is 23.49 mGy and DLP is 455.38 mGy-cm. Automated exposure control was utilized for the study. A dose lowering technique was utilized adhering to the principles of ALARA. COMPARISON: 03/07/2024 FINDINGS: Exam is limited due to lack of contrast. The exam is further limited due to artifact. ABDOMEN: Liver: The liver is enlarged. Gallbladder and bile ducts: The gallbladder is distended containing calculi.. No ductal dilation. Pancreas: The visualized portions of the pancreas, on this noncontrast study, are grossly unremarkable. Spleen: No splenomegaly. Adrenals: No mass. Kidneys and ureters: There are bilateral renal calcifications.. No hydronephrosis. Stomach and bowel: The stomach is decompressed. There is air and stool noted in the colon. There is a colostomy noted in the left lower quadrant. A Roosevelt's pouch is noted. PELVIS: Appendix: The appendix is not visualized.. Bladder: A Douglas catheter is noted within the urinary bladder.. Reproductive: Unremarkable as visualized. ABDOMEN and PELVIS: Intraperitoneal space: No free air. No significant fluid collection. Bones/joints: There is a scoliosis of the spine with degenerative changes.. Soft tissues: Unremarkable. Vasculature: There are extensive atherosclerotic changes. No abdominal aortic aneurysm. Lymph nodes: No enlarged lymph nodes. IMPRESSION: Limited exam. The gallbladder is distended containing calculi.. There are bilateral renal calcifications without evidence of hydronephrosis. Status post colostomy. See discussion above Electronically signed by: Vinay Lomas MD 07/13/24 00:[address] 07/12/24 22:00 Exam(s): CT CHEST Without Contrast EXAM: CT Chest Without Intravenous Contrast CLINICAL HISTORY: Reason for exam: pain. TECHNIQUE: Axial computed tomography images of the chest without intravenous contrast. CTDI is 23.49 mGy and DLP is 2877.89 mGy-cm. Automated exposure control was utilized for the study. A dose lowering technique was utilized adhering to the principles of ALARA. COMPARISON: No relevant prior studies available. FINDINGS: Lungs: There are small patchy areas of infiltrate and/or scarring. There is atelectasis and/or scarring at the left lung base. There is a 4 mm nodule noted in the right upper lobe (series 15, image 28).. Pleural space: No pneumothorax. There is a trace left pleural effusion. . Heart: The heart is not enlarged but contains coronary artery calcifications.. Bones/joints: There are degenerative changes in the spine. Patient is status post right total shoulder replacement.. Soft tissues: Unremarkable. Vasculature: There are atherosclerotic changes. No thoracic aortic aneurysm. Lymph nodes: No enlarged mediastinal lymph nodes. IMPRESSION: There are small patchy areas of infiltrate and/or scarring. There is atelectasis and/or scarring at the left lung base. There is a 4 mm nodule noted in the right upper lobe . This is of uncertain etiology. Recommend follow-up as prescribed by the [employer]. Electronically signed by: Vinay Lomas MD 07/12/24 23:54 PM Discharge Plan Visit Data Chief Complaint: Fall Stated Complaint: FALL, HALLUCINATIONS ED Provider: Bhupendra Wallace Discharge Problem: Sepsis, Acute UTI (urinary tract infection), Weakness, Fall, Anemia Patient Disposition: Being Evaluated by Hospitalist Forms Stand Alone Forms: [facility] Prescriptions Prescriptions: No Action glucosamine-chondroitin [Osteo Bi-Flex] 250-200 mg tablet 1 tab PO DAILY Rx Instructions: give after food/meal haloperidol 1 mg tablet 1 mg PO TID PRN (Reason: BPSD) levothyroxine 100 mcg tablet 200 mcg PO DAILY tramadol 50 mg tablet 50 mg PO BID PRN (Reason: Pain) celecoxib [Celebrex] 200 mg capsule 200 mg PO DAILY Qty: 30 0RF vitamin E 200 unit Capsule 200 unit PO HS latanoprost (PF) 0.005 % Drops 1 drp OPB DAILY Ozempic 0.25 mg or 0.5 mg(2 mg/1.5 mL) pen injector 1.25 mg SUBCUT WK Patient Comments: EVERY TUESDAY AT BEDTIME Dulcolax (bisacodyl) 1 unit NM DIRECTED PRN (Reason: Constipation) Fish Oil 500 mg PO DAILY Fleet Enema 1 unit NM DIRECTED PRN (Reason: Constipation) Gemtesa 75 mg PO DAILY Icy Hot (menthol) 5 % transdermal DIRECTED PRN (Reason: Back pain) Milk of Magnesia 30 ml PO DIRECTED PRN (Reason: Constipation) Miralax 17 g PO DIRECTED PRN (Reason: Constipation) Nervive Pain Relieving 1 % transdermal BID cyclobenzaprine 5 mg PO PRN (Reason: Muscle Spasms) magnesium chloride [Mag 64] 64 mg Tablet,Delayed Release (Dr/Ec) 64 mg PO BID Qty: 60 0RF docusate sodium 100 mg Capsule 100 mg PO BID Qty: 60 0RF polyethylene glycol 3350 [Miralax] 17 gram Powder In Packet 17 g PO Q6H Qty: 100 0RF acetaminophen [Tylenol Extra Strength] 500 mg Tablet 1,000 mg PO TID PRN (Reason: pain) Qty: 90 0RF Gemtesa 75 mg Tablet 75 mg PO QPM Qty: 30 0RF atorvastatin 80 mg tablet 80 mg PO DAILY Qty: 30 0RF ascorbic acid (vitamin C) [Vitamin C] 1,000 mg Tablet 1 g PO QAM Qty: 30 0RF carvedilol 12.5 mg tablet 12.5 mg PO BID Qty: 60 0RF fexofenadine [Aleisha Allergy] 180 mg Tablet 180 mg PO QAM Qty: 30 0RF liothyronine 5 mcg tablet 5 mcg PO DAILY Qty: 30 0RF aspirin 81 mg tablet,delayed release (DR/EC) 81 mg PO QAM Qty: 30 0RF entacapone 200 mg tablet 200 mg PO TID Qty: 270 3RF Rx Instructions: administer at the same time as l-dopa/carbidopa dose pantoprazole 40 mg tablet,delayed release (DR/EC) 40 mg PO DAILY Qty: 30 0RF folic acid 1 mg Tablet 1 mg PO QAM Qty: 30 0RF carbidopa-levodopa 25-100 mg tablet 2 tab PO TID 30 Days Qty: 180 0RF thiamine HCl (vitamin B1) [Vitamin B-1] 50 mg Tablet 50 mg PO QAM Qty: 30 0RF B-complex with vitamin C Tablet 1 tab PO DAILY Qty: 30 0RF Multivitamin 50 Plus Tablet 1 tab PO QAM Qty: 30 0RF dorzolamide-timolol (PF) 2-0.5 % dropperette 1 drp OPB DAILY Qty: 60 0RF potassium chloride 20 mEq tablet extended release 20 meq PO DAILY Qty: 30 0RF Referrals Referrals: Keyshawn Rockwell MD [Primary Care Provider] - Discharge Problem: Sepsis Qualifiers: Sepsis type: sepsis due to unspecified organism Sepsis acute organ dysfunction status: unspecified Qualified Code(s): A41.9 - Sepsis, unspecified organism Fall Qualifiers: Encounter type: initial encounter Qualified Code(s): W19.XXXA - Unspecified fall, initial encounter Anemia Qualifiers: Anemia type: unspecified type Qualified Code(s): D64.9 - Anemia, unspecified
[2024-07-12 22:02] LABS: Albumin Level 2.4 gm/dl (3.4-5.0); BUN Creatinine Ratio 16.9 (10-20); Bilirubin Direct 0.2 mg/dl (0-0.2); Bilirubin,Total 0.7 mg/dl (0.2-1.0); Calcium 7.4 mg/dl (8.6-10.3); Creatinine Clr Calc Pharmacy 32.1 ml/min; Magnesium 1.8 mg/dl (1.7-2.4); Potassium 3.9 mmol/L (3.5-5.1); Total Protein 4.8 gm/dl (6.0-8.3)
[2024-07-12 22:10] LABS: Troponin I High Sensitivity 29.3 pg/ml (0-14)
[2024-07-12 22:21] LABS: INR 1.1 (0.9-1.1); Partial Thromboplastin Ratio 1.2; Partial Thromboplastin Time 33 Seconds (21-31); Prothrombin Time 11.4 Seconds (9.0-12.0)
[2024-07-12 22:26] LABS: iSTAT Creatinine 1.8 mg/dl (0.6-1.3); iSTAT Hemoglobin 6.1 g/dl (12.0-16.0); iSTAT Ionized Calcium 1.09 mmol/l (1.12-1.32); iSTAT Potassium 3.9 mmol/L (3.3-5.0)
[2024-07-12 22:41] LABS: Base Excess VBG -6.1 mEq/L; HCO3 VBG 20 mmol/L; Oxygen Saturation VBG < 60.0 %; PCO2 VBG 42 mmHg (38-50); PO2 VBG 26 mmHg; pH VBG 7.29 (7.36-7.41)
--- NOTE | 2024-07-12 22:43 | XRay Report ---
Exam(s): XR CXR 1 VIEW EXAM: XR Chest, 1 View CLINICAL HISTORY: Reason for exam: Sepsis. TECHNIQUE: Frontal view of the chest. COMPARISON: 07/16/22 FINDINGS: Lungs: Unremarkable. No consolidation. Pleural space: Unremarkable. No pleural effusion or pneumothorax. Heart: Unremarkable. No cardiomegaly or pulmonary vascular congestion. Bones/joints: Reverse right shoulder arthroplasty. Fusion hardware in the cervical spine. No acute osseous findings. IMPRESSION: No acute findings in the chest. Electronically signed by: Agata Perez M.D. 07/12/24 22:42 PM
[2024-07-12 22:55] LABS: Adenovirus PCR Not Detected (NotDetected); Bordetella parapertussis PCR Not Detected (NotDetected); Bordetella pertussis PCR Not Detected (NotDetected); Chlamydia pneumoniae PCR Not Detected (NotDetected); Coronavirus 229E PCR Not Detected (NotDetected); Coronavirus CoV-2 (COVID19)PCR Not Detected (NotDetected); Coronavirus HKU1 PCR Not Detected (NotDetected); Coronavirus NL63 PCR Not Detected (NotDetected); Coronavirus OC43PCR Not Detected (NotDetected); Human Metapneumovirus PCR Not Detected (NotDetected); Influenza A PCR Not Detected (NotDetected); Influenza B PCR Not Detected (NotDetected); Mycoplasma pneumoniae PCR Not Detected (NotDetected); Parainfluenza Virus 1 PCR Not Detected (NotDetected); Parainfluenza Virus 2 PCR Not Detected (NotDetected); Parainfluenza Virus 3 PCR Not Detected (NotDetected); Parainfluenza Virus 4 PCR Not Detected (NotDetected); Respiratory Syncytial VirusPCR Not Detected (NotDetected); Rhinovirus/Enterovirus PCR Not Detected (NotDetected)
[2024-07-12] MEDS: SODIUM CHLORIDE 0.9% 1,000 ML IV ONE (22:58)
[2024-07-12] MEDS: PIPERACILLIN/TAZOBACTAM 4.5 GM/100 ML BAG IV ONE (23:13)
--- NOTE | 2024-07-12 23:44 | CT Scan Report ---
Exam(s): CT HEAD Without Contrast EXAM: CT Head Without Intravenous Contrast CLINICAL HISTORY: Reason for exam: fall. TECHNIQUE: Axial computed tomography images of the head/brain without intravenous contrast. CTDI is 35.92 mGy and DLP is 702.46 mGy-cm. Automated exposure control was utilized for the study. A dose lowering technique was utilized adhering to the principles of ALARA. COMPARISON: 04/08/2020. FINDINGS: Brain: No acute intracranial hemorrhage. There is decreased attenuation within the white matter. 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 Ventricles: There is prominence of ventricular system with deepening the sulci consistent with cortical and central atrophy.. Bones/joints: Unremarkable. No acute fracture. Soft tissues: Unremarkable. Sinuses: Unremarkable as visualized. No acute sinusitis. Mastoid air cells: Unremarkable as visualized. No mastoid effusion. IMPRESSION: Atrophy. Nonspecific white matter disease. 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 Findings appears similar to previous exam Electronically signed by: Vinay Lomas MD 07/12/24 23:43 PM
--- NOTE | 2024-07-12 23:47 | CT Scan Report ---
Exam(s): CT C SPINE EXAM: CT Cervical Spine Without Intravenous Contrast CLINICAL HISTORY: Reason for exam: fall. TECHNIQUE: Axial computed tomography images of the cervical spine without intravenous contrast. CTDI is 35.92 mGy and DLP is 2877.89 mGy-cm. Automated exposure control was utilized for the study. A dose lowering technique was utilized adhering to the principles of ALARA. COMPARISON: No relevant prior studies available. FINDINGS: Exam is somewhat limited due to artifact Vertebrae: No acute fracture. There are hypertrophic degenerative changes. There are postoperative changes noted extending from C4-C7. There is an anterior fixator plate with intervertebral screws. There is a grade 2 spondylolisthesis of C7 on T1. Discs/spinal canal/neural foramina: No significant disc protrusion is noted.. No spinal canal stenosis. Soft tissues: Unremarkable. IMPRESSION: Hypertrophic degenerative changes. Postoperative changes. There is a grade 2 spondylolisthesis of C7 on T1. If further evaluation is clinically necessary, consider correlation with MRI Electronically signed by: Vinay Lomas MD 07/12/24 23:46 PM
[2024-07-12 23:55] LABS: Appearance Urine Slightly Cloudy (Clear)
--- NOTE | 2024-07-12 23:55 | CT Scan Report ---
Exam(s): CT CHEST Without Contrast EXAM: CT Chest Without Intravenous Contrast CLINICAL HISTORY: Reason for exam: pain. TECHNIQUE: Axial computed tomography images of the chest without intravenous contrast. CTDI is 23.49 mGy and DLP is 2877.89 mGy-cm. Automated exposure control was utilized for the study. A dose lowering technique was utilized adhering to the principles of ALARA. COMPARISON: No relevant prior studies available. FINDINGS: Lungs: There are small patchy areas of infiltrate and/or scarring. There is atelectasis and/or scarring at the left lung base. There is a 4 mm nodule noted in the right upper lobe (series 15, image 28).. Pleural space: No pneumothorax. There is a trace left pleural effusion. . Heart: The heart is not enlarged but contains coronary artery calcifications.. Bones/joints: There are degenerative changes in the spine. Patient is status post right total shoulder replacement.. Soft tissues: Unremarkable. Vasculature: There are atherosclerotic changes. No thoracic aortic aneurysm. Lymph nodes: No enlarged mediastinal lymph nodes. IMPRESSION: There are small patchy areas of infiltrate and/or scarring. There is atelectasis and/or scarring at the left lung base. There is a 4 mm nodule noted in the right upper lobe . This is of uncertain etiology. Recommend follow-up as prescribed by the [employer]. Electronically signed by: Vinay Lomas MD 07/12/24 23:54 PM
--- NOTE | 2024-07-13 00:02 | CT Scan Report ---
Exam(s): CT ABDOMEN + PELVIS Without Contrast EXAM: CT Abdomen and Pelvis Without Intravenous Contrast CLINICAL HISTORY: Reason for exam: pain. TECHNIQUE: Axial computed tomography images of the abdomen and pelvis without intravenous contrast. CTDI is 23.49 mGy and DLP is 455.38 mGy-cm. Automated exposure control was utilized for the study. A dose lowering technique was utilized adhering to the principles of ALARA. COMPARISON: 03/07/2024 FINDINGS: Exam is limited due to lack of contrast. The exam is further limited due to artifact. ABDOMEN: Liver: The liver is enlarged. Gallbladder and bile ducts: The gallbladder is distended containing calculi.. No ductal dilation. Pancreas: The visualized portions of the pancreas, on this noncontrast study, are grossly unremarkable. Spleen: No splenomegaly. Adrenals: No mass. Kidneys and ureters: There are bilateral renal calcifications.. No hydronephrosis. Stomach and bowel: The stomach is decompressed. There is air and stool noted in the colon. There is a colostomy noted in the left lower quadrant. A Roosevelt's pouch is noted. PELVIS: Appendix: The appendix is not visualized.. Bladder: A Douglas catheter is noted within the urinary bladder.. Reproductive: Unremarkable as visualized. ABDOMEN and PELVIS: Intraperitoneal space: No free air. No significant fluid collection. Bones/joints: There is a scoliosis of the spine with degenerative changes.. Soft tissues: Unremarkable. Vasculature: There are extensive atherosclerotic changes. No abdominal aortic aneurysm. Lymph nodes: No enlarged lymph nodes. IMPRESSION: Limited exam. The gallbladder is distended containing calculi.. There are bilateral renal calcifications without evidence of hydronephrosis. Status post colostomy. See discussion above Electronically signed by: Vinay Lomas MD 07/13/24 00:01 AM
[2024-07-13] MEDS: SODIUM CHLORIDE 0.9% 500 ML IV ONE ×2 (00:08→08:37)
[2024-07-13 00:09] LABS: Bacteria Urine 3+ (None Seen); Epithelial Cell Urine >20 /hpf (0-2); WBC Urine >50 /hpf (0-5)
--- NOTE | 2024-07-13 00:35 | History & Physical Report ---
Date of Service July 13, 2024 Assessment & Plan (1) Hypotension: Plan: Hypotension Multifactorial: Hypovolemia bleed from complicated UTI, no overt sepsis for now Possible underlying autonomic dysfunction, history of Parkinson's disease Troponin elevation secondary to illness, possible mild rhabdomyolysis secondary to fall, in the setting of kidney dysfunction hx CAD/ PVD status post surgery hx CVA moderate AR hx NSVT hyperlipidemia, on statin Rx DM2 on Ozempic, well-controlled as of recent hemoglobin A1c of 7 last February 2024 hypothyroidism, euthyroid as of today's TSH chronic anemia, hemoglobin at baseline MTHFR deficiency as per records complicated diverticulitis/stercoral perforation status post surgery (02/2024) chronic pain right rotator cuff tear traumatic right wrist drop, patient currently being evaluated by [facility] neurologist, outpatient MRI to rule out new stroke scheduled for next month as per past tobacco abuse PCU IVF Follow urine CS, Zosyn for now (history Enterococcus and enteric organisms on review of prior urine CS) Midodrine Hold Coreg for now given hypotension, may need to switch to Lopressor if with hypotension persistent. Follow troponin Monitor H&H, transfuse PRBC if hemoglobin less than 8 and or for symptomatic anemia Hold aspirin for now given hematuria, resume in a.m. if H&H stable MRI brain study as per outpatient [facility] Neurology recommendation to rule out stroke as reason for RUE weakness. ISS BG goal 1 10-1 40, carb count coverage, update hemoglobin A1c DVT prophylaxis. SCDs Re: Hematuria DNR as per patient prior directives as per (Mr. Bernardo Vasques). He requests updates providers through [phone]. Total critical care time was 45 minutes. History of Present Illness Chief Complaint: Fall, confusion Primary Care Provider: Keyshawn Rockwell MD History obtained from patient, family, and records. Limited history from patient secondary disorientation. Medical history significant for CAD, PVD status post surgery, CVA, moderate AR, NSVT, hypertension, hyperlipidemia, DM2 on Ozempic, hypothyroidism, Parkinson's disease, CRI (baseline creatinine 1.6 ), chronic anemia (baseline hemoglobin 8- 9), MTHFR deficiency as per records, GERD, complicated diverticulitis/stercoral perforation status post surgery (02/2024), chronic pain, right rotator cuff tear, traumatic right wrist drop, glaucoma, past tobacco abuse. Last confinement February 23 to March 13, 2024 for bowel perforation sec ondary to complicated diverticulitis status post surgery. Patient discharged to [facility] for rehab. Patient rolled out of bed yesterday landing on the floor. Unwitnessed fall. Not sure if there was head trauma. Patient achy all day and more confused than usual as per . Patient denies headache, chest pain, SOB, cough symptoms. Usual neck pain and right arm weakness. Transient abdominal pain as per . No black or bloody ostomy output. Lowest SBP of 80s documented at the ER. Hematuria noted noted from Douglas catheter drainage at the ER. Zosyn administered at the ER. Medical History as above Surgical History : Carpal tunnel surgery, D&C, ovarian cyst drainage, BTL, neck surgery, ankle surgery, appendectomy, ulnar nerve revision, carotid endarterectomy, Roosevelt procedure Family History : Heart disease, breast cancer Personal/Social history : Past tobacco abuse, occasional EtOH intake, retired RN Allergies Allergy/AdvReac Type Severity Reaction Status Date / Time metformin Allergy Severe tachycardia Verified 06/19/24 14:33 pollen extracts Allergy Mild HAYFEVER Verified 06/19/24 14:33 gabapentin Allergy Verified 06/19/24 14:33 Home Medications Medication Instructions Recorded Confirmed Type vitamin E 200 unit capsule 200 unit PO HS 06/22/18 07/13/24 History latanoprost (PF) 0.005 % eye drops 1 drp OPB DAILY 01/22/20 07/13/24 History semaglutide 0.25 mg or 0.5 mg (2 1.25 mg subcut WK 04/08/20 07/13/24 History mg/1.5 mL) subcutaneous pen injector (Ozempic) glucosamine-chondroitin 250 mg-200 1 tab PO DAILY 11/11/23 07/13/24 History mg tablet (Osteo Bi-Flex) B-complex with vitamin C 1 tab PO DAILY #30 tabs 03/13/24 07/13/24 Rx acetaminophen 500 mg tablet 1,000 mg (2 x 500 mg) PO TID PRN 03/13/24 07/13/24 Rx (Tylenol Extra Strength) pain #90 tabs ascorbic acid (vitamin C) 1,000 mg 1 g PO QAM #30 tabs 03/13/24 07/13/24 Rx tablet (Vitamin C) aspirin 81 mg tablet,delayed 81 mg PO QAM #30 tabs 03/13/24 07/13/24 Rx release atorvastatin 80 mg tablet 80 mg PO DAILY #30 tabs 03/13/24 07/13/24 Rx carbidopa 25 mg-levodopa 100 mg 2 tab PO TID 30 days #180 tabs 03/13/24 07/13/24 Rx tablet carvedilol 12.5 mg tablet 12.5 mg PO BID #60 tabs 03/13/24 07/13/24 Rx docusate sodium 100 mg capsule 100 mg PO BID #60 caps 03/13/24 07/13/24 Rx dorzolamide-timolol (PF) 2 %-0.5 % 1 drp OPB DAILY #60 ea 03/13/24 07/13/24 Rx eye drops in a dropperette entacapone 200 mg tablet 200 mg PO TID #270 tabs 03/13/24 07/13/24 Rx fexofenadine 180 mg tablet 180 mg PO QAM #30 tabs 03/13/24 07/13/24 Rx (Aleisha Allergy) folic acid 1 mg tablet 1 mg PO QAM #30 tabs 03/13/24 07/13/24 Rx liothyronine 5 mcg tablet 5 mcg PO DAILY #30 tabs 03/13/24 07/13/24 Rx magnesium chloride 64 mg 64 mg PO BID #60 tabs 03/13/24 07/13/24 Rx (magnesium chloride) tablet,delayed release (Mag 64) [id number] 1 tab PO QAM #30 tabs 03/13/24 07/13/24 Rx tablet (Multivitamin 50 Plus tablet) pantoprazole 40 mg tablet,delayed 40 mg PO DAILY #30 tabs 03/13/24 07/13/24 Rx release polyethylene glycol 3350 17 gram 17 g PO Q6H #100 ea 03/13/24 07/13/24 Rx oral powder packet (Miralax) potassium chloride 20 mEq 20 meq PO DAILY #30 tabs 03/13/24 07/13/24 Rx tablet,extended release thiamine HCl (vitamin B1) 50 mg 50 mg PO QAM #30 tabs 03/13/24 07/13/24 Rx tablet (Vitamin B-1) vibegron 75 mg tablet (Gemtesa) 75 mg PO QPM #30 tabs 03/13/24 07/13/24 Rx celecoxib 200 mg capsule (Celebrex) 200 mg PO DAILY #30 caps 06/19/24 07/13/24 Rx haloperidol 1 mg tablet 1 mg PO TID PRN BPSD 06/19/24 07/13/24 History levothyroxine 100 mcg tablet 200 mcg PO DAILY 06/19/24 07/13/24 History tramadol 50 mg tablet 50 mg PO BID PRN Pain 06/19/24 07/13/24 History Dulcolax (bisacodyl) 1 unit [place] DIRECTED PRN 07/13/24 07/13/24 History Constipation Fish Oil 500 mg PO DAILY 07/13/24 07/13/24 History Fleet Enema 1 unit OH DIRECTED PRN 07/13/24 07/13/24 History Constipation Gemtesa 75 mg PO DAILY 07/13/24 07/13/24 History Icy Hot (menthol) 5 % transdermal DIRECTED PRN 07/13/24 07/13/24 History Back pain Milk of Magnesia 30 ml PO DIRECTED PRN 07/13/24 07/13/24 History Constipation Miralax 17 g PO DIRECTED PRN 07/13/24 07/13/24 History Constipation Nervive Pain Relieving 1 % transdermal BID Foot Pain 07/13/24 07/13/24 History cyclobenzaprine 5 mg PO PRN Muscle Spasms 07/13/24 History Past Med/Surg History Problem List (Updated 07/13/24 @ 02:48 by Marcial Patterson MD) Hypotension Anemia (Acute) Fall (Acute) Weakness (Acute) Acute UTI (urinary tract infection) (Acute) Sepsis (Acute) Cervical radiculopathy H/O: CVA (cerebrovascular accident) Severe muscle deconditioning Wrist drop, right wrist Soft tissue injury of right hand Contracture of joint of both hands Volume overload Postoperative anemia Paroxysmal atrial fibrillation Postoperative ileus Stercoral colitis Status post Roosevelt procedure UTI (urinary tract infection), bacterial Peritonitis due to abscess Decreased urine output Acute metabolic encephalopathy Acute renal failure superimposed on stage 3 chronic kidney disease Diverticulitis of large intestine with perforation and abscess Severe sepsis with acute organ dysfunction Perforation of sigmoid colon CADY (acute kidney injury) (Acute) Diverticulitis (Acute) Colon perforation (Acute) Orthostatic dizziness Ambulatory dysfunction Tremor of both hands Status post reverse arthroplasty of right shoulder Rotator cuff arthropathy of right shoulder Slow transit constipation Diabetes mellitus type II, controlled (Chronic) GERD (gastroesophageal reflux disease) (Chronic) HTN (hypertension) (Chronic) Dyslipidemia (Chronic) Encounter for pre-operative examination Osteoarthritis of right knee Status post right knee replacement Traumatic medial retinacular tear of right knee Right patella fracture S/P knee surgery Cerumen impaction Encounter for pre-operative examination Full thickness rotator cuff tear Carotid artery disease Chronic right carotid occlusion s/p L CEA 06/2021 follows with [facility] vascular surgery Depression Hypothyroidism CKD (chronic kidney disease) stage 3, GFR 30-59 ml/min CAD (coronary artery disease) chronic mid right coronary artery occlusion-stent not placed, medical therapy recommended (2015 cardiac cath) Medical History Pulmonary nodules Multiple, under surveillance Stroke Per remote records, denies MTHFR mutation Heterozygous Noted per 2013 [facility] hematology records (diagnosed during workup of bruising) Hx of gastric ulcer Tremor rt/left hand Myocardial Infarction "Silent [place]" Hx of vertigo Environmental allergies Osteoarthritis Hypertension Hyperlipidemia GERD (gastroesophageal reflux disease) Diabetes mellitus, type 2 Surgical History History of open sigmoidectomy (02/24/24) Exploratory Laparotomy with Sigmoidectomy and Colostomy Formation(Not Applicable) - Art Hood, , FACS History of carotid endarterectomy Left CEA (07/08/21) History of arthroscopy of shoulder Right shoulder arthroscopy, RCR (09/10/21): LMA iGel #4 + PNB at [facility]. No issu es noted per post-op anesthesia progress note. H/O knee surgery Right knee medial retinacular repair and poly exchange 10/01/2020: LMA#4 + PNB. No issues per postop anesthesia progress note. History of anesthesia reaction "Slow to wake" "Goes under very easily" History of total knee replacement right 07/28/2018: SAB at L3-L4, 1 attempt + PNB. No issues per postop anesthesia progress note. History of esophagogastroduodenoscopy (EGD) History of colonoscopy History of back surgery Had laser procedure 03/2018 in [place] > LUMBAR Hx of vaginal surgery LEEP? (Due to precancerous cells on cervix) History of surgery right wrist x2 Hx of arthroscopic knee surgery left Hx of hand surgery right Hx of bilateral cataract extraction Hx of tubal ligation Hx of appendectomy Hx of cervical spine surgery 08/2009 [facility], [place]> ROM WNL PER PT Hx of decompression of ulnar nerve right History of carpal tunnel surgery of right wrist History of left knee replacement Hx of ankle fusion right History of cardiac cath 2015 [facility]. Moderate CAD, no stents. Family History Aunt Family history of diabetes mellitus Mother Heart disease Other No family history of adverse response to anesthesia No family history of allergies No family history of bleeding disorder Denies family history of Hearing loss Cancer Hypertension Stroke Asthma Social History Smoking Status: Former smoker Tobacco Type: Cigarettes packs per day: 0.5; Cigarettes Per Day: 1/2 pack; Second Hand Exposure: No; Do You Dip or Chew Tobacco: No; Preferred Language: Ivorian Communication Ability: Effective Communication Ability Comment: PICAYUNE, NO HEARING AIDES Etl Architect Required: No Beliefs That Will Affect Care: None marital status: Current Living Situation: Jail Current Living Situation Comment: [facility] current occupational status: disabled How many Children do You have: 3 Feels Safe at Home: Yes Assistive Devices: Wheelchair Review of Systems Review of Systems: As per HPI, all other systems reviewed and negative Physical Exam Physical Exam: GENERAL: Slightly uncomfortable and restless, chronically ill, no respiratory distress SKIN: Pallor, warm HEENT: Pale palpebral conjunctivae, no ptosis, dry buccal mucosa, edentulous NECK : Supplementation and motion, minimal cervical tenderness CHEST : Decreased breath sounds, no tenderness HEART : RRR, no obvious murmurs ABDOMEN: Some distention, ostomy bag in place, nontender EXTREMITIES : No LE swelling/tenderness, palpable pulses, RUE contracture, right wrist drop NEUROLOGIC : Oriented to place, no facial asymmetry, restless, gait and stance not assessed Results & Data Results & Data Vital Signs (Past 12 Hours) Vital Signs Temp Pulse Pulse Resp BP BP Pulse Ox 07/12/24 23:41 71 18 84/38 L 98 07/12/24 21:42 63 17 98 07/12/24 21:40 36.6 C 65 17 81/40 L 98 01/30/25 21:36 60 07/12/24 21:23 36.6 C 63 18 91/43 L 96 O2 Del Method 07/12/24 23:41 Room Air 07/12/24 21:42 Room Air 07/12/24 21:40 Room Air 07/12/24 21:36 07/12/24 21:23 Room Air Laboratory Results Laboratory Results WBC 5.67 K/ul (4.8-10.8) 07/12/24 21:22 RBC 2.72 M/uL (4.20-5.40) L 07/12/24 21:22 Hgb 8.1 g/dl (12.0-16.0) L 07/12/24 21:22 POC Hgb 6.1 g/dl (12.0-16.0) L* 07/12/24 21:57 Hct 24.4 % (37.0-47.0) L 07/12/24 21:22 POC Hct 18 % (37-47) L* 07/12/24 21:57 MCV 89.7 fL (80.0-100.0) 07/12/24 21:22 MCH 29.8 pg (25.0-34.0) 07/12/24 21:22 MCHC 33.2 g/dL (32.0-36.0) 07/12/24 21:22 RDW Std Deviation 47.0 fL (36.4-46.3) H 07/12/24 21:22 RDW Coeff of Erwin 14.4 % (11.5-14.5) 07/12/24 21:22 Plt Count 253 K/uL (130-400) 07/12/24 21:22 MPV 9.6 fL (9.4-12.4) 07/12/24 21:22 Immature Gran % (Auto) 0.5 % 07/12/24 21:22 Neut % (Auto) 66.8 % 07/12/24 21:22 Lymph % (Auto) 21.3 % 07/12/24 21:22 Amelia % (Auto) 9.0 % 07/12/24 21:22 Eos % (Auto) 1.9 % 07/12/24 21:22 Baso % (Auto) 0.5 % 07/12/24 21:22 Neut # (Auto) 3.78 K/uL (1.40-6.50) 07/12/24 21:22 Lymph # (Auto) 1.21 K/uL (1.20-3.40) 07/12/24 21:22 Amelia # (Auto) 0.51 K/uL (0.11-0.59) 07/12/24 21:22 Eos # (Auto) 0.11 K/uL (0.00-0.50) 07/12/24 21:22 Baso # (Auto) 0.03 K/uL (0.00-0.20) 07/12/24 21:22 Immature Gran # (Auto) 0.03 K/uL (0.01-0.20) 07/12/24 21:22 PT 11.4 Seconds (9.0-12.0) 07/12/24 21:22 INR 1.1 (0.9-1.1) 07/12/24 21: APTT 33 Seconds (21-31) H 07/12/24 21:22 PTT Ratio 1.2 07/12/24 21:22 VBG pH 7.29 (7.36-7.41) L 07/12/24 22:27 VBG pCO2 42 mmHg (38-50) 07/12/24 22:27 VBG pO2 26 mmHg 07/12/24 22:27 VBG HCO3 20 mmol/L 07/12/24 22:27 VBG O2 Saturation < 60.0 % 07/12/24 22:27 VBG Base Excess -6.1 mEq/L 07/12/24 22:27 POC Sodium 138 mmol/L (135-144) 07/12/24 21:57 Sodium 138 mmol/L (136-145) 07/12/24 21:22 POC Potassium 3.9 mmol/L (3.3-5.0) 07/12/24 21:57 Potassium 3.9 mmol/L (3.5-5.1) 07/12/24 21:22 POC Chloride 108 mmol/L (101-112) 07/12/24 21:57 Chloride 110 mmol/L (98-107) H 07/12/24 21:22 Carbon Dioxide 23 mmol/L (21-32) 07/12/24 21:22 POC Total CO2 19 mmol/L (24-31) L 07/12/24 21:57 Anion Gap 5 (3-11) 07/12/24 21:22 POC Anion Gap 15.0 mmol/L (16-25) L 07/12/24 21:57 POC BUN 22 mg/dl (7-18) H 07/12/24 21:57 BUN 26 mg/dl (6-23) H 07/12/24 21:22 Creatinine 1.54 mg/dl (0.6-1.2) H 07/12/24 21:22 POC Creatinine 1.8 mg/dl (0.6-1.3) H 07/12/24 21:57 Est Cr Clr Drug Dosing 32.1 ml/min 07/12/24 21:22 eGFR 35.65 07/12/24 21:22 BUN/Creatinine Ratio 16.9 (10-20) 07/12/24 21:22 Glucose 82 mg/dl (70-99(Fasting)) 07/12/24 21:22 POC Glucose (other) 79 mg/dl (70-99) 07/12/24 21:57 Lactate 1.2 mmol/L (0.4-2.0) 07/12/24 22:27 Calcium 7.4 mg/dl (8.6-10.3) L 07/12/24 21:22 POC Ioniz Calcium Jeremiah 1.09 mmol/l (1.12-1.32) L 07/12/24 21:57 Magnesium 1.8 mg/dl (1.7-2.4) 07/12/24 21:22 Total Bilirubin 0.7 mg/dl (0.2-1.0) 07/12/24 21:22 Direct Bilirubin 0.2 mg/dl (0-0.2) 07/12/24 21:22 AST 21 U/L (13-39) 07/12/24 21:22 ALT 4 U/L (7-52) L 07/12/24 21:22 Alkaline Phosphatase 120 U/L (34-104) H 07/12/24 21:22 Troponin I High Sens 31.3 pg/ml (0-14) H 07/12/24 23:07 Total Protein 4.8 gm/dl (6.0-8.3) L 07/12/24 21:22 Albumin 2.4 gm/dl (3.4-5.0) L 07/12/24 21:22 Procalcitonin 0.32 ng/ml (0-0.5) 07/12/24 21:22 Urine Color See Comment 07/12/24 23:23 Urine Appearance Slightly Cloudy (Clear) 07/12/24 23:23 Urine pH Not Reportable 07/12/24 23:23 Ur Specific [place] 1.020 (1.000-1.030) 07/12/24 23:23 Urine Protein Not Reportable 07/12/24 23:23 Urine Glucose (UA) Not Reportable 07/12/24 23:23 Urine Ketones Not Reportable 07/12/24 23:23 Urine Blood Not Reportable 07/12/24 23:23 Urine Nitrite Not Reportable 07/12/24 23:23 Urine Bilirubin Not Reportable 07/12/24 23:23 Urine Urobilinogen Not Reportable 07/12/24 23:23 Ur Leukocyte Esterase Not Reportable 07/12/24 23:23 Urine RBC 11-20 /hpf (0-2) H 07/12/24 23:23 Urine WBC >50 /hpf (0-5) H 07/12/24 23:23 Ur Epithelial Cells >20 /hpf (0-2) H 07/12/24 23:23 Urine Bacteria 3+ (None Seen) H 07/12/24 23:23 Adenovirus (PCR) Not Detected (NotDetected) 07/12/24 21:53 B. pertussis DNA (PCR) Not Detected (NotDetected) 07/12/24 21:53 B.parapertussis DNA PCR Not Detected (NotDetected) 07/12/24 21:53 C. pneumoniae DNA (PCR) Not Detected (NotDetected) 07/12/24 21:53 Coronavirus OC43 (PCR) Not Detected (NotDetected) 07/12/24 21:53 Coronavirus HKU1 (PCR) Not Detected (NotDetected) 07/12/24 21:53 Coronavirus 229E (PCR) Not Detected (NotDetected) 07/12/24 21:53 SARS-CoV-2 (PCR) Not Detected (NotDetected) 07/12/24 21:53 Coronavirus NL63 (PCR) Not Detected (NotDetected) 07/12/24 21:53 Human Metapneumovir PCR Not Detected (NotDetected) 07/12/24 21:53 Influenza Type A (PCR) Not Detected (NotDetected) 07/12/24 21:53 Influenza Type B (PCR) Not Detected (NotDetected) 07/12/24 21:53 M. pneumoniae (PCR) Not Detected (NotDetected) 07/12/24 21:53 Parainfluenza 1 (PCR) Not Detected (NotDetected) 07/12/24 21:53 Parainfluenza 2 (PCR) Not Detected (NotDetected) 07/12/24 21:53 Parainfluenza 3 (PCR) Not Detected (NotDetected) 07/12/24 21:53 Parainfluenza 4 (PCR) Not Detected (NotDetected) 07/12/24 21:53 RSV (PCR) Not Detected (NotDetected) 07/12/24 21:53 Entero/Rhino (PCR) Not Detected (NotDetected) 07/12/24 21:53 Blood Type O Positive 07/12/24 22:27 Antibody Screen NEGATIVE 07/12/24 22:27 Impressions Chest X-Ray 07/12/24 21:34 Exam(s): XR CXR 1 VIEW EXAM: XR Chest, 1 View CLINICAL HISTORY: Reason for exam: Sepsis. TECHNIQUE: Frontal view of the chest. COMPARISON: 07/16/22 FINDINGS: Lungs: Unremarkable. No consolidation. Pleural space: Unremarkable. No pleural effusion or pneumothorax. Heart: Unremarkable. No cardiomegaly or pulmonary vascular congestion. Bones/joints: Reverse right shoulder arthroplasty. Fusion hardware in the cervical spine. No acute osseous findings. IMPRESSION: No acute findings in the chest. Electronically signed by: Agata Perez M.D. 07/12/24 22:[address] 07/12/24 21:53 Exam(s): CT C SPINE EXAM: CT Cervical Spine Without Intravenous Contrast CLINICAL HISTORY: Reason for exam: fall. TECHNIQUE: Axial computed tomography images of the cervical spine without intravenous contrast. CTDI is 35.92 mGy and DLP is 2877.89 mGy-cm. Automated exposure control was utilized for the study. A dose lowering technique was utilized adhering to the principles of ALARA. COMPARISON: No relevant prior studies available. FINDINGS: Exam is somewhat limited due to artifact Vertebrae: No acute fracture. There are hypertrophic degenerative changes. There are postoperative changes noted extending from C4-C7. There is an anterior fixator plate with intervertebral screws. There is a grade 2 spondylolisthesis of C7 on T1. Discs/spinal canal/neural foramina: No significant disc protrusion is noted.. No spinal canal stenosis. Soft tissues: Unremarkable. IMPRESSION: Hypertrophic degenerative changes. Postoperative changes. There is a grade 2 spondylolisthesis of C7 on T1. If further evaluation is clinically necessary, consider correlation with MRI Electronically signed by: Vinay Lomas MD 07/12/24 23:[address] 07/12/24 21:53 Exam(s): CT HEAD Without Contrast EXAM: CT Head Without Intravenous Contrast CLINICAL HISTORY: Reason for exam: fall. TECHNIQUE: Axial computed tomography images of the head/brain without intravenous contrast. CTDI is 35.92 mGy and DLP is 702.46 mGy-cm. Automated exposure control was utilized for the study. A dose lowering technique was utilized adhering to the principles of ALARA. COMPARISON: 04/08/2020. FINDINGS: Brain: No acute intracranial hemorrhage. There is decreased attenuation within the white matter. 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 Ventricles: There is prominence of ventricular system with deepening the sulci consistent with cortical and central atrophy.. Bones/joints: Unremarkable. No acute fracture. Soft tissues: Unremarkable. Sinuses: Unremarkable as visualized. No acute sinusitis. Mastoid air cells: Unremarkable as visualized. No mastoid effusion. IMPRESSION: Atrophy. Nonspecific white matter disease. 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 Findings appears similar to previous exam Electronically signed by: Vinay Lomas MD 07/12/24 23:43 PM Abdomen/Pelvis CT 07/12/24 22:00 Exam(s): CT ABDOMEN + PELVIS Without Contrast EXAM: CT Abdomen and Pelvis Without Intravenous Contrast CLINICAL HISTORY: Reason for exam: pain. TECHNIQUE: Axial computed tomography images of the abdomen and pelvis without intravenous contrast. CTDI is 23.49 mGy and DLP is 455.38 mGy-cm. Automated exposure control was utilized for the study. A dose lowering technique was utilized adhering to the principles of ALARA. COMPARISON: 03/07/2024 FINDINGS: Exam is limited due to lack of contrast. The exam is further limited due to artifact. ABDOMEN: Liver: The liver is enlarged. Gallbladder and bile ducts: The gallbladder is distended containing calculi.. No ductal dilation. Pancreas: The visualized portions of the pancreas, on this noncontrast study, are grossly unremarkable. Spleen: No splenomegaly. Adrenals: No mass. Kidneys and ureters: There are bilateral renal calcifications.. No hydronephrosis. Stomach and bowel: The stomach is decompressed. There is air and stool noted in the colon. There is a colostomy noted in the left lower quadrant. A Roosevelt's pouch is noted. PELVIS: Appendix: The appendix is not visualized.. Bladder: A Douglas catheter is noted within the urinary bladder.. Reproductive: Unremarkable as visualized. ABDOMEN and PELVIS: Intraperitoneal space: No free air. No significant fluid collection. Bones/joints: There is a scoliosis of the spine with degenerative changes.. Soft tissues: Unremarkable. Vasculature: There are extensive atherosclerotic changes. No abdominal aortic aneurysm. Lymph nodes: No enlarged lymph nodes. IMPRESSION: Limited exam. The gallbladder is distended containing calculi.. There are bilateral renal calcifications without evidence of hydronephrosis. Status post colostomy. See discussion above Electronically signed by: Vinay Lomas MD 07/13/24 00:[address] 07/12/24 22:00 Exam(s): CT CHEST Without Contrast EXAM: CT Chest Without Intravenous Contrast CLINICAL HISTORY: Reason for exam: pain. TECHNIQUE: Axial computed tomography images of the chest without intravenous contrast. CTDI is 23.49 mGy and DLP is 2877.89 mGy-cm. Automated exposure control was utilized for the study. A dose lowering technique was utilized adhering to the principles of ALARA. COMPARISON: No relevant prior studies available. FINDINGS: Lungs: There are small patchy areas of infiltrate and/or scarring. There is atelectasis and/or scarring at the left lung base. There is a 4 mm nodule noted in the right upper lobe (series 15, image 28).. Pleural space: No pneumothorax. There is a trace left pleural effusion. . Heart: The heart is not enlarged but contains coronary artery calcifications.. Bones/joints: There are degenerative changes in the spine. Patient is status post right total shoulder replacement.. Soft tissues: Unremarkable. Vasculature: There are atherosclerotic changes. No thoracic aortic aneurysm. Lymph nodes: No enlarged mediastinal lymph nodes. IMPRESSION: There are small patchy areas of infiltrate and/or scarring. There is atelectasis and/or scarring at the left lung base. There is a 4 mm nodule noted in the right upper lobe . This is of uncertain etiology. Recommend follow-up as prescribed by the [employer]. Electronically signed by: Vinay Lomas MD 07/12/24 23:54 PM Diagnostic Findings EKG as per my interpretation :Rate 60, NSR, normal axis, inferior infarct, no ischemia
[2024-07-13] MEDS: MIDODRINE HCL 2.5 MG TAB PO STA ×2 (00:40→04:41)
[2024-07-13 01:04] LABS: Thyroid Stimulating Hormone 3.68 uIu/ml (0.300-4.500)
[2024-07-13] MEDS ORDERED: PROMETHAZINE 6.25 MG/50.25 ML BAG IV PRN (01:19)
[2024-07-13] MEDS ORDERED: traMADol HCL 50 MG TABLET PO PRN (01:19)
[2024-07-13] MEDS: PLASMA-LYTE A 1,000 ML IV ONE (01:50)
[2024-07-13] MEDS: SODIUM CHLORIDE 0.9% 1,000 ML IV ONE (01:58)
[2024-07-13] MEDS ORDERED: bisacodyL 10 MG SUPP PR PRN (02:33)
[2024-07-13] MEDS ORDERED: SOD PHOSPHATE/SOD BIPHOSPHATE ENEMA 132 ML BTL PR PRN (02:34)
[2024-07-13] MEDS ORDERED: TROLAMINE SALICYLATE 10% CRM 255 APPLN/85 GM TUBE EXT PRN (02:45)
[2024-07-13] MEDS ORDERED: GLUCAGON FOR INJ 1 MG VIAL SQ PRN (03:26)
[2024-07-13] MEDS ORDERED: GLUCOSE 10 TAB/TUBE PO PRN (03:26)
[2024-07-13] MEDS ORDERED: DEXTROSE 50% 50 ML SYRINGE IV PRN (03:26)
[2024-07-13] MEDS ORDERED: CARBOHYDRATES FOR HYPOGLYCEMIA PO PRN (03:26)
[2024-07-13] MEDS ORDERED: GLUCOSE 40% GEL 15 GM TUBE PO PRN (03:26)
[2024-07-13] MEDS: INSULIN ASPART PER UNIT CHARGE SC SCH (03:42)
[2024-07-13 03:59] LABS: Base Excess VBG -5.5 mEq/L; HCO3 VBG 21 mmol/L; Oxygen Saturation VBG < 60.0 %; PCO2 VBG 42 mmHg (38-50); PO2 VBG 27 mmHg
[2024-07-13 04:21] LABS: Basophils # (auto) 0.02 K/uL (0.00-0.20); Basophils % (auto) 0.3 %; Eosinophils # (auto) 0.08 K/uL (0.00-0.50); Eosinophils % (auto) 1.3 %; Hematocrit (blood only) 24.5 % (37.0-47.0); Immature Granulocytes # (auto) 0.02 K/uL (0.01-0.20); Immature Granulocytes % (auto) 0.3 %; Lymphocytes # (auto) 1.18 K/uL (1.20-3.40); Lymphocytes % (auto) 19.3 %; Mean Corpuscular Hemoglobin 29.7 pg (25.0-34.0); Mean Corpuscular Hgb Conc 32.7 g/dL (32.0-36.0); Mean Corpuscular Volume 91.1 fL (80.0-100.0); Mean Platelet Volume 9.8 fL (9.4-12.4); Monocytes # (auto) 0.54 K/uL (0.11-0.59); Monocytes % (auto) 8.8 %; Neutrophils # (auto) 4.28 K/uL (1.40-6.50); Platelet Count 248 K/uL (130-400); RDW Coefficient of Variation 14.6 % (11.5-14.5); RDW Standard Deviation 48.1 fL (36.4-46.3); Red Blood Count 2.69 M/uL (4.20-5.40); White Blood Count 6.12 K/ul (4.8-10.8)
[2024-07-13 04:52] LABS: Troponin I High Sensitivity 43.9 pg/ml (0-14)
[2024-07-13 05:00] LABS: BUN Creatinine Ratio 16.8 (10-20); Calcium 6.8 mg/dl (8.6-10.3); Creatinine Clr Calc Pharmacy 39.1 ml/min; Potassium 3.9 mmol/L (3.5-5.1)
[2024-07-13] MEDS: POLYETHYLENE (MIRALAX) 17 GM PACK PO SCH (05:50)
[2024-07-13] MEDS: LEVOTHYROXINE SODIUM 200 MCG TABLET PO SCH (05:57)
[2024-07-13] MEDS: PIPERACILLIN/TAZOBACTAM 4.5 GM/100 ML BAG IV SCH (05:57)
[2024-07-13] MEDS ORDERED: CALCIUM GLUCONATE 10% 11,000 MG in SODIUM CHLORIDE 0.9% 890 ML IV SCH (07:15)
[2024-07-13] MEDS ORDERED: MIDODRINE HCL 2.5 MG TAB PO SCH (08:00)
[2024-07-13] MEDS: CALCIUM GLUCONATE 10% 1,000 MG in NS X1 BAG IV ONE (08:34)
--- NOTE | 2024-07-13 08:38 | Magnetic Resonance Report ---
MR brain wo con CLINICAL HISTORY: RUE weakness recent unwitnessed fall. No acute process on a recent head CT COMPARISON STUDY: Head CT dated 07/12/2024 FINDINGS: There is no evidence of an acute stroke on the diffusion sequence. There is an old infarct redemonstrated in the right frontal lobe. There is a tiny lacunar infarct in the right thalamus that appears old. There is also some central high signal intensity on the FLAIR images in the central xin as well as the periventricular and subcortical white matter. There is mild global atrophy. There are normal flow voids at the skull base. There is no intra-axial or extra-axial fluid collection, hemorr ryan, or mass. There is scattered fluid throughout the left mastoid air cells. There is a small polyp or retention cyst in the right sphenoid sinus. IMPRESSION: No acute intracranial process. Findings consistent with old right frontal infarction and a tiny right thalamic lacunar infarct. Mild global atrophy and nonspecific white matter changes most commonly associated with small vessel i nsufficiency. Fluid in the left mastoid air cells. ACT 112: Negative or not required by law. Electronically signed by: Tisha Solis M.D. 07/13/2024 8:37 AM
[2024-07-13] MEDS: ENTACAPONE 200 MG TAB PO SCH ×2 (08:43→20:52)
[2024-07-13] MEDS: DOCUSATE SODIUM 100 MG CAP PO SCH (08:43)
[2024-07-13] MEDS: DORZOLAMIDE/TIMOLOL 22.3/6.8MG/ML 10 ML BTL OPL SCH (08:43)
[2024-07-13] MEDS: CARBIDOPA/LEVODOPA 25/100MG TAB PO SCH ×2 (08:43→20:52)
[2024-07-13] MEDS: LATANOPROST 0.005% OP SOLN 2.5 ML BTL OP SCH (08:44)
[2024-07-13] MEDS: LIOTHYRONINE SODIUM 5 MCG TAB PO SCH (08:44)
[2024-07-13] MEDS: CEROVITE ADV FORMULA TAB PO SCH (08:44)
[2024-07-13] MEDS: FOLIC ACID 1 MG TAB PO SCH (08:44)
[2024-07-13] MEDS: FEXOFENADINE HCL 180 MG TAB PO SCH (08:44)
[2024-07-13] MEDS: MAGNESIUM CHLORIDE W/CALCIUM 64MG DELAYED REL TAB PO SCH (08:44)
[2024-07-13] MEDS: PANTOprazole 40 MG TAB PO SCH (08:45)
[2024-07-13] MEDS: VITAMIN B COMPLEX TAB PO SCH (08:45)
[2024-07-13] MEDS: THIAMINE HCL 50 MG TABLET PO SCH (08:45)
[2024-07-13] MEDS ORDERED: [UNRECOGNIZED DRUG - OTHER] TD SCH (09:00)
[2024-07-13] MEDS ORDERED: NON-FORMULARY MEDICATION (Glucosamine-Chondroitin [Osteo Bi-Flex] 250-200 mg tablet) PO SCH (09:00)
[2024-07-13] MEDS ORDERED: GEMTESA 75 MG PO SCH (09:00)
[2024-07-13] MEDS ORDERED: DORZOLAMIDE TIMOLOL OPB SCH (09:00)
[2024-07-13 10:48] LABS: Hematocrit (blood only) 24.5 % (37.0-47.0)
[2024-07-13 11:15] LABS: Troponin I High Sensitivity 49.1 pg/ml (0-14)
[2024-07-13] MEDS: MIDODRINE HCL 2.5 MG TAB PO SCH (13:14)
[2024-07-13 13:55] LABS: iSTAT Arterial Blood Gas HCO3 16 meg/L (19-24); iSTAT Arterial Blood Gas pCO2 32 mmHg (35-46); iSTAT Arterial Blood Gas pH 7.31 (7.35-7.45); iSTAT Arterial Blood Gas pO2 59 mmHg (80-95); iSTAT Carbon Dioxide 17 mmol/L (24-31); iSTAT Hematocrit 25 % (37-47); iSTAT Hemoglobin 8.5 g/dl (12.0-16.0); iSTAT Potassium 4.1 mmol/L (3.3-5.0); iSTAT Sodium 139 mmol/L (135-144)
--- NOTE | 2024-07-13 14:29 | Electrocardiogram Report ---
Test Reason : Blood Pressure : */* mmHG Vent. Rate : 60 BPM Atrial Rate : 60 BPM P-R Int : 170 ms QRS Dur : 84 ms QT Int : 432 ms P-R-T Axes : 78 -2 84 degrees QTcB Int : 432 ms Poor data quality, interpretation may be adversely affected Sinus rhythm with Premature supraventricular complexes Low voltage QRS Possible Inferior infarct (cited on or before 01-Mar-2024) Abnormal ECG When compared with ECG of 01-Mar-2024 06:30, Premature supraventricular complexes are now Present QRS duration has decreased Borderline criteria for Anterior infarct are no longer Present Confirmed by Bhupendra Sharp ([id number]) on 07/13/2024 2:29:16 PM Referred By: [facility] Confirmed By: Bhupendra Sharp
--- NOTE | 2024-07-13 14:47 | Electrocardiogram Report ---
Test Reason : Blood Pressure : */* mmHG Vent. Rate : 63 BPM Atrial Rate : 63 BPM P-R Int : 172 ms QRS Dur : 82 ms QT Int : 438 ms P-R-T Axes : 82 26 82 degrees QTcB Int : 448 ms Poor data quality, interpretation may be adversely affected Sinus rhythm with Premature supraventricular complexes Low voltage QRS Septal infarct , age undetermined Abnormal ECG When compared with ECG of 12-Jul-2024 21:21, (unconfirmed) No significant change was found Confirmed by Bhupendra Sharp ([id number]) on 07/13/2024 2:46:58 PM Referred By: [facility] Confirmed By: Bhupendra Sharp
[2024-07-13] MEDS: D5W AND LACTATED RINGERS 1,000 ML IV SCH (16:21)
[2024-07-13 16:22] LABS: Ferritin 338.3 ng/ml (8-388)
--- NOTE | 2024-07-13 17:10 | Hospitalist Progress Note ---
Date of Service July 13, 2024 Assessment & Plan (1) Hypotension: Plan: -likely in setting of significant dehydration, lactic acid WNL - Echo personally interpreted, appears grossly unchanged from prior -bradycardia is sinus in nature - sepsis is etiology considered but hemodynamics grossly stable without leukocytosis - other consideration is adrenal insufficiency which seems less likely given low morning cortisol ordered by this provider Could be secondary to neurogenic causes in setting of significant stroke burden Plan: -fluid resuscitation ordered -seems to be improving -continue empiric zosyn for now pending culture data -continue midodrine (2) Stroke: Plan: -patient appears to have had 2 strokes, one in frontral region, other lacunar in nature -explains hallucinations and possible altered mental status -appears old on imaging, per happened possibly in may or at least weeks ago Plan: -start aspirin/statin -PT/OT/speech ordered -neurology consult, appreciate recs (3) Anemia: Plan: -unclear etiology -likely 2/2 blood in urine, which has improved (4) High anion gap metabolic acidosis: Plan: -high HAGMA on admission with repeated normal lactates -CK marginally elevated, could be 2/2 starvation ketoacidosis, other etiologies less likely include substance ingestion, alcohol use Plan: -will discuss with nephrology -start D5/LR empirically for starvation ketoacidosis (5) Wrist drop, right wrist: Plan: -likely 2/2 stroke (6) Acute metabolic encephalopathy: Plan: -likely multifactorial including HAGMA, significant stroke burden, hypoactive delirium, given tramadol which has significant serotinergic effects -TSH WNL Plan: -high dose thiamine, folic acid, B12 -delirium precautions -neurology consult, appreciate recs -avoid anticholinergics, opioids (7) GERD (gastroesophageal reflux disease): Plan: -continue protonix (8) CAD (coronary artery disease): Plan: -noted -hold coreg (9) Moderate aortic regurgitation: Plan: -noted Plan Feeding/fluids: pending swallow eval Analgesia: tylenol Sedation: na Thromboprophylaxis: SCD Head up position: na Ulcer prophylaxis: protonix Glycemic control: na Spontaneous breathing trial: room air Bowel care: miralax prn Indwelling catheter removal: placed Deescalation of antibiotics: on zosyn currently, will deescalate pending culture data I spent a total of 55 minutes in direct patient care, including [id number] time with the patient and/or family, reviewing medical records, ordering and reviewing diagnostic tests, and coordinating care with other healthcare providers. This time includes: history taking, physical examination, medical decision making, counseling, ECG interpretation, imaging interpretation, lab interpretation, orders, and education, excluding time spent in the performance of separately billed services. Admission and Anticipated Discharge Date Admission Date: July 13, 2024 Subjective 73-year-old female with past medical history of CVA, CKD 3, history of sepsis, hypertension, GERD, diabetes, dementia who presents for altered mental status and some hallucinations. In the ED noted to have significant alteration in consciousness, hypotension 2/2 significant dehydration, admitted to medicine for further workup. Patient seen and examined at bedside. Patient unable to endorse or review of systems at this time. Discussed case with over the phone today, who was appreciative of the update Review of Systems Review of Systems: Unable to attest due to mental status. Physical Exam Physical Exam: Gen: A&O 1 NAD HEENT: NCAT, EOMI, not icteric. External ears normal. No rhinorrhea. Dry mucous membranes Neck: Supple, full range of motion, no observable masses, No meningeal sign. Lungs: No Respiratory distress. CV: bradycardic, regular rhythm Abdomen: Soft, nondistended, No rebound tenderness. MSK: No joint swelling, no redness. Skin: No rashes, petechiae, lesions. Normal color per patient. Neuro: Normal Gait, Grossly intact. Results & Data Results & Data Vital Signs (Past 12 Hours) Vital Signs Temp Pulse Pulse Resp BP Pulse Ox O2 Del Method 07/13/24 15:48 36.5 C 54 L 18 133/53 L 100 Room Air 07/13/24 11:43 36.5 C 69 18 103/62 99 Room Air 07/13/24 10:11 Room Air 07/13/24 10:04 70 07/13/24 07:25 36.4 C L 60 18 100/62 100 Room Air Laboratory Results - personally reviewed, hemoglobin of 8 which is similar to the ED, creatinine at baseline, low calcium that was replenished, positive MRSA swab, normal lactic acid, INR nongap metabolic acidosis that improved with fluids, noted low bicarb without clear source Diagnostic Findings - personally interpreted, MRI head showing large right frontal infarct that appears to be old along with lacunar infarct which also appears to be old. Medications Administered Carbidopa/Levodopa (Carbidopa/Levodopa 25/100mg Tab) 2 tab PO TID [facility] Stop: 08/12/24 08:59 Last Admin: 07/13/24 13:14 Dose: Not Given Documented By: Admin: 07/13/24 10:22 Dose: Not Given Documented By: PATTY Docusate Sodium (Docusate Sodium 100 Mg Cap) 100 mg PO BID [facility] Stop: 08/12/24 08:59 Last Admin: 07/13/24 10:23 Dose: Not Given Documented By: PATTY Dorzolamide/Timolol (Dorzolamide/Timolol 22.3/6.8mg/Ml 10 Ml Btl) 1 drops OPL BID [facility] Stop: 08/12/24 08:59 Last Admin: 07/13/24 08:43 Dose: 1 drops Documented By: PATTY Entacapone (Entacapone 200 Mg Tab) 200 mg PO TID [facility] Stop: 08/12/24 08:59 Last Admin: 07/13/24 13:14 Dose: Not Given Documented By: Admin: 07/13/24 10:23 Dose: Not Given Documented By: PATTY Fexofenadine HCl (Fexofenadine Hcl 180 Mg Tab) [facility] Stop: 08/12/24 08:59 Last Admin: 07/13/24 10:26 Dose: Not Given Documented By: PATTY Folic Acid (Folic Acid 1 Mg Tab) 1 mg PO QAM [facility] Stop: 08/12/24 08:59 Last Admin: 07/13/24 10:27 Dose: Not Given Documented By: PATTY Piperacillin Sod/Tazobactam Sod (Zosyn) 4.5 gm in 100 mls @ 25 mls/hr IV Q8H [facility]; Protocol Stop: 07/23/24 05:59 Last Admin: 07/13/24 16:20 Dose: 25 mls/hr Documented By: Infusion: 07/13/24 11:33 Dose: Infused Documented By: Admin: 07/13/24 05:57 Dose: 25 mls/hr Documented By: JASON Dextrose/Lactated Ringer's (D5w And Lactated Ringers) 1,000 mls @ 125 mls/hr IV .Q8H [facility] Stop: 07/14/24 14:29 Last Admin: 07/13/24 16:21 Dose: 125 mls/hr Documented By: PATTY Insulin Aspart (Insulin Aspart Per Unit Charge) 0 units SC ACHS [facility] Stop: 08/12/24 03:25 Last Admin: 07/13/24 16:54 Dose: Not Given Documented By: Admin: 07/13/24 12:26 Dose: Not Given Documented By: Admin: 07/13/24 08:18 Dose: Not Given Documented By: Admin: 07/13/24 03:42 Dose: Not Given Documented By: JASNO Latanoprost (Latanoprost 0.005% Op Soln 2.5 Ml Btl) 1 drops OP DAILY [facility] Stop: 08/12/24 08:59 Last Admin: 07/13/24 08:44 Dose: 1 drops Documented By: PATTY Levothyroxine Sodium (Levothyroxine Sodium 200 Mcg Tablet) 200 mcg PO DAILYBB [facility] Stop: 08/12/24 06:29 Last Admin: 07/13/24 05:57 Dose: 200 mcg Documented By: JASON Liothyronine Sodium (Liothyronine Sodium 5 Mcg Tab) 5 mcg PO DAILY [facility] Stop: 08/12/24 08:59 Last Admin: 07/13/24 10:27 Dose: Not Given Documented By: PATTY Magnesium Chloride (Magnesium Chloride W/Calcium 64mg Delayed Rel Tab) 64 mg PO BID [facility] Stop: 08/12/24 08:59 Last Admin: 07/13/24 10:24 Dose: Not Given Documented By: PATTY Midodrine (Midodrine Hcl 2.5 Mg Tab) 2.5 mg PO TID@0800,1200,1700 [facility] Stop: 08/12/24 13:59 Last Admin: 07/13/24 13:14 Dose: Not Given Documented By: PATTY Multivitamins/Minerals (Cerovite Adv Formula Tab) 1 tab PO QAM [facility] Stop: 08/12/24 08:59 Last Admin: 07/13/24 10:27 Dose: Not Given Documented By: PATTY Pantoprazole Sodium (Pantoprazole 40 Mg Tab) 40 mg PO DAILY [facility] Stop: 08/12/24 08:59 Last Admin: 07/13/24 10:27 Dose: Not Given Documented By: PATTY Polyethylene Glycol (Polyethylene (Miralax) 17 Gm Pack) 17 gm PO Q6H [facility] Stop: 08/12/24 05:59 Last Admin: 07/13/24 12:43 Dose: Not Given Documented By: Admin: 07/13/24 05:50 Dose: Not Given Documented By: [facility] Thiamine HCl (Thiamine Hcl 50 Mg Tablet) 50 mg PO QAM [facility] Stop: 08/12/24 08:59 Last Admin: 07/13/24 10:27 Dose: Not Given Documented By: PATTY Vitamin B Complex (Vitamin B Complex Tab) 1 tab PO DAILY [facility] Stop: 08/12/24 08:59 Last Admin: 07/13/24 10:27 Dose: Not Given Documented By: PATTY (1) Hypotension Hypotension type: unspecified hypotension type Qualified Code(s): I95.9 - Hypotension, unspecified (2) Stroke CVA mechanism: unspecified Qualified Code(s): I63.9 - Cerebral infarction, unspecified (3) Anemia Anemia type: unspecified type Qualified Code(s): D64.9 - Anemia, unspecified (7) GERD (gastroesophageal reflux disease) Esophagitis presence: without esophagitis Qualified Code(s): K21.9 - Gastro- esophageal reflux disease without esophagitis (8) CAD (coronary artery disease) Coronary Disease-Associated Artery/Lesion type: [place] artery [place] vs. transplanted heart: [place] heart Associated angina: without angina Qualified Code(s): I25.10 - Atherosclerotic heart disease of [place] coronary artery without angina pectoris
[2024-07-13] MEDS: ATORVASTATIN 40 MG TAB PO SCH (18:48)
[2024-07-13] MEDS: ACETAMINOPHEN 325 MG TAB PO PRN (20:51)
[2024-07-13] MEDS: VIBEGRON 75 MG TAB PO SCH (20:53)
[2024-07-14 07:37] VITALS: RESP 18
[2024-07-14] MEDS: ASPIRIN 81 MG ECTAB PO SCH (08:44)
[2024-07-14 10:39] LABS: Hematocrit (blood only) 26.5 % (37.0-47.0); Hemoglobin 8.6 g/dl (12.0-16.0); Mean Corpuscular Hemoglobin 29.4 pg (25.0-34.0); Mean Corpuscular Hgb Conc 32.5 g/dL (32.0-36.0); Mean Corpuscular Volume 90.4 fL (80.0-100.0); Mean Platelet Volume 9.4 fL (9.4-12.4); Platelet Count 312 K/uL (130-400); RDW Coefficient of Variation 14.6 % (11.5-14.5); RDW Standard Deviation 48.3 fL (36.4-46.3); Red Blood Count 2.93 M/uL (4.20-5.40); White Blood Count 8.81 K/ul (4.8-10.8)
[2024-07-14 10:57] LABS: Albumin Globulin Ratio 0.9 (0.9-2); Albumin Level 2.3 gm/dl (3.4-5.0); BUN Creatinine Ratio 15.8 (10-20); Bilirubin,Total 0.6 mg/dl (0.2-1.0); Calcium 7.3 mg/dl (8.6-10.3); Creatinine Clr Calc Pharmacy 38.7 ml/min; Globulin 2.6 gm/dl (2.5-4.0); Magnesium 1.6 mg/dl (1.7-2.4); Phosphorus 3.5 mg/dl (2.5-4.9); Potassium 3.8 mmol/L (3.5-5.1); Total Protein 4.9 gm/dl (6.0-8.3)
[2024-07-14 15:24] VITALS: BP 110/58; PULSE 73; TEMP 97.7; O2SAT 96
--- NOTE | 2024-07-14 16:58 | Hospitalist Progress Note ---
Date of Service July 14, 2024 Assessment & Plan (1) Hypotension: Plan: -likely in setting of significant dehydration, lactic acid WNL - Echo personally interpreted, appears grossly unchanged from prior -bradycardia is sinus in nature -sepsis is etiology considered but hemodynamics grossly stable without leukocytosis -other consideration is adrenal insufficiency which seems less likely given low morning cortisol ordered by this provider -given reversal of the above and lack of improvement clinically and mentally, next steps would be to consider lumbar puncture and further imaging which are not in line with patient wishes, see conversation above -suspect overall decline over past few weeks has been secondary to worsening of stroke like symptoms, Parkinsons disease and medications, and poor PO intake Plan: -continue fluid resuscitation per discussion with with hopes of improvement in mental status -supportive care medications prn ordered -continue empiric zosyn for now pending culture data -continue midodrine (2) Stroke: Plan: -patient appears to have had 2 strokes, one in frontral region, other lacunar in nature -explains hallucinations and possible altered mental status -appears old on imaging, per happened possibly in may or at least weeks ago -next steps would include lumbar puncture and further imaging which are not in patients goals of care per above discussion -comfort focused care (3) Anemia: Plan: -unclear etiology -likely 2/2 blood in urine, which has improved (4) High anion gap metabolic acidosis: Plan: -high HAGMA on admission with repeated normal lactates -resolved (5) Wrist drop, right wrist: Plan: -likely 2/2 stroke (6) Acute metabolic encephalopathy: Plan: -likely multifactorial including HAGMA, significant stroke burden, hypoactive delirium, given tramadol which has significant serotinergic effects -TSH WNL -see above, likely due to overall decline, dementia, strokes, delirium and Parkinsons disease -comfort focused care (7) GERD (gastroesophageal reflux disease): Plan: -continue protonix (8) CAD (coronary artery disease): Plan: -noted -hold coreg (9) Moderate aortic regurgitation: Plan: -noted Plan I spent a total of 50 minutes in direct patient care, including [id number] time with the patient and/or family, reviewing medical records, ordering and reviewing diagnostic tests, and coordinating care with other healthcare providers. This time includes: history taking, physical examination, medical decision making, counseling, ECG interpretation, imaging interpretation, lab interpretation, orders, and education, excluding time spent in the performance of separately billed services. I spent a total of 45 minutes providing advanced care planning to the patient and/or family, including [id number] time discussing the patient's health status, prognosis, and treatment options. This time includes specific activities such as: discussing advance directives, goals of care, prognostication, and end-of-life planning. Admission and Anticipated Discharge Date Admission Date: July 13, 2024 Subjective Patient seen and examined at bedside. Patient is minimally responsive this morning. Refusing meds and blood draws. Discussed goals of care with , see goals of care discussion below for details. Advanced Care Plannin minutes spent with discussing goals, values, and plan of care. Meeting started by introducing myself and my role in the care team. He introduced himself as well. When asked about his understanding of what the doctors have told him about what is going on with the patient, the states that she had to strokes and is minimally responsive. I explained the patient's critical condition, including minimal responsiveness, serious dehydration upon admission requiring significant fluid resuscitation, and concern for significant decline. Per , the patient has been declining for several months. He states that her baseline she is minimally able to move and requires help with most ADLs, which is why she is residing in a alf. He has noticed a significant decline in functional status over the past month and a half. He states he has made her wishes very clear to him, saying that she would never want resuscitation or aggressive [place] measures taken. This was reaffirmed in the emergency room. He states that she really enjoys spending time with her grandchildren and family, and enjoyed being independent. He states she would not want to live like this. To care options were presented to the . 1 option is to continue current level of care, understanding that the best case scenario is she will return to her alf and unlikely to ever reach her prior level of functioning before this incident. The other option is to consider comfort focused care, focus on treating symptoms and improving quality of life and minimizing return trips to the hospital. He states he would want her to be comfortable and she would want to be comfortable, and would not want heroic measures. He states that he would like to talk to hospice agencies to determine the next steps. His hopes are that she is at least able to communicate again on some level But understands that she is declining. He would like to focus on comfort at this time, with no escalation of care, and talk to a hospice agencies and case management about [place] steps. Review of Systems Review of Systems: Unable to discuss due to patient status. Physical Exam Physical Exam: Gen: A&O 0 NAD HEENT: NCAT, EOMI, not icteric. External ears normal. No rhinorrhea. Dry mucous membranes Neck: Supple, full range of motion, no observable masses, No meningeal sign. Lungs: No Respiratory distress. CV: bradycardic, regular rhythm Abdomen: Soft, nondistended, No rebound tenderness. MSK: No joint swelling, no redness. Skin: No rashes, petechiae, lesions. Wounds noted. Neuro: Normal Gait, Grossly intact. Results & Data Results & Data Vital Signs (Past 12 Hours) Vital Signs Temp Pulse Pulse Resp BP Pulse Ox O2 Del Method 07/14/24 15:00 36.5 C 73 18 110/58 L 96 Room Air 07/14/24 11:35 Room Air 07/14/24 10:57 36.4 C L 58 L 18 109/50 L 98 Room Air 07/14/24 10:00 60 07/14/24 07:36 36.6 C 65 18 123/71 96 Room Air Laboratory Results - Personally reviewed, hemodynamically stable with improvement in anion gap without improvement in clinical condition Medications Administered Acetaminophen (Acetaminophen 325 Mg Tab) 650 mg PO QID PRN PRN Reason: pain/fever Stop: 08/12/24 01:18 Last Admin: 07/13/24 20:51 Dose: 650 mg Documented By: JASON Carbidopa/Levodopa (Carbidopa/Levodopa 25/100mg Tab) 1 tab PO TID [facility] Stop: 08/12/24 20:59 Last Admin: 07/14/24 08:53 Dose: Not Given Documented By: Admin: 07/13/24 20:52 Dose: 1 tab Documented By: JASON Dorzolamide/Timolol (Dorzolamide/Timolol 22.3/6.8mg/Ml 10 Ml Btl) 1 drops OPL BID [facility] Stop: 08/12/24 08:59 Last Admin: 07/14/24 08:44 Dose: 1 drops Documented By: Admin: 07/13/24 20:54 Dose: 1 drops Documented By: Admin: 07/13/24 08:43 Dose: 1 drops Documented By: PATTY Entacapone (Entacapone 200 Mg Tab) 150 mg PO TID [facility] Stop: 08/12/24 20:59 Last Admin: 07/14/24 08:53 Dose: Not Given Documented By: Admin: 07/13/24 20:52 Dose: 150 mg Documented By: JASON Latanoprost (Latanoprost 0.005% Op Soln 2.5 Ml Btl) 1 drops OP DAILY [facility] Stop: 08/12/24 08:59 Last Admin: 07/14/24 08:44 Dose: 1 drops Documented By: Admin: 07/13/24 08:44 Dose: 1 drops Documented By: PATTY Levothyroxine Sodium (Levothyroxine Sodium 200 Mcg Tablet) 200 mcg PO DAILYBB [facility] Stop: 08/12/24 06:29 Last Admin: 07/14/24 05:34 Dose: 200 mcg Documented By: Admin: 07/13/24 05:57 Dose: 200 mcg Documented By: JASON Liothyronine Sodium (Liothyronine Sodium 5 Mcg Tab) 5 mcg PO DAILY [facility] Stop: 08/12/24 08:59 Last Admin: 07/14/24 08:54 Dose: Not Given Documented By: Admin: 07/13/24 10:27 Dose: Not Given Documented By: PATTY Midodrine (Midodrine Hcl 2.5 Mg Tab) 2.5 mg PO TID@0800,1200,1700 [facility] Stop: 08/12/24 13:59 Last Admin: 07/14/24 13:12 Dose: Not Given Documented By: Admin: 07/14/24 08:53 Dose: Not Given Documented By: Admin: 07/13/24 18:48 Dose: Not Given Documented By: Admin: 07/13/24 13:14 Dose: Not Given Documented By: PATTY Multivitamins/Minerals (Cerovite Adv Formula Tab) 1 tab PO QAM [facility] Stop: 08/12/24 08:59 Last Admin: 07/14/24 08:54 Dose: Not Given Documented By: Admin: 07/13/24 10:27 Dose: Not Given Documented By: PATTY Pantoprazole Sodium (Pantoprazole 40 Mg Tab) 40 mg PO DAILY [facility] Stop: 08/12/24 08:59 Last Admin: 07/14/24 08:54 Dose: Not Given Documented By: Admin: 07/13/24 10:27 Dose: Not Given Documented By: PATTY Polyethylene Glycol (Polyethylene (Miralax) 17 Gm Pack) 17 gm PO Q6H [facility] Stop: 08/12/24 05:59 Last Admin: 07/14/24 13:12 Dose: Not Given Documented By: Admin: 07/14/24 05:32 Dose: 17 gm Documented By: Admin: 07/14/24 01:28 Dose: 17 gm Documented By: [facility] Admin: 07/13/24 18:49 Dose: Not Given Documented By: Admin: 07/13/24 12:43 Dose: Not Given Documented By: Admin: 07/13/24 05:50 Dose: Not Given Documented By: [facility] Vibegron (Vibegron 75 Mg Tab) 75 mg PO QPM [facility] Stop: 08/12/24 20:59 Last Admin: 07/13/24 20:53 Dose: 75 mg Documented By: LYNN (1) Hypotension Hypotension type: unspecified hypotension type Qualified Code(s): I95.9 - Hypotension, unspecified (2) Stroke CVA mechanism: unspecified Qualified Code(s): I63.9 - Cerebral infarction, unspecified (3) Anemia Anemia type: unspecified type Qualified Code(s): D64.9 - Anemia, unspecified (7) GERD (gastroesophageal reflux disease) Esophagitis presence: without esophagitis Qualified Code(s): K21.9 - Gastro- esophageal reflux disease without esophagitis (8) CAD (coronary artery disease) Coronary Disease-Associated Artery/Lesion type: [place] artery [place] vs. transplanted heart: [place] heart Associated angina: without angina Qualified Code(s): I25.10 - Atherosclerotic heart disease of [place] coronary artery without angina pectoris
[2024-07-14] MEDS ORDERED: LORazepam 2 MG/1 ML VIAL IV PRN (17:12)
[2024-07-14] MEDS ORDERED: ONDANSETRON INJ 2 MG/ML 2 ML VIAL IV PRN (17:12)
[2024-07-15] MEDS: INFLUENZA VACC TS2024-25(65y+)/PF (IIV3) 0.5mL Syr IM ONE (13:00)
--- NOTE | 2024-07-15 13:14 | Hospitalist Progress Note ---
Date of Service July 15, 2024 Assessment & Plan (1) Hypotension: Plan: -likely in setting of significant dehydration, lactic acid WNL - Echo personally interpreted, appears grossly unchanged from prior -bradycardia is sinus in nature -sepsis is etiology considered but hemodynamics grossly stable without leukocytosis -other consideration is adrenal insufficiency which seems less likely given low morning cortisol ordered by this provider -comfort care at this time -comfort care order set ordered (2) Stroke: Plan: -patient appears to have had 2 strokes, one in frontral region, other lacunar in nature -explains hallucinations and possible altered mental status -appears old on imaging, per happened possibly in may or at least weeks ago -next steps would include lumbar puncture and further imaging which are not in patients goals of care per above discussion -comfort focused care (3) Anemia: Plan: -unclear etiology -likely 2/2 blood in urine, which has improved (4) High anion gap metabolic acidosis: Plan: -high HAGMA on admission with repeated normal lactates -resolved (5) Wrist drop, right wrist: Plan: -likely 2/2 stroke (6) Acute metabolic encephalopathy: Plan: -likely multifactorial including HAGMA, significant stroke burden, hypoactive delirium, given tramadol which has significant serotinergic effects -TSH WNL -see above, likely due to overall decline, dementia, strokes, delirium and Parkinsons disease -comfort focused care (7) GERD (gastroesophageal reflux disease): Plan: -continue protonix (8) CAD (coronary artery disease): Plan: -noted -hold coreg (9) Moderate aortic regurgitation: Plan: -noted Plan I spent a total of 40 minutes in direct patient care, including [id number] time with the patient and/or family, reviewing medical records, ordering and reviewing diagnostic tests, and coordinating care with other healthcare providers. This time includes: history taking, physical examination, medical decision making, counseling, ECG interpretation, imaging interpretation, lab interpretation, orders, and education, excluding time spent in the performance of separately billed services. Admission and Anticipated Discharge Date Admission Date: July 13, 2024 Subjective Patient seen and examine at bedside. Ms. Vasques is minimally resoponsive at this time. Appears comfortable. Discussed with at bedside, who is awaiting hospice placement and appreciative of the care she is receiving. Review of Systems Review of Systems: unable to answer due to patient status. Physical Exam Physical Exam: Gen: A&O 0 NAD HEENT: NCAT, EOMI, not icteric. External ears normal. No rhinorrhea. Dry mucous membranes Neck: Supple, full range of motion, no observable masses, No meningeal sign. Lungs: No Respiratory distress. CV: bradycardic, regular rhythm Abdomen: Soft, nondistended, No rebound tenderness. MSK: No joint swelling, no redness. Skin: No rashes, petechiae, lesions. Wounds noted. Neuro: Normal Gait, Grossly intact. Results & Data Results & Data Laboratory Results -personally reviewed, hemodynamics stable at this time (1) Hypotension Hypotension type: unspecified hypotension type Qualified Code(s): I95.9 - Hypotension, unspecified (2) Stroke CVA mechanism: unspecified Qualified Code(s): I63.9 - Cerebral infarction, unspecified (3) Anemia Anemia type: unspecified type Qualified Code(s): D64.9 - Anemia, unspecified (7) GERD (gastroesophageal reflux disease) Esophagitis presence: without esophagitis Qualified Code(s): K21.9 - Gastro- esophageal reflux disease without esophagitis (8) CAD (coronary artery disease) Coronary Disease-Associated Artery/Lesion type: [place] artery [place] vs. transplanted heart: [place] heart Associated angina: without angina Qualified Code(s): I25.10 - Atherosclerotic heart disease of [place] coronary artery without angina pectoris
[2024-07-16] MEDS: MoRPHine SULFATE 2 MG/ML CARP IV PRN (06:17)
--- NOTE | 2024-07-16 13:53 | Discharge Summary ---
Discharge Summary Date of Service July 16, 2024 Principal Dx & Hospital Course #1 = Principal Diagnosis (1) Hypotension: -likely in setting of significant dehydration, lactic acid WNL - Echo personally interpreted, appears grossly unchanged from prior -bradycardia is sinus in nature -sepsis is etiology considered but hemodynamics grossly stable without leukocytosis -other consideration is adrenal insufficiency which seems less likely given low morning cortisol ordered by this provider -comfort care at this time -comfort care order set ordered (2) Stroke: -patient appears to have had 2 strokes, one in frontral region, other lacunar in nature -explains hallucinations and possible altered mental status -appears old on imaging, per happened possibly in may or at least weeks ago -next steps would include lumbar puncture and further imaging which are not in patients goals of care per above discussion -comfort focused care (3) Anemia: -unclear etiology -likely 2/2 blood in urine, which has improved (4) High anion gap metabolic acidosis: -high HAGMA on admission with repeated normal lactates -resolved (5) Wrist drop, right wrist: -likely 2/2 stroke (6) Acute metabolic encephalopathy: -likely multifactorial including HAGMA, significant stroke burden, hypoactive delirium, given tramadol which has significant serotinergic effects -TSH WNL -see above, likely due to overall decline, dementia, strokes, delirium and Parkinsons disease -comfort focused care (7) GERD (gastroesophageal reflux disease): -continue protonix (8) CAD (coronary artery disease): -noted -hold coreg (9) Moderate aortic regurgitation: -noted Notes For Next Care Provider 3-year-old female with significant Parkinson's disease, colon perforation status post colostomy, history of CVAs, moderate aortic regurgitation who presented for significant confusion and failure to thrive at nursing facility. In the ED noted to have lactic acidosis, high anion gap metabolic acidosis, confusion, hypotension and was admitted for further workup. On medicine, fluid resuscitation was carried out and electrolyte abnormalities corrected MRI head was ordered which revealed significant infarcts in the right frontal lobe and a lacunar infarct. Patient's condition continued to decline. Had goals of care conversation with regarding next steps including potential lumbar puncture and further evaluation by subspecialist, states that patient has been declining for months and that she would not want to suffer. We discussed we discussed comfort care and hospice, feels this would be in line with the patient's goals of care. Patient stable for transfer to nursing facility with hospice. Medication Changes From Visit -focus on comfort medications only Admission HPI Per Admitting Provider History obtained from patient, family, and records. Limited history from patient secondary disorientation. Medical history significant for CAD, PVD status post surgery, CVA, moderate AR, NSVT, hypertension, hyperlipidemia, DM2 on Ozempic, hypothyroidism, Parkinson's disease, CRI (baseline creatinine 1.6 ), chronic anemia (baseline hemoglobin 8- 9), MTHFR deficiency as per records, GERD, complicated diverticulitis/stercoral perforation status post surgery (02/2024), chronic pain, right rotator cuff tear, traumatic right wrist drop, glaucoma, past tobacco abuse. Last confinement February 23 to March 13, 2024 for bowel perforation secondary to complicated diverticulitis status post surgery. Patient discharged to [facility] for rehab. Patient rolled out of bed yesterday landing on the floor. Unwitnessed fall. Not sure if there was head trauma. Patient achy all day and more confused than usual as per . Patient denies headache, chest pain, SOB, cough symptoms. Usual neck pain and right arm weakness. Transient abdominal pain as per . No black or bloody ostomy output. Lowest SBP of 80s documented at the ER. Hematuria noted noted from [place] catheter drainage at the ER. Zosyn administered at the ER. Medical History as above Surgical History : Carpal tunnel surgery, D&C, ovarian cyst drainage, BTL, neck surgery, ankle surgery, appendectomy, ulnar nerve revision, carotid end arterectomy, Roosevelt procedure Family History : Heart disease, breast cancer Personal/Social history : Past tobacco abuse, occasional EtOH intake, retired [employer] Exam Gen: A&O 0 NAD HEENT: NCAT, EOMI, not icteric. External ears normal. No rhinorrhea. Dry mucous membranes, flat nasolabial folds Neck: Supple, full range of motion, no observable masses, No meningeal sign. Lungs: No Respiratory distress. CV: bradycardic, regular rhythm Abdomen: Soft, nondistended, No rebound tenderness. MSK: No joint swelling, no redness. WEak radial pulse Skin: No rashes, petechiae, lesions. Wounds noted. Neuro: Normal Gait, Grossly intact. Updated Medication List Medication Instructions Recorded Confirmed Type latanoprost (PF) 0.005 % eye drops 1 drp OPB DAILY 01/22/20 07/13/24 History dorzolamide-timolol (PF) 2 %-0.5 % 1 drp OPB DAILY #60 ea 03/13/24 07/13/24 Rx eye drops in a dropperette Dulcolax (bisacodyl) 1 unit MA DIRECTED PRN 07/13/24 07/13/24 History Constipation Hospital Stay Data Consultations 07/13/24 00:15 ED Decision to Admit Stat Diagnostic Imagining Performed 07/12/24 21:53 CT cervical spine wo con Stat CT head/brain wo con Stat 07/12/24 22:00 CT abd pelvis wo con Stat CT chest diagnostic wo con Stat 07/13/24 06:22 MRI Brain [MR brain wo con] Routine Pending Results Patient Have Any Pending Studies at Discharge: No Discharge Instructions Given to Patient (Per Discharging Provider) 1. Please treat pain and anxiety as needed per hospice. Total Time Total Time Spent Total Time Spent (In Minutes): I spent a total of 35 minutes in direct patient care, including [id number] time with the patient and/or family, reviewing medical records, ordering and reviewing diagnostic tests, and coordinating care with other healthcare providers. This time includes: history taking, physical examination, medical decision making, counseling, ECG interpretation, imaging interpretation, lab interpretation, orders, and education, excluding time spent in the performance of separately billed services.
[2024-07-17 11:38] LABS: Estimated Average Glucose 105 mg/dl; Hemoglobin A1C 5.3 % (4.5-5.6)
== END 2024-07-16 13:33 | disposition hospice, inpatient (51) | DRG 640 ==
LOC: ED 21:10 → SUATTDRO 07-13 00:38 → 2S 07-13 00:38 → 3E 07-14 20:02